=== PATIENT | male | born 1945 | race Caucasian/White ===

== ENCOUNTER 2016-07-28 15:23 | Observation (INO) | payer OTHER ==
[~2016-07-28] VITALS: Ht 170.2 cm; Wt 69.3 kg
[2016-07-28] VITALS (10 sets, daily range): BP systolic 144–193; BP diastolic 59–78; PULSE 68–87; RESP 16–20; TEMP 97–98.7; O2SAT 97–99
[~2016-07-28 15:23] MED LIST: CIPR500T4 PO; LISI-366 PO; SIMV40TA PO; cholesterol med
--- NOTE | 2016-07-28 16:15 | PD ---
HPI Chief Complaint: Chest Pain Time Seen by Provider: 16:07 Travel History International Travel<30 days: No Contact w/Intl Traveler<30days: No Traveled to known affect area: No History of Present Illness HPI 70yo M with PMH of HTN, HLD, CKD, COPD, CAD s/p cardiac stent x7, bypass, anemia , rectal CA s/p resection and colostomy bag presents to the ED with c/o midsternal chest pain for 1 day. States it is nonradiating, located in xyphoid symphysis region, waxes and wanes in intensity and started while he was sitting down. Pain is about a 5 out of 10 now. Denies any sob, fever, cough, n/v, abdominal pain, blood in stool, or urinary complaints. Pt had taken 2 aspirin 81mg today. Pt last had cardiac stent about 10 years ago and does not have a hospice clinical supervisor he follows with. Pt states it has been a while since he had chest pain. Pt was instructed to come to ED for evaluation of low hemoglobin about 1 month ago but never came. PFSH Past Medical History Arthritis: Yes Asthma: No Autoimmune Disease: No Blood Disorders: Yes (ANEMIC) Heart Rhythm Problems: Yes Cancer: Yes (rectal) Cardiac Catheterization: Yes Cardiovascular Problems: Yes High Cholesterol: Yes Chemotherapy: Yes Chest Pain: Yes Congestive Heart Failure: Yes (1990) COPD: No Cerebrovascular Accident: Yes Coronary Artery Disease: Yes Diabetes: No Diminished Hearing: No Endocrine: No Gastrointestinal Disorders: Yes (hx of stomach vein rupture) GERD: Yes Genitourinary: Yes Headaches: No Hepatitis: No Hiatal Hernia: No Hypertension: Yes Immune Disorder: No Implanted Vascular Access Dvce: No Kidney Stones: No Musculoskeletal: No Neurologic: Yes (stroke) Psychiatric: No Reproductive: No Respiratory: No Immunizations Current: No Migraines: No Myocardial Infarction: Yes Radiation Therapy: Yes Renal Failure: No Seizures: No Sleep Apnea: No Thyroid Disease: No Ulcer: No Influenza Vaccination: Yes Past Surgical History Abdominal Surgery: Yes (rectal cancer) Body Medical Devices: COLOSTOMY Cardiac Surgery: Yes (triple by pass) Coronary Artery Bypass Graft: Yes (TRIPLE) Coronary Stent: Yes (5) Ear Surgery: No Endocrine Surgery: No Eye Surgery: No Genitourinary Surgery: Yes (COLOSTOMY R/T RECTAL CANCER) Gynecologic Surgery: No Neurologic Surgery: No Oral Surgery: No Pacemaker: No Thoracic Surgery: Yes (CABG) Other Surgery: Yes Social History Alcohol Use: Yes (DAILY) Tobacco Use: Yes (1ppd) Substance Use: No Allergies-Medications (Allergen,Severity, Reaction): Coded Allergies: No Known Allergies (Verified , 10/28/15) Reported Meds & Prescriptions Reported Meds & Active Scripts Active Cipro (Ciprofloxacin HCl) 500 Mg Tab 500 Mg PO BID 14 Days Reported [cholesterol med] Simvastatin 40 Mg Tab 40 Mg PO DAILY Lisinopril 40 mg (Lisinopril) 40 Mg Tab 40 Mg PO DAILY Review of Systems Except as stated in HPI: all other systems reviewed are Neg Physical Exam Narrative GENERAL: 70yo M not in distress. SKIN: Warm and dry. HEAD: Atraumatic. Normocephalic. EYES: Pupils equal and round. No scleral icterus. No injection or drainage. ENT: No nasal bleeding or discharge. Mucous membranes pink and moist. NECK: Trachea midline. No JVD. CARDIOVASCULAR: Regular rate and rhythm. No murmur appreciated. RESPIRATORY: No accessory muscle use. Mild crackles in right lower lung. GASTROINTESTINAL: Abdomen soft, non-tender, nondistended. No rebound tenderness or guarding. +Colostomy bag. MUSCULOSKELETAL: No obvious deformities. No clubbing. No cyanosis. No edema. NEUROLOGICAL: Awake and alert. No obvious cranial nerve deficits. Motor grossly within normal limits. Normal speech. PSYCHIATRIC: Appropriate mood and affect; insight and judgment normal. Data Data Last Documented VS Vital Signs Date Time Temp Pulse Resp B/P Pulse Ox O2 Delivery O2 Flow Rate FiO2 07/28/16 16:42 74 18 144/59 97 Room Air 07/28/16 15:25 98.7 Orders Basic Metabolic Panel (Bmp) (07/28/16 16:07) Ckmb (Isoenzyme) Profile (07/28/16 16:07) Complete Blood Count With Diff (07/28/16 16:07) Magnesium (Mg) (07/28/16 16:07) Troponin I (07/28/16 16:07) Lipase (07/28/16 16:07) Chest, Single Ap (07/28/16 16:07) Ecg Monitoring (07/28/16 16:07) Bilateral Bp Monitoring (07/28/16 16:07) Iv Access Insert/Monitor (07/28/16 16:07) Oximetry (07/28/16 16:07) Nitroglycerin Sl (Nitrostat Sl) (07/28/16 16:15) B-Type Natriuretic Peptide (07/28/16 16:07) CKMB (07/28/16 16:00) CKMB% (07/28/16 16:00) Electrocardiogram (07/28/16 15:26) Place In Observation (07/28/16 17:43) Activity Bed Rest With Brp (07/28/16 17:43) Vital Signs (Adult) Q4H (07/28/16 17:43) Cardiac Rhythm .As Directed (07/28/16:43) ^ Notify Dr: Other .PRN (07/28/16:43) ^ Notify Dr. Parameters (07/28/16:43) Resp Oxygen Nasal Cannula (07/28/16 ) Ckmb (Isoenzyme) Profile (07/28/16 19:43) Ckmb (Isoenzyme) Profile (07/28/16 22:43) Troponin I (07/28/16 19:43) Troponin I (07/28/16 22:43) Electrocardiogram (07/28/16 17:43) Electrocardiogram (07/28/16 20:43) ^ Obtain (07/28/16 17:43) Sodium Chloride 0.9% Flush (Ns Flush) (07/28/16 17:45) Sodium Chloride 0.9% Flush (Ns Flush) (07/28/16 21:00) Famotidine (Pepcid) (07/28/16 21:00) Nitroglycerin Sl (Nitrostat Sl) (07/28/16 17:45) Graphic Arts Instructor / Telemetry MAIDA.Q8H (07/28/16 17:43) Admit Order (Ed Use Only) (07/28/16 17:46) Labs Laboratory Tests Test 07/28/16 16:00 White Blood Count 8.7 TH/MM3 Red Blood Count 3.61 MIL/MM3 Hemoglobin 8.0 GM/DL Hematocrit 26.1 % Mean Corpuscular Volume 72.3 FL Mean Corpuscular Hemoglobin 22.3 PG Mean Corpuscular Hemoglobin 30.8 % Concent Red Cell Distribution Width 19.8 % Platelet Count 317 TH/MM3 Mean Platelet Volume 7.7 FL Neutrophils (%) (Auto) 81.0 % Lymphocytes (%) (Auto) 11.7 % Monocytes (%) (Auto) 4.9 % Eosinophils (%) (Auto) 1.9 % Basophils (%) (Auto) 0.5 % Neutrophils # (Auto) 7.1 TH/MM3 Lymphocytes # (Auto) 1.0 TH/MM3 Monocytes # (Auto) 0.4 TH/MM3 Eosinophils # (Auto) 0.2 TH/MM3 Basophils # (Auto) 0.0 TH/MM3 CBC Comment AUTO DIFF Differential Comment AUTO DIFF CONFIRMED Sodium Level 139 MEQ/L Potassium Level 4.0 MEQ/L Chloride Level 106 MEQ/L Carbon Dioxide Level 22.8 MEQ/L Anion Gap 10 MEQ/L Blood Urea Nitrogen 40 MG/DL Creatinine 2.20 MG/DL Estimat Glomerular Filtration 30 ML/MIN Rate Random Glucose 169 MG/DL Calcium Level 8.1 MG/DL Magnesium Level 2.4 MG/DL Total Creatine Kinase 102 U/L Creatine Kinase MB 0.8 NG/ML Troponin I LESS THAN 0.02 NG/ML B-Type Natriuretic Peptide 106 PG/ML Lipase 174 U/L [facility] Medical Decision Making Medical Screen Exam Complete: Yes Emergency Medical Condition: Yes Interpretation(s) EKG: NSR 76bpm. +PACs. Normal axis. ST depression V5-V6. TWI aVL. Differential Diagnosis Demand ischemia vs. ACS vs. symptomatic anemia vs. Pneumonia Narrative Course 70yo M here with midsternal chest pain. Pt has CAD s/p double bypass and 7 cardiac stents in . Pt has not had chest pain for a long time and denies any follow up or cardiac work up recently. Pt has history of anemia and GI bleed from AV. Pt had rectal cancer s/p colostomy bag and states his stool has been brown. Denies any blood or black or dark stool. Hemaprompt negative. Denies any hematemesis. Labs reviewed, no leukocytosis. H/H 8.0/26.1. MCV 72.3. BNP 106. Troponin negative. BUN/creatinine elevated at 40/2.20 which is at baseline. CXR showed mild interstitial and alveolar opacities seen in both bases. Hear size upper limits of normal. Median sternotomy. Suspected slight failure. Pt reevaluated at bedside after sublingual nitro and states chest pain has improved. Pt already took aspirin. Pt has significant CAD and has not had recent work up for chest pain. Discussed with Dr. Hill and accepted to her service for chest pain for serial EKG and cardiac enzyme. HemaPrompt Point of Care Internal Pos. & Neg. Controls: Passed Fecal Specimen Occult Blood: Negative Diagnosis Primary Impression: Chest pain Qualified Code: R07.9 - Chest pain, unspecified type Admitting Information Admitting Physician Requests: Observation Kendra Gastelum DO Jul 28, 2016 16:15
[2016-07-28 16:24] LABS: AUTOMATED NEUTROPHIL # 7.1 TH/MM3 (1.8-7.7); BASOPHIL % 0.5 % (0.0-2.0); EOSINOPHIL # 0.2 TH/MM3 (0-0.4); EOSINOPHIL % 1.9 % (0.0-4.0); HEMATOCRIT 26.1 % (39.0-51.0); LYMPH % 11.7 % (9.0-44.0); MEAN CELL VOLUME 72.3 FL (80.0-100.0); MEAN CORPUSCULAR HEMOGLOBIN 22.3 PG (27.0-34.0); MEAN CORPUSCULAR HGB CONC 30.8 % (32.0-36.0); MONO % 4.9 % (0.0-8.0); PLATELET COUNT 317 TH/MM3 (150-450); RED BLOOD COUNT 3.61 MIL/MM3 (4.50-5.90); RED CELL DISTRIBUTION WIDTH 19.8 % (11.6-17.2); WHITE BLOOD COUNT 8.7 TH/MM3 (4.0-11.0)
[2016-07-28] MEDS: NITROGLYCERIN 0.4 MG SL 25 TABS/BTL SL SCH ×3 (16:24→16:35)
--- NOTE | 2016-07-28 16:25 | RADHPO ---
EXAM DATE/TIME: 07/28/2016 16:16 [facility] COMPARISON: No previous studies available for comparison. INDICATIONS : Chest pain MEDICAL HISTORY : None. SURGICAL HISTORY : CABG. ENCOUNTER: Initial ACUITY: 1 day PAIN SCORE: 8/10 LOCATION: Bilateral chest FINDINGS: Mild interstitial and alveolar opacities are seen in both bases. Heart size upper limits of normal. N o large effusion. No pneumothorax. A shunt appeared as median sternotomy. CONCLUSION: Suspected slight failure. Naldo Noble MD on July 28, 2016 at 16:23 Board Certified Radiologist. This report was verified electronically.
[2016-07-28 16:30] LABS: CHLORIDE 106 MEQ/L (98-107); SODIUM (NA) 139 MEQ/L (136-145)
[2016-07-28 16:31] LABS: HEMO FLAGS AUTO DIFF
[2016-07-28 16:34] LABS: ANION GAP 10 MEQ/L (5-15); BICARBONATE 22.8 MEQ/L (21.0-32.0); BLOOD UREA NITROGEN 40 MG/DL (7-18); MAGNESIUM 2.4 MG/DL (1.5-2.5)
[2016-07-28 16:37] LABS: GLOMERULAR FILTRATION RATE 30 ML/MIN (>89)
[2016-07-28 16:40] LABS: CREATINE KINASE 102 U/L (39-308)
[2016-07-28 16:53] LABS: CKMB 0.8 NG/ML (0.5-3.6)
[2016-07-28 17:07] LABS: SCAN/DIFF AUTO DIFF CONFIRMED
[2016-07-28] MEDS ORDERED: SODIUM CHLORIDE 0.9% FLUSH 5 ML FLUSH IVF PRN (17:45)
[2016-07-28] MEDS ORDERED: NITROGLYCERIN 0.4 MG SL 25 TABS/BTL SL PRN (17:45)
[2016-07-28] MEDS ORDERED: GLUCAGON 1 MG/ML VIAL OTHER PRN (18:30)
[2016-07-28] MEDS ORDERED: DEXTROSE 50% IN WATER 50 ML VIAL(D50) IV PUSH PRN (18:30)
[2016-07-28 20:22] LABS: CREATINE KINASE 102 U/L (39-308)
[2016-07-28 20:35] LABS: CKMB 0.8 NG/ML (0.5-3.6)
[2016-07-28] MEDS: INSULIN NovoLIN REGULAR SUPPLEMENTAL SCALE SQ SCH (21:00)
[2016-07-28] MEDS: FAMOTIDINE 20 MG TAB PO SCH (21:18)
[2016-07-28] MEDS: SODIUM CHLORIDE 0.9% FLUSH 5 ML FLUSH IVF SCH (21:19)
[2016-07-28 23:47] LABS: CREATINE KINASE 92 U/L (39-308)
[2016-07-29] VITALS: BP 162/70; PULSE 81; RESP 18; TEMP 98.2; O2SAT 98
[2016-07-29 04:00] VITALS: BP 150/73; PULSE 83; RESP 18; TEMP 96.6; O2SAT 98
[2016-07-29] MEDS: INSULIN NovoLIN REGULAR SUPPLEMENTAL SCALE SQ SCH ×2 (06:10→11:00)
[2016-07-29 08:00] VITALS: BP 154/66; PULSE 65; RESP 20; TEMP 96.4; O2SAT 96
[2016-07-29] MEDS ORDERED: cloNIDine HCL 0.1 MG TAB PO PRN (08:45)
[2016-07-29] MEDS: FAMOTIDINE 20 MG TAB PO SCH ×2 (09:00→12:08)
--- NOTE | 2016-07-29 09:08 | HHI.HP ---
[facility] Service [place] [facility] Primary Care Physician Jose E Barry MD Admission Diagnosis Chest pain Diagnoses: (1) Atypical chest pain Diagnosis: Principal (2) Hypertensive urgency Diagnosis: Principal (3) Elevated random blood glucose level Diagnosis: Principal Chief Complaint: chest pain Travel History International Travel<30 Days: No Contact w/Intl Traveler <30 Da: No Traveled to Known Affected Are: No History of Present Illness 70-year-old male with history of CAD status post double bypass and 5 cardiac stents, A.Fib, hypertension, hyperlipidemia, CAD, COPD, chronic anemia since GI bleed, is admitted to chest pain center. Patient states that yesterday morning he was sitting down when he started experience pain over the xiphoid region of the sternum. He states it felt like a "ache" but he would have episodes of sharp pain. He states it was constant and lasted all day and only went away sometime last night. Patient was given 3 doses nitroglycerin in the ED and he denies relief with this medication. He denies any associated diaphoresis, numbness/tingling, shortness of breath or radiation of pain elsewhere. Denies chest pain or shortness of breath on exertion. Denies orthopnea. Denies leg swelling. He denies history of DVT or PE, recent hospitalization or surgeries in the last 12 weeks. Denies any regurgitation, abdominal pain, nausea, vomiting, or diarrhea. He denies any fevers or chills, cold or cough symptoms recently. Patient has a hemoglobin of 8.0 in the ED, but this is chronic. He states he's been anemic ever since he had a GI bleed in 2011. He denies any hemoptysis, hematochezia, or melena. He states he had some hematuria recently which has resolved but he's had dysuria since. He denies any further hematuria. Denies any flank pain. Denies any penile discharge. According to the EMR he was seen in the ED in October 2015 for cystitis with hematuria. Patient last saw his PCP Jose E Barry 6 months ago. Patient has had a total of 7 or 8 MIs with the first in 1990. He does not have a facetor and has not seen one since his last DE which was 10-15 years ago. Patient continues to smoke cigarettes. Review of Systems Constitutional: DENIES: Diaphoretic episodes, Fever, Chills, Dizziness Eyes: DENIES: Blurred vision Ears, nose, mouth, throat: DENIES: Ear Pain, Running Nose Respiratory: DENIES: Cough, Hemoptysis Cardiovascular: COMPLAINS OF: Chest pain, DENIES: Palpitations Gastrointestinal: DENIES: Abdominal pain, Black stools, Bloody stools, Diarrhea , Nausea, Vomiting Genitourinary: COMPLAINS OF: Dysuria, DENIES: Hematuria, Penile Discharge Musculoskeletal: DENIES: Back pain, Neck pain Integumentary: DENIES: Rash Neurologic: DENIES: Headache, Paresthesias Past Family Social History Past Medical History CAD, multiple MIs A. Fib CVA 2004 CHF Hypertension Hyperlipidemia Chronic kidney disease Chronic anemia Upper GI bleed 2011 Rectal cancer GERD? 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 Father: of Alzheimer's disease Brother: of an "enlarged heart" at age 65. Social History Patient drinks a couple of beers daily. Smokes one half pack per day of cigarettes. Started smoking at age of 12-14. Denies illicit drug use. Physical Exam Vital Signs Vital Signs Date Time Temp Pulse Resp B/P Pulse Ox O2 Delivery O2 Flow Rate FiO2 07/29/16 04:00 96.6 83 18 150/73 98 07/29/16 00:00 98.2 81 18 162/70 98 07/28/16 20:30 66 20 170/71 98 07/28/16 20:15 97 21 07/28/16 20:15 97.0 69 18 166/69 98 07/28/16 20:00 84 07/28/16 19:11 68 20 160/59 99 07/28/16 19:11 20 98 07/28/16 16:42 74 18 144/59 97 Room Air 07/28/16 16:41 18 07/28/16 16:36 72 16 161/72 97 Room Air 07/28/16 16:32 72 157/72 155/70 07/28/16 16:31 72 16 157/72 97 Room Air 07/28/16 16:26 16 97 Room Air 07/28/16 15:57 20 07/28/16 15:25 98.7 87 20 193/78 Physical Exam GENERAL: This is a well-nourished, well-developed patient, in no apparent distress. SKIN: No rashes, ecchymoses or lesions. Warm and dry. Sternotomy scar noted. HEAD: Atraumatic. Normocephalic. EYES: No scleral icterus. No injection or drainage. NECK: Trachea midline. No JVD. CHEST: No reproducible tenderness over the sternum. CARDIOVASCULAR: Regular rate and rhythm. Grade 2 murmur noted. RESPIRATORY: Clear to auscultation. Breath sounds equal bilaterally. No wheezes , rales, or rhonchi. GASTROINTESTINAL: Abdomen soft, non-tender, nondistended. MUSCULOSKELETAL: No lower extremity edema bilaterally. NEUROLOGICAL: Awake and alert. Motor grossly within normal limits.Normal speech. PSYCHIATRIC: Normal mood and affect. Laboratory Laboratory Tests Test 07/28/16 07/28/16 07/28/16 16:00 19:25 22:45 White Blood Count 8.7 Red Blood Count 3.61 Hemoglobin 8.0 Hematocrit 26.1 Mean Corpuscular Volume 72.3 Mean Corpuscular Hemoglobin 22.3 Mean Corpuscular Hemoglobin 30.8 Concent Red Cell Distribution Width 19.8 Platelet Count 317 Mean Platelet Volume 7.7 Neutrophils (%) (Auto) 81.0 Lymphocytes (%) (Auto) 11.7 Monocytes (%) (Auto) 4.9 Eosinophils (%) (Auto) 1.9 Basophils (%) (Auto) 0.5 Neutrophils # (Auto) 7.1 Lymphocytes # (Auto) 1.0 Monocytes # (Auto) 0.4 Eosinophils # (Auto) 0.2 Basophils # (Auto) 0.0 CBC Comment AUTO DIFF Differential Comment AUTO DIFF CONFIRMED Sodium Level 139 Potassium Level 4.0 Chloride Level 106 Carbon Dioxide Level 22.8 Anion Gap 10 Blood Urea Nitrogen 40 Creatinine 2.20 Estimat Glomerular Filtration 30 Rate Random Glucose 169 Calcium Level 8.1 Magnesium Level 2.4 Total Creatine Kinase 102 102 92 Creatine Kinase MB 0.8 0.8 Troponin I LESS THAN 0.02 LESS THAN 0.02 LESS THAN 0.02 B-Type Natriuretic Peptide 106 Lipase 174 Result Diagram: 07/28/16 1600 07/28/16 1600 Imaging Last Impressions Chest X-Ray 07/28/16 1607 Signed Impressions: Service Date/Time: Thursday, July 28, 2016 16:16 - CONCLUSION: Suspected slight failure. Naldo Noble MD Assessment and Plan Assessment and Plan 70-year-old male with: Atypical chest pain: Ache over the xiphoid area with occasional sharpness constant resolved last night; no relief with nitroglycerin. Patient does have a significant cardiac history including several MIs, CABG, and multiple stents, HTN, HLD, and tobacco use. Troponin 3 less than 0.02. CK-MB normal. EKGs personally interpreted. EKG #1 with borderline first-degree AV block, PACs, and nonspecific lateral ST-T wave changes. EKG #2 with first-degree AV block MT 236 with nonspecific lateral T wave changes. EKG #3 with sinus arrhythmia with first degree AV block MT 232 again with nonspecific lateral T wave changes. -Chest x-ray personally interpreted; with mild interstitial and alveolar opacities at the bases, suspected slight failure. BNP is just above normal. No clinical evidence of acute heart failure. -Continue 81 mg daily aspirin. Will not order more than this due to history of GI bleed. -[place]/morphine prn pain. Nitro provided no relief. -Lexiscan nuclear stress test ordered Hypertensive urgency: Patient states he no longer takes lisinopril daily to his kidney disease, but he cannot recall the name of medication he is currently taking. BP on arrival 193/78. Still elevated but improved this morning. -Clonidine prn SBP>160 or DBP>90 Elevated random blood glucose level: 169. Blood glucose level improved last night. -Monitor. Novolin as needed. Do not administer if NPO and blood glucose less than 200. CKD, Stage 3: BUN/Cr 40/2.20-->35/2.10. Creatinine is around baseline. -Avoid nephrotoxins Chronic anemia: Hemoglobin 8.0 in the ED. Repeat CBC this morning with hemoglobin of 8.4. Patient reports no active bleeding. HLD: Continue statin. Patient also has a history of A. fib and CVA, but he states he was not placed on anticoagulants due to history of GI bleed. Tobacco use: Patient was counseled extensively on risks of tobacco use including DE, CVA, lung cancer, PAD as well as options for cessation of which I advised him to discuss with his PCP. GI prophylaxis, h/o GI bleed: Pepcid 20 mg bid DVT prevention: TEDs/SCDs. Myocardial perfusion scan negative. It does show decreased activity at the lateral wall, but no ischemia. EF of 63%. Results discussed with patient. Discharge disposition: Home in stable condition. Patient's blood pressure is elevated but he takes medication at home which he could not recall so it was not restarted here. He is advised to take it when he gets home. Diet: Heart healthy, Renal, GERD. Activity: Regular Medications: Continue home medications which include Atorvastatin 80 mg and unknown BP med. Follow-up: PCP Jose E Barry 2-3 days. Patient is advised to obtain a facetor, but he states it is expensive. Discussed Condition With patient Stefanie Pena Jul 29, 2016 09:08
[2016-07-29 09:18] VITALS: O2SAT 98
[2016-07-29] MEDS: SODIUM CHLORIDE 0.9% FLUSH 5 ML FLUSH IVF SCH (09:26)
[2016-07-29] MEDS ORDERED: ASPI81CH CHEW (09:49)
[2016-07-29 09:51] LABS: AUTOMATED NEUTROPHIL # 4.9 TH/MM3 (1.8-7.7); BASOPHIL % 0.5 % (0.0-2.0); EOSINOPHIL # 0.4 TH/MM3 (0-0.4); EOSINOPHIL % 5.6 % (0.0-4.0); HEMATOCRIT 27.4 % (39.0-51.0); LYMPH % 15.2 % (9.0-44.0); MEAN CELL VOLUME 72.8 FL (80.0-100.0); MEAN CORPUSCULAR HEMOGLOBIN 22.4 PG (27.0-34.0); MEAN CORPUSCULAR HGB CONC 30.8 % (32.0-36.0); MONO % 6.6 % (0.0-8.0); NEUT % 72.1 % (16.0-70.0); PLATELET COUNT 333 TH/MM3 (150-450); RED BLOOD COUNT 3.77 MIL/MM3 (4.50-5.90); RED CELL DISTRIBUTION WIDTH 19.9 % (11.6-17.2); WHITE BLOOD COUNT 6.7 TH/MM3 (4.0-11.0)
[2016-07-29 09:52] LABS: HEMO FLAGS AUTO DIFF
[2016-07-29 09:58] LABS: POTASSIUM 4.2 MEQ/L (3.5-5.1)
[2016-07-29 10:01] LABS: BICARBONATE 25.4 MEQ/L (21.0-32.0)
[2016-07-29 10:13] LABS: SCAN/DIFF AUTO DIFF CONFIRMED
[2016-07-29] MEDS ORDERED: ASPIRIN 81 MG CHEW TAB CHEW SCH (11:00)
[2016-07-29 12:00] VITALS: BP 148/67; PULSE 70; RESP 20; TEMP 96.9; O2SAT 97
[2016-07-29] MEDS ORDERED: REGADENOSON INJ 0.4 MG/5 ML SYR IV ONE (13:11)
[2016-07-29] MEDS ORDERED: PILL SPLITTER OTHER PRN (13:45)
--- NOTE | 2016-07-29 14:34 | RADHPO ---
EXAM DATE/TIME: 07/29/2016 13:32 [place] Corrected on: July 29, 2016; [facility] COMPARISON: No previous studies available for comparison. INDICATIONS : Midsternal chest pain for 1 day. Abnormal EKG. Congestive heart failure. DOSE: 26.7 mCi Tc99m Myoview at stress. 8.8 mCi Tc99m Myoview at rest. 0.4 mg Lexiscan STRESS SYMPTOMS: Dyspnea and facial flush. EJECTION FRACTION: 63% MEDICAL HISTORY : Myocardial infarction. Hypercholesterolemia. Hypertension. Strke. Smoker. SURGICAL HISTORY : CABG Coronary artery stent. ENCOUNTER: Initial ACUITY: 1 day PAIN SCALE: 5/10 LOCATION: Midsternal chest TECHNIQUE: The patient underwent pharmacologic stress with infusion of prescribed dose. Continuous ECG tracing was monitored during stress. Gated SPECT imaging was performed after stress and conventional SPECT i maging was performed at rest. The examination was performed on a SPECT/CT scanner, both attenuation and non-corrected datasets were reviewed. FINDINGS: DISTRIBUTION: The maximum perfused segment at stress is in the anterior wall. PERFUSION STUDY: There is decreased activity on both the rest and stress images at the lateral wall. No areas of ische saturnino are seen. GATED STUDY: There is intact wall motion and thickening without hypokinetic or dyskinetic segments. CONCLUSION: No areas of ischemia are seen. RISK CATEGORY: Low (<1% Annual Mortality Rate) Naldo García MD on July 29, 2016 at 14:31 Board Certified Radiologist. This report was verified electronically. Naldo García MD on July 29, 2016 at 15:01 Board Certified Radiologist. This report was verified electronically.
--- NOTE | 2016-07-29 15:22 | EKG ---
Date Performed: 07/28/2016 Time Performed: 22:40:06 PTAGE: 70 years EKG: Sinus arrhythmia with 1st degree A-V block Consider left atrial abnormality Abnormal ECG PREVIOUS TRACING : 07/28/2016 19.13 Since previous tracing, no significant change noted DOCTOR: Alex Truong Interpretating Date/Time 07/29/2016 15:20:43
--- NOTE | 2016-07-29 15:24 | HHI.DCPOC ---
Discharge Care Plan Diagnosis: (1) Atypical chest pain (2) Hypertensive urgency (3) Elevated random blood glucose level Your Health Problems Are: Chest Pain Goals to Promote Your Health * To prevent worsening of your condition and complications * To maintain your health at the optimal level Directions to Meet Your Goals Take your medications as prescribed Follow your dietary instruction Follow activity as directed Keep your appointments as scheduled Take your immunizations and boosters as scheduled If your symptoms worsen call your PCP, if no PCP go to Urgent Care Center or Emergency Room Smoking is Dangerous to Your Health. Avoid second hand smoke Call the 24-hour hour crisis hotline for domestic abuse at Stefanie Pena Jul 29, 2016 15:24
--- NOTE | 2016-07-29 15:26 | EKG ---
Date Performed: 07/28/2016 Time Performed: 19:13:38 PTAGE: 70 years EKG: Sinus rhythm with 1st degree A-V block. Consider left atrial abnormality Abnormal ECG PREVIOUS TRACING : 07/28/2016 15.26 Since previous tracing, no significant change noted DOCTOR: Alex Truong Interpretating Date/Time 07/29/2016 15:24:17
--- NOTE | 2016-07-29 15:27 | EKG ---
Date Performed: 07/28/2016 Time Performed: 15:26:00 PTAGE: 70 years EKG: Sinus rhythm with PAC(s) with borderline 1st degree A-V block Lateral ST-T changes are nonspecific Borderline ECG Since PREVIOUS TRACING , no significant change noted DOCTOR: Alex Truong Interpretating Date/Time 07/29/2016 15:27:17
[2016-07-30] MEDS ORDERED: FAMOTIDINE 20 MG TAB PO SCH (09:00)
--- NOTE | 2016-08-14 14:37 | TR ---
Date Performed: 07/29/2016 Time Performed: 13:45:37 DOCTOR: Ifrah Piedra DRUG LIST: CLINICAL HISTORY: REASON FOR TEST: Chest pain REASON FOR ENDING: OBSERVATION: CONCLUSION: Lexiscan stress test was performed under standard four minute protocol. [place]ion[place] e was injected one minute prior to ending the test. No electrocardiographic abormalities were present to suggest ischemia. Nuclear imaging and interpretation are pending. COMMENTS:
== END 2016-07-29 15:57 | disposition home or self-care (01) ==
LOC: PHED 15:23 → PHEDA 17:48 → PH3B 20:22
PROVIDERS: ADMIT Hospitalist; ATTEND Hospitalist
DX: R07.89 Other chest pain (principal); I25.10 Atherosclerotic heart disease of native coronary artery without angina pectoris; I13.0 Hypertensive heart and chronic kidney disease with heart failure and stage 1 through stage 4 chronic kidney disease, or unspecified chronic kidney disease; N18.3 Chronic kidney disease, stage 3 (moderate); J44.9 Chronic obstructive pulmonary disease, unspecified; E78.5 Hyperlipidemia, unspecified; I50.9 Heart failure, unspecified; K21.9 Gastro-esophageal reflux disease without esophagitis; E78.00 Pure hypercholesterolemia, unspecified; I25.2 Old myocardial infarction; I16.0 Hypertensive urgency; I48.91 Unspecified atrial fibrillation; R73.9 Hyperglycemia, unspecified; F17.210 Nicotine dependence, cigarettes, uncomplicated; M19.90 Unspecified osteoarthritis, unspecified site; D64.9 Anemia, unspecified; Z95.1 Presence of aortocoronary bypass graft; Z95.5 Presence of coronary angioplasty implant and graft; Z93.3 Colostomy status; Z86.73 Personal history of transient ischemic attack (TIA), and cerebral infarction without residual deficits; Z85.048 Personal history of other malignant neoplasm of rectum, rectosigmoid junction, and anus; Z79.82 Long term (current) use of aspirin
CPT/HCPCS: 71010; 78452; 80048; 82550; 82552; 82948; 83690; 83735; 83880; 84484; 85025; 93005; 93017; 99285; A9502; G0378; J2785

== ENCOUNTER 2017-01-09 18:21 | Emergency (ER) | payer OTHER ==
[~2017-01-09] VITALS: Ht 170.2 cm; Wt 67.5 kg
[~2017-01-09 18:21] MED LIST changes: +ASPI81CH CHEW; -CIPR500T4 PO; -LISI-366 PO; -SIMV40TA PO
[2017-01-09 18:36] VITALS: BP 178/77; PULSE 82; RESP 18; TEMP 98; O2SAT 99
--- NOTE | 2017-01-09 19:23 | PD ---
HPI Chief Complaint: unable to urinate, bloody urine Time Seen by Provider: 19:12 Travel History International Travel<30 days: No Contact w/Intl Traveler<30days: No Traveled to known affect area: No History of Present Illness HPI The patient is a 71-year-old male that has had hematuria for over a year. He has never seen a urologist about this. He does have a history of rectal cancer and has a colostomy. He states that since 11 AM he is unable to urinate. He feels extremely distended in the bladder. PFSH Past Medical History Arthritis: Yes Asthma: No Autoimmune Disease: No Blood Disorders: Yes (ANEMIC) Heart Rhythm Problems: Yes Cancer: Yes (rectal) Cardiac Catheterization: Yes Cardiovascular Problems: Yes High Cholesterol: Yes Chemotherapy: Yes Chest Pain: Yes Congestive Heart Failure: Yes (1990) COPD: No Cerebrovascular Accident: Yes Coronary Artery Disease: Yes Diabetes: No Diminished Hearing: No Endocrine: No Gastrointestinal Disorders: Yes (hx of stomach vein rupture) GERD: Yes Genitourinary: Yes Headaches: No Hepatitis: No Hiatal Hernia: No Hypertension: Yes Immune Disorder: No Implanted Vascular Access Dvce: No Kidney Stones: No Musculoskeletal: Yes Neurologic: Yes (stroke) Psychiatric: No Reproductive: No Respiratory: No Immunizations Current: No Migraines: No Myocardial Infarction: Yes Radiation Therapy: Yes Renal Failure: No Seizures: No Sleep Apnea: No Thyroid Disease: No Ulcer: No Past Surgical History Abdominal Surgery: Yes (rectal cancer) Body Medical Devices: COLOSTOMY Cardiac Surgery: Yes (triple by pass) Coronary Artery Bypass Graft: Yes (TRIPLE) Coronary Stent: Yes (5) Ear Surgery: No Endocrine Surgery: No Eye Surgery: No Genitourinary Surgery: Yes (COLOSTOMY R/T RECTAL CANCER) Gynecologic Surgery: No Neurologic Surgery: No Oral Surgery: No Pacemaker: No Thoracic Surgery: Yes (CABG) Other Surgery: Yes Social History Alcohol Use: Yes (DAILY) Tobacco Use: Yes (1ppd) Substance Use: No Allergies-Medications (Allergen,Severity, Reaction): Coded Allergies: No Known Allergies (Verified , 01/09/17) Reported Meds & Prescriptions Reported Meds & Active Scripts Active Reported Omeprazole 40 Mg Cap 40 Mg PO DAILY Atorvastatin (Atorvastatin Calcium) 80 Mg Tab 80 Mg PO HS Aspirin 81 Mg Chew 81 Mg CHEW DAILY Review of Systems Except as stated in HPI: all other systems reviewed are Neg Physical Exam Narrative GENERAL: The patient is alert, oriented 3 and moderate to severe distress with his bladder distention. His vital signs show blood pressure 178/77 but otherwise normal. SKIN: Focused skin assessment warm/dry. HEAD: Atraumatic. Normocephalic. EYES: Pupils equal and round. No scleral icterus. No injection or drainage. ENT: No nasal bleeding or discharge. Mucous membranes pink and moist. NECK: Trachea midline. No JVD. CARDIOVASCULAR: Regular rate and rhythm. No murmur appreciated. RESPIRATORY: No accessory muscle use. Clear to auscultation. Breath sounds equal bilaterally. GASTROINTESTINAL: Abdomen soft, non-tender except for the bladder which is tender, nondistended except for bladder which is extremely distended. Hepatic and splenic margins not palpable. MUSCULOSKELETAL: No obvious deformities. No clubbing. No cyanosis. No edema. NEUROLOGICAL: Awake and alert. No obvious cranial nerve deficits. Motor grossly within normal limits. Normal speech. PSYCHIATRIC: Appropriate mood and affect; insight and judgment normal. Data Data Last Documented VS Vital Signs Date Time Temp Pulse Resp B/P (MAP) Pulse Ox O2 Delivery O2 Flow Rate FiO2 01/09/17 20:16 85 20 01/09/17 18:36 98.0 178/77 (110) 99 Orders Orders Complete Blood Count With Diff (01/09/17 19:12) Basic Metabolic Panel (Bmp) (01/09/17 19:12) Urinalysis - C+S If Indicated (01/09/17 19:12) Urinary Catheter Insert/Apply (01/09/17 19:18) Bladder/Catheter Irrigation (01/09/17 19:38) Urine Culture (01/09/17 19:30) Labs Laboratory Tests Test 01/09/17 19:30 01/09/17 20:00 Urine Color RED Urine Turbidity CLOUDY Urine pH 6.0 Urine Specific [place] 1.013 Urine Protein 300 OR GREATER mg/dL Urine Glucose (UA) NEG mg/dL Urine Ketones NEG mg/dL Urine Occult Blood LARGE Urine Nitrite NEG Urine Bilirubin NEG Urine Leukocyte Esterase NEG Urine RBC INNUM /hpf Urine WBC 9-14 /hpf Urine Squamous Epithelial Cells 6-8 /hpf Urine Amorphous Sediment LARGE Urine Bacteria OCC /hpf Microscopic Urinalysis Comment CULTURE INDICATED White Blood Count 7.9 TH/MM3 Red Blood Count 3.21 MIL/MM3 Hemoglobin 7.9 GM/DL Hematocrit 25.0 % Mean Corpuscular Volume 78.0 FL Mean Corpuscular Hemoglobin 24.6 PG Mean Corpuscular Hemoglobin Concent 31.5 % Red Cell Distribution Width 19.6 % Platelet Count 285 TH/MM3 Mean Platelet Volume 6.9 FL Neutrophils (%) (Auto) 74.4 % Lymphocytes (%) (Auto) 15.0 % Monocytes (%) (Auto) 6.5 % Eosinophils (%) (Auto) 3.6 % Basophils (%) (Auto) 0.5 % Neutrophils # (Auto) 5.9 TH/MM3 Lymphocytes # (Auto) 1.2 TH/MM3 Monocytes # (Auto) 0.5 TH/MM3 Eosinophils # (Auto) 0.3 TH/MM3 Basophils # (Auto) 0.0 TH/MM3 CBC Comment AUTO DIFF Differential Comment AUTO DIFF CONFIRMED Platelet Estimate NORMAL Platelet Morphology Comment NORMAL Ovalocytes 1+ Acanthocytes 1+ Blood Urea Nitrogen 42 MG/DL Creatinine 3.40 MG/DL Random Glucose 140 MG/DL Calcium Level 8.4 MG/DL Sodium Level 139 MEQ/L Potassium Level 4.3 MEQ/L Chloride Level 108 MEQ/L Carbon Dioxide Level 22.8 MEQ/L Anion Gap 8 MEQ/L Estimat Glomerular Filtration Rate 18 ML/MIN [facility] Medical Decision Making Medical Screen Exam Complete: Yes Emergency Medical Condition: Yes Medical Record Reviewed: Yes Interpretation(s) The CBC shows a hemoglobin of 7.9 with hematocrit of 25. This is similar to use July values which were hemoglobin of 8 and 8.4. The basic metabolic profile shows a creatinine of 3.4 with BUN of 42 and GFR of 18. This is slightly worse than his July values. The urine is grossly bloody, red and cloudy. 300 or greater protein is present and there is a large amount of blood and innumerable red cells with 9-14 white cells. Culture is indicated. Differential Diagnosis Hematuria, urethral obstruction from clot, urethral obstruction from enlarged prostate urinary tract infectioncystitis Narrative Course The patient has gross hematuria with clots. It is likely that the clots caused the urethral obstruction. We irrigated the bladder until all clots were evacuated and he has a light pink urine at this time. The patient states the bleeding is not as bad as it was but we will leave the catheter in until he sees the urologist. The patient thinks he has an appointment with urologist in about 5 days. He is told to call urologist to see if this can be moved up. The patient was told that we can remove the catheter at this time but he stands a chance of being obstructed again by clots. He elected not to have the catheter removed because he does not want to have to do this again. The number of white cells in the urine may correspond to the natural number that was contained in the blood. Nevertheless, we will put the patient on Cipro as he may have a urinary tract infection. Diagnosis Primary Impression: Urethral obstruction Additional Impressions: Hematuria, gross Cystitis Additional Instructions: Call the urologist to see if you can get an earlier appointment. If the catheter becomes to uncomfortable we can remove it. This will risk an obstruction again and necessitate another Zhao catheter being put in. Med/Other Pt SpecificInfo: Prescription(s) given Scripts Ciprofloxacin (Cipro) 500 Mg Tab 500 MG PO BID for Infection for 10 Days, TAB 0 Refills Prov: Michele Jarvis MD 01/09/17 Disposition: 01 DISCHARGE HOME Condition: Stable Michele Jarvis MD Jan 09, 2017 19:23
[2017-01-09 19:53] LABS: BLOOD, URINE LARGE (NEG); GLUCOSE,URINE NEG (NEG); KETONE, URINE NEG (NEG); NITRITE,URINE NEG (NEG)
[2017-01-09 19:54] LABS: URINE COLOR RED (YELLW/STRAW)
[2017-01-09 19:55] LABS: BACTERIA, URINE OCC /hpf; COMMENT (UR) CULTURE INDICATED; CULTURE IF INDICATED CULTURE INDICATED; RBC, URINE INNUM /hpf (0-3)
[2017-01-09 20:10] LABS: AUTOMATED NEUTROPHIL # 5.9 TH/MM3 (1.8-7.7); BASOPHIL % 0.5 % (0.0-2.0); EOSINOPHIL # 0.3 TH/MM3 (0-0.4); EOSINOPHIL % 3.6 % (0.0-4.0); LYMPHOCYTE # 1.2 TH/MM3 (1.0-4.8); MEAN CORPUSCULAR HEMOGLOBIN 24.6 PG (27.0-34.0); MEAN CORPUSCULAR HGB CONC 31.5 % (32.0-36.0); MONO % 6.5 % (0.0-8.0); NEUT % 74.4 % (16.0-70.0); PLATELET COUNT 285 TH/MM3 (150-450); RED BLOOD COUNT 3.21 MIL/MM3 (4.50-5.90); RED CELL DISTRIBUTION WIDTH 19.6 % (11.6-17.2); WHITE BLOOD COUNT 7.9 TH/MM3 (4.0-11.0)
[2017-01-09 20:19] LABS: POTASSIUM 4.3 MEQ/L (3.5-5.1)
[2017-01-09 20:22] LABS: BICARBONATE 22.8 MEQ/L (21.0-32.0)
[2017-01-09] MEDS ORDERED: ATOR1TAB18 PO (20:24)
[2017-01-09] MEDS ORDERED: OMEP40CA2 PO (20:24)
[2017-01-09 20:26] LABS: HEMO FLAGS AUTO DIFF
[2017-01-09 20:49] LABS: ACANTHOCYTES 1+ (NORMAL); OVALOCYTES 1+ (NORMAL); PLATELET ESTIMATE SMEAR NORMAL (NORMAL)
[2017-01-09 20:50] LABS: PLATELET MORPHOLOGY NORMAL (NORMAL); SCAN/DIFF AUTO DIFF CONFIRMED
[2017-01-09] MEDS ORDERED: CIPR-9 PO (21:17)
[2017-01-09] MEDS ORDERED: CIPROFLOXACIN 500 MG TAB PO ONE (21:30)
[2017-01-09 22:00] VITALS: BP 164/72
== END 2017-01-09 22:50 | disposition home or self-care (01) ==
LOC: PHED 18:21
DX: N36.8 Other specified disorders of urethra (principal); N30.91 Cystitis, unspecified with hematuria; I11.0 Hypertensive heart disease with heart failure; I50.9 Heart failure, unspecified; I25.10 Atherosclerotic heart disease of native coronary artery without angina pectoris; I25.2 Old myocardial infarction; K21.9 Gastro-esophageal reflux disease without esophagitis; Z85.048 Personal history of other malignant neoplasm of rectum, rectosigmoid junction, and anus; Z86.73 Personal history of transient ischemic attack (TIA), and cerebral infarction without residual deficits; Z93.3 Colostomy status; Z95.1 Presence of aortocoronary bypass graft; Z95.5 Presence of coronary angioplasty implant and graft; F17.210 Nicotine dependence, cigarettes, uncomplicated
CPT/HCPCS: 51700; 80048; 81001; 85025; 87086

== ENCOUNTER 2017-01-10 05:44 | Emergency (ER) | payer OTHER ==
[~2017-01-10] VITALS: Ht 170.2 cm; Wt 66.0 kg
[~2017-01-10 05:44] MED LIST changes: +ATOR1TAB18 PO; +CIPR-9 PO; +OMEP40CA2 PO; -cholesterol med
[2017-01-10 05:50] VITALS: BP 180/71; PULSE 112; RESP 20; TEMP 98.6; O2SAT 98
[2017-01-10 05:52] VITALS: BP 180/71; PULSE 112; RESP 20; TEMP 98.6; O2SAT 98
[2017-01-10 06:07] VITALS: BP 144/72
--- NOTE | 2017-01-10 06:09 | PD ---
HPI Chief Complaint: Complaint Time Seen by Provider: 05:59 Travel History International Travel<30 days: No Contact w/Intl Traveler<30days: No Traveled to known affect area: No History of Present Illness HPI The patient is a 71-year-old male that earlier tonight came in because his urethra was obstructed by clots. He had hematuria and his clots were irrigated. He has had only slightly blood-tinged urine since. The catheter was left in but he was told that at any time he could have it out with the risk that he could get it stopped up again with clots. It appears that his bleeding has diminished and clots obstructing the urethra are less likely at this time. He comes in tonight stating that he is leaking around the catheter. The patient has considerable discomfort with the catheter and and he wants it out. He knows that there is a risk that his urethra can obstruct again. PFSH Past Medical History Anemia: Yes Arthritis: Yes Asthma: No Autoimmune Disease: No Blood Disorders: Yes Heart Rhythm Problems: Yes Cancer: Yes Cardiac Catheterization: Yes Cardiovascular Problems: Yes High Cholesterol: Yes Chemotherapy: Yes Chest Pain: Yes Congestive Heart Failure: Yes COPD: No Cerebrovascular Accident: Yes Coronary Artery Disease: Yes Diabetes: No Diminished Hearing: No Endocrine: No Gastrointestinal Disorders: Yes GERD: Yes Genitourinary: Yes Headaches: No Hepatitis: No Hiatal Hernia: No Hypertension: Yes Immune Disorder: No Implanted Vascular Access Dvce: No Kidney Stones: No Musculoskeletal: Yes Neurologic: Yes Psychiatric: No Reproductive: No Respiratory: No Immunizations Current: No Migraines: No Myocardial Infarction: Yes Radiation Therapy: Yes Renal Failure: Yes (STAGE 4 KIDNEY DISEASE) Seizures: No Sleep Apnea: No Thyroid Disease: No Ulcer: No Past Surgical History Abdominal Surgery: Yes (RECTAL CA) Body Medical Devices: COLOSTOMY Cardiac Surgery: Yes Coronary Artery Bypass Graft: Yes (TRIPLE) Coronary Stent: Yes (5) Ear Surgery: No Endocrine Surgery: No Eye Surgery: No Genitourinary Surgery: Yes (COLOSTOMY R/T RECTAL CANCER) Gynecologic Surgery: No Neurologic Surgery: No Oral Surgery: No Pacemaker: No Thoracic Surgery: Yes (CABG) Other Surgery: Yes Social History Alcohol Use: Yes (DAILY) Tobacco Use: Yes (1/2 PPD) Substance Use: No Allergies-Medications (Allergen,Severity, Reaction): Coded Allergies: No Known Allergies (Verified , 01/09/17) Reported Meds & Prescriptions Reported Meds & Active Scripts Active Cipro (Ciprofloxacin HCl) 500 Mg Tab 500 Mg PO BID 10 Days Reported Omeprazole 40 Mg Cap 40 Mg PO DAILY Atorvastatin (Atorvastatin Calcium) 80 Mg Tab 80 Mg PO HS Aspirin 81 Mg Chew 81 Mg CHEW DAILY Review of Systems Except as stated in HPI: all other systems reviewed are Neg Physical Exam Narrative GENERAL: Well-nourished, well-developed patient in slight apparent distress with his catheter discomfort. SKIN: Focused skin assessment warm/dry. HEAD: Normocephalic. EYES: No scleral icterus. No injection or drainage. NECK: Supple, trachea midline. No JVD or lymphadenopathy. CARDIOVASCULAR: Regular rate and rhythm without murmurs, gallops, or rubs. RESPIRATORY: Breath sounds equal bilaterally. No accessory muscle use. GASTROINTESTINAL: Abdomen soft, non-tender, nondistended. The bladder is not distended or tender. The patient has a colostomy. MUSCULOSKELETAL: No cyanosis, or edema. BACK: Nontender without obvious deformity. No CVA tenderness. GENITOURINARY: Circumcised. Testes descended bilaterally without evidence of rotation. No lesions or erythema. No urethral discharge. The urine is slightly bloody in the urine bag, it is possible Data Data Last Documented VS Vital Signs Date Time Temp Pulse Resp B/P (MAP) Pulse Ox O2 Delivery O2 Flow Rate FiO2 01/10/17 05:56 20 01/10/17 05:52 98.6 112 180/71 (107) 98 MDM Medical Decision Making Medical Screen Exam Complete: Yes Emergency Medical Condition: Yes Medical Record Reviewed: Yes Differential Diagnosis Catheter obstruction, leakage around the catheter Narrative Course There is no evidence that the catheter is obstructed. There were no clots in the catheter this appears to be simple leakage around the catheter. The urine is slightly tinged with blood in it is possible read newsprint through the catheter tubing. At this time the patient has considerable discomfort and the likelihood that his urethra will be obstructed by clots again is low. It is possible however and the patient knows he will return if he has another urethral obstruction. Diagnosis Primary Impression: Malfunction of Zhao catheter Additional Instructions: I hope I don't see you back again for a urethral obstruction that we are here if this happens again. Follow-up with the urologist as soon as possible. Disposition: 01 DISCHARGE HOME Condition: Stable Michele Jarvis MD Jan 10, 2017 06:09
== END 2017-01-10 06:20 | disposition home or self-care (01) ==
LOC: PHED 05:44
DX: T83.091A Other mechanical complication of indwelling urethral catheter, initial encounter (principal); Y73.8 Miscellaneous gastroenterology and urology devices associated with adverse incidents, not elsewhere classified; I11.0 Hypertensive heart disease with heart failure; I50.9 Heart failure, unspecified; I25.10 Atherosclerotic heart disease of native coronary artery without angina pectoris; I25.2 Old myocardial infarction; K21.9 Gastro-esophageal reflux disease without esophagitis; Z86.73 Personal history of transient ischemic attack (TIA), and cerebral infarction without residual deficits; Z95.1 Presence of aortocoronary bypass graft; Z95.5 Presence of coronary angioplasty implant and graft
CPT/HCPCS: 99283

== ENCOUNTER 2017-01-13 12:49 | Emergency (ER) | payer OTHER ==
[~2017-01-13] VITALS: Ht 170.2 cm; Wt 64.5 kg
[2017-01-13 12:53] VITALS: BP 150/67; PULSE 89; RESP 16; TEMP 98; O2SAT 98
--- NOTE | 2017-01-13 13:20 | PD ---
HPI Chief Complaint: Complaint Time Seen by Provider: 13:03 Travel History International Travel<30 days: No Contact w/Intl Traveler<30days: No Traveled to known affect area: No History of Present Illness HPI This 71-year-old male is complaining of urinary retention. He's been unable to void. He has been passing blood and occasional clots. He has done this occasionally in the past. He has a history of rectal cancer he is a colostomy. The cancer surgery was in 1992. He was here a few days ago and had a catheter inserted. The catheter got blocked with clots and was taken out. He' s been voiding since then until today. He does have a history of anemia and his hemoglobin on his last visit was 7 PFSH Past Medical History Anemia: Yes Arthritis: Yes Asthma: No Autoimmune Disease: No Blood Disorders: Yes Heart Rhythm Problems: Yes Cancer: Yes Cardiac Catheterization: Yes Cardiovascular Problems: Yes High Cholesterol: Yes Chemotherapy: Yes Chest Pain: Yes Congestive Heart Failure: Yes COPD: No Cerebrovascular Accident: Yes Coronary Artery Disease: Yes Diabetes: No Diminished Hearing: No Endocrine: No Gastrointestinal Disorders: Yes GERD: Yes Genitourinary: Yes Headaches: No Hepatitis: No Hiatal Hernia: No Hypertension: Yes Immune Disorder: No Implanted Vascular Access Dvce: No Kidney Stones: No Musculoskeletal: Yes Neurologic: Yes Psychiatric: No Reproductive: No Respiratory: No Immunizations Current: No Migraines: No Myocardial Infarction: Yes Radiation Therapy: Yes Renal Failure: Yes (STAGE 4 KIDNEY DISEASE) Seizures: No Sleep Apnea: No Thyroid Disease: No Ulcer: No Influenza Vaccination: Yes ?: Not Past Surgical History Abdominal Surgery: Yes (RECTAL CA) Body Medical Devices: COLOSTOMY Cardiac Surgery: Yes Coronary Artery Bypass Graft: Yes (TRIPLE) Coronary Stent: Yes (5) Ear Surgery: No Endocrine Surgery: No Eye Surgery: No Genitourinary Surgery: Yes (COLOSTOMY R/T RECTAL CANCER) Gynecologic Surgery: No Neurologic Surgery: No Oral Surgery: No Pacemaker: No Thoracic Surgery: Yes (CABG) Other Surgery: Yes Social History Alcohol Use: Yes (DAILY) Tobacco Use: Yes (1/2 PPD) Substance Use: No Allergies-Medications (Allergen,Severity, Reaction): Coded Allergies: No Known Allergies (Verified , 01/13/17) Reported Meds & Prescriptions Reported Meds & Active Scripts Active Cipro (Ciprofloxacin HCl) 500 Mg Tab 500 Mg PO BID 10 Days Reported Omeprazole 40 Mg Cap 40 Mg PO DAILY Atorvastatin (Atorvastatin Calcium) 80 Mg Tab 80 Mg PO HS Aspirin 81 Mg Chew 81 Mg CHEW DAILY Review of Systems General / Constitutional: No: Fever, Chills Eyes: No: Diploplia Cardiovascular: No: Chest Pain or Discomfort, Palpitations Respiratory: No: Cough Gastrointestinal: No: Nausea, Vomiting Genitourinary: Positive: Hematuria, Decreased Urinary Output Musculoskeletal: No: Myalgias, Arthralgias Skin: No Rash Physical Exam Narrative GENERAL: Well developed male SKIN: Focused skin assessment warm/dry. HEAD: Atraumatic. Normocephalic. EYES: Pupils equal and round. No scleral icterus. No injection or drainage. ENT: No nasal bleeding or discharge. Mucous membranes pink and moist. NECK: Trachea midline. No JVD. CARDIOVASCULAR: Regular rate and rhythm. No murmur appreciated. RESPIRATORY: No accessory muscle use. Clear to auscultation. Breath sounds equal bilaterally. GASTROINTESTINAL: Abdomen soft, non-tender, nondistended. Hepatic and splenic margins not palpable. There is a colostomy in the left lower quadrant. There is suprapubic fullness and tenderness MUSCULOSKELETAL: No obvious deformities. No clubbing. No cyanosis. No edema. NEUROLOGICAL: Awake and alert. No obvious cranial nerve deficits. Motor grossly within normal limits. Normal speech. PSYCHIATRIC: Appropriate mood and affect; insight and judgment normal. Data Data Last Documented VS Vital Signs Date Time Temp Pulse Resp B/P (MAP) Pulse Ox O2 Delivery O2 Flow Rate FiO2 01/13/17 12:53 98.0 89 16 150/67 (94) 98 Orders Orders Urinary Catheter Insert/Apply (01/13/17 13:11) Complete Blood Count With Diff (01/13/17 13:16) Basic Metabolic Panel (Bmp) (01/13/17 13:16) Urinalysis - C+S If Indicated (01/13/17 13:16) Lidocaine 2% Jelly (Xylocaine 2% Jelly) (01/13/17 13:45) Labs Laboratory Tests Test 01/13/17 13:28 01/13/17 14:10 White Blood Count 7.7 TH/MM3 Red Blood Count 3.14 MIL/MM3 Hemoglobin 7.9 GM/DL Hematocrit 24.3 % Mean Corpuscular Volume 77.3 FL Mean Corpuscular Hemoglobin 25.1 PG Mean Corpuscular Hemoglobin Concent 32.5 % Red Cell Distribution Width 19.1 % Platelet Count 305 TH/MM3 Mean Platelet Volume 6.8 FL Neutrophils (%) (Auto) 74.5 % Lymphocytes (%) (Auto) 15.3 % Monocytes (%) (Auto) 6.7 % Eosinophils (%) (Auto) 3.0 % Basophils (%) (Auto) 0.5 % Neutrophils # (Auto) 5.8 TH/MM3 Lymphocytes # (Auto) 1.2 TH/MM3 Monocytes # (Auto) 0.5 TH/MM3 Eosinophils # (Auto) 0.2 TH/MM3 Basophils # (Auto) 0.0 TH/MM3 CBC Comment AUTO DIFF Differential Comment AUTO DIFF CONFIRMED Blood Urea Nitrogen 40 MG/DL Creatinine 3.30 MG/DL Random Glucose 106 MG/DL Calcium Level 8.6 MG/DL Sodium Level 141 MEQ/L Potassium Level 4.1 MEQ/L Chloride Level 111 MEQ/L Carbon Dioxide Level 21.8 MEQ/L Anion Gap 8 MEQ/L Estimat Glomerular Filtration Rate 18 ML/MIN [facility] Medical Decision Making Medical Screen Exam Complete: Yes Emergency Medical Condition: Yes Medical Record Reviewed: Yes Differential Diagnosis Differential includes UTI, hematuria and urinary retention Narrative Course Zhao catheter was inserted with improvement of his symptoms. CBC and basic metabolic profile are similar to previous values with chronic anemia at 7.9 and renal insufficiency Diagnosis Primary Impression: Hematuria Qualified Codes: R31.0 - Gross hematuria Additional Instructions: Return if catheter gets blocked Disposition: 01 DISCHARGE HOME Condition: Stable Jamil Ramirez MD Jan 13, 2017 13:20
[2017-01-13 13:34] LABS: AUTOMATED NEUTROPHIL # 5.8 TH/MM3 (1.8-7.7); BASOPHIL % 0.5 % (0.0-2.0); EOSINOPHIL # 0.2 TH/MM3 (0-0.4); HEMATOCRIT 24.3 % (39.0-51.0); LYMPH % 15.3 % (9.0-44.0); LYMPHOCYTE # 1.2 TH/MM3 (1.0-4.8); MEAN CELL VOLUME 77.3 FL (80.0-100.0); MEAN CORPUSCULAR HEMOGLOBIN 25.1 PG (27.0-34.0); MEAN CORPUSCULAR HGB CONC 32.5 % (32.0-36.0); MONO % 6.7 % (0.0-8.0); NEUT % 74.5 % (16.0-70.0); PLATELET COUNT 305 TH/MM3 (150-450); RED BLOOD COUNT 3.14 MIL/MM3 (4.50-5.90); RED CELL DISTRIBUTION WIDTH 19.1 % (11.6-17.2); WHITE BLOOD COUNT 7.7 TH/MM3 (4.0-11.0)
[2017-01-13 13:42] LABS: POTASSIUM 4.1 MEQ/L (3.5-5.1)
[2017-01-13 13:45] LABS: BICARBONATE 21.8 MEQ/L (21.0-32.0)
[2017-01-13] MEDS ORDERED: LIDOCAINE 2% JELLY 30 ML TUBE TOPICAL ONE (13:45)
[2017-01-13 13:50] LABS: HEMO FLAGS AUTO DIFF
[2017-01-13 14:06] LABS: SCAN/DIFF AUTO DIFF CONFIRMED
[2017-01-13 14:17] LABS: BLOOD, URINE LARGE (NEG); GLUCOSE,URINE NEG (NEG); KETONE, URINE NEG (NEG); NITRITE,URINE NEG (NEG)
[2017-01-13 14:22] LABS: METHOD OF COLLECTION CLEAN CATCH
[2017-01-13 14:23] LABS: URINE COLOR LIGHT-BROWN (YELLW/STRAW)
[2017-01-13 14:24] LABS: COMMENT (UR) CULT NOT INDICATED; CULTURE IF INDICATED CULT NOT INDICATED; RBC, URINE INNUM /hpf (0-3)
== END 2017-01-13 15:33 | disposition home or self-care (01) ==
LOC: PHED 12:49
DX: R31.0 Gross hematuria (principal); I12.9 Hypertensive chronic kidney disease with stage 1 through stage 4 chronic kidney disease, or unspecified chronic kidney disease; N18.4 Chronic kidney disease, stage 4 (severe); I25.10 Atherosclerotic heart disease of native coronary artery without angina pectoris
CPT/HCPCS: 43760; 80048; 81001; 85025

== ENCOUNTER 2017-04-19 17:41 | Inpatient (IN) | payer OTHER, MEDICARE ==
[~2017-04-19] VITALS: Ht 170.2 cm; Wt 62.8 kg
[~2017-04-19 17:41] MED LIST changes: +ASPI-516 CHEW; -ASPI81CH CHEW; -ATOR1TAB18 PO; +ATOR80TA45 PO
[2017-04-19 17:42] VITALS: BP 190/78; PULSE 89; RESP 18; TEMP 98.9; O2SAT 99
[2017-04-19] MEDS ORDERED: SODIUM CHLORIDE 0.9% FLUSH 10 ML FLUSH IV FLUSH PRN ×2 (18:30→20:15)
--- NOTE | 2017-04-19 18:35 | PD ---
HPI Chief Complaint: Complaint Time Seen by Provider: 18:18 Travel History International Travel<30 days: No Contact w/Intl Traveler<30days: No Traveled to known affect area: No History of Present Illness HPI 71-year-old male presents to the emergency department sent by his primary care physician for evaluation of elevated kidney function, hyperkalemia. Patient has no bladder mass. He states he is scheduled to have surgery by his urologist , Dr. Forrester later this month. Reports hematuria that is worsening. Patient reports lower suprapubic pain that has been ongoing. He reports chills, but no fevers. No chest pain or shortness of breath. According to last oncology no by Dr. Cox, patient is being considered for a TURBT seizure. He has history of iron deficiency anemia, B12 deficiency, hypertension, hyperlipidemia, GERD, history of colorectal cancer status post colectomy with colostomy bag, hypertension, COPD, chronic kidney disease. Patient states he had labs drawn this Saturday by his primary care physician, Dr. Barry, and was referred today to come the emergency department. Exacerbating or alleviating factors. Moderate severity. PFSH Past Medical History Anemia: Yes Arthritis: Yes Asthma: No Autoimmune Disease: No Blood Disorders: Yes Heart Rhythm Problems: Yes Cancer: Yes Cardiac Catheterization: Yes Cardiovascular Problems: Yes ([place]) High Cholesterol: Yes Chemotherapy: Yes Chest Pain: Yes Congestive Heart Failure: Yes COPD: No Cerebrovascular Accident: Yes Coronary Artery Disease: Yes Diabetes: No Diminished Hearing: No Endocrine: No Gastrointestinal Disorders: Yes GERD: Yes Genitourinary: Yes Headaches: No Hepatitis: No Hiatal Hernia: No Hypertension: Yes Immune Disorder: No Implanted Vascular Access Dvce: No Kidney Stones: No Musculoskeletal: Yes Neurologic: Yes Psychiatric: No Reproductive: No Respiratory: No Immunizations Current: No Migraines: No Myocardial Infarction: Yes Radiation Therapy: Yes Renal Failure: Yes (STAGE 4 KIDNEY DISEASE) Seizures: No Sleep Apnea: No Thyroid Disease: No Ulcer: No Past Surgical History Abdominal Surgery: Yes (RECTAL CA) Body Medical Devices: COLOSTOMY Cardiac Surgery: Yes Coronary Artery Bypass Graft: Yes (DOUBLE) Coronary Stent: Yes (5) Ear Surgery: No Endocrine Surgery: No Eye Surgery: No Genitourinary Surgery: Yes (COLOSTOMY R/T RECTAL CANCER) Gynecologic Surgery: No Neurologic Surgery: No Oral Surgery: No Pacemaker: No Thoracic Surgery: Yes (CABG) Other Surgery: Yes Social History Alcohol Use: Yes (DAILY) Tobacco Use: Yes (1/2 PPD) Substance Use: No Allergies-Medications (Allergen,Severity, Reaction): Coded Allergies: No Known Allergies (Verified Adverse Reaction, Unknown, 04/19/17) Reported Meds & Prescriptions Reported Meds & Active Scripts Active Reported Omeprazole 40 Mg Cap 40 Mg PO DAILY Atorvastatin (Atorvastatin Calcium) 80 Mg Tab 80 Mg PO HS Review of Systems Except as stated in HPI: all other systems reviewed are Neg Physical Exam Narrative GENERAL: Well-nourished, well-developed male patient, afebrile. SKIN: Focused skin assessment warm/dry. HEAD: Normocephalic. Atraumatic. EYES: No scleral icterus. No injection or drainage. NECK: Supple, trachea midline. No JVD or lymphadenopathy. CARDIOVASCULAR: Regular rate and rhythm without murmurs, gallops, or rubs. RESPIRATORY: Breath sounds equal bilaterally. No accessory muscle use. Lungs sounds are clear to auscultation. GASTROINTESTINAL: Abdomen soft and nondistended. Patient has suprapubic tenderness to palpation. Colostomy bag noted. MUSCULOSKELETAL: No cyanosis, or edema. BACK: Nontender without obvious deformity. No CVA tenderness. Data Data Last Documented VS Vital Signs Date Time Temp Pulse Resp B/P (MAP) Pulse Ox O2 Delivery O2 Flow Rate FiO2 04/19/17 19:25 96 19 178/76 (110) 99 Room Air 04/19/17 17:42 98.9 Orders Orders Complete Blood Count With Diff (04/19/17 18:18) Comprehensive Metabolic Panel (04/19/17 18:18) Lipase (04/19/17 18:18) Prothrombin Time / Inr (Pt) (04/19/17 18:18) Act Partial Throm Time (Ptt) (04/19/17 18:18) Urinalysis - C+S If Indicated (04/19/17 18:18) Ct Abd/Pel W/O Iv Contrast (04/19/17 18:18) Iv Access Insert/Monitor (04/19/17 18:18) Ecg Monitoring (04/19/17 18:18) Oximetry (04/19/17 18:18) Sodium Chloride 0.9% Flush (Ns Flush) (04/19/17 18:30) Electrocardiogram (04/19/17 18:18) Urine Culture (04/19/17 18:30) Sodium Chlor 0.9% 1000 Ml Inj (Ns 1000 M (04/19/17 19:15) Ceftriaxone Inj (Rocephin Inj) (04/19/17 19:45) Urinary Catheter Insert/Apply (04/19/17 19:32) Consult Urology (04/19/17 ) Admit Order (Ed Use Only) (04/19/17 19:47) Labs Laboratory Tests Test 04/19/17 18:30 04/19/17 18:36 Urine Color YELLOW Urine Turbidity CLEAR Urine pH 6.0 Urine Specific [place] 1.010 Urine Protein 100 mg/dL Urine Glucose (UA) NEG mg/dL Urine Ketones NEG mg/dL Urine Occult Blood LARGE Urine Nitrite NEG Urine Bilirubin NEG Urine Urobilinogen LESS THAN 2.0 MG/DL Urine Leukocyte Esterase TRACE Urine RBC /hpf Urine WBC 172 /hpf Urine WBC Clumps MANY Microscopic Urinalysis Comment CULTURE INDICATED White Blood Count 9.5 TH/MM3 Red Blood Count 3.02 MIL/MM3 Hemoglobin 8.5 GM/DL Hematocrit 25.7 % Mean Corpuscular Volume 85.1 FL Mean Corpuscular Hemoglobin 28.2 PG Mean Corpuscular Hemoglobin Concent 33.2 % Red Cell Distribution Width 24.5 % Platelet Count 234 TH/MM3 Mean Platelet Volume 7.8 FL Neutrophils (%) (Auto) 77.1 % Lymphocytes (%) (Auto) 11.1 % Monocytes (%) (Auto) 6.8 % Eosinophils (%) (Auto) 4.2 % Basophils (%) (Auto) 0.8 % Neutrophils # (Auto) 7.4 TH/MM3 Lymphocytes # (Auto) 1.1 TH/MM3 Monocytes # (Auto) 0.6 TH/MM3 Eosinophils # (Auto) 0.4 TH/MM3 Basophils # (Auto) 0.1 TH/MM3 CBC Comment AUTO DIFF Differential Comment AUTO DIFF CONFIRMED Platelet Estimate NORMAL Platelet Morphology Comment NORMAL Spherocytes OCC Helmet Cells OCC Acanthocytes 1+ Prothrombin Time 10.9 SEC Prothromb Time International Ratio 1.1 RATIO Activated Partial Thromboplast Time 29.9 SEC Blood Urea Nitrogen 66 MG/DL Creatinine 8.86 MG/DL Random Glucose 86 MG/DL Total Protein 7.5 GM/DL Albumin 3.4 GM/DL Calcium Level 8.3 MG/DL Alkaline Phosphatase 121 U/L Aspartate Amino Transf (AST/SGOT) 9 U/L Alanine Aminotransferase (ALT/SGPT) 15 U/L Total Bilirubin 0.4 MG/DL Sodium Level 137 MEQ/L Potassium Level 5.4 MEQ/L Chloride Level 108 MEQ/L Carbon Dioxide Level 17.7 MEQ/L Anion Gap 11 MEQ/L Estimat Glomerular Filtration Rate 6 ML/MIN Lipase 110 U/L MDM Medical Decision Making Medical Screen Exam Complete: Yes Emergency Medical Condition: Yes Medical Record Reviewed: Yes Interpretation(s) CT abdomen/pelvis - CONCLUSION: 1. Extensive mural thickening of the posterior bladder characteristic of a history of bladder cancer. This likely results in obstruction of both distal ureters with moderate bilateral hydronephrosis. There is mild anasarca. Vascular calcifications present in both kidneys. 2. 6.4 x 3 cm lobulated mass extending from the prostatic bed into the right ischiorectal fossa. This may represent complex fluid. This may be related to prior surgery. Multiple surgical clips present in the lower posterior pelvis. 3. Extensive atherosclerotic vascular disease with pain in both iliac arteries. 4. Left lower anterior abdominal wall hernia containing several loops of small bowel without bowel obstruction. This could be the site of a previous ostomy. Differential Diagnosis Bladder mass versus obstruction versus hydronephrosis versus YASIR versus electrolyte abnormality Narrative Course 71-year-old male presents emergency department sent by his primary care physician for worsening renal function with known bladder mass. EKG, CBC, CMP, lipase, PTT, PT/INR, UA are ordered and pending. CT abdomen/pelvis without contrast is ordered and pending. EKG shows sinus rhythm, heart rate 88, no acute ST changes. CBC shows anemia with hemoglobin 8.5, hematocrit 25.7. CMP shows hyperkalemia 5.4, BUN 66, creatinine 8.86. Last evening creatinine was on January 13, 2017 and was 40/3.30. Coags show no acute abnormality. UA shows large occult blood , trace leukocyte esterase, 172 WBC, many WBC clumps. CT abdomen/pelvis shows extensive mural thickening of the posterior bladder characteristic of a history of bladder cancer. This likely results in obstruction of both distal ureters with moderate bilateral hydronephrosis. There is mild anasarca. Vascular calcifications present in both kidneys; 6.4 x 3 cm lobulated mass extending from the prostatic bed into the right ischiorectal fossa. This may represent complex fluid. This may be related to prior surgery. Multiple surgical clips present in the lower posterior pelvis; Extensive atherosclerotic vascular disease with pain in both iliac arteries; Left lower anterior abdominal wall hernia containing several loops of small bowel without bowel obstruction. This could be the site of a previous ostomy. Patient is given NS [address] Forrester is paged. Patient is given Rocephin 1 g IV. I spoke to Dr. Eagle who is on-call for Dr. Forrester. I discussed the case with him. He laid a Zhao catheter, 20 Congolese placed and patient started on antibiotics for UTI. He would like the patient to be admitted. Hospitalist was paged for admission. I spoke with the patient on getting Zhao catheter. However, he adamantly declines Zhao. I discussed with him the reasons that we wanted catheter placed and he is still adamantly declines a Zhao catheter. Dr. Mora accepted admission. Diagnosis Primary Impression: Bladder mass Additional Impressions: Acute renal failure (ARF) Qualified Codes: N17.9 - Acute kidney failure, unspecified Hyperkalemia Admitting Information Admitting Physician Requests: Admit Hamida Putnam Apr 19, 2017 18:35
[2017-04-19 18:38] VITALS: PULSE 77; RESP 18
[2017-04-19 18:49] LABS: AUTOMATED NEUTROPHIL # 7.4 TH/MM3 (1.8-7.7); BASOPHIL # 0.1 TH/MM3 (0-0.2); BASOPHIL % 0.8 % (0.0-2.0); EOSINOPHIL # 0.4 TH/MM3 (0-0.4); EOSINOPHIL % 4.2 % (0.0-4.0); HEMATOCRIT 25.7 % (39.0-51.0); HEMO FLAGS AUTO DIFF; LYMPH % 11.1 % (9.0-44.0); LYMPHOCYTE # 1.1 TH/MM3 (1.0-4.8); MEAN CELL VOLUME 85.1 FL (80.0-100.0); MEAN CORPUSCULAR HEMOGLOBIN 28.2 PG (27.0-34.0); MEAN CORPUSCULAR HGB CONC 33.2 % (32.0-36.0); MONO % 6.8 % (0.0-8.0); NEUT % 77.1 % (16.0-70.0); PLATELET COUNT 234 TH/MM3 (150-450); RED BLOOD COUNT 3.02 MIL/MM3 (4.50-5.90); RED CELL DISTRIBUTION WIDTH 24.5 % (11.6-17.2); WHITE BLOOD COUNT 9.5 TH/MM3 (4.0-11.0)
[2017-04-19 18:57] LABS: APTT (PATIENT) 29.9 SEC (24.3-30.1); INTERNATIONAL NORMALIZED RATIO 1.1 RATIO; PROTHROMBIN TIME - PATIENT 10.9 SEC (9.8-11.6)
[2017-04-19 19:01] LABS: BLOOD, URINE LARGE (NEG); COMMENT (UR) CULTURE INDICATED; CULTURE IF INDICATED CULTURE INDICATED; GLUCOSE,URINE NEG (NEG); KETONE, URINE NEG (NEG); NITRITE,URINE NEG (NEG); URINE COLOR YELLOW (YELLW/STRAW)
[2017-04-19 19:07] LABS: ANION GAP 11 MEQ/L (5-15); AST (GOT) 9 U/L (15-37); BICARBONATE 17.7 MEQ/L (21.0-32.0); BLOOD UREA NITROGEN 66 MG/DL (7-18); CHLORIDE 108 MEQ/L (98-107); GLOMERULAR FILTRATION RATE 6 ML/MIN (>89); POTASSIUM 5.4 MEQ/L (3.5-5.1); SODIUM (NA) 137 MEQ/L (136-145)
[2017-04-19 19:08] LABS: ALT (GPT) 15 U/L (12-78)
--- NOTE | 2017-04-19 19:09 | RADRPT ---
EXAM DATE/TIME: 04/19/2017 18:39 [facility] COMPARISON: No previous studies available for comparison. INDICATIONS : Abdominal pain with blood in urine. ORAL CONTRAST: No oral contrast ingested. RADIATION DOSE: 4.77 CTDIvol (mGy) MEDICAL HISTORY : Cerebrovascular disease. Cardiovascular disease Congestive heart failure.Bladder cancer, chemo rad t herapy, renal failure SURGICAL HISTORY : CABG ENCOUNTER: Initial ACUITY: 1 day PAIN SCALE: 6/10 LOCATION: middle groin pain TECHNIQUE: Volumetric scanning of the abdomen and pelvis was performed. Using automated exposure control and ad justment of the mA and/or kV according to patient size, radiation dose was kept as low as reasonably achievable to obtain optimal diagnostic quality images. DICOM format image data is available electro nically for review and comparison. FINDINGS: Lung bases are clear. No acute findings in the liver, spleen, adrenals or pancreas. There is moderate bilateral hydronephrosis with the ureters dilated bilaterally down to the level of the bladder. There is fairly marked thickening of the posterior bladder wall. Multiple surgical clips present in the prostatic bed. There is a lobulated mass in the lower right pelvis extending into the ischiorectal fossa measuring u p to 6.4 cm in length and 3 cm in diameter. Mass appears to contain complex fluid. There is mild anasarca. Calcified gallstone present in the gallbladder neck. Gallbladder is not diste nded. No biliary ductal dilatation. There is a ventral hernia containing several loops of small bowel in the left lower anterior abdominal wall possibly at the site of the previous ostomy. CONCLUSION: 1. Extensive mural thickening of the posterior bladder characteristic of a history of bladder cancer. This likely results in obstruction of both distal ureters with moderate bilateral hydronephrosis. Th ere is mild anasarca. Vascular calcifications present in both kidneys. 2. 6.4 x 3 cm lobulated mass extending from the prostatic bed into the right ischiorectal fossa. This may represent complex fluid. This may be related to prior surgery. Multiple surgical clips present i n the lower posterior pelvis. 3. Extensive atherosclerotic vascular disease with pain in both iliac arteries. 4. Left lower anterior abdominal wall hernia containing several loops of small bowel without bowel ob struction. This could be the site of a previous ostomy. Kenyon Sandoval MD on April 19, 2017 at 18:59 Board Certified Radiologist. This report was verified electronically.
[2017-04-19 19:10] LABS: ALKALINE PHOSPHATASE 121 U/L (45-117); TOTAL BILIRUBIN ADULT 0.4 MG/DL (0.2-1.0)
[2017-04-19] MEDS ORDERED: SODIUM CHLOR 0.9% 1000 ML INJ 1,000 ML IV ONE (19:15)
[2017-04-19 19:25] VITALS: BP 178/76; PULSE 96; RESP 19; O2SAT 99
[2017-04-19 19:32] LABS: SCAN/DIFF AUTO DIFF CONFIRMED
[2017-04-19 19:33] LABS: ACANTHOCYTES 1+ (NORMAL); HELMET CELLS OCC (NORMAL); PLATELET ESTIMATE SMEAR NORMAL (NORMAL); PLATELET MORPHOLOGY NORMAL (NORMAL)
[2017-04-19 19:34] LABS: SPHEROCYTES OCC (NORMAL)
[2017-04-19] MEDS ORDERED: cefTRIAXone INJ 1,000 MG in SODIUM CHLORIDE 0.9% INJ 100 ML IV ONE (19:45)
--- NOTE | 2017-04-19 20:08 | HHI.HP ---
[facility] Jose E Barry MD Admission Diagnosis bladder mass causing obstruction of bilateral ureters, ARF Diagnoses: (1) Bladder cancer Diagnosis: Principal (2) YASIR (acute kidney injury) Diagnosis: Principal (3) UTI (urinary tract infection) Diagnosis: Principal (4) Hyperkalemia Diagnosis: Principal (5) Anemia Diagnosis: Principal (6) HTN (hypertension) Diagnosis: Principal Travel History International Travel<30 Days: No Contact w/Intl Traveler <30 Da: No Traveled to Known Affected Are: No History of Present Illness This is a 71-year-old male with PMH of HTN, Hyperlipidemia, CAD, CKD Stage III, Anemia, Colorectal CA s/p Colostomy and Bladder CA who was referred to the ER by his PCP secondary to elevated creatinine and hyperkalemia. Per pt he follows w/ Dr. Forrester, scheduled for TURBT later this month. Has been having ongoing hematuria that appears to be getting worse, in addition to suprapubic pain. No fever, chills. On arrival, BP 190/78, HR 89, O2 sat 99% on RA, Afebrile. Hemoglobin 8.5, previously 7.9 on 01/13/17. Creatinine 8.86, previously 3.30 on 01/13/17. K+ 5.4. CT Abd/Pelvis w/ extensive mural thickening of posterior bladder characteristic of bladder CA, likely resulting in obstruction of both distal ureters with moderate bilateral hydronephrosis, lobulated mass extending from the prostatic bed, abdominal wall hernia containing several loops of small bowel, no bowel obstruction. S/p eval in ER by Dr. Eagle, plan is for IR in am for placement of bilateral nephrostomy tubes. Review of Systems Except as stated in HPI: all other systems reviewed are Neg ROS: 14 point review of systems otherwise negative. Past Family Social History Past Medical History PMH: HTN, Hyperlipidemia, CAD, CKD Stage III, Anemia, Colorectal CA s/p Colostomy and Bladder CA Past Surgical History PAST SURGICAL HISTORY: Colostomy, Cardiac Stent, CABG Allergies: Coded Allergies: No Known Allergies (Verified Allergy, Unknown, 04/19/17) Family History PAST FAMILY HISTORY: Reviewed. No h/o DM or CAD Social History PAST SOCIAL HISTORY: Daily alcohol. Smokes 1/2ppd. Negative for drugs. Physical Exam Vital Signs Vital Signs Date Time Temp Pulse Resp B/P (MAP) Pulse Ox O2 Delivery O2 Flow Rate FiO2 04/19/17 19:25 96 19 178/76 (110) 99 Room Air 04/19/17 18:38 77 18 04/19/17 17:42 98.9 89 18 190/78 (115) 99 Room Air Physical Exam PE: GENERAL: Pleasant elderly male in no acute distress. HEENT: PERRLA, EOMI. No scleral icterus or conjunctival pallor. No lid lag or facial droop. CARDIOVASCULAR: Regular rate and rhythm. No obvious murmurs to auscultation. No chest tenderness to palpation. RESPIRATORY: No obvious rhonchi or wheezing. Clear to auscultation. Breath sounds equal bilaterally. GASTROINTESTINAL: Abdomen soft, non-tender, nondistended. BS normal. Colostomy bag in place. MUSCULOSKELETAL: Extremities without clubbing, cyanosis, or edema. No obvious deformities. NEUROLOGICAL: Awake, alert and oriented x4. No focal neurologic deficits. Moving both upper and lower extremities spontaneously. Laboratory Laboratory Tests Test 04/19/17 18:30 04/19/17 18:36 Urine Color YELLOW Urine Turbidity CLEAR Urine pH 6.0 Urine Specific [place] 1.010 Urine Protein 100 Urine Glucose (UA) NEG Urine Ketones NEG Urine Occult Blood LARGE Urine Nitrite NEG Urine Bilirubin NEG Urine Urobilinogen LESS THAN 2.0 Urine Leukocyte Esterase TRACE Urine RBC Urine WBC 172 Urine WBC Clumps MANY Microscopic Urinalysis Comment CULTURE INDICATED White Blood Count 9.5 Red Blood Count 3.02 Hemoglobin 8.5 Hematocrit 25.7 Mean Corpuscular Volume 85.1 Mean Corpuscular Hemoglobin 28.2 Mean Corpuscular Hemoglobin Concent 33.2 Red Cell Distribution Width 24.5 Platelet Count 234 Mean Platelet Volume 7.8 Neutrophils (%) (Auto) 77.1 Lymphocytes (%) (Auto) 11.1 Monocytes (%) (Auto) 6.8 Eosinophils (%) (Auto) 4.2 Basophils (%) (Auto) 0.8 Neutrophils # (Auto) 7.4 Lymphocytes # (Auto) 1.1 Monocytes # (Auto) 0.6 Eosinophils # (Auto) 0.4 Basophils # (Auto) 0.1 CBC Comment AUTO DIFF Differential Comment AUTO DIFF CONFIRMED Platelet Estimate NORMAL Platelet Morphology Comment NORMAL Spherocytes OCC Helmet Cells OCC Acanthocytes 1+ Prothrombin Time 10.9 Prothromb Time International Ratio 1.1 Activated Partial Thromboplast Time 29.9 Blood Urea Nitrogen 66 Creatinine 8.86 Random Glucose 86 Total Protein 7.5 Albumin 3.4 Calcium Level 8.3 Alkaline Phosphatase 121 Aspartate Amino Transf (AST/SGOT) 9 Alanine Aminotransferase (ALT/SGPT) 15 Total Bilirubin 0.4 Sodium Level 137 Potassium Level 5.4 Chloride Level 108 Carbon Dioxide Level 17.7 Anion Gap 11 Estimat Glomerular Filtration Rate 6 Lipase 110 Date/Time Source Procedure Growth Status 04/19/17 18:30 Urine Clean Catch Urine Culture Pending Worksheet Result Diagram: 04/19/17183504/19/171835 Stacey VTE Risk Assessment Gamalielrini VTE Risk Assessment: No/Low Risk (score <= 1) Caprini Risk Assessment Model Point Value = 1 Point Value = 2 Point Value = 3 Point Value = 5 Age 41-60 Minor surgery BMI > 25 kg/m2 Swollen legs Varicose veins or History of unexplained or recurrent spontaneous Oral contraceptives or hormone replacement Sepsis (< 1 month) Serious lung disease, including pneumonia (< 1 month) Abnormal pulmonary function Acute myocardial infarction Congestive heart failure (< 1 month) History of inflammatory bowel disease Medical patient at bed rest Age 61-74 Arthroscopic surgery Major open surgery (> 45 min) Laparoscopic surgery (> 45 min) Malignancy Confined to bed (> 72 hours) Immobilizing plaster cast Central venous access Age >= 75 History of VTE Family history of VTE Factor V Leiden Prothrombin [id number] Lupus anticoagulant Anticardiolipin antibodies Elevated serum homocysteine Heparin-induced thrombocytopenia Other congenital or acquired thrombophilia Stroke (< 1 month) Elective arthroplasty Hip, pelvis, or leg fracture Acute spinal cord injury (< 1 month) Prophylaxis Regimen Total Risk Factor Score Risk Level Prophylaxis Regimen 0-1 Low Early ambulation 2 Moderate Order ONE of the following: *Sequential Compression Device (SCD) *Heparin 5000 units SQ BID 3-4 Higher Order ONE of the following medications: *Heparin 5000 units SQ TID *Enoxaparin/Lovenox 40 mg SQ daily (WT < 150 kg, CrCl > 30 mL/min) *Enoxaparin/Lovenox 30 mg SQ daily (WT < 150 kg, CrCl > 10-29 mL/min) *Enoxaparin/Lovenox 30 mg SQ BID (WT < 150 kg, CrCl > 30 mL/min) AND/OR *Sequential Compression Device (SCD) 5 or more Highest Order ONE of the following medications: *Heparin 5000 units SQ TID (Preferred with Epidurals) *Enoxaparin/Lovenox 40 mg SQ daily (WT < 150 kg, CrCl > 30 mL/min) *Enoxaparin/Lovenox 30 mg SQ daily (WT < 150 kg, CrCl > 10-29 mL/min) *Enoxaparin/Lovenox 30 mg SQ BID (WT < 150 kg, CrCl > 30 mL/min) AND *Sequential Compression Device (SCD) Assessment and Plan Problem List: (1) YASIR (acute kidney injury) ICD Code: N17.9 - Acute kidney failure, unspecified (2) Bladder cancer ICD Code: C67.9 - Malignant neoplasm of bladder, unspecified (3) UTI (urinary tract infection) ICD Code: N39.0 - Urinary tract infection, site not specified (4) Anemia ICD Code: D64.9 - Anemia, unspecified (5) HTN (hypertension) ICD Code: I10 - Essential (primary) hypertension Assessment and Plan A/P: 1. YASIR: Creatinine 8.86, previously 3.30 on 01/13/17, likely secondary to obstruction from underlying mass, follows w/ Dr. Forrester, s/p eval by Dr. Eagle w/ plan for IR for bilateral nephrostomy tube placement in am. NPO after midnight, analgesics/antiemetics, repeat labs in am, monitor I/O. 2. Bladder CA: following w/ Dr. Baker as outpatient, plan was for TURBT by Dr. Forrester this month. 3. UTI: U/a w/ UTI, s/p Rocephin in ER, will continue w/ IV Abx, IVF. 4. Hyperkalemia: K+ 5.4, Ca/Insulin/D50, recheck in am. 5. Anemia: Chronic. Hgb 8.5, previously 7.9 on 01/13/17. +hematuria, recheck Hgb in am for trend, transfuse as needed. 6. HTN: BP 190's on arrival, will monitor. 7. DVT Prophylaxis: SCD/Teds 8. Social work for d/c planning as needed. 9. Case discussed w/ ER physician at length. Physician Certification 2 Midnight Certification Type: Admission for Inpatient Services Order for Inpatient Services The services are ordered in accordance with Medicare regulations or non- Medicare payer requirements, as applicable. In the case of services not specified as inpatient-only, they are appropriately provided as inpatient services in accordance with the 2-midnight benchmark. Estimated LOS (days): 2 days is the estimated time the patient will need to remain in the hospital, assuming treatment plan goals are met and no additional complications. Post-Hospital Plan: Not yet determined Malou Mora MD Apr 19, 2017 20:08
[2017-04-19] MEDS ORDERED: CALCIUM GLUCONATE 10% 1 GM/10 ML VIAL IV PUSH ONE (20:15)
[2017-04-19] MEDS ORDERED: BISACODYL 10 MG SUPP RECTAL PRN (20:15)
[2017-04-19] MEDS ORDERED: LACTULOSE SYRUP 20 GM/30 ML CUP PO PRN (20:15)
[2017-04-19] MEDS ORDERED: DEXTROSE 50% IN WATER 50 ML SYRINGE IV PUSH ONE (20:15)
[2017-04-19] MEDS ORDERED: ACETAMINOPHEN/HYDROcodone 325 MG/5 MG TAB PO PRN (20:15)
[2017-04-19] MEDS ORDERED: ACETAMINOPHEN 325 MG TAB PO PRN (20:15)
[2017-04-19] MEDS ORDERED: MORPHINE SULFATE 4 MG/ML INJ IV PUSH PRN (20:15)
[2017-04-19] MEDS ORDERED: SENNOSIDES 8.6 MG TAB PO PRN (20:15)
[2017-04-19] MEDS ORDERED: MAGNESIUM HYDROXIDE SUSP 30 ML CUP PO PRN (20:15)
[2017-04-19] MEDS ORDERED: INSULIN HUMAN REGULAR 1,000 UNITS/10 ML VIAL IV PUSH ONE (20:15)
[2017-04-19] MEDS ORDERED: ONDANSETRON HCL 4 MG/2 ML VIAL IVP PRN (20:15)
--- NOTE | 2017-04-19 20:32 | PD.CONS ---
HPI Service Urology Consult Requested By Reason for Consult Bladder Cancer, ARF Primary Care Physician Jose E Barry MD Diagnosis: History of Present Illness 71yo male with history of bladder cancer admitted for Renal failure. Patient is followed by Dr. Forrester with a planned TURBT soon. He has history of CKD with baseline Cr above 3. However, recent labs revealed Cr over 8. Patient currently denies any pain, no fevers. Does report some hematuria. He admits to sensation of incomplete bladder emptying. Review of Systems ROS Limitations: Clinical Condition Constitutional: DENIES: Fever Endocrine: DENIES: Heat/cold intolerance Eyes: DENIES: Blurred vision Ears, nose, mouth, throat: DENIES: Tinnitus, Hearing loss Respiratory: DENIES: Cough Cardiovascular: DENIES: Chest pain Gastrointestinal: DENIES: Abdominal pain Genitourinary: COMPLAINS OF: Hematuria Musculoskeletal: DENIES: Joint pain Hematologic/lymphatic: DENIES: Bruising Neurologic: DENIES: Headache Psychiatric: DENIES: Anxiety Except as stated in HPI: all other systems reviewed are Neg Past Family Social History Past Medical History Bladder cancer HTN, Hyperlipidemia, CAD, CKD Stage III, Anemia, Colorectal CA s/p Colostomy Past Surgical History Colostomy, Cardiac Stent, CABG Reported Medications Reported Meds & Active Scripts Active Reported Vitamin B12 (Cyanocobalamin (Vitamin B-12)) 2,500 Mcg Tab.chew 1,000 PO DAILY Omeprazole 40 Mg Cap 40 Mg PO DAILY Atorvastatin (Atorvastatin Calcium) 80 Mg Tab 80 Mg PO HS Allergies: Coded Allergies: No Known Allergies (Verified Allergy, Unknown, 04/19/17) Active Ordered Medications Current Medications Medications (Trade) Dose Ordered Sig/Shahrzad Route Start Time Stop Time Status Last Admin Ceftriaxone Sodium 1000 mg/ Sodium Chloride 100 ml @ 200 mls/hr Q24H IV 04/20/17 21:00 (NS Flush) 2 ml UNSCH PRN IV FLUSH 04/19/17 20:15 (NS Flush) 2 ml BID IV FLUSH 04/19/17 21:00 04/19/17 21:03 (Zofran Inj) 4 mg Q6H PRN IVP 04/19/17 20:15 (Tylenol) 650 mg Q6H PRN PO 04/19/17 20:15 ([place] 5-325 Mg) 1 tab Q4H PRN PO 04/19/17 20:15 (Morphine Inj) 2 mg Q3H PRN IV PUSH 04/19/17 20:15 (Liliana-Colace) 1 tab BID PO 04/19/17 21:00 (Milk Of Magnesia Liq) 30 ml Q12H PRN PO 04/19/17 20:15 (Senokot) 17.2 mg Q12H PRN PO 04/19/17 20:15 (Dulcolax Supp) 10 mg DAILY PRN RECTAL 04/19/17 20:15 (Lactulose Liq) 30 ml DAILY PRN PO 04/19/17 20:15 (Pneumovax-23 Inj) 25 mcg ONCE ONCE IM 04/21/17 10:00 04/21/17 10:01 (D50w (Vial) Inj) 50 ml UNSCH PRN IV PUSH 04/20/17 05:15 (Glucagon Inj) 1 mg UNSCH PRN OTHER 04/20/17 05:15 Dextrose/Sodium Chloride 1,000 ml @ 100 mls/hr Q10H IV 04/20/17 05:15 04/20/17 05:24 Family History Family history reviewed and noncontributory to present illness. Social History Daily alcohol. Smokes 1/2ppd. Negative for drugs Physical Exam Vital Signs Date Time Temp Pulse Resp B/P (MAP) Pulse Ox O2 Delivery O2 Flow Rate FiO2 04/19/17 19:25 96 19 178/76 (110) 99 Room Air 04/19/17 18:38 77 18 04/19/17 17:42 98.9 89 18 190/78 (115) 99 Room Air Physical Exam GENERAL: This is a well-nourished, well-developed patient, in no apparent distress. SKIN: No rashes, ecchymoses or lesions. Cool and dry. HEAD: Atraumatic. Normocephalic. EYES: Extraocular motions intact. . ENT: Nose without bleeding, purulent drainage. Airway patent. NECK: Trachea midline. No JVD or lymphadenopathy CARDIOVASCULAR: Normal pulses RESPIRATORY:Nonlabored, equal chest rise GASTROINTESTINAL: Abdomen soft, non-tender, nondistended. GENITOURINARY: Circumcised phallus, normal urethral meatus MUSCULOSKELETAL: Extremities without clubbing, cyanosis, or edema. NEUROLOGICAL: Awake and alert. Motor and sensory grossly within normal limits. Normal speech. Lab results reviewed: Yes Laboratory Tests Test 04/19/17 18:30 04/19/17 18:36 Urine Color YELLOW Urine Turbidity CLEAR Urine pH 6.0 Urine Specific [place] 1.010 Urine Protein 100 Urine Glucose (UA) NEG Urine Ketones NEG Urine Occult Blood LARGE Urine Nitrite NEG Urine Bilirubin NEG Urine Urobilinogen LESS THAN 2.0 Urine Leukocyte Esterase TRACE Urine RBC Urine WBC 172 Urine WBC Clumps MANY Microscopic Urinalysis Comment CULTURE INDICATED White Blood Count 9.5 Red Blood Count 3.02 Hemoglobin 8.5 Hematocrit 25.7 Mean Corpuscular Volume 85.1 Mean Corpuscular Hemoglobin 28.2 Mean Corpuscular Hemoglobin Concent 33.2 Red Cell Distribution Width 24.5 Platelet Count 234 Mean Platelet Volume 7.8 Neutrophils (%) (Auto) 77.1 Lymphocytes (%) (Auto) 11.1 Monocytes (%) (Auto) 6.8 Eosinophils (%) (Auto) 4.2 Basophils (%) (Auto) 0.8 Neutrophils # (Auto) 7.4 Lymphocytes # (Auto) 1.1 Monocytes # (Auto) 0.6 Eosinophils # (Auto) 0.4 Basophils # (Auto) 0.1 CBC Comment AUTO DIFF Differential Comment AUTO DIFF CONFIRMED Platelet Estimate NORMAL Platelet Morphology Comment NORMAL Spherocytes OCC Helmet Cells OCC Acanthocytes 1+ Prothrombin Time 10.9 Prothromb Time International Ratio 1.1 Activated Partial Thromboplast Time 29.9 Blood Urea Nitrogen 66 Creatinine 8.86 Random Glucose 86 Total Protein 7.5 Albumin 3.4 Calcium Level 8.3 Alkaline Phosphatase 121 Aspartate Amino Transf (AST/SGOT) 9 Alanine Aminotransferase (ALT/SGPT) 15 Total Bilirubin 0.4 Sodium Level 137 Potassium Level 5.4 Chloride Level 108 Carbon Dioxide Level 17.7 Anion Gap 11 Estimat Glomerular Filtration Rate 6 Lipase 110 Date/Time Source Procedure Growth Status 04/19/17 18:30 Urine Clean Catch Urine Culture Pending Worksheet Result Diagram: 04/19/17 1836 04/19/17 1836 Personally reviewed images: Yes Imaging Last Impressions Abdomen/Pelvis CT 04/19/171817 Signed Impressions: Service Date/Time: Wednesday, April 19, 2017 18:39 - CONCLUSION: 1. Extensive mural thickening of the posterior bladder characteristic of a history of bladder cancer. This likely results in obstruction of both distal ureters with moderate bilateral hydronephrosis. There is mild anasarca. Vascular calcifications present in both kidneys. 2. 6.4 x 3 cm lobulated mass extending from the prostatic bed into the right ischiorectal fossa. This may represent complex fluid. This may be related to prior surgery. Multiple surgical clips present in the lower posterior pelvis. 3. Extensive atherosclerotic vascular disease with pain in both iliac arteries. 4. Left lower anterior abdominal wall hernia containing several loops of small bowel without bowel obstruction. This could be the site of a previous ostomy. Kenyon Sandoval MD Assessment and Plan Problem List: (1) Acute renal failure (ARF) ICD Code: N17.9 - Acute kidney failure, unspecified Status: Acute (2) Bladder mass ICD Code: N32.89 - Other specified disorders of bladder Status: Acute Assessment and Plan -CT images personally reviewed. Significant bladder wall thickening with bilateral hydronephrosis. Bladder does not appear to be distended -It appears the bladder thickness/mass likely obstructing bilateral ureters, resulting in hydronephrosis and ARF -Stents would likely fail and may be impossible to identify ureteral orfices and place stents -Therefore plan for bilateral nephrostomy tubes to adequately drain both kidneys and improve his overall renal function -Case discussed with Dr. Forrester who agrees with bilateral neph tubes -IR consult for bilateral nephrostomy tube placement -NPO at midnight -Continue to monitor Cr -Will follow Problem Qualifiers (1) Acute renal failure (ARF): Qualified Codes: N17.9 - Acute kidney failure, unspecified Pantera Eagle MD Apr 19, 2017 20:32
[2017-04-19] MEDS ORDERED: CALCIUM GLUCONATE INJ 1 GM in SODIUM CHLORIDE 0.9% INJ 100 ML IV ONE (21:00)
[2017-04-19] MEDS: SODIUM CHLOR 0.9% 1000 ML INJ 1,000 ML IV SCH (21:02)
[2017-04-19] MEDS: SODIUM CHLORIDE 0.9% FLUSH 10 ML FLUSH IV FLUSH SCH (21:03)
[2017-04-19 21:42] VITALS: BP 151/68; PULSE 82; RESP 18; TEMP 97.8; O2SAT 97
[2017-04-19] MEDS: DOCUSATE SODIUM 50 MG/SENNA 8.6 MG TAB PO SCH (23:58)
[2017-04-20] VITALS: BP 137/63; PULSE 73; RESP 18; TEMP 97.9; O2SAT 95
[2017-04-20] MEDS: SODIUM CHLOR 0.9% 1000 ML INJ 1,000 ML IV SCH (00:03)
[2017-04-20] MEDS ORDERED: CYAN25005 PO (00:28)
[2017-04-20] MEDS ORDERED: DEXTROSE 50% IN WATER 50 ML SYRINGE IV PUSH ONE ×2 (02:45→05:15)
[2017-04-20 04:00] VITALS: BP 154/67; PULSE 92; RESP 18; TEMP 96.2; O2SAT 99
[2017-04-20] MEDS ORDERED: GLUCAGON 1 MG/ML VIAL OTHER PRN (05:15)
[2017-04-20] MEDS ORDERED: DEXTROSE 50% IN WATER 50 ML VIAL(D50) IV PUSH PRN (05:15)
[2017-04-20] MEDS: DEXT 5%-NACL 0.9% 1000 ML INJ 1,000 ML IV SCH ×2 (05:24→15:15)
[2017-04-20 08:00] VITALS: BP 165/67; PULSE 84; RESP 19; TEMP 96.6; O2SAT 99
[2017-04-20] MEDS: DOCUSATE SODIUM 50 MG/SENNA 8.6 MG TAB PO SCH ×2 (08:09→20:26)
[2017-04-20] MEDS: SODIUM CHLORIDE 0.9% FLUSH 10 ML FLUSH IV FLUSH SCH ×2 (08:10→20:26)
--- NOTE | 2017-04-20 11:09 | HHI.PR ---
Subjective Remarks Follow-up Visit for hydronephrosis, renal mass, acute kidney failure on chronic kidney disease. Patient seen and examined today. Reports he is feeling a lot better. Complains that he is hungry and hasn't eaten since yesterday. States that he doesn't know when the procedure is going to be. Patient reveals that he already noted that he has chronic kidney disease and being followed in the outpatient by kidney doctors. Complaints of dysuria continues. Otherwise, denies SOB/ dyspnea. Denies chest pain, palpitations, headaches, dizziness. Denies fevers, chills, n/v/d. Denies hematuria. Objective Vitals Vital Signs Date Time Temp Pulse Resp B/P (MAP) Pulse Ox O2 Delivery O2 Flow Rate FiO2 04/20/17 08:00 96.6 84 19 165/67 (99) 99 04/20/17 04:00 96.2 92 18 154/67 (96) 99 04/20/17 00:00 97.9 73 18 137/63 (87) 95 04/19/17 21:42 97.8 82 18 151/68 (95) 97 04/19/17 19:25 96 19 178/76 (110) 99 Room Air 04/19/17 18:38 77 18 04/19/17 17:42 98.9 89 18 190/78 (115) 99 Room Air I/O 04/19/17 04/19/17 04/19/17 04/20/17 04/20/17 04/20/17 07:00 15:00 23:00 07:00 15:00 23:00 Intake Total 1210 ml Output Total 550 ml Balance 660 ml Intake Oral 0 ml IV Total 1210 ml Output Urine Total 550 ml Stool Total 0 ml Result Diagram: 04/19/17 1836 04/19/17 1836 Imaging Last Impressions Abdomen/Pelvis CT 04/19/171817 Signed Impressions: Service Date/Time: Wednesday, April 19, 2017 18:39 - CONCLUSION: 1. Extensive mural thickening of the posterior bladder characteristic of a history of bladder cancer. This likely results in obstruction of both distal ureters with moderate bilateral hydronephrosis. There is mild anasarca. Vascular calcifications present in both kidneys. 2. 6.4 x 3 cm lobulated mass extending from the prostatic bed into the right ischiorectal fossa. This may represent complex fluid. This may be related to prior surgery. Multiple surgical clips present in the lower posterior pelvis. 3. Extensive atherosclerotic vascular disease with pain in both iliac arteries. 4. Left lower anterior abdominal wall hernia containing several loops of small bowel without bowel obstruction. This could be the site of a previous ostomy. Kenyon Sandoval MD Objective Remarks GENERAL: This is a thin appearing, well-developed patient, in no apparent distress. SKIN: Warm and dry. HEENT: Normocephalic. Pupils equal round and reactive. Nose without bleeding. Airway patent. NECK: Trachea midline. No JVD. Supple. CARDIOVASCULAR: Regular rate and rhythm without murmurs, gallops, or rubs. RESPIRATORY: Clear to auscultation. Breath sounds equal bilaterally. No wheezes , rales, or rhonchi. GASTROINTESTINAL: Abdomen soft, non-tender, nondistended. Bowel Sounds normoactive x4. Ostomy present LLQ. MUSCULOSKELETAL: Extremities without clubbing, cyanosis, or edema. NEUROLOGICAL: Awake and alert. Oriented to time, place, person. No focal neuro deficit. Moves all extremities. Normal speech. A/P Problem List: (1) YASIR (acute kidney injury) ICD Code: N17.9 - Acute kidney failure, unspecified (2) Bladder cancer ICD Code: C67.9 - Malignant neoplasm of bladder, unspecified (3) UTI (urinary tract infection) ICD Code: N39.0 - Urinary tract infection, site not specified (4) Anemia ICD Code: D64.9 - Anemia, unspecified (5) HTN (hypertension) ICD Code: I10 - Essential (primary) hypertension Assessment and Plan Patient is a 71-year-old male with PMH of HTN, Hyperlipidemia, CAD, CKD Stage III, Anemia, Colorectal CA s/p Colostomy and Bladder CA who was referred to the ER by his PCP secondary to elevated creatinine and hyperkalemia. Acute kidney failure on chronic kidney disease - Creatinine 8.86 this probably secondary to obstruction from underlying mass. - Patient is being seen by Dr. hubbard an outpatient, he will be followed by urologist and plan for nephrostomy tube is in the way. - Nephrology consulted for further evaluation and recommendation - Pain management - Monitor lab values. Bladder cancer - Patient is being followed by Dr. Baker as an outpatient - Plan was for TURBT by Dr. Forrester this month Urinary tract infection - UA positive for UTI. Pending cultures. - Continue antibiotics Rocephin Hyperkalemia - Potassium 5.4, treated with insulin, D50, calcium - Pending repeat potassium Anemia, chronic - Discontinued secondary to chronic kidney disease, chronic disease - Monitor hemoglobin trend. Transfuse as needed HTN, elevated BP - This can be related to pain, AKF - Clonidine when necessary - Monitor BP trend for now DVT prop SCDs Discussed with patient, nursing, Dr. Mojica Discharge Planning Not ready for discharge. We'll plan to discharge home post procedures and if cleared by urology. Attending Statement The exam, history, and the medical decision-making described in the above note were completed with the assistance of the mid-level provider. I reviewed and agree with the findings presented. I attest that I had a [id number] encounter with the patient on the same day, and personally performed and documented my assessment and findings in the medical record. No complaints. Deny any abdominal pain. Patient stated he is making urine. No other questions. gen NAD Resp CTA B/L abd soft NDNT Back no CVA tenderness A/P Acute on chronic renal failure Renal mass Urinary obstruction Hydronephrosis Patient scheduled for nephrostomy tube placement by IR. Urologist following. 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 Once nephrostomy tube placed kidney function should improve. Avoid nephrotoxins. Continue strict I's and O's. Continue to monitor creatinine. Continue with IV fluids. Casandra Lackey Apr 20, 2017 11:09 Roberta Mojica MD Apr 20, 2017 13:51
[2017-04-20 11:50] VITALS: BP 149/66; PULSE 61; RESP 18; TEMP 97; O2SAT 98
--- NOTE | 2017-04-20 13:39 | MB ---
cc: DONITA CLEMENTS MD DATE OF CONSULTATION 04/20/17 REASON FOR CONSULTATION Elevated BUN and creatinine for evaluation. HISTORY OF PRESENT ILLNESS This is a 71-year-old male with past medical history of rectal cancer. He is post colectomy and colostomy. hypertension, hyperlipidemia, ischemic heart disease, chronic kidney disease, came to the hospital because of dysuria, hematuria and decreased urine output. Patient has known history of chronic kidney disease. His baseline creatinine seems to be close to 2.1 to 3.4 which was in December 24 and now he came with a creatinine of 8.8. He had the labs done for his primary physician and the BUN and creatinine was very high and he was told to go to the hospital. The patient has dysuria and he off and on has hematuria. He was seen by the urology and he is supposed to have bilateral nephrostomy placed because the CT scan showed that he has bilateral hydronephrosis. The patient follows with Dr. Forrester and he was supposed to be scheduled for TURBT on May 02. The patient denies any nausea or vomiting. PAST MEDICAL HISTORY Hypertension, ischemic heart disease, chronic kidney disease, history of colorectal cancer, chronic anemia, hyperlipidemia. PAST SURGICAL HISTORY History of colectomy and colostomy. Cardiac catheterization with stent placement. History of coronary artery bypass grafting. REVIEW OF SYSTEMS The patient denies any history of fever. No headache or dizziness. He has mild nausea. No vomiting. Has dysuria and off and on has hematuria. No history of diarrhea. Denies any abdominal pain. Not taking any nonsteroidal anti-inflammatory drugs. SOCIAL HISTORY The patient is . He smokes about half-pack per day. There is no history of heavy alcoholism. FAMILY HISTORY Noncontributory. ALLERGIES NO KNOWN DRUG ALLERGIES. MEDICATIONS Currently he is on: 1. Normal saline. 2. Dextrose saline at 100 an hour. 3. Liliana-Colace 1 tablet b.i.d. 4. He received Calcium gluconate. 5. One dose of Ceftriaxone. He is on now Ceftriaxone 1 gram IV q. 24-hour. 6. Mccall as needed. 7. Lactulose as needed. PHYSICAL EXAMINATION GENERAL: The patient is awake, alert. He is not in acute distress. VITAL SIGNS: His last blood pressure 149/66, temperature is 97, oxygen saturation is 98-99%. HEENT: Pupils are mid constricted. Nonicteric sclera, conjunctiva pale. NECK: Supple. JVD is not elevated. LUNGS: The patient has bilateral good air entry with occasional wheezing. HEART: S1-S2, regular rhythm. ABDOMEN: Abdomen is distended, soft lax. There is a colostomy bag in place. There is no tenderness. Bowel sounds positive. EXTREMITIES: There is no edema. INVESTIGATION WBC count is 9.5, hemoglobin 8.5, platelet count of 234, neutrophils 77.1, eosinophil 4.2%, sodium 137, potassium 5.4, chloride 108, bicarb 17.7, BUN 66, creatinine 8.8, calcium 8.3, AST is 9, ALT is 15, albumin is 3.4, lipase is 110. INR 1.1. Urinalysis showing that he has protein of 100 with WBC 172, RBC innumerable. The urine culture and blood culture pending. IMAGING STUDIES Investigation showing that he had a CT scan of the abdomen and pelvis done which shows that he has thickening of the bladder, characteristic of bladder cancer, obstruction on both distal ureters with moderate bilateral hydronephrosis 6.4 x 3 cm lobular mass extending from the prostate into the ischiorectal fossa, extensive atherosclerosis. Left lower anterior abdominal wall hernia. ASSESSMENT/PLAN 1. Chronic kidney disease and acute kidney injury. 2. Obstructive uropathy. 3. Hyperkalemia and metabolic acidosis. 4. Urinary tract infection. 5. Hypertension. 6. Anemia. The patient has chronic kidney disease with possibility of underlying obstructive uropathy with chronic obstruction and now has acute kidney injury which is most likely because of the obstruction and possibility of the urinary tract infection. The patient was seen by urology and he will have bilateral nephrostomy placed. The potassium was elevated and the patient received calcium gluconate. His calcium was also on the lower side 8.3. With the nephrostomy I am expecting that his creatinine and potassium and acidosis will improve. Continue the IV hydration and follow the culture result. Avoid any nephrotoxins. Thank you for the consultation. I will follow the patient while he is in the hospital. Donita Clements MD AQJ/ABDULAZIZ /12:01 PM /1:21 PM
[2017-04-20 16:00] VITALS: BP 164/70; PULSE 67; RESP 18; TEMP 97.1; O2SAT 98
[2017-04-20 16:21] LABS: AUTOMATED NEUTROPHIL # 5.9 TH/MM3 (1.8-7.7); BASOPHIL % 0.6 % (0.0-2.0); EOSINOPHIL # 0.3 TH/MM3 (0-0.4); EOSINOPHIL % 4.2 % (0.0-4.0); HEMATOCRIT 23.1 % (39.0-51.0); LYMPH % 11.8 % (9.0-44.0); LYMPHOCYTE # 0.9 TH/MM3 (1.0-4.8); MEAN CELL VOLUME 85.2 FL (80.0-100.0); MEAN CORPUSCULAR HEMOGLOBIN 28.8 PG (27.0-34.0); MEAN CORPUSCULAR HGB CONC 33.8 % (32.0-36.0); MONO % 6.7 % (0.0-8.0); NEUT % 76.7 % (16.0-70.0); PLATELET COUNT 213 TH/MM3 (150-450); RED BLOOD COUNT 2.71 MIL/MM3 (4.50-5.90); RED CELL DISTRIBUTION WIDTH 24.8 % (11.6-17.2); WHITE BLOOD COUNT 7.7 TH/MM3 (4.0-11.0)
[2017-04-20 16:25] LABS: HEMO FLAGS AUTO DIFF
[2017-04-20 16:40] LABS: ALT (GPT) 13 U/L (12-78); ANION GAP 8 MEQ/L (5-15); AST (GOT) 7 U/L (15-37); BICARBONATE 19.8 MEQ/L (21.0-32.0); BLOOD UREA NITROGEN 61 MG/DL (7-18); CHLORIDE 113 MEQ/L (98-107); GLOMERULAR FILTRATION RATE 6 ML/MIN (>89); POTASSIUM 5.2 MEQ/L (3.5-5.1); SODIUM (NA) 141 MEQ/L (136-145)
[2017-04-20 16:43] LABS: ALKALINE PHOSPHATASE 109 U/L (45-117); TOTAL BILIRUBIN ADULT 0.3 MG/DL (0.2-1.0)
[2017-04-20 16:56] LABS: ACANTHOCYTES 1+ (NORMAL); OVALOCYTES 1+ (NORMAL); PLATELET ESTIMATE SMEAR NORMAL (NORMAL); PLATELET MORPHOLOGY NORMAL (NORMAL); SCAN/DIFF AUTO DIFF CONFIRMED
[2017-04-20 20:00] VITALS: BP 158/69; PULSE 75; RESP 18; TEMP 98.7; O2SAT 98
[2017-04-20] MEDS: cefTRIAXone INJ 1,000 MG in SODIUM CHLORIDE 0.9% INJ 100 ML IV SCH (20:21)
[2017-04-21] VITALS: BP 139/59; PULSE 74; RESP 18; TEMP 98.4; O2SAT 97
[2017-04-21] MEDS: DEXT 5%-NACL 0.9% 1000 ML INJ 1,000 ML IV SCH ×3 (01:15→19:57)
[2017-04-21 08:00] VITALS: BP 171/75; PULSE 68; RESP 17; TEMP 96.3; O2SAT 99
[2017-04-21] MEDS ORDERED: AMLO5 PO (08:45)
[2017-04-21] MEDS: DOCUSATE SODIUM 50 MG/SENNA 8.6 MG TAB PO SCH ×2 (09:00→19:54)
[2017-04-21] MEDS ORDERED: PNEUMOCOCCAL POLYVALENT INJ 25 MCG/0.5 ML SYR IM ONE (10:00)
[2017-04-21] MEDS: amLODIPine BESYLATE 5 MG TAB PO SCH (10:44)
[2017-04-21] MEDS: SODIUM CHLORIDE 0.9% FLUSH 10 ML FLUSH IV FLUSH SCH ×2 (10:44→19:57)
--- NOTE | 2017-04-21 11:09 | HHI.NPPN ---
Subjective General Problems: Anemia Renal Failure: Chronic, Acute, Stage IV History of Present Illness 71-year-old male with past medical history of rectal cancer. He is post colectomy and colostomy. hypertension, hyperlipidemia, ischemic heart disease, chronic kidney disease, came to the hospital because of dysuria, hematuria and decreased urine output. Patient has known history of chronic kidney disease. His baseline creatinine seems to be close to 2.1 to 3.4 which was in December 24 and now he came with a creatinine of 8.8. Additional Remarks Patient is alert, no SOB, has mild abd. discomfort. Review of Systems General Constitutional: Fatigue Cardiovascular Cardiac: SHANKAR Gastrointestinal Gastrointestinal: Abdominal Pain Objective Data Data Vital Signs Date Time Temp Pulse Resp B/P (MAP) Pulse Ox O2 Delivery O2 Flow Rate FiO2 04/21/17 08:00 96.3 68 17 171/75 (107) 99 04/21/17 00:00 98.4 74 18 139/59 (85) 97 04/20/17 20:00 98.7 75 18 158/69 (98) 98 04/20/17 16:00 97.1 67 18 164/70 (101) 98 04/20/17 11:50 97.0 61 18 149/66 (93) 98 -: 04/20/17 1530 04/20/17 1530 Physical Exam General Appearance: No Acute Distress, Comfortable Eyes Eye Exam: Pupils Equal Throat Throat Exam: Oral Mucosa [place] & Moist Neck Neck Exam: Neck Supple Pulmonary Resp Exam: Breath Sounds Equal, No Distress, Rhonchi, Decreased Bases Cardiology CV Exam: Regular, Normal Sinus Rhythm Gastrointestinal/Abdomen GI Exam: Soft, Non-Tender, Bowel Sounds Present, Non-Distended Extremeties Extremities Exam: No Edema Neurologic Neuro Exam: Alert, Awake, Oriented Psychiatric Psych Exam: Appropriate Responses Assessment/Plan Assessment Summary: YASIR/Acute Renal Failure, Hypertension, CKD Stage IV Electrolyte Assessment: Hyperkalemia Problem List: (1) Bladder mass ICD Codes: N32.89 - Other specified disorders of bladder Status: Acute (2) Anemia ICD Codes: D64.9 - Anemia, unspecified (3) UTI (urinary tract infection) ICD Codes: N39.0 - Urinary tract infection, site not specified (4) Bladder cancer ICD Codes: C67.9 - Malignant neoplasm of bladder, unspecified (5) Hyperkalemia ICD Codes: E87.5 - Hyperkalemia (6) YASIR (acute kidney injury) ICD Codes: N17.9 - Acute kidney failure, unspecified Plan Patient has been non oliguric. Has Chronic kidney disease and baseline Creatinine was 2.1-3.1, Now came with high Creatinine. Has Bilateral Hydronephrosis. Seen by urology. for Bilateral Nephrostomy, possibly in AM. No new BMP, clinically stable. Cammy Beth MD Apr 21, 2017 11:08
--- NOTE | 2017-04-21 11:14 | HHI.PR ---
Subjective Remarks Follow-up Visit for hydronephrosis, renal mass, acute kidney failure on chronic kidney disease. Patient seen and examined today. Reports he has urinated some clots today, urine noted to be dark maroon. States she still has dysuria.. Patient states he is eating and tolerating his diet. He is ambulating the hallway with . Spoke with nursing patient is requesting to go outside. Discuss with patient that since he is on IV fluids and passing clots today he is unable to be allowed to go outside for his own safety. Suspected the patient is smoking with outside as the room smells like tobacco. Patient states that it was his that is smoking. Denies SOB/ dyspnea. Denies chest pain, palpitations, headaches, dizziness. Denies fevers, chills, n/v/d. Objective Vitals Vital Signs Date Time Temp Pulse Resp B/P (MAP) Pulse Ox O2 Delivery O2 Flow Rate FiO2 04/21/17 08:00 96.3 68 17 171/75 (107) 99 04/21/17 00:00 98.4 74 18 139/59 (85) 97 04/20/17 20:00 98.7 75 18 158/69 (98) 98 04/20/17 16:00 97.1 67 18 164/70 (101) 98 04/20/17 11:50 97.0 61 18 149/66 (93) 98 I/O 04/20/17 04/20/17 04/20/17 04/21/17 04/21/17 04/21/17 07:00 15:00 23:00 07:00 15:00 23:00 Intake Total 1210 ml 480 ml 300 ml Output Total 550 ml 400 ml Balance 660 ml 480 ml -100 ml Intake Oral 0 ml 480 ml IV Total 1210 ml 300 ml Output Urine Total 550 ml 400 ml Stool Total 0 ml # Voids 6 # Bowel Movements 1 Result Diagram: 04/20/17 1530 04/20/17 1530 Imaging Last Impressions Abdomen/Pelvis CT 04/19/178 Signed Impressions: Service Date/Time: Wednesday, April 19, 2017 18:39 - CONCLUSION: 1. Extensive mural thickening of the posterior bladder characteristic of a history of bladder cancer. This likely results in obstruction of both distal ureters with moderate bilateral hydronephrosis. There is mild anasarca. Vascular calcifications present in both kidneys. 2. 6.4 x 3 cm lobulated mass extending from the prostatic bed into the right ischiorectal fossa. This may represent complex fluid. This may be related to prior surgery. Multiple surgical clips present in the lower posterior pelvis. 3. Extensive atherosclerotic vascular disease with pain in both iliac arteries. 4. Left lower anterior abdominal wall hernia containing several loops of small bowel without bowel obstruction. This could be the site of a previous ostomy. Kenyon Sandoval MD Objective Remarks GENERAL: This is a thin appearing, well-developed patient, in no apparent distress. SKIN: Warm and dry. HEENT: Normocephalic. Pupils equal round and reactive. Nose without bleeding. Airway patent. NECK: Trachea midline. No JVD. Supple. CARDIOVASCULAR: Regular rate and rhythm without murmurs, gallops, or rubs. RESPIRATORY: Clear to auscultation. Breath sounds equal bilaterally. No wheezes , rales, or rhonchi. GASTROINTESTINAL: Abdomen soft, non-tender, nondistended. Bowel Sounds normoactive x4. Ostomy present LLQ. MUSCULOSKELETAL: Extremities without clubbing, cyanosis, or edema. NEUROLOGICAL: Awake and alert. Oriented to time, place, person. No focal neuro deficit. Moves all extremities. Normal speech. A/P Problem List: (1) YASIR (acute kidney injury) ICD Code: N17.9 - Acute kidney failure, unspecified (2) Bladder cancer ICD Code: C67.9 - Malignant neoplasm of bladder, unspecified (3) UTI (urinary tract infection) ICD Code: N39.0 - Urinary tract infection, site not specified (4) Anemia ICD Code: D64.9 - Anemia, unspecified (5) HTN (hypertension) ICD Code: I10 - Essential (primary) hypertension Assessment and Plan Patient is a 71-year-old male with PMH of HTN, Hyperlipidemia, CAD, CKD Stage III, Anemia, Colorectal CA s/p Colostomy and Bladder CA who was referred to the ER by his PCP secondary to elevated creatinine and hyperkalemia. Acute kidney failure on chronic kidney disease - Creatinine 8.86 this probably secondary to obstruction from underlying mass. - Patient is being seen by Dr. oFrrester an outpatient, he will be followed by urologist and plan for nephrostomy tube is in the way. Plan for IR nephrostomy tube placement tomorrow. Nothing by mouth after midnight. - Nephrology consulted for further evaluation and recommendation - Pain management morphine IV, [place] - Monitor lab values. Bladder cancer - Patient is being followed by Dr. Baker as an outpatient - Plan was for TURBT by Dr. Forrester this month Urinary tract infection - UA positive for UTI. Pending cultures. - Continue antibiotics Rocephin Hyperkalemia - Potassium 5.4, treated with insulin, D50, calcium - Recent potassium 5.2 yesterday, pending today Anemia, chronic - Discontinued secondary to chronic kidney disease, chronic disease, and hematuria - Monitor hemoglobin trend. Transfuse as needed. HTN, elevated BP - Restart home dose of amlodipine - Clonidine when necessary - Monitor BP trend for now DVT prop SCDs Discussed with patient, nursing, Dr. Mojica Discharge Planning Not ready for discharge. We'll plan to discharge home post procedures and if cleared by urology. Casandra Lackey Apr 21, 2017 11:14
[2017-04-21 11:20] LABS: HEMATOCRIT 23.6 % (39.0-51.0); MEAN CELL VOLUME 86.6 FL (80.0-100.0); MEAN CORPUSCULAR HEMOGLOBIN 28.7 PG (27.0-34.0); MEAN CORPUSCULAR HGB CONC 33.1 % (32.0-36.0); PLATELET COUNT 203 TH/MM3 (150-450); RED BLOOD COUNT 2.73 MIL/MM3 (4.50-5.90); RED CELL DISTRIBUTION WIDTH 24.3 % (11.6-17.2); REVIEW FLAG FINAL; WHITE BLOOD COUNT 7.8 TH/MM3 (4.0-11.0)
[2017-04-21 11:27] LABS: INTERNATIONAL NORMALIZED RATIO 1.1 RATIO; PROTHROMBIN TIME - PATIENT 11.3 SEC (9.8-11.6)
[2017-04-21 11:51] LABS: BICARBONATE 18.9 MEQ/L (21.0-32.0); POTASSIUM 5.3 MEQ/L (3.5-5.1)
[2017-04-21 12:00] VITALS: BP 150/65; PULSE 75; RESP 19; TEMP 97.2; O2SAT 98
[2017-04-21 16:00] VITALS: BP 151/65; PULSE 69; RESP 18; TEMP 97.7; O2SAT 99
[2017-04-21] MEDS: ATORVASTATIN 80 MG TAB PO SCH (19:56)
[2017-04-21] MEDS: cefTRIAXone INJ 1,000 MG in SODIUM CHLORIDE 0.9% INJ 100 ML IV SCH (19:56)
[2017-04-21 20:00] VITALS: BP 172/73; PULSE 80; RESP 18; TEMP 99; O2SAT 97
--- NOTE | 2017-04-21 23:19 | EKG ---
Date Performed: 04/19/2017 Time Performed: 18:27:08 PTAGE: 71 years EKG: Sinus rhythm POSSIBLE LEFT ATRIAL ENLARGEMENT SEPTAL MYOCARDIAL INFARCTION ABNORMAL ECG NO PREVIOUS TRACING DOCTOR: Vineet Schultz Interpretating Date/Time 04/21/2017 23:18:26
[2017-04-22] VITALS (12 sets, daily range): BP systolic 146–167; BP diastolic 53–76; PULSE 67–93; RESP 16–20; TEMP 95.4–98.4; O2SAT 95–99
[2017-04-22 08:20] LABS: MEAN CELL VOLUME 86.4 FL (80.0-100.0); MEAN CORPUSCULAR HEMOGLOBIN 28.8 PG (27.0-34.0); MEAN CORPUSCULAR HGB CONC 33.3 % (32.0-36.0); PLATELET COUNT 176 TH/MM3 (150-450); RED BLOOD COUNT 2.37 MIL/MM3 (4.50-5.90); RED CELL DISTRIBUTION WIDTH 24.2 % (11.6-17.2); WHITE BLOOD COUNT 7.2 TH/MM3 (4.0-11.0)
[2017-04-22 08:44] LABS: REVIEW FLAG FINAL
[2017-04-22 08:46] LABS: HEMATOCRIT 20.5 % (39.0-51.0)
[2017-04-22 08:47] LABS: BICARBONATE 15.8 MEQ/L (21.0-32.0)
[2017-04-22] MEDS: DOCUSATE SODIUM 50 MG/SENNA 8.6 MG TAB PO SCH ×2 (08:52→21:00)
[2017-04-22] MEDS: PANTOPRAZOLE SOD 40 MG DELAYED RELEASE TAB PO SCH (08:53)
[2017-04-22] MEDS: amLODIPine BESYLATE 5 MG TAB PO SCH (08:54)
[2017-04-22] MEDS: DEXT 5%-NACL 0.9% 1000 ML INJ 1,000 ML IV SCH ×2 (08:54→22:53)
[2017-04-22] MEDS: SODIUM CHLORIDE 0.9% FLUSH 10 ML FLUSH IV FLUSH SCH ×2 (08:54→22:58)
[2017-04-22] MEDS ORDERED: SODIUM CHLOR 0.9% 250 ML INJ 250 ML IV ONE (09:00)
[2017-04-22] MEDS ORDERED: FUROSEMIDE 40 MG/4 ML VIAL IV PUSH ONE (10:00)
--- NOTE | 2017-04-22 10:10 | HHI.NPPN ---
Subjective General Problems: Anemia Renal Failure: Chronic, Acute, Stage IV History of Present Illness 71-year-old male with past medical history of rectal cancer. He is post colectomy and colostomy. hypertension, hyperlipidemia, ischemic heart disease, chronic kidney disease, came to the hospital because of dysuria, hematuria and decreased urine output. Patient has known history of chronic kidney disease. His baseline creatinine seems to be close to 2.1 to 3.4 which was in December 24 and now he came with a creatinine of 8.8. Additional Remarks Patient is alert, no SOB, has mild abd. discomfort, still has hematuria. Review of Systems General Constitutional: Fatigue Cardiovascular Cardiac: SHANKAR Gastrointestinal Gastrointestinal: Abdominal Pain Objective Data Data Vital Signs Date Time Temp Pulse Resp B/P (MAP) Pulse Ox O2 Delivery O2 Flow Rate FiO2 04/22/17 08:00 97.9 79 17 162/71 (101) 97 04/22/17 00:39 98.4 83 18 167/70 (102) 97 04/21/17 20:00 99.0 80 18 172/73 (106) 97 04/21/17 16:00 97.7 69 18 151/65 (93) 99 04/21/17 12:00 97.2 75 19 150/65 (93) 98 -: 04/22/17 0717 04/22/17 0717 Physical Exam General Appearance: No Acute Distress, Comfortable Eyes Eye Exam: Pupils Equal Throat Throat Exam: Oral Mucosa Ensley & Moist Neck Neck Exam: Neck Supple Pulmonary Resp Exam: Breath Sounds Equal, No Distress, Rhonchi, Decreased Bases Cardiology CV Exam: Regular, Normal Sinus Rhythm Gastrointestinal/Abdomen GI Exam: Soft, Non-Tender, Bowel Sounds Present, Non-Distended Extremeties Extremities Exam: No Edema Neurologic Neuro Exam: Alert, Awake, Oriented Psychiatric Psych Exam: Appropriate Responses Assessment/Plan Assessment Summary: YASIR/Acute Renal Failure, Hypertension, CKD Stage IV Electrolyte Assessment: Hyperkalemia Problem List: (1) Bladder mass ICD Codes: N32.89 - Other specified disorders of bladder Status: Acute (2) Anemia ICD Codes: D64.9 - Anemia, unspecified (3) UTI (urinary tract infection) ICD Codes: N39.0 - Urinary tract infection, site not specified (4) Bladder cancer ICD Codes: C67.9 - Malignant neoplasm of bladder, unspecified (5) Hyperkalemia ICD Codes: E87.5 - Hyperkalemia (6) YASIR (acute kidney injury) ICD Codes: N17.9 - Acute kidney failure, unspecified Plan Patient has been non oliguric. Has Chronic kidney disease and baseline Creatinine was 2.1-3.1, Now came with high Creatinine. Has Bilateral Hydronephrosis. Seen by urology. for Bilateral Nephrostomy today. Hgb dropped for transfusion. Creatinine is almost same and K is normal. Cammy Beth MD Apr 22, 2017 10:10
--- NOTE | 2017-04-22 11:00 | HHI.PR ---
Subjective Remarks Follow-up Visit for hydronephrosis, renal mass, acute kidney failure on chronic kidney disease. Patient seen and examined today. Reports he has urinated some clots today, urine noted to be bloody. States he still have dysuria. Discuss with patient that his hemoglobin has dropped today and he will need transfusion even if he has to go for urostomy tube placements. Patient has agreed. at the bedside. States that he has received multiple blood transfusions in the past and he has no problems receiving. Denies SOB/ dyspnea. Denies chest pain , palpitations, headaches, dizziness. Denies fevers, chills, n/v/d. Objective Vitals Vital Signs Date Time Temp Pulse Resp B/P (MAP) Pulse Ox O2 Delivery O2 Flow Rate FiO2 04/22/17 08:00 97.9 79 17 162/71 (101) 97 04/22/17 00:39 98.4 83 18 167/70 (102) 97 04/21/17 20:00 99.0 80 18 172/73 (106) 97 04/21/17 16:00 97.7 69 18 151/65 (93) 99 04/21/17 12:00 97.2 75 19 150/65 (93) 98 I/O 04/21/17 04/21/17 04/21/17 04/22/17 04/22/17 04/22/17 07:00 15:00 23:00 07:00 15:00 23:00 Intake Total 300 ml 720 ml 790 ml Output Total 400 ml 600 ml Balance -100 ml 720 ml 190 ml Intake Oral 720 ml IV Total 300 ml 790 ml Output Urine Total 400 ml 600 ml # Voids 6 # Bowel Movements 0 Result Diagram: 04/22/1717 04/22/17716 Imaging Last Impressions Abdomen/Pelvis CT 04/19/178 Signed Impressions: Service Date/Time: Wednesday, April 19, 2017 18:39 - CONCLUSION: 1. Extensive mural thickening of the posterior bladder characteristic of a history of bladder cancer. This likely results in obstruction of both distal ureters with moderate bilateral hydronephrosis. There is mild anasarca. Vascular calcifications present in both kidneys. 2. 6.4 x 3 cm lobulated mass extending from the prostatic bed into the right ischiorectal fossa. This may represent complex fluid. This may be related to prior surgery. Multiple surgical clips present in the lower posterior pelvis. 3. Extensive atherosclerotic vascular disease with pain in both iliac arteries. 4. Left lower anterior abdominal wall hernia containing several loops of small bowel without bowel obstruction. This could be the site of a previous ostomy. Kenyon Sandoval MD Objective Remarks GENERAL: This is a thin appearing, well-developed patient, in no apparent distress. SKIN: Warm and dry. Pale. HEENT: Normocephalic. Pupils equal round and reactive. Nose without bleeding. Airway patent. NECK: Trachea midline. No JVD. Supple. CARDIOVASCULAR: Regular rate and rhythm without murmurs, gallops, or rubs. RESPIRATORY: Clear to auscultation. Breath sounds equal bilaterally. No wheezes , rales, or rhonchi. GASTROINTESTINAL: Abdomen soft, non-tender, nondistended. Bowel Sounds normoactive x4. Ostomy present LLQ. MUSCULOSKELETAL: Extremities without clubbing, cyanosis, or edema. NEUROLOGICAL: Awake and alert. Oriented to time, place, person. No focal neuro deficit. Moves all extremities. Normal speech. A/P Problem List: (1) YASIR (acute kidney injury) ICD Code: N17.9 - Acute kidney failure, unspecified (2) Bladder cancer ICD Code: C67.9 - Malignant neoplasm of bladder, unspecified (3) UTI (urinary tract infection) ICD Code: N39.0 - Urinary tract infection, site not specified (4) Anemia ICD Code: D64.9 - Anemia, unspecified (5) HTN (hypertension) ICD Code: I10 - Essential (primary) hypertension Assessment and Plan Patient is a 71-year-old male with PMH of HTN, Hyperlipidemia, CAD, CKD Stage III, Anemia, Colorectal CA s/p Colostomy and Bladder CA who was referred to the ER by his PCP secondary to elevated creatinine and hyperkalemia. Acute Anemia, secondary to hematuria Hematuria - Possibly secondary to obstruction from an underlying mass - H&H 6.8/20.5 - Blood transfusion 2, rechecked postop H&H - Monitor H&H Acute kidney failure on chronic kidney disease Obstructive uropathy, hydronephrosis - Creatinine 8.86 this probably secondary to obstruction from underlying mass. - Patient is being seen by Dr. Forrester an outpatient, he will be followed by urologist and plan for nephrostomy tube is in the way. Plan for IR nephrostomy tube placement. - Nephrology consulted for further evaluation and recommendation - Pain management morphine IV, [place] - Monitor lab values. Bladder cancer - Patient is being followed by Dr. Baker as an outpatient - Plan was for TURBT by Dr. Forrester this month Urinary tract infection - UA positive for UTI. Pending cultures. - Continue antibiotics Rocephin Hyperkalemia - Potassium 5.4, treated with insulin, D50, calcium - Recent potassium 5.0 Anemia, chronic - Discontinued secondary to chronic kidney disease, chronic disease, and hematuria - Monitor hemoglobin trend. Transfuse as needed. HTN, elevated BP - Restart home dose of amlodipine - Clonidine when necessary - Monitor BP trend for now DVT prop SCDs Discussed with patient, nursing, Dr. Mojica Discharge Planning Not ready for discharge. We'll plan to discharge home post procedures and if cleared by urology. Casandra Lackey Apr 22, 2017 11:00
[2017-04-22] MEDS ORDERED: MIDAZOLAM HCL 2 MG/2 ML VIAL ONE (12:05)
[2017-04-22] MEDS ORDERED: LEVOFLOXACIN 500 MG PREMIX INJ 100 ML IV ONE (12:33)
--- NOTE | 2017-04-22 14:14 | PD.RAD ---
Post Procedure Progress Note Pre Procedure Diagnosis: (1) Bladder mass Post Procedure Diagnosis: (1) Bladder mass Procedure Date: Apr 22, 2017 Supervising Radiologist: Kash Hopper Proceduralist/Assist: Bryce Goetz, RT(R), Jamil Irving RT(R) Anesthesia: Conscious Sedation Plan of Activity Patient to Unit: ROP[facility] Patient Condition: Good See PACS Report for procedural detail/treatment Kash Hopper MD Apr 22, 2017 14:14
--- NOTE | 2017-04-22 15:33 | RADRPT ---
EXAM DATE/TIME: 04/22/2017 13:14 [facility] COMPARISON: No previous studies available for comparison. INDICATIONS : PATIENT PRESENTS WITH HYDRONEPHROSIS AND BLADDER MASS IN NEED OF NEPHROSTOMY TUBE. MEDICAL HISTORY : HTN HYPERLIPIDEMIA CAD CKD STAGE III ANEMIA COLORECTAL CA S/P COLOSTOMY AND BLADDER CA SURGICAL HISTORY : COLOSTOMY CARDIAC STENT CABG ENCOUNTER: Initial ACUITY: 4 - 6 months PAIN SCORE: 5/10 LOCATION: Left GROIN FLUORO TIME: 3.9 minutes IMAGE SERIES: 2 SEDATION TIME: 45 minutes CONTRAST: 20 cc Omnipaque (iohexol) 350 MEDICATION(S): 1.) 4 mg midazolam (Versed) IV 2.) 150 mcg fentanyl (Sublimaze) IV DEVICE(S): 1.) 10 Urdu Flexima catheter PROCEDURE : 1. Ultrasound-guided puncture of the kidney. 2. Antegrade percutaneous pyelogram. 3. Percutaneous nephrostomy placement. 4. Conscious sedation with continuous EKG and oximetry monitoring. The risks, benefits and alternatives to the procedure were explained and verbal and written consent w as obtained. The site was prepped in sterile fashion. Full sterile technique was used, including ca p, mask, sterile gloves and gown and a large sterile sheet. Hand hygiene and 2% chlorhexidine and/or betadine/alcohol prep was utilized per protocol for cutaneous antisepsis. Sterile gel and sterile probe cover were utilized for ultrasound guidance. The skin and subcutaneous tissues were infiltrate d with local anesthetic solution. With ultrasound and fluoroscopic guidance the selected kidney was punctured and a percutaneous antegr liana pyelogram was performed demonstrating a dilated collecting system. Serial dilatation was perform ed and a prescribed nephrostomy tube was placed within the renal pelvis and sutured in place. Conscious sedation was performed with the prescribed dosages and duration as above in the presence of an independent trained radiology nurse to assist in the monitoring of the patient. EKG and oximetry remained stable throughout the procedure. The patient tolerated the procedure well and there were n o complications. The patient was sent to post anesthesia recovery in stable condition. CONCLUSION: Uncomplicated nephrostomy tube placement as above. Kash Hopper MD on April 22, 2017 at 15:30 Board Certified Radiologist. This report was verified electronically.
--- NOTE | 2017-04-22 19:59 | HHI.PR ---
Subjective Patient symptoms today Successful bilateral nephrostomy tube placement. Good urine output from both, light pink Objective Vital Signs Vital Signs Date Time Temp Pulse Resp B/P (MAP) Pulse Ox O2 Delivery O2 Flow Rate FiO2 04/22/17 18:52 97.3 88 16 151/62 98 04/22/17 18:30 97.0 82 17 146/53 99 04/22/17 18:21 97.0 82 17 146/53 (84) 99 04/22/17 16:00 95.4 93 17 166/67 (100) 99 04/22/17 14:45 67 20 154/76 (102) 95 04/22/17 14:15 67 20 146/71 (96) 97 04/22/17 13:30 76 20 149/72 (97) 95 04/22/17 13:15 98.0 85 20 160/76 (104) 97 04/22/17 12:00 97.8 75 17 155/68 (97) 97 04/22/17 08:00 97.9 79 17 162/71 (101) 97 04/22/17 00:39 98.4 83 18 167/70 (102) 97 04/21/17 20:00 99.0 80 18 172/73 (106) 97 Result Diagram: 04/22/17 0717 04/22/17 0717 Imaging Last 24 hours Impressions Nephrostomy 04/22/17 0000 Signed Impressions: Service Date/Time: Saturday, April 22, 2017 13:14 - CONCLUSION: Uncomplicated nephrostomy tube placement as above. Kahs Hopper MD Nephrostomy 04/22/17 0000 Signed Impressions: Service Date/Time: Saturday, April 22, 2017 13:14 - CONCLUSION: Uncomplicated nephrostomy tube placement as above. Kash Hopper MD Objective Remarks NAD, AAOx3 Resp NL Ab S/NT/ND Bilateral neph tubes in place, light pink output Medications and IVs Current Medications Medications (Trade) Dose Ordered Sig/Shahrzad Route Start Time Stop Time Status Last Admin Ceftriaxone Sodium 1000 mg/ Sodium Chloride 100 ml @ 200 mls/hr Q24H IV 04/20/17 21:00 04/21/17 19:56 (NS Flush) 2 ml UNSCH PRN IV FLUSH 04/19/17 20:15 (NS Flush) 2 ml BID IV FLUSH 04/19/17 21:00 04/21/17 10:44 (Zofran Inj) 4 mg Q6H PRN IVP 04/19/17 20:15 (Tylenol) 650 mg Q6H PRN PO 04/19/17 20:15 ([place] 5-325 Mg) 1 tab Q4H PRN PO 04/19/17 20:15 (Morphine Inj) 2 mg Q3H PRN IV PUSH 04/19/17 20:15 (Liliana-Colace) 1 tab BID PO 04/19/17 21:00 (Milk Of Magnesia Liq) 30 ml Q12H PRN PO 04/19/17 20:15 (Senokot) 17.2 mg Q12H PRN PO 04/19/17 20:15 (Dulcolax Supp) 10 mg DAILY PRN RECTAL 04/19/17 20:15 (Lactulose Liq) 30 ml DAILY PRN PO 04/19/17 20:15 (D50w (Vial) Inj) 50 ml UNSCH PRN IV PUSH 04/20/17 05:15 (Glucagon Inj) 1 mg UNSCH PRN OTHER 04/20/17 05:15 Dextrose/Sodium Chloride 1,000 ml @ 100 mls/hr Q10H IV 04/20/17 05:15 04/22/17 08:54 (Norvasc) 5 mg DAILY PO 04/21/17 10:15 04/22/17 08:54 (Lipitor) 80 mg HS PO 04/21/17 21:00 (Protonix) 40 mg DAILY PO 04/22/17 09:00 04/22/17 08:53 Sodium Chloride 250 ml @ 15 mls/hr ONCE ONCE IV 04/22/17 09:00 04/23/17 01:39 04/22/17 18:13 (NS Inj) 10 ml BID IRRIGATION 04/22/17 21:00 Assessment and Plan Problem List: (1) Acute renal failure (ARF) ICD Code: N17.9 - Acute kidney failure, unspecified Status: Acute (2) Bladder mass ICD Code: N32.89 - Other specified disorders of bladder Status: Acute Assessment and Plan -Successful bilateral nephrostomy tube placement. -Expect serum creatinine to improve the however unlikely to return to baseline given his chronic kidney disease. -Once medically stable the patient may be discharged. He is to followup with Dr. Forrester in clinic to complete his TURBT. After successful resection of his bladder mass his upper tract may then be investigated with nephrostogram and potential internalization of stents versus removal. -Please call with questions Problem Qualifiers (1) Acute renal failure (ARF): Qualified Codes: N17.9 - Acute kidney failure, unspecified Pantera Eagel MD Apr 22, 2017 19:59
[2017-04-22] MEDS: SODIUM CHLORIDE 0.9% 10 ML VIAL IRRIGATION SCH (21:00)
[2017-04-22] MEDS ORDERED: FUROSEMIDE 20 MG/2 ML VIAL IV PUSH ONE (21:45)
[2017-04-22] MEDS: ATORVASTATIN 80 MG TAB PO SCH (22:47)
[2017-04-22] MEDS: cefTRIAXone INJ 1,000 MG in SODIUM CHLORIDE 0.9% INJ 100 ML IV SCH (22:48)
[2017-04-22 22:51] LABS: REVIEW FLAG FINAL
[2017-04-23] VITALS: BP 150/67; PULSE 77; RESP 18; TEMP 98.4; O2SAT 97
[2017-04-23 04:53] VITALS: BP 153/69; PULSE 72; RESP 18; TEMP 98.4; O2SAT 96
[2017-04-23 08:00] VITALS: BP 143/81; PULSE 72; RESP 18; TEMP 96.8; O2SAT 98
[2017-04-23] MEDS: SODIUM CHLORIDE 0.9% FLUSH 10 ML FLUSH IV FLUSH SCH ×2 (08:03→21:59)
[2017-04-23] MEDS: DOCUSATE SODIUM 50 MG/SENNA 8.6 MG TAB PO SCH ×2 (08:03→21:00)
[2017-04-23] MEDS: PANTOPRAZOLE SOD 40 MG DELAYED RELEASE TAB PO SCH (08:03)
[2017-04-23] MEDS: amLODIPine BESYLATE 5 MG TAB PO SCH ×2 (08:03→21:58)
[2017-04-23] MEDS: SODIUM CHLORIDE 0.9% 10 ML VIAL IRRIGATION SCH ×2 (09:00→21:00)
[2017-04-23 09:02] LABS: HEMATOCRIT 26.6 % (39.0-51.0); MEAN CELL VOLUME 86.1 FL (80.0-100.0); MEAN CORPUSCULAR HEMOGLOBIN 28.3 PG (27.0-34.0); MEAN CORPUSCULAR HGB CONC 32.9 % (32.0-36.0); PLATELET COUNT 217 TH/MM3 (150-450); RED BLOOD COUNT 3.09 MIL/MM3 (4.50-5.90); RED CELL DISTRIBUTION WIDTH 23.2 % (11.6-17.2); REVIEW FLAG FINAL; WHITE BLOOD COUNT 8.1 TH/MM3 (4.0-11.0)
--- NOTE | 2017-04-23 09:04 | HHI.PR ---
Subjective Remarks Follow-up Visit for hydronephrosis, renal mass, acute kidney failure on chronic kidney disease. Patient seen and examined today. Reports he is doing okay. Complaints of right nephrostomy tube having leak in the connector site that he needs to change his gown 3. States pain is manageable. He continues to have small amount of urine but it's all clots and blood. Right nephrostomy tube pink drainage, left nephrostomy tube peach drainage. Denies pain and discomfort. Denies SOB/ dyspnea. Denies chest pain, palpitations, headaches, dizziness. Denies fevers, chills, n/v/d. Objective Vitals Vital Signs Date Time Temp Pulse Resp B/P (MAP) Pulse Ox O2 Delivery O2 Flow Rate FiO2 04/23/17 08:00 96.8 72 18 143/81 (101) 98 04/23/17 04:53 98.4 72 18 153/69 (97) 96 04/23/17 00:00 98.4 77 18 150/67 (94) 97 04/22/17 20:00 98.1 72 18 162/71 (101) 97 04/22/17 18:52 97.3 88 16 151/62 98 04/22/17 18:30 97.0 82 17 146/53 99 04/22/17 18:21 97.0 82 17 146/53 (84) 99 04/22/17 16:00 95.4 93 17 166/67 (100) 99 04/22/17 14:45 67 20 154/76 (102) 95 04/22/17 14:15 67 20 146/71 (96) 97 04/22/17 13:30 76 20 149/72 (97) 95 04/22/17 13:15 98.0 85 20 160/76 (104) 97 04/22/17 12:00 97.8 75 17 155/68 (97) 97 I/O 04/22/17 04/22/17 04/22/17 04/23/17 04/23/17 04/23/17 06:59 14:59 22:59 06:59 14:59 22:59 Intake Total 790 ml 1140 ml 680 ml Output Total 600 ml 1400 ml 5250 ml Balance 190 ml -260 ml -4570 ml Intake Oral 240 ml 680 ml IV Total 790 ml 500 ml Packed Cells 400 ml Output Urine Total 600 ml 300 ml Drainage Total 1400 ml 4950 ml # Voids 4 # Bowel Movements 0 Result Diagram: 04/23/17 0835 04/22/17 0717 Imaging Last Impressions Nephrostomy 04/22/17 0000 Signed Impressions: Service Date/Time: Saturday, April 22, 2017 13:14 - CONCLUSION: Uncomplicated nephrostomy tube placement as above. Kash Hopper MD Abdomen/Pelvis CT 04/19/17 1818 Signed Impressions: Service Date/Time: Wednesday, April 19, 2017 18:39 - CONCLUSION: 1. Extensive mural thickening of the posterior bladder characteristic of a history of bladder cancer. This likely results in obstruction of both distal ureters with moderate bilateral hydronephrosis. There is mild anasarca. Vascular calcifications present in both kidneys. 2. 6.4 x 3 cm lobulated mass extending from the prostatic bed into the right ischiorectal fossa. This may represent complex fluid. This may be related to prior surgery. Multiple surgical clips present in the lower posterior pelvis. 3. Extensive atherosclerotic vascular disease with pain in both iliac arteries. 4. Left lower anterior abdominal wall hernia containing several loops of small bowel without bowel obstruction. This could be the site of a previous ostomy. Kenyon Sandoval MD Objective Remarks GENERAL: This is a thin appearing, well-developed patient, in no apparent distress. SKIN: Warm and dry. Pale. HEENT: Normocephalic. Pupils equal round and reactive. Nose without bleeding. Airway patent. NECK: Trachea midline. No JVD. Supple. CARDIOVASCULAR: Regular rate and rhythm without murmurs, gallops, or rubs. RESPIRATORY: Clear to auscultation. Breath sounds equal bilaterally. No wheezes , rales, or rhonchi. GASTROINTESTINAL: Abdomen soft, non-tender, nondistended. Bowel Sounds normoactive x4. Ostomy present LLQ. MUSCULOSKELETAL: Extremities without clubbing, cyanosis, or edema. NEUROLOGICAL: Awake and alert. Oriented to time, place, person. No focal neuro deficit. Moves all extremities. Normal speech. Procedures Status post bilateral nephrostomy tube placement 04/22/17 A/P Problem List: (1) YASIR (acute kidney injury) ICD Code: N17.9 - Acute kidney failure, unspecified (2) Bladder cancer ICD Code: C67.9 - Malignant neoplasm of bladder, unspecified (3) UTI (urinary tract infection) ICD Code: N39.0 - Urinary tract infection, site not specified (4) Anemia ICD Code: D64.9 - Anemia, unspecified (5) HTN (hypertension) ICD Code: I10 - Essential (primary) hypertension Assessment and Plan Patient is a 71-year-old male with PMH of HTN, Hyperlipidemia, CAD, CKD Stage III, Anemia, Colorectal CA s/p Colostomy and Bladder CA who was referred to the ER by his PCP secondary to elevated creatinine and hyperkalemia. Anemia, acute secondary to hematuria Hematuria - Possibly secondary to obstruction from an underlying mass - H&H 6.8/20.5 --> 8.8/26.6 - Blood transfusion 2 - Improved H&H post transfusion S/P bilateral nephrostomy tube placement 04/22/17 Acute kidney failure on chronic kidney disease Obstructive uropathy, hydronephrosis - Creatinine 8.86 this probably secondary to obstruction from underlying mass. - Patient is being seen by Dr. Forrester an outpatient, he will be followed by urologist - Nephrology consulted for further evaluation and recommendation. Trending renal indices - Pain management morphine IV, [place] - Nephrostomy tubes in place right draining blood tinged urine, left draining marquis urine, hematuria continues minimal - PT eval Bladder cancer - Patient is being followed by Dr. Baker as an outpatient - Plan was for TURBT by Dr. Forrester this month Urinary tract infection - UA positive for UTI. Pending cultures. - Continue antibiotics Rocephin Hyperkalemia - Potassium 5.4, treated with insulin, D50, calcium - Recent potassium 4.8 HTN, elevated BP - Restart home dose of amlodipine - Clonidine when necessary - Monitor BP trend for now DVT prop SCDs Discussed with patient, nursing, Dr. Mojica Discharge Planning Plan to DC home tomorrow with [facility]. Casandra Lackey Apr 23, 2017 09:03
[2017-04-23 09:31] LABS: ANION GAP 13 MEQ/L (5-15); BICARBONATE 17.5 MEQ/L (21.0-32.0); BLOOD UREA NITROGEN 61 MG/DL (7-18); CHLORIDE 112 MEQ/L (98-107); GLOMERULAR FILTRATION RATE 7 ML/MIN (>89); POTASSIUM 4.8 MEQ/L (3.5-5.1); SODIUM (NA) 142 MEQ/L (136-145)
[2017-04-23 09:35] LABS: FERRITIN 666 NG/ML (26-388); TRANSFERRIN IRON PROFILE 103 MG/DL (200-360)
--- NOTE | 2017-04-23 10:18 | HHI.FF ---
Face to Face Verification Diagnosis: (1) Nephrostomy status (2) Bilateral hydronephrosis (3) Hyperkalemia (4) HTN (hypertension) (5) Bladder cancer (6) UTI (urinary tract infection) (7) Acute renal failure (ARF) Home Health Nursing Order: Medical education Signs/symptoms of disease process Wound care and dressing changes Nursing assessment with vital signs I have seen patient Jaime Lofton on 04/23/17. My clinical findings support the need for the requested home health care services because: Limited ability to care for self Infection w/ risk of complications I certify that my clinical findings support that this patient is homebound because: Post-op weakness Casandra Lackey Apr 23, 2017 10:18
[2017-04-23 12:00] VITALS: BP 164/70; PULSE 78; RESP 17; TEMP 97; O2SAT 98
[2017-04-23] MEDS: DEXT 5%-NACL 0.9% 1000 ML INJ 1,000 ML IV SCH ×2 (13:15→22:03)
--- NOTE | 2017-04-23 15:37 | HHI.NPPN ---
Subjective General Problems: Anemia Renal Failure: Chronic, Acute, Stage IV History of Present Illness 71-year-old male with past medical history of rectal cancer. He is post colectomy and colostomy. hypertension, hyperlipidemia, ischemic heart disease, chronic kidney disease, came to the hospital because of dysuria, hematuria and decreased urine output. Patient has known history of chronic kidney disease. His baseline creatinine seems to be close to 2.1 to 3.4 which was in December 24 and now he came with a creatinine of 8.8. Additional Remarks Patient is alert, no SOB, no abd. pain, feeling better. Review of Systems General Constitutional: Fatigue Cardiovascular Cardiac: SHANKAR Gastrointestinal Gastrointestinal: Abdominal Pain Objective Data Data Vital Signs Date Time Temp Pulse Resp B/P (MAP) Pulse Ox O2 Delivery O2 Flow Rate FiO2 04/23/17 12:00 97.0 78 17 164/70 (101) 98 04/23/17 08:00 96.8 72 18 143/81 (101) 98 04/23/17 04:53 98.4 72 18 153/69 (97) 96 04/23/17 00:00 98.4 77 18 150/67 (94) 97 04/22/17 20:00 98.1 72 18 162/71 (101) 97 04/22/17 18:52 97.3 88 16 151/62 98 04/22/17 18:30 97.0 82 17 146/53 99 04/22/17 18:21 97.0 82 17 146/53 (84) 99 04/22/17 16:00 95.4 93 17 166/67 (100) 99 -: 04/23/17 0835 04/23/17 0835 Physical Exam General Appearance: No Acute Distress, Comfortable Eyes Eye Exam: Pupils Equal Throat Throat Exam: Oral Mucosa [place] & Moist Neck Neck Exam: Neck Supple Pulmonary Resp Exam: Breath Sounds Equal, No Distress, Rhonchi, Decreased Bases Cardiology CV Exam: Regular, Normal Sinus Rhythm Gastrointestinal/Abdomen GI Exam: Soft, Non-Tender, Bowel Sounds Present, Non-Distended Extremeties Extremities Exam: No Edema Neurologic Neuro Exam: Alert, Awake, Oriented Psychiatric Psych Exam: Appropriate Responses Assessment/Plan Assessment Summary: YASIR/Acute Renal Failure, Hypertension, CKD Stage IV Electrolyte Assessment: Hyperkalemia Problem List: (1) Bladder mass ICD Codes: N32.89 - Other specified disorders of bladder Status: Acute (2) Anemia ICD Codes: D64.9 - Anemia, unspecified (3) UTI (urinary tract infection) ICD Codes: N39.0 - Urinary tract infection, site not specified (4) Bladder cancer ICD Codes: C67.9 - Malignant neoplasm of bladder, unspecified (5) Hyperkalemia ICD Codes: E87.5 - Hyperkalemia (6) YASIR (acute kidney injury) ICD Codes: N17.9 - Acute kidney failure, unspecified Plan Patient has been non oliguric. Has Chronic kidney disease and baseline Creatinine was 2.1-3.1, Has Bilateral Hydronephrosis. Seen by urology. Post Bilateral Nephrostomy. Hgb is better after transfusion. Creatinine is slowly improving. Cammy Beth MD Apr 23, 2017 15:37
[2017-04-23 16:00] VITALS: BP 162/72; PULSE 74; RESP 17; TEMP 96.7; O2SAT 98
[2017-04-23 20:16] VITALS: BP 153/64; PULSE 77; RESP 18; TEMP 98.4; O2SAT 97
[2017-04-23] MEDS: cefTRIAXone INJ 1,000 MG in SODIUM CHLORIDE 0.9% INJ 100 ML IV SCH (21:58)
[2017-04-23] MEDS: ATORVASTATIN 80 MG TAB PO SCH (21:58)
[2017-04-24 00:03] VITALS: BP 140/60; PULSE 78; RESP 17; TEMP 98.2; O2SAT 96
[2017-04-24 08:00] VITALS: BP 136/63; PULSE 89; RESP 16; TEMP 97.2; O2SAT 97
[2017-04-24] MEDS: SODIUM CHLORIDE 0.9% 10 ML VIAL IRRIGATION SCH (09:00)
[2017-04-24] MEDS: DOCUSATE SODIUM 50 MG/SENNA 8.6 MG TAB PO SCH (09:00)
[2017-04-24] MEDS: DEXT 5%-NACL 0.9% 1000 ML INJ 1,000 ML IV SCH (09:15)
[2017-04-24] MEDS: PANTOPRAZOLE SOD 40 MG DELAYED RELEASE TAB PO SCH (09:18)
[2017-04-24] MEDS: SODIUM CHLORIDE 0.9% FLUSH 10 ML FLUSH IV FLUSH SCH (09:18)
[2017-04-24] MEDS: amLODIPine BESYLATE 5 MG TAB PO SCH (09:18)
--- NOTE | 2017-04-24 09:40 | HHI.PR ---
Subjective Remarks Follow-up visit bilateral hydronephrosis, renal mass, acute kidney failure on chronic kidney disease. Patient seen and examined today. at the bedside. Patient adamant that he wants to be home. States that things will not change that he'll be treated the same if he is at home. He plans to follow-up with Dr. Forrester office and whatever follow-up appointments that he is scheduled to go to. States nephrostomy drains are draining. He has a small amount of hematuria but has not been voiding a lot. Denies pain and discomfort. Denies SOB/ dyspnea. Denies chest pain, palpitations, headaches, dizziness. Denies fevers, chills, n/v/d. Objective Vitals Vital Signs Date Time Temp Pulse Resp B/P (MAP) Pulse Ox O2 Delivery O2 Flow Rate FiO2 04/24/17 08:00 97.2 89 16 136/63 (87) 97 04/24/17 00:03 98.2 78 17 140/60 (86) 96 04/23/17 20:16 98.4 77 18 153/64 (93) 97 04/23/17 16:00 96.7 74 17 162/72 (102) 98 04/23/17 12:00 97.0 78 17 164/70 (101) 98 I/O 04/23/17 04/23/17 04/23/17 04/24/17 04/24/17 04/24/17 07:00 15:00 23:00 07:00 15:00 23:00 Intake Total 680 ml 700 ml 780 ml Output Total 5250 ml 1475 ml 1660 ml Balance -4570 ml -775 ml -880 ml Intake Oral 680 ml 600 ml 780 ml IV Total 100 ml Output Urine Total 300 ml Drainage Total 4950 ml 1475 ml 1660 ml # Voids 1 # Bowel Movements 0 Result Diagram: 04/23/17 0835 04/23/17 0835 Imaging Last Impressions Nephrostomy 04/22/17 0000 Signed Impressions: Service Date/Time: Saturday, April 22, 2017 13:14 - CONCLUSION: Uncomplicated nephrostomy tube placement as above. Kash Hopper MD Abdomen/Pelvis CT 04/19/17 1818 Signed Impressions: Service Date/Time: Wednesday, April 19, 2017 18:39 - CONCLUSION: 1. Extensive mural thickening of the posterior bladder characteristic of a history of bladder cancer. This likely results in obstruction of both distal ureters with moderate bilateral hydronephrosis. There is mild anasarca. Vascular calcifications present in both kidneys. 2. 6.4 x 3 cm lobulated mass extending from the prostatic bed into the right ischiorectal fossa. This may represent complex fluid. This may be related to prior surgery. Multiple surgical clips present in the lower posterior pelvis. 3. Extensive atherosclerotic vascular disease with pain in both iliac arteries. 4. Left lower anterior abdominal wall hernia containing several loops of small bowel without bowel obstruction. This could be the site of a previous ostomy. Kenyon Sandoval MD Objective Remarks GENERAL: This is a thin appearing, well-developed patient, in no apparent distress. SKIN: Warm and dry. Pale. HEENT: Normocephalic. Pupils equal round and reactive. Nose without bleeding. Airway patent. NECK: Trachea midline. No JVD. Supple. CARDIOVASCULAR: Regular rate and rhythm without murmurs, gallops, or rubs. RESPIRATORY: Clear to auscultation. Breath sounds equal bilaterally. No wheezes , rales, or rhonchi. GASTROINTESTINAL: Abdomen soft, non-tender, nondistended. Bowel Sounds normoactive x4. Ostomy present LLQ. MUSCULOSKELETAL: Extremities without clubbing, cyanosis, or edema. NEUROLOGICAL: Awake and alert. Oriented to time, place, person. No focal neuro deficit. Moves all extremities. Normal speech. Procedures Status post bilateral nephrostomy tube placement 04/22/17 A/P Problem List: (1) YASIR (acute kidney injury) ICD Code: N17.9 - Acute kidney failure, unspecified (2) Bladder cancer ICD Code: C67.9 - Malignant neoplasm of bladder, unspecified (3) UTI (urinary tract infection) ICD Code: N39.0 - Urinary tract infection, site not specified (4) Anemia ICD Code: D64.9 - Anemia, unspecified (5) HTN (hypertension) ICD Code: I10 - Essential (primary) hypertension Assessment and Plan Patient is a 71-year-old male with PMH of HTN, Hyperlipidemia, CAD, CKD Stage III, Anemia, Colorectal CA s/p Colostomy and Bladder CA who was referred to the ER by his PCP secondary to elevated creatinine and hyperkalemia. Anemia, acute secondary to hematuria Hematuria - Possibly secondary to obstruction from an underlying mass - H&H 6.8/20.5 --> 8.8/26.6 - Blood transfusion 2 - Improved H&H post transfusion S/P bilateral nephrostomy tube placement 04/22/17 Acute kidney failure on chronic kidney disease Obstructive uropathy, hydronephrosis - Creatinine 8.86 this probably secondary to obstruction from underlying mass. - Patient is being seen by Dr. Forrester an outpatient, he will be followed by urologist - Nephrology consulted for further evaluation and recommendation. Trending renal indices. Slowly improving renal indices. - Pain management morphine IV, [place] - Nephrostomy tubes in place right draining marquis urine, left draining marquis urine, hematuria continues minimal - PT eval Bladder cancer - Patient is being followed by Dr. Baker as an outpatient - Plan was for TURBT by Dr. Forrester this month Urinary tract infection - UA positive for UTI. Pending cultures. - Continue antibiotics Rocephin Hyperkalemia - Potassium 5.4, treated with insulin, D50, calcium - Recent potassium 4.8 HTN, elevated BP - Restart home dose of amlodipine - Clonidine when necessary - Monitor BP trend for now DVT prop SCDs Discussed with patient, nursing, Dr. Mojica Discharge Planning Plan to DC home tomorrow with [facility]. Casandra Lackey Apr 24, 2017 09:40
--- NOTE | 2017-04-24 09:41 | HHI.DCPOC ---
Discharge Care Plan Diagnosis: (1) Bilateral hydronephrosis (2) Hyperkalemia (3) YASIR (acute kidney injury) (4) HTN (hypertension) (5) Nephrostomy status Your Health Problems Are: Incision/Drains Bleeding Tendency Goals to Promote Your Health * To prevent worsening of your condition and complications * To maintain your health at the optimal level Directions to Meet Your Goals Take your medications as prescribed Follow your dietary instruction Follow activity as directed Keep your appointments as scheduled Take your immunizations and boosters as scheduled If your symptoms worsen call your PCP, if no PCP go to Urgent Care Center or Emergency Room Smoking is Dangerous to Your Health. Avoid second hand smoke Call the 24-hour hour crisis hotline for domestic abuse at Casandra Lackey Apr 24, 2017 09:41
--- NOTE | 2017-04-24 09:42 | HHI.DS ---
Discharge Summary Admission Date Apr 19, 2017 at 20:11 Admitting Diagnosis bladder mass causing obstruction of bilateral ureters, ARF (1) YASIR (acute kidney injury) ICD Code: N17.9 - Acute kidney failure, unspecified (2) Bladder cancer ICD Code: C67.9 - Malignant neoplasm of bladder, unspecified (3) UTI (urinary tract infection) ICD Code: N39.0 - Urinary tract infection, site not specified (4) Anemia ICD Code: D64.9 - Anemia, unspecified (5) HTN (hypertension) ICD Code: I10 - Essential (primary) hypertension Procedures Status post bilateral nephrostomy tube placement 04/22/17 Brief History - From Admission This is a 71-year-old male with PMH of HTN, Hyperlipidemia, CAD, CKD Stage III, Anemia, Colorectal CA s/p Colostomy and Bladder CA who was referred to the ER by his PCP secondary to elevated creatinine and hyperkalemia. Per pt he follows w/ Dr. Forrester, scheduled for TURBT later this month. Has been having ongoing hematuria that appears to be getting worse, in addition to suprapubic pain. No fever, chills. On arrival, BP 190/78, HR 89, O2 sat 99% on RA, Afebrile. Hemoglobin 8.5, previously 7.9 on 01/13/17. Creatinine 8.86, previously 3.30 on 01/13/17. K+ 5.4. CT Abd/Pelvis w/ extensive mural thickening of posterior bladder characteristic of bladder CA, likely resulting in obstruction of both distal ureters with moderate bilateral hydronephrosis, lobulated mass extending from the prostatic bed, abdominal wall hernia containing several loops of small bowel, no bowel obstruction. S/p eval in ER by Dr. Eagle, plan is for IR in am for placement of bilateral nephrostomy tubes. CBC/BMP: 04/23/17 0835 04/23/17 0835 Significant Findings Laboratory Tests Test 04/21/17 11:03 04/22/17 07:17 04/22/17 22:42 04/23/17 08:35 Red Blood Count 2.73 MIL/MM3 (4.50-5.90) 2.37 MIL/MM3 (4.50-5.90) 3.09 MIL/MM3 (4.50-5.90) Hemoglobin 7.8 GM/DL (13.0-17.0) 6.8 GM/DL (13.0-17.0) 8.2 GM/DL (13.0-17.0) 8.8 GM/DL (13.0-17.0) Hematocrit 23.6 % (39.0-51.0) 20.5 % (39.0-51.0) 25.0 % (39.0-51.0) 26.6 % (39.0-51.0) Red Cell Distribution Width 24.3 % (11.6-17.2) 24.2 % (11.6-17.2) 23.2 % (11.6-17.2) Blood Urea Nitrogen 63 MG/DL (7-18) 63 MG/DL (7-18) 61 MG/DL (7-18) Creatinine 8.76 MG/DL (0.60-1.30) 8.87 MG/DL (0.60-1.30) 8.01 MG/DL (0.60-1.30) Random Glucose 117 MG/DL (74-106) Calcium Level 8.3 MG/DL (8.5-10.1) 8.1 MG/DL (8.5-10.1) 8.2 MG/DL (8.5-10.1) Potassium Level 5.3 MEQ/L (3.5-5.1) Chloride Level 112 MEQ/L (98-107) 115 MEQ/L (98-107) 112 MEQ/L (98-107) Carbon Dioxide Level 18.9 MEQ/L (21.0-32.0) 15.8 MEQ/L (21.0-32.0) 17.5 MEQ/L (21.0-32.0) Estimat Glomerular Filtration Rate 6 ML/MIN (>89) 6 ML/MIN (>89) 7 ML/MIN (>89) Phosphorus Level 5.9 MG/DL (2.5-4.9) Total Iron Binding Capacity 144 MCG/DL (250-450) Percent Iron Saturation 74.9 % (20-50) Ferritin 666 NG/ML (26-388) PE at Discharge GENERAL: This is a thin appearing, well-developed patient, in no apparent distress. SKIN: Warm and dry. Pale. HEENT: Normocephalic. Pupils equal round and reactive. Nose without bleeding. Airway patent. NECK: Trachea midline. No JVD. Supple. CARDIOVASCULAR: Regular rate and rhythm without murmurs, gallops, or rubs. RESPIRATORY: Clear to auscultation. Breath sounds equal bilaterally. No wheezes , rales, or rhonchi. GASTROINTESTINAL: Abdomen soft, non-tender, nondistended. Bowel Sounds normoactive x4. Ostomy present LLQ. MUSCULOSKELETAL: Extremities without clubbing, cyanosis, or edema. NEUROLOGICAL: Awake and alert. Oriented to time, place, person. No focal neuro deficit. Moves all extremities. Normal speech. Pt update on day of discharge Follow-up visit bilateral hydronephrosis, renal mass, acute kidney failure on chronic kidney disease. Patient seen and examined today. at the bedside. Patient adamant that he wants to be home. States that things will not change that he'll be treated the same if he is at home. He plans to follow-up with Dr. Forrester office and whatever follow-up appointments that he is scheduled to go to. States nephrostomy drains are draining. He has a small amount of hematuria but has not been voiding a lot. Denies pain and discomfort. Denies SOB/ dyspnea. Denies chest pain, palpitations, headaches, dizziness. Denies fevers, chills, n/v/d. Pt Condition on Discharge: Good Discharge Disposition: Discharge Home Discharge Time: <= 30 minutes Discharge Instructions DIET: Follow Instructions for: Renal Failure Diet Activities you can perform: Regular-No Restrictions, Weight Bearing as Tim Activities to Avoid: Driving for 24 hrs, Contact Sports, Strenuous Activity Casandra Lackey Apr 24, 2017 9:42 am
[2017-04-24] MEDS ORDERED: AMLO5 PO (09:45)
[2017-04-24] MEDS ORDERED: HYDR-3516 PO (09:45)
[2017-04-24 11:33] LABS: HEMATOCRIT 29.6 % (39.0-51.0); MEAN CELL VOLUME 85.9 FL (80.0-100.0); MEAN CORPUSCULAR HEMOGLOBIN 28.9 PG (27.0-34.0); MEAN CORPUSCULAR HGB CONC 33.6 % (32.0-36.0); PLATELET COUNT 248 TH/MM3 (150-450); RED BLOOD COUNT 3.45 MIL/MM3 (4.50-5.90); RED CELL DISTRIBUTION WIDTH 23.3 % (11.6-17.2); WHITE BLOOD COUNT 8.7 TH/MM3 (4.0-11.0)
[2017-04-24 11:37] LABS: REVIEW FLAG FINAL
[2017-04-24 11:50] LABS: BICARBONATE 20.5 MEQ/L (21.0-32.0); POTASSIUM 4.5 MEQ/L (3.5-5.1)
[2017-04-24 12:00] VITALS: BP 138/60; PULSE 84; RESP 16; TEMP 96.6; O2SAT 99
--- NOTE | 2017-04-24 16:00 | HHI.NPPN ---
Subjective General Problems: Anemia Renal Failure: Chronic, Acute, Stage IV History of Present Illness 71-year-old male with past medical history of rectal cancer. He is post colectomy and colostomy. hypertension, hyperlipidemia, ischemic heart disease, chronic kidney disease, came to the hospital because of dysuria, hematuria and decreased urine output. Patient has known history of chronic kidney disease. His baseline creatinine seems to be close to 2.1 to 3.4 which was in December 24 and now he came with a creatinine of 8.8. Additional Remarks Patient seen in AM, alert, no SOB, no abd. pain, feeling better. Review of Systems General Constitutional: Fatigue Cardiovascular Cardiac: SHANKAR Gastrointestinal Gastrointestinal: Abdominal Pain Objective Data Data Vital Signs Date Time Temp Pulse Resp B/P (MAP) Pulse Ox O2 Delivery O2 Flow Rate FiO2 04/24/17 12:00 96.6 84 16 138/60 (86) 99 04/24/17 08:00 97.2 89 16 136/63 (87) 97 04/24/17 00:03 98.2 78 17 140/60 (86) 96 04/23/17 20:16 98.4 77 18 153/64 (93) 97 04/23/17 16:00 96.7 74 17 162/72 (102) 98 -: 04/24/17 1043 04/24/17 1043 Physical Exam General Appearance: No Acute Distress, Comfortable Eyes Eye Exam: Pupils Equal Throat Throat Exam: Oral Mucosa [place] & Moist Neck Neck Exam: Neck Supple Pulmonary Resp Exam: Breath Sounds Equal, No Distress, Rhonchi, Decreased Bases Cardiology CV Exam: Regular, Normal Sinus Rhythm Gastrointestinal/Abdomen GI Exam: Soft, Non-Tender, Bowel Sounds Present, Non-Distended Extremeties Extremities Exam: No Edema Neurologic Neuro Exam: Alert, Awake, Oriented Psychiatric Psych Exam: Appropriate Responses Assessment/Plan Assessment Summary: YASIR/Acute Renal Failure, Hypertension, CKD Stage IV Electrolyte Assessment: Hyperkalemia Problem List: (1) Bladder mass ICD Codes: N32.89 - Other specified disorders of bladder Status: Acute (2) Anemia ICD Codes: D64.9 - Anemia, unspecified (3) UTI (urinary tract infection) ICD Codes: N39.0 - Urinary tract infection, site not specified (4) Bladder cancer ICD Codes: C67.9 - Malignant neoplasm of bladder, unspecified (5) Hyperkalemia ICD Codes: E87.5 - Hyperkalemia (6) YASIR (acute kidney injury) ICD Codes: N17.9 - Acute kidney failure, unspecified Plan Patient has been non oliguric. Has Chronic kidney disease and baseline Creatinine was 2.1-3.1, Has Bilateral Hydronephrosis. Seen by urology. Post Bilateral Nephrostomy. Hgb is better after transfusion. Creatinine is now 7.56. Patient insisted to go home. He was signed AMA. I can follow in 1 week with repeat BMP. Cammy Beth MD Apr 24, 2017 16:00
== END 2017-04-24 15:55 | disposition left against medical advice (07) | DRG 683 ==
LOC: NEPC 17:41 → NEDA 19:49 → INTOOBSV 19:49 → OBSVTOIN 20:11 → N07A 21:28
PROVIDERS: ADMIT Family Medicine; ATTEND Family Medicine
PROC: 0T9330Z Drainage of Right Kidney Pelvis with Drainage Device, Percutaneous Approach (ICD-10-PCS; principal; 2017-04-22)
PROC: 0T9430Z Drainage of Left Kidney Pelvis with Drainage Device, Percutaneous Approach (ICD-10-PCS; 2017-04-22)
PROC: 30233N1 Transfusion of Nonautologous Red Blood Cells into Peripheral Vein, Percutaneous Approach (ICD-10-PCS; 2017-04-22)
DX: N17.9 Acute kidney failure, unspecified (principal); N39.0 Urinary tract infection, site not specified; E87.2 Acidosis; I50.9 Heart failure, unspecified; I13.0 Hypertensive heart and chronic kidney disease with heart failure and stage 1 through stage 4 chronic kidney disease, or unspecified chronic kidney disease; C67.9 Malignant neoplasm of bladder, unspecified; D64.9 Anemia, unspecified; E87.5 Hyperkalemia; E78.5 Hyperlipidemia, unspecified; I25.10 Atherosclerotic heart disease of native coronary artery without angina pectoris; N13.39 Other hydronephrosis; N18.4 Chronic kidney disease, stage 4 (severe); F17.210 Nicotine dependence, cigarettes, uncomplicated; K43.9 Ventral hernia without obstruction or gangrene; Z93.3 Colostomy status; Z95.5 Presence of coronary angioplasty implant and graft; Z85.048 Personal history of other malignant neoplasm of rectum, rectosigmoid junction, and anus; Z95.1 Presence of aortocoronary bypass graft; Z23 Encounter for immunization; Z86.73 Personal history of transient ischemic attack (TIA), and cerebral infarction without residual deficits; R31.9 Hematuria, unspecified; I25.2 Old myocardial infarction; J44.9 Chronic obstructive pulmonary disease, unspecified; K21.9 Gastro-esophageal reflux disease without esophagitis; M19.90 Unspecified osteoarthritis, unspecified site
CPT/HCPCS: 36430; 50432; 74176; 80048; 80053; 81001; 82728; 82948; 83540; 83550; 83690; 84100; 85014; 85018; 85025; 85027; 85610; 85730; 86850; 86900; 86901; 86920; 87086; 90732; 93005; 96365; 96372; 99152; 99153; C1729; C1769; C1894; J0610; J0696; J1756; J1815; J1940; J1956; J2250; J3010; J3420; J7030; J7042; J7050; P9016

== ENCOUNTER 2017-05-03 14:03 | Day surgery (SDC) | payer OTHER ==
[~2017-05-03] VITALS: Ht 165.1 cm; Wt 60.0 kg
[~2017-05-03 14:03] MED LIST changes: +AMLO5 PO; -ASPI-516 CHEW; -CIPR-9 PO; +CYAN25005 PO; +HYDR-3516 PO
[2017-05-03] MEDS ORDERED: IOHEXOL 350 MG/ML 50 ML BTL (for RAD DIAG) OTHER ONE (14:04)
[2017-05-03 14:49] VITALS: BP 126/54; PULSE 67; RESP 19; TEMP 97.4; O2SAT 98
--- NOTE | 2017-05-03 17:15 | PD.RAD ---
Post Procedure Progress Note Pre Procedure Diagnosis: (1) Leakage from urinary catheter (2) Bilateral hydronephrosis Post Procedure Diagnosis: (1) Bilateral hydronephrosis (2) Leakage from urinary catheter Procedure Date: May 03, 2017 Supervising Radiologist: Omar Resendez Proceduralist/Assist: Caren Miranda, RT(R)(), Arlene Dao RT(R) Anesthesia: Local Plan of Activity Patient to Unit: ROPU Patient Condition: Good See PACS Report for procedural detail/treatment Imaging Evaluation Nephrostogram Findings: Left nephrostomy tube pulled back into LP calyx. Gently advanced back into renal pelvis with forward pressure on tube. Discussed findings with patient. Per patient request, catheter secured in position with 2-0 silk and placed to gravity drainage. Omar Resendez MD May 03, 2017 17:15
--- NOTE | 2017-05-05 10:13 | RADRPT ---
EXAM DATE/TIME: 05/03/2017 15:59 [place] COMPARISON: No previous studies available for comparison. INDICATIONS : Patient with a history of hydronephrosis, leaking nephrostomy tube. MEDICAL HISTORY : HTN HYPERLIPIDEMIA CAD CKD STAGE III ANEMIA COLORECTAL CA S/P COLOSTOMY AND BLADDER CA SURGICAL HISTORY : COLOSTOMY CARDIAC STENT CABG ENCOUNTER: Subsequent ACUITY: 1 day PAIN SCORE: 0/10 FLUORO TIME: 0.5 minutes IMAGE SERIES: 2 CONTRAST: 5 cc Omnipaque (iohexol) 350 PROCEDURE : 1. Antegrade pyelogram. The risks, benefits and alternatives to the procedure were explained and verbal and written consent w as obtained. Under sterile conditions and using aseptic technique with fluoroscopic guidance the pat ient's existing nephroureteral tube was accessed. Contrast injection through the existing left-sided nephrostomy tube showed the catheter was withdrawn into the calyx of the lower pole of the left kidney. With gentle forward pressure, I was able to rep osition the catheter into the renal pelvis. No ongoing leakage identified from the dermatotomy site e ither prior to or after repositioning. Catheter was secured to the skin surface with 2-0 silk suture. CONCLUSION: Uncomplicated injection, repositioning and securing of indwelling nephrostomy tube. Omar Resendez MD on May 05, 2017 at 10:10 Board Certified Radiologist. This report was verified electronically.
== END 2017-05-03 16:48 | disposition home or self-care (01) ==
LOC: HROP 14:03 → HRIP 14:03 → HROP 16:48
PROVIDERS: ATTEND Urology
DX: T83.032A Leakage of nephrostomy catheter, initial encounter (principal); D41.4 Neoplasm of uncertain behavior of bladder; N13.30 Unspecified hydronephrosis; I12.9 Hypertensive chronic kidney disease with stage 1 through stage 4 chronic kidney disease, or unspecified chronic kidney disease; N18.3 Chronic kidney disease, stage 3 (moderate); E78.5 Hyperlipidemia, unspecified; I25.10 Atherosclerotic heart disease of native coronary artery without angina pectoris; D64.9 Anemia, unspecified
CPT/HCPCS: 50431; Q9967

== ENCOUNTER 2017-05-29 07:48 | Emergency (ER) | payer OTHER ==
[~2017-05-29] VITALS: Ht 170.2 cm; Wt 55.5 kg
[2017-05-29 07:51] VITALS: BP 160/62; PULSE 88; RESP 16; TEMP 98.4; O2SAT 99
--- NOTE | 2017-05-29 08:15 | PD ---
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 He had bilateral nephrostomy tubes placed one month ago and last night the left catheter bag started leaking urine. Patient had a replacement bag but did not know how to replace it himself so he presented to the ED. The nephrostomy tube insertions sites are well appearing with no purulent drainage or leakage noted. Patient denies any other physiological compliant. No fevers, chills, malaise, nausea, vomiting, diarrhea. PFSH Past Medical History Anemia: Yes Arthritis: Yes Asthma: No Autoimmune Disease: No Blood Disorders: Yes Heart Rhythm Problems: No Cancer: Yes (rectal cancer) Cardiac Catheterization: Yes Cardiovascular Problems: Yes ([place]) High Cholesterol: Yes (high cholesterol ) Chest Pain: No Congestive Heart Failure: No COPD: No Cerebrovascular Accident: Yes (2006) Coronary Artery Disease: Yes Diabetes: No Diminished Hearing: No Endocrine: No Gastrointestinal Disorders: Yes GERD: Yes Genitourinary: Yes Headaches: No Hepatitis: No Hiatal Hernia: No Hypertension: Yes Immune Disorder: No Implanted Vascular Access Dvce: No Kidney Stones: No Musculoskeletal: No Neurologic: Yes Psychiatric: No Reproductive: No Respiratory: No Immunizations Current: No Migraines: No Myocardial Infarction: Yes Renal Failure: Yes (Stage 4) Seizures: No Sleep Apnea: No Thyroid Disease: No Ulcer: No Past Surgical History Abdominal Surgery: Yes (Colostomy LLQ 1992 from rectal cancer) AICD: No Arteriovenous Shunt: No Body Medical Devices: COLOSTOMY Cardiac Surgery: Yes (double bypass in 1990, 5 stents placed) Coronary Artery Bypass Graft: Yes (DOUBLE) Coronary Stent: Yes (5) Ear Surgery: No Endocrine Surgery: No Eye Surgery: No Genitourinary Surgery: No Gynecologic Surgery: No Insulin Pump: No Joint Replacement: No Neurologic Surgery: No Oral Surgery: No Pacemaker: No Thoracic Surgery: No Other Surgery: Yes Social History Alcohol Use: Yes (DAILY) Tobacco Use: Yes (1/2 PPD) Substance Use: No Allergies-Medications (Allergen,Severity, Reaction): Coded Allergies: No Known Allergies (Verified Allergy, Unknown, 04/19/17) Reported Meds & Prescriptions Reported Meds & Active Scripts Active Norvasc (Amlodipine Besylate) 5 Mg Tab 5 Mg PO BID Hydrocodone-Acetamin 5-325 mg (Hydrocodone/Acetaminophen) 5 Mg-325 Mg Tablet 1 Tab PO Q4H PRN Reported Vitamin B12 (Cyanocobalamin (Vitamin B-12)) 2,500 Mcg Tab.chew 1,000 PO DAILY Omeprazole 40 Mg Cap 40 Mg PO DAILY Atorvastatin (Atorvastatin Calcium) 80 Mg Tab 80 Mg PO HS Review of Systems Except as stated in HPI: all other systems reviewed are Neg Physical Exam Narrative GENERAL: Well nourished, well developed 71 year old male patient in no acute distress. SKIN: Warm and dry. HEAD: Normocephalic. Atraumatic. EYES: No scleral icterus. No injection or drainage. NECK: Supple, trachea midline. No JVD or lymphadenopathy. CARDIOVASCULAR: Regular rate and rhythm without murmurs, gallops, or rubs. RESPIRATORY: Breath sounds equal bilaterally. No accessory muscle use. GASTROINTESTINAL: Abdomen soft, non-tender, nondistended. MUSCULOSKELETAL: No cyanosis, or edema. BACK: Nontender without obvious deformity. Bilateral nephrostomy tubes in place draining clear yellow urine with no erythema, purulent drainage or foul order. No CVA tenderness. Data Data Last Documented VS Vital Signs Date Time Temp Pulse Resp B/P (MAP) Pulse Ox O2 Delivery O2 Flow Rate FiO2 05/29/17 08:28 05/29/17 07:51 98.4 88 16 99 Room Air Orders Orders Ed Discharge Order (05/29/17 08:15) MDM Medical Decision Making Medical Screen Exam Complete: Yes Emergency Medical Condition: Yes Differential Diagnosis Differential diagnosis include but not limited to medical assembly malfunction, nephrostomy tube check, urine leakage Narrative Course Patient presents with a replacement a replacement catheter bag. Catheter bag replaced in triage. Patient assessed, he has no physiological complaints. Patient is discharged home with instructions to follow-up with his primary care. Diagnosis Primary Impression: Nephrostomy status Referrals: Primary Care Physician Disposition: 01 DISCHARGE HOME Condition: Stable GracielaLaura waltersnicole MCKEON May 29, 2017 08:15
== END 2017-05-29 08:29 | disposition home or self-care (01) ==
LOC: NEPK 07:48
DX: T83.018A Breakdown (mechanical) of other urinary catheter, initial encounter (principal); X58.XXXA Exposure to other specified factors, initial encounter; F17.210 Nicotine dependence, cigarettes, uncomplicated; Z93.6 Other artificial openings of urinary tract status
CPT/HCPCS: 99282

== ENCOUNTER 2017-05-31 12:28 | Day surgery (SDC) | payer OTHER ==
[2017-05-31 12:57] VITALS: BP 159/63; PULSE 84; RESP 20; TEMP 98.1; O2SAT 96
== END 2017-05-31 13:30 | disposition home or self-care (01) ==
LOC: HROP 12:28 → HRIP 12:30 → HROP 13:30
PROVIDERS: ATTEND Urology
DX: Z43.6 Encounter for attention to other artificial openings of urinary tract (principal); D41.4 Neoplasm of uncertain behavior of bladder
CPT/HCPCS: 99212; G0463

== ENCOUNTER 2017-06-03 15:08 | Emergency (ER) | payer OTHER ==
[2017-06-03 15:11] VITALS: BP 150/64; PULSE 114; RESP 20; TEMP 97.4; O2SAT 98
[2017-06-03] MEDS ORDERED: AMLO10TA2 PO (16:35)
[2017-06-03 17:23] LABS: BILIRUBIN, URINE NEG (NEG); BLOOD, URINE MOD (NEG); GLUCOSE,URINE NEG (NEG); KETONE, URINE NEG (NEG); NITRITE,URINE NEG (NEG); PH, URINE 5.5 (5.0-8.5); URINE LEUKOCYTE ESTERASE SMALL (NEG)
[2017-06-03] MEDS ORDERED: SODIUM CHLORIDE 0.9% FLUSH 10 ML FLUSH IV FLUSH PRN (17:30)
[2017-06-03] MEDS ORDERED: MORPHINE SULFATE 4 MG/ML INJ IV PUSH ONE (17:30)
[2017-06-03 17:45] VITALS: O2SAT 97
--- NOTE | 2017-06-03 17:47 | PD ---
HPI Chief Complaint: Complaint Time Seen by Provider: 16:52 Travel History International Travel<30 days: No Contact w/Intl Traveler<30days: No Traveled to known affect area: No History of Present Illness HPI Patient is a 71-year-old male with a history of bladder mass status post bilateral nephrostomy tube placement for chronic urinary obstruction late last year presents emergency department for hematuria suprapubic distention and pain. Patient states she has a history of anemia as well as thrombocytopenia and feels as though the bleeding started and he was passing some blood and now it's blocked off and he is not able to relieve himself of blood anymore. States normally he does not urinate from bladder anymore. Discussed all by Dr. Forrester. No fevers no nausea no vomiting. Denies any chest pain shortness of breath show any pain or trauma. He states symptoms are gradually worsening over the past 24-48 hours, context as above, associated signs symptoms as above. PFSH Past Medical History Anemia: Yes Arthritis: Yes Asthma: No Autoimmune Disease: No Blood Disorders: Yes Heart Rhythm Problems: No Cancer: Yes (rectal cancer) Cardiac Catheterization: Yes Cardiovascular Problems: Yes ([place]) High Cholesterol: Yes (high cholesterol ) Chemotherapy: Yes (ended in 2006) Chest Pain: No Congestive Heart Failure: No COPD: No Cerebrovascular Accident: Yes (2006) Coronary Artery Disease: Yes Diabetes: No Diminished Hearing: No Endocrine: No Gastrointestinal Disorders: Yes GERD: Yes Genitourinary: Yes Headaches: No Hepatitis: No Hiatal Hernia: No Hypertension: Yes Immune Disorder: No Implanted Vascular Access Dvce: No Kidney Stones: No Musculoskeletal: No Neurologic: Yes Psychiatric: No Reproductive: No Respiratory: No Immunizations Current: No Migraines: No Myocardial Infarction: Yes Radiation Therapy: Yes (ended in 2006) Renal Failure: Yes (Stage 4) Seizures: No Sleep Apnea: No Thyroid Disease: No Ulcer: No Tetanus Vaccination: Unknown ?: Not Past Surgical History Abdominal Surgery: Yes (Colostomy LLQ 1992 from rectal cancer) AICD: No Arteriovenous Shunt: No Body Medical Devices: COLOSTOMY Cardiac Surgery: Yes (double bypass in 1990, 5 stents placed) Coronary Artery Bypass Graft: Yes (DOUBLE) Coronary Stent: Yes (5) Ear Surgery: No Endocrine Surgery: No Eye Surgery: No Genitourinary Surgery: Yes (bilat nephrostomy) Gynecologic Surgery: No Insulin Pump: No Joint Replacement: No Neurologic Surgery: No Oral Surgery: No Pacemaker: No Thoracic Surgery: No Other Surgery: Yes Social History Alcohol Use: No (quit) Tobacco Use: Yes (1/2 PPD) Substance Use: No Allergies-Medications (Allergen,Severity, Reaction): Coded Allergies: No Known Allergies (Verified Allergy, Unknown, 06/03/17) Reported Meds & Prescriptions Reported Meds & Active Scripts Active Keflex (Cephalexin) 500 Mg Capsule 500 Mg PO Q6H 7 Days Hydrocodone-Acetamin 5-325 mg (Hydrocodone/Acetaminophen) 5 Mg-325 Mg Tablet 1 Tab PO Q4H PRN Reported Amlodipine (Amlodipine Besylate) 10 Mg Tab 10 Mg PO DAILY Vitamin B12 (Cyanocobalamin (Vitamin B-12)) 2,500 Mcg Tab.chew 1,000 PO DAILY Omeprazole 40 Mg Cap 40 Mg PO DAILY Atorvastatin (Atorvastatin Calcium) 80 Mg Tab 80 Mg PO HS Review of Systems Except as stated in HPI: all other systems reviewed are Neg Physical Exam Narrative GENERAL: Well-developed well-nourished, leaning for a stretcher uncomfortable appearance. SKIN: Focused skin assessment warm/dry. HEAD: Atraumatic. Normocephalic. EYES: Pupils equal and round. No scleral icterus. No injection or drainage. ENT: No nasal bleeding or discharge. Mucous membranes pink and moist. NECK: Trachea midline. No JVD. CARDIOVASCULAR: Regular rate and rhythm. No murmur appreciated. RESPIRATORY: No accessory muscle use. Clear to auscultation. Breath sounds equal bilaterally. GASTROINTESTINAL: Abdomen soft, non-tender, nondistended. Hepatic and splenic margins not palpable. There is some suprapubic fullness no true tenderness but certainly is uncomfortable in this area. No rebound no percussive tenderness. Bilateral nephrostomy tube sites clean dry and intact with adequate clear yellow output. MUSCULOSKELETAL: No obvious deformities. No clubbing. No cyanosis. No edema. NEUROLOGICAL: Awake and alert. No obvious cranial nerve deficits. Motor grossly within normal limits. Normal speech. PSYCHIATRIC: Appropriate mood and affect; insight and judgment normal. Data Data Last Documented VS Vital Signs Date Time Temp Pulse Resp B/P (MAP) Pulse Ox O2 Delivery O2 Flow Rate FiO2 06/03/17 21:37 92 18 98 06/03/17 21:36 Room Air 06/03/17 15:11 97.4 Orders Orders Urinalysis - C+S If Indicated (06/03/17 15:40) Ed Poc Ultrasound (06/03/17 ) Basic Metabolic Panel (Bmp) (06/03/17 17:27) Complete Blood Count With Diff (06/03/17 17:27) Prothrombin Time / Inr (Pt) (06/03/17 17:27) Act Partial Throm Time (Ptt) (06/03/17 17:27) Iv Access Insert/Monitor (06/03/17 17:27) Ecg Monitoring (06/03/17 17:27) Oximetry (06/03/17 17:27) Morphine Inj (Morphine Inj) (06/03/17 17:30) Sodium Chloride 0.9% Flush (Ns Flush) (06/03/17 17:30) Ed Poc Ultrasound (06/03/17 ) Bladder/Catheter Irrigation (06/03/17 17:34) ^ Continuous Bladder Irrig - C (06/03/17 17:34) Urine Culture (06/03/17 17:15) Hydromorphone Pf Inj (Dilaudid Pf Inj) (06/03/17 19:45) Ed Discharge Order (06/03/17 21:13) Cephalexin (Keflex) (06/03/17 21:30) Labs Laboratory Tests Test 06/03/17 17:15 06/03/17 17:46 Urine Color YELLOW Urine Turbidity CLEAR Urine pH 5.5 Urine Specific [place] 1.016 Urine Protein 100 mg/dL Urine Glucose (UA) NEG mg/dL Urine Ketones NEG mg/dL Urine Occult Blood MOD Urine Nitrite NEG Urine Bilirubin NEG Urine Leukocyte Esterase SMALL Urine RBC 25-49 /hpf Urine WBC 100-200 /hpf Urine WBC Clumps MOD Urine Squamous Epithelial Cells 0-5 /hpf Urine Bacteria MANY /hpf Microscopic Urinalysis Comment CULTURE INDICATED White Blood Count 18.8 TH/MM3 Red Blood Count 2.60 MIL/MM3 Hemoglobin 7.9 GM/DL Hematocrit 23.7 % Mean Corpuscular Volume 91.2 FL Mean Corpuscular Hemoglobin 30.4 PG Mean Corpuscular Hemoglobin Concent 33.4 % Red Cell Distribution Width 16.0 % Platelet Count 397 TH/MM3 Mean Platelet Volume 7.1 FL Neutrophils (%) (Auto) 93.1 % Lymphocytes (%) (Auto) 3.4 % Monocytes (%) (Auto) 2.6 % Eosinophils (%) (Auto) 0.4 % Basophils (%) (Auto) 0.5 % Neutrophils # (Auto) 17.5 TH/MM3 Lymphocytes # (Auto) 0.6 TH/MM3 Monocytes # (Auto) 0.5 TH/MM3 Eosinophils # (Auto) 0.1 TH/MM3 Basophils # (Auto) 0.1 TH/MM3 CBC Comment AUTO DIFF Differential Comment AUTO DIFF CONFIRMED Prothrombin Time 11.0 SEC Prothromb Time International Ratio 1.1 RATIO Activated Partial Thromboplast Time 29.6 SEC Blood Urea Nitrogen 36 MG/DL Creatinine 3.20 MG/DL Random Glucose 134 MG/DL Calcium Level 8.6 MG/DL Sodium Level 128 MEQ/L Potassium Level 4.8 MEQ/L Chloride Level 94 MEQ/L Carbon Dioxide Level 23.0 MEQ/L Anion Gap 11 MEQ/L Estimat Glomerular Filtration Rate 19 ML/MIN MDM Medical Decision Making Medical Screen Exam Complete: Yes Emergency Medical Condition: Yes Differential Diagnosis Hematuria, bleeding bladder mass, intracystic hematoma. Narrative Course Patient roomed in emergency department, ultrasound shows a somewhat heterogenous collection in the suprapubic region, could be a letter mass but seems to be contained within the urinary bladder itself. Probable hematoma. After discussion with Dr. Forrester the patient had a three-way catheter inserted and was irrigated until the urine was nearly clear. The patient is feeling much better after this and pain medication. Labs are reassuring, does have some white blood cells in his urine could be from bladder wall infection more likely from the bladder mass itself. We'll place on antibiotics, he is having adequate nephrostomy tube output bilaterally which is clear. Kidney function is vastly improved since his last labs at [facility]. At this time the patient is stable for discharge discussed close follow-up with Dr. Forrester and return to ED criteria. Will be started on Procedures Procedure Narrative Bedside ultrasound: Transabdominal views obtained of the bladder showing no free pelvic fluid that there is significant heterogeneous collection within the bladder probable hematoma. Diagnosis Primary Impression: Hematuria Qualified Codes: R31.9 - Hematuria, unspecified Referrals: Alan Forrester MD Additional Instructions: Call Dr. Forrester tomorrow for further instructions. Return to ED as needed. Antibiotics post procedure. Scripts Cephalexin (Keflex) 500 Mg Capsule 500 MG PO Q6H for Infection for 7 Days, #28 CAP 0 Refills Prov: Fransisco Norman MD 06/03/17 Disposition: 01 DISCHARGE HOME Condition: Stable Fransisco Norman MD Jun 03, 2017 17:47
[2017-06-03 17:51] LABS: URINE COLOR YELLOW (YELLW/STRAW)
[2017-06-03 17:53] LABS: BACTERIA, URINE MANY /hpf; SQUAMOUS EPITHELIAL CELL URINE 0-5 /hpf (0-5); WBC, URINE 100-200 /hpf (0-5)
[2017-06-03 17:54] LABS: WHITE BLOOD CELL CLUMPS MOD
[2017-06-03 18:02] LABS: AUTOMATED NEUTROPHIL # 17.5 TH/MM3 (1.8-7.7); BASOPHIL # 0.1 TH/MM3 (0-0.2); BASOPHIL % 0.5 % (0.0-2.0); EOSINOPHIL # 0.1 TH/MM3 (0-0.4); EOSINOPHIL % 0.4 % (0.0-4.0); HEMATOCRIT 23.7 % (39.0-51.0); HEMOGLOBIN 7.9 GM/DL (13.0-17.0); LYMPH % 3.4 % (9.0-44.0); LYMPHOCYTE # 0.6 TH/MM3 (1.0-4.8); MEAN CELL VOLUME 91.2 FL (80.0-100.0); MEAN CORPUSCULAR HEMOGLOBIN 30.4 PG (27.0-34.0); MEAN CORPUSCULAR HGB CONC 33.4 % (32.0-36.0); MEAN PLATELET VOLUME 7.1 FL (7.0-11.0); MONO % 2.6 % (0.0-8.0); MONOCYTE # 0.5 TH/MM3 (0-0.9); NEUT % 93.1 % (16.0-70.0); PLATELET COUNT 397 TH/MM3 (150-450); WHITE BLOOD COUNT 18.8 TH/MM3 (4.0-11.0)
[2017-06-03 18:12] LABS: CALCIUM 8.6 MG/DL (8.5-10.1)
[2017-06-03 18:14] LABS: INTERNATIONAL NORMALIZED RATIO 1.1 RATIO
[2017-06-03 18:16] LABS: CREATININE 3.2 MG/DL (0.60-1.30)
[2017-06-03 18:21] VITALS: BP 160/72; PULSE 97; O2SAT 97
[2017-06-03 19:33] VITALS: BP 189/88; PULSE 98; RESP 18; O2SAT 99
[2017-06-03] MEDS ORDERED: HYDROmorphone HCL PF 2 MG/ML VIAL IV PUSH ONE (19:45)
[2017-06-03 20:39] VITALS: BP 176/78; PULSE 92; RESP 18; O2SAT 97
[2017-06-03] MEDS ORDERED: CEPH-460 PO (21:13)
[2017-06-03] MEDS ORDERED: CEPHALEXIN MONOHYDRATE 500 MG CAP PO ONE (21:30)
[2017-06-03 21:36] VITALS: BP 172/76; PULSE 90; RESP 18; O2SAT 98
== END 2017-06-03 21:38 | disposition home or self-care (01) ==
LOC: PHED 15:08
DX: R31.9 Hematuria, unspecified (principal); B96.5 Pseudomonas (aeruginosa) (mallei) (pseudomallei) as the cause of diseases classified elsewhere; I10 Essential (primary) hypertension; I25.10 Atherosclerotic heart disease of native coronary artery without angina pectoris; E78.00 Pure hypercholesterolemia, unspecified; D64.9 Anemia, unspecified; I25.2 Old myocardial infarction; K21.9 Gastro-esophageal reflux disease without esophagitis; N32.9 Bladder disorder, unspecified; N19 Unspecified kidney failure; F17.210 Nicotine dependence, cigarettes, uncomplicated; Z85.048 Personal history of other malignant neoplasm of rectum, rectosigmoid junction, and anus; Z86.73 Personal history of transient ischemic attack (TIA), and cerebral infarction without residual deficits; Z93.3 Colostomy status; Z93.6 Other artificial openings of urinary tract status; Z95.1 Presence of aortocoronary bypass graft; Z95.5 Presence of coronary angioplasty implant and graft; Z79.899 Other long term (current) drug therapy
CPT/HCPCS: 51700; 80048; 81001; 85025; 85610; 85730; 87077; 87086; 87186; 96374; 96375; 99285; J1170; J2270

== ENCOUNTER 2017-06-14 10:04 | Emergency (ER) | payer OTHER ==
[~2017-06-14] VITALS: Ht 170.2 cm; Wt 57.2 kg
[~2017-06-14 10:04] MED LIST changes: +AMLO10TA2 PO; -AMLO5 PO; +CEPH-460 PO
[2017-06-14 10:08] VITALS: BP 135/61; PULSE 94; RESP 16; TEMP 97.7; O2SAT 99
[2017-06-14] MEDS ORDERED: LIDOCAINE 2% JELLY 30 ML TUBE TOPICAL ONE (10:45)
--- NOTE | 2017-06-14 10:46 | PD ---
HPI Chief Complaint: Complaint Time Seen by Provider: 10:18 Travel History International Travel<30 days: No Contact w/Intl Traveler<30days: No Traveled to known affect area: No History of Present Illness HPI This patient has history of bladder mass been bleeding for some time. He has bilateral nephrostomy tubes which are functioning fine. However he occasionally gets bladder distention due to blood clots in his bladder. He comes to the ER requesting bladder irrigation. He does have an appointment with his urologist on Saturday, in 3 days. Denies fever. Symptoms severity is moderate. No alleviating factors. Symptoms exacerbated by his bleeding bladder mass PFSH Past Medical History Anemia: Yes Arthritis: Yes Asthma: No Autoimmune Disease: No Blood Disorders: Yes Heart Rhythm Problems: No Cancer: Yes (rectal cancer) Cardiac Catheterization: Yes Cardiovascular Problems: Yes ([place]) High Cholesterol: Yes (high cholesterol ) Chemotherapy: Yes (ended in 2006) Chest Pain: No Congestive Heart Failure: No COPD: No Cerebrovascular Accident: Yes (2006) Coronary Artery Disease: Yes Diabetes: No Diminished Hearing: No Endocrine: No Gastrointestinal Disorders: Yes GERD: Yes Genitourinary: Yes Headaches: No Hepatitis: No Hiatal Hernia: No Hypertension: Yes Immune Disorder: No Implanted Vascular Access Dvce: No Kidney Stones: No Musculoskeletal: No Neurologic: Yes Psychiatric: No Reproductive: No Respiratory: No Immunizations Current: No Migraines: No Myocardial Infarction: Yes Radiation Therapy: Yes (ended in 2006) Renal Failure: Yes (Stage 4) Seizures: No Sleep Apnea: No Thyroid Disease: No Ulcer: No Tetanus Vaccination: Unknown Influenza Vaccination: Yes Past Surgical History Abdominal Surgery: Yes (Colostomy LLQ 1992 from rectal cancer) AICD: No Arteriovenous Shunt: No Body Medical Devices: COLOSTOMY Cardiac Surgery: Yes (double bypass in 1990, 5 stents placed) Coronary Artery Bypass Graft: Yes (DOUBLE) Coronary Stent: Yes (5) Ear Surgery: No Endocrine Surgery: No Eye Surgery: No Genitourinary Surgery: Yes (bilat nephrostomy) Gynecologic Surgery: No Insulin Pump: No Joint Replacement: No Neurologic Surgery: No Oral Surgery: No Pacemaker: No Thoracic Surgery: No Other Surgery: Yes Social History Alcohol Use: No (quit) Tobacco Use: Yes (05/21 PPD) Substance Use: No Allergies-Medications (Allergen,Severity, Reaction): Coded Allergies: No Known Allergies (Verified Allergy, Unknown, 06/14/17) Reported Meds & Prescriptions Reported Meds & Active Scripts Active Hydrocodone-Acetamin 5-325 mg (Hydrocodone/Acetaminophen) 5 Mg-325 Mg Tablet 1 Tab PO Q4H PRN Reported Amlodipine (Amlodipine Besylate) 10 Mg Tab 10 Mg PO DAILY Vitamin B12 (Cyanocobalamin (Vitamin B-12)) 2,500 Mcg Tab.chew 1,000 PO DAILY Omeprazole 40 Mg Cap 40 Mg PO DAILY Atorvastatin (Atorvastatin Calcium) 80 Mg Tab 80 Mg PO HS Review of Systems General / Constitutional: No: Fever Eyes: No: Visual changes HENT: No: Headaches Cardiovascular: No: Chest Pain or Discomfort Respiratory: No: Shortness of Breath Gastrointestinal: No: Abdominal Pain Genitourinary: Positive: Hematuria, No: Dysuria Musculoskeletal: No: Pain Skin: No Rash Neurologic: No: Weakness Psychiatric: No: Depression Endocrine: No: Polydipsia Hematologic/Lymphatic: No: Easy Bruising Physical Exam Narrative GASTROINTESTINAL: Abdomen soft, non-tender, nondistended. Positive bowel sounds. No hepato-splenomegaly, or palpable masses. No guarding. Has colostomy. : Circumcised penis without active bleeding Psych: Normal mood and affect. Normal insight and judgment. Back: No midline tenderness. Bilateral nephrostomy tubes in position Data Data Last Documented VS Vital Signs Date Time Temp Pulse Resp B/P (MAP) Pulse Ox O2 Delivery O2 Flow Rate FiO2 06/14/17 10:20 90 16 06/14/17 10:08 97.7 135/61 (85) 99 Orders Orders Lidocaine 2% Jelly (Xylocaine 2% Jelly) (06/14/17 10:45) Remove Urinary Catheter .ONCE (06/14/17 11:17) Bladder/Catheter Irrigation (06/14/17 11:22) MDM Medical Decision Making Medical Screen Exam Complete: Yes Emergency Medical Condition: Yes Medical Record Reviewed: Yes Differential Diagnosis Bladder cancer, hematuria, bladder obstruction, urinary retention Narrative Course I have reviewed the patient's electronic medical record. Reviewed his oncologist evaluation 2 days ago Nurse is going to place catheter and irrigate bladder. He had a successful bladder irrigation with removal of a lot of clots. He feels better now wants to go home Diagnosis Primary Impression: Bladder distention Additional Impressions: Nephrostomy status Hematuria, gross Additional Instructions: Follow up with urologist Med/Other Pt SpecificInfo: Other Disposition: 01 DISCHARGE HOME Condition: Stable Taye Lowe MD Jun 14, 2017 10:46
[2017-06-14 12:19] VITALS: BP 131/67
== END 2017-06-14 12:21 | disposition home or self-care (01) ==
LOC: PHED 10:04
DX: N32.89 Other specified disorders of bladder (principal); R31.0 Gross hematuria; I25.10 Atherosclerotic heart disease of native coronary artery without angina pectoris; I10 Essential (primary) hypertension; E78.00 Pure hypercholesterolemia, unspecified; D64.9 Anemia, unspecified; M19.90 Unspecified osteoarthritis, unspecified site; I25.2 Old myocardial infarction; K21.9 Gastro-esophageal reflux disease without esophagitis; N19 Unspecified kidney failure; F17.210 Nicotine dependence, cigarettes, uncomplicated; Z93.6 Other artificial openings of urinary tract status; Z85.048 Personal history of other malignant neoplasm of rectum, rectosigmoid junction, and anus; Z86.73 Personal history of transient ischemic attack (TIA), and cerebral infarction without residual deficits; Z95.1 Presence of aortocoronary bypass graft; Z95.5 Presence of coronary angioplasty implant and graft; Z79.899 Other long term (current) drug therapy
CPT/HCPCS: 51700

== ENCOUNTER 2017-07-01 06:47 | Emergency (ER) | payer OTHER ==
[~2017-07-01] VITALS: Ht 170.2 cm; Wt 55.0 kg
[~2017-07-01 06:47] MED LIST changes: -CEPH-460 PO
[2017-07-01 06:53] VITALS: BP 136/61; PULSE 107; RESP 16; TEMP 98.6; O2SAT 98
--- NOTE | 2017-07-01 07:09 | PD ---
HPI Chief Complaint: Complaint Time Seen by Provider: 06:58 Travel History International Travel<30 days: No Contact w/Intl Traveler<30days: No Traveled to known affect area: No History of Present Illness HPI 71-year-old male with history of bladder mass, bilateral nephrostomy tubes, scheduled for resection of this mass in July by Dr. Forrester, persistent hematuria from the mass, here for evaluation of suprapubic discomfort stating that he believes that there are clots in his bladder causing his discomfort. He has presented to the emergency Department in the past for this and a Zhao was placed with irrigation with resolution of symptoms. No fevers. No vomiting. Discomfort is moderate to severe, constant, worse with palpation. PFSH Past Medical History Anemia: Yes Arthritis: Yes Asthma: No Autoimmune Disease: No Blood Disorders: Yes Heart Rhythm Problems: No Cancer: Yes (rectal cancer 1992) Cardiac Catheterization: Yes Cardiovascular Problems: Yes ([place]) High Cholesterol: Yes (high cholesterol ) Chemotherapy: Yes (ended in 2006) Chest Pain: No Congestive Heart Failure: No COPD: No Cerebrovascular Accident: Yes (2006) Coronary Artery Disease: Yes Diabetes: No Diminished Hearing: No Endocrine: No Gastrointestinal Disorders: Yes GERD: Yes Genitourinary: Yes (bladder mass ) Headaches: No Hepatitis: No Hiatal Hernia: No Hypertension: Yes Immune Disorder: No Implanted Vascular Access Dvce: No Kidney Stones: No Musculoskeletal: No Neurologic: Yes Psychiatric: No Reproductive: No Respiratory: No Immunizations Current: No Migraines: No Myocardial Infarction: Yes Radiation Therapy: Yes (ended in 2006) Renal Failure: Yes (Stage 4) Seizures: No Sleep Apnea: No Thyroid Disease: No Ulcer: No Past Surgical History Abdominal Surgery: Yes (Colostomy LLQ 1992 from rectal cancer) AICD: No Arteriovenous Shunt: No Body Medical Devices: COLOSTOMY Cardiac Surgery: Yes (double bypass in 1990, 5 stents placed) Coronary Artery Bypass Graft: Yes (DOUBLE) Coronary Stent: Yes (5) Ear Surgery: No Endocrine Surgery: No Eye Surgery: No Genitourinary Surgery: Yes (bilat nephrostomy) Gynecologic Surgery: No Insulin Pump: No Joint Replacement: No Neurologic Surgery: No Oral Surgery: No Pacemaker: No Thoracic Surgery: No Other Surgery: Yes Social History Alcohol Use: No (quit) Tobacco Use: Yes (1/2 PPD) Substance Use: No Allergies-Medications (Allergen,Severity, Reaction): Coded Allergies: No Known Allergies (Verified Allergy, Unknown, 07/01/17) Reported Meds & Prescriptions Reported Meds & Active Scripts Active Hydrocodone-Acetamin 5-325 mg (Hydrocodone/Acetaminophen) 5 Mg-325 Mg Tablet 1 Tab PO Q4H PRN Reported [Iron] 65 Mg PO DAILY Amlodipine (Amlodipine Besylate) 10 Mg Tab 5 Mg PO DAILY Vitamin B12 (Cyanocobalamin (Vitamin B-12)) 2,500 Mcg Tab.chew 1,000 PO DAILY Omeprazole 40 Mg Cap 40 Mg PO DAILY Atorvastatin (Atorvastatin Calcium) 80 Mg Tab 80 Mg PO HS Review of Systems Except as stated in HPI: all other systems reviewed are Neg Physical Exam Narrative GENERAL: Well-developed, cachectic appearing, comfortable, no apparent distress. SKIN: Focused skin assessment warm/dry. HEAD: Atraumatic. Normocephalic. EYES: Pupils equal and round. No scleral icterus. No injection or drainage. ENT: Mucous membranes pink and moist. CARDIOVASCULAR: Regular rate and rhythm. RESPIRATORY: No accessory muscle use. Clear to auscultation. Breath sounds equal bilaterally. GASTROINTESTINAL: Abdomen soft, nondistended. Mild suprapubic tenderness without peritoneal signs. The rest of the abdomen is soft and nontender. Colostomy in the left lower quadrant. MUSCULOSKELETAL: No obvious deformities. No clubbing. No cyanosis. No edema. Bilateral nephrostomy tubes in good position with clear urine output. NEUROLOGICAL: Awake and alert. No obvious cranial nerve deficits. Motor grossly within normal limits. Normal speech. PSYCHIATRIC: Appropriate mood and affect; insight and judgment normal. Data Data Last Documented VS Vital Signs Date Time Temp Pulse Resp B/P (MAP) Pulse Ox O2 Delivery O2 Flow Rate FiO2 07/01/17 06:53 98.6 107 16 136/61 (86) 98 Orders Orders Hydromorphone (Dilaudid) (07/01/17 07:15) Urinary Catheter Insert/Apply (07/01/17 07:04) Bladder/Catheter Irrigation (07/01/17 07:04) Lidocaine 2% Jelly (Xylocaine 2% Jelly) (07/01/17 07:15) [facility] Medical Decision Making Medical Screen Exam Complete: Yes Emergency Medical Condition: Yes Differential Diagnosis Bladder distention/urinary obstruction Narrative Course Three-way Zhao placed by the nurse and irrigated with removal of several blood clots. Patient was provided pain medication as requested. He is comfortable and would like to go home. There are no peritoneal signs on exam. He continues to have hematuria, however the clots are cleared. Patient is reportedly scheduled for surgery for his bladder mass in July. He was advised to follow-up with his urologist this week. He was informed on when to return to the emergency department. He verbalizes understanding and agreement with plan. Diagnosis Primary Impression: Hematuria, gross Referrals: Alan Forrester MD 3 days Additional Instructions: Follow-up with your urologist Dr. Forrester this week. Return to the emergency department for worsening symptoms or any other concerns. Disposition: 01 DISCHARGE HOME Condition: Stable Jarad Boo MD Jul 01, 2017 07:09
[2017-07-01] MEDS ORDERED: LIDOCAINE HCL 2% JELLY 5 ML SYRINGE TOPICAL ONE (07:15)
[2017-07-01] MEDS ORDERED: HYDROmorphone HCL 2 MG TAB PO ONE (07:15)
[2017-07-01] MEDS ORDERED: Iron PO (07:17)
[2017-07-01 08:40] VITALS: RESP 14
[2017-07-02] MEDS ORDERED: FERR325T18 PO (10:54)
== END 2017-07-01 09:20 | disposition home or self-care (01) ==
LOC: PHED 06:47
DX: R31.0 Gross hematuria (principal); N32.89 Other specified disorders of bladder; K21.9 Gastro-esophageal reflux disease without esophagitis; I12.9 Hypertensive chronic kidney disease with stage 1 through stage 4 chronic kidney disease, or unspecified chronic kidney disease; N18.4 Chronic kidney disease, stage 4 (severe); E78.00 Pure hypercholesterolemia, unspecified; I25.2 Old myocardial infarction; F17.200 Nicotine dependence, unspecified, uncomplicated; Z86.2 Personal history of diseases of the blood and blood-forming organs and certain disorders involving the immune mechanism; Z87.39 Personal history of other diseases of the musculoskeletal system and connective tissue; Z86.79 Personal history of other diseases of the circulatory system; Z85.038 Personal history of other malignant neoplasm of large intestine
CPT/HCPCS: 51700

== ENCOUNTER 2017-07-11 18:13 | Emergency (ER) | payer OTHER ==
[~2017-07-11] VITALS: Ht 170.2 cm; Wt 54.0 kg
[~2017-07-11 18:13] MED LIST changes: +FERR325T18 PO
[2017-07-11 18:16] VITALS: BP 126/98; PULSE 98; RESP 16; TEMP 99.2; O2SAT 100
[2017-07-11] MEDS ORDERED: LIDOCAINE HCL 2% JELLY 5 ML SYRINGE TOPICAL ONE (19:00)
[2017-07-11] MEDS ORDERED: HYDROmorphone HCL 2 MG TAB PO ONE (19:00)
--- NOTE | 2017-07-11 19:00 | PD ---
HPI Chief Complaint: Complaint Time Seen by Provider: 18:50 Travel History International Travel<30 days: No Contact w/Intl Traveler<30days: No Traveled to known affect area: No History of Present Illness HPI 71-year-old male with history of bladder mass, bilateral nephrostomy tubes, scheduled for resection of the bladder mass in July by Dr. Forrester, persistent hematuria from the mass, anemia, here requesting placement of a Zhao catheter to irrigate his bladder. He states that he is unable to make urine and believes that there are blood clots in his bladder blocking him from urinating. His nephrostomy tubes are functioning properly. He is having some suprapubic discomfort and is requesting pain medication for this. Discomfort is moderate, constant, worse with movements. PFSH Past Medical History Anemia: Yes Arthritis: Yes Asthma: No Autoimmune Disease: No Blood Disorders: Yes Heart Rhythm Problems: No Cancer: Yes (rectal cancer 1992) Cardiac Catheterization: Yes Cardiovascular Problems: Yes ([place]) High Cholesterol: Yes Chemotherapy: Yes (Last 2006) Chest Pain: No Congestive Heart Failure: No COPD: No Cerebrovascular Accident: Yes (2006) Coronary Artery Disease: Yes Diabetes: No Diminished Hearing: No Endocrine: No Gastrointestinal Disorders: Yes GERD: Yes Genitourinary: Yes (Bladder mass ) Headaches: No Hepatitis: No Hiatal Hernia: No Hypertension: Yes Immune Disorder: No Implanted Vascular Access Dvce: No Kidney Stones: No Musculoskeletal: No Neurologic: Yes Psychiatric: No Reproductive: No Respiratory: No Immunizations Current: No Migraines: No Myocardial Infarction: Yes Radiation Therapy: Yes (Last 2006) Renal Failure: Yes (Stage 4) Seizures: No Sleep Apnea: No Thyroid Disease: No Ulcer: No Past Surgical History Abdominal Surgery: Yes (Colostomy LLQ 1992 from rectal cancer) AICD: No Arteriovenous Shunt: No Body Medical Devices: COLOSTOMY Cardiac Surgery: Yes (double bypass in 1990, 5 stents placed) Coronary Artery Bypass Graft: Yes (Two vessel ) Coronary Stent: Yes (5) Ear Surgery: No Endocrine Surgery: No Eye Surgery: No Genitourinary Surgery: Yes (BL nephrostomy tubes) Gynecologic Surgery: No Insulin Pump: No Joint Replacement: No Neurologic Surgery: No Oral Surgery: No Pacemaker: No Thoracic Surgery: No Other Surgery: Yes Social History Alcohol Use: No (Quit) Tobacco Use: Yes (1/2 PPD) Substance Use: No Allergies-Medications (Allergen,Severity, Reaction): Coded Allergies: No Known Allergies (Verified Allergy, Unknown, 07/11/17) Reported Meds & Prescriptions Reported Meds & Active Scripts Active Hydrocodone-Acetamin 5-325 mg (Hydrocodone/Acetaminophen) 5 Mg-325 Mg Tablet 1 Tab PO Q4H PRN Reported Ferrous Sulfate 325 Mg (65 Mg Iron) Tablet 325 Mg PO DAILY Amlodipine (Amlodipine Besylate) 10 Mg Tab 5 Mg PO DAILY Vitamin B12 (Cyanocobalamin (Vitamin B-12)) 2,500 Mcg Tab.chew 1,000 PO DAILY Omeprazole 40 Mg Cap 40 Mg PO DAILY Atorvastatin (Atorvastatin Calcium) 80 Mg Tab 80 Mg PO HS Review of Systems Except as stated in HPI: all other systems reviewed are Neg Physical Exam Narrative GENERAL: Well-developed, cachectic, comfortable, no apparent distress. SKIN: Focused skin assessment warm/dry. HEAD: Atraumatic. Normocephalic. EYES: Pupils equal and round. No scleral icterus. No injection or drainage. ENT: Mucous membranes pink and moist. NECK: Trachea midline. No JVD. CARDIOVASCULAR: Regular rate and rhythm. No murmur appreciated. RESPIRATORY: No accessory muscle use. Clear to auscultation. Breath sounds equal bilaterally. GASTROINTESTINAL: Abdomen soft, non-tender, nondistended. Left lower/mid abdomen colostomy bag. MUSCULOSKELETAL: No obvious deformities. No clubbing. No cyanosis. No edema. Bilateral nephrostomy tubes in place with clear urine output. NEUROLOGICAL: Awake and alert. No obvious cranial nerve deficits. Motor grossly within normal limits. Normal speech. PSYCHIATRIC: Appropriate mood and affect; insight and judgment normal. Data Data Last Documented VS Vital Signs Date Time Temp Pulse Resp B/P (MAP) Pulse Ox O2 Delivery O2 Flow Rate FiO2 07/11/17 19:55 90 18 143/54 (83) 99 Room Air 07/11/17 18:16 99.2 Orders Orders Hydromorphone (Dilaudid) (07/11/17 19:00) Lidocaine 2% Jelly (Xylocaine 2% Jelly) (07/11/17 19:00) Urinary Catheter Insert/Apply (07/11/17 18:52) MDM Medical Decision Making Medical Screen Exam Complete: Yes Emergency Medical Condition: Yes Medical Record Reviewed: Yes Differential Diagnosis Bladder mass, hematuria, bladder clots, anemia Narrative Course Vital signs reviewed. Zhao catheter placed and irrigated by my nurse. Several blood clots were removed in the urine was pink tinged. Patient feels improved. He is stable for discharge home with outpatient follow-up with his urologist Dr. Forrester this week. He was informed on when to return to the emergency department. He verbalizes understanding and agreement with plan. Diagnosis Primary Impression: Gross hematuria Additional Impression: Bladder distention Referrals: Alan Forrester MD 2 days Additional Instructions: Follow-up with Dr. Forrester this week. Return to the emergency department for worsening symptoms or any other concerns. Disposition: 01 DISCHARGE HOME Condition: Stable Jarad Boo MD Jul 11, 2017 19:00
[2017-07-11 19:55] VITALS: BP 143/54; PULSE 90; RESP 18; O2SAT 99
[2017-07-11 20:34] VITALS: BP 140/60; PULSE 88; RESP 18; O2SAT 98
[2017-07-11 20:46] VITALS: BP 135/65
== END 2017-07-11 20:48 | disposition home or self-care (01) ==
LOC: PHED 18:13
DX: R31.0 Gross hematuria (principal); N32.89 Other specified disorders of bladder; D64.9 Anemia, unspecified; M19.90 Unspecified osteoarthritis, unspecified site; E78.00 Pure hypercholesterolemia, unspecified; I25.10 Atherosclerotic heart disease of native coronary artery without angina pectoris; K21.9 Gastro-esophageal reflux disease without esophagitis; I10 Essential (primary) hypertension; Z86.73 Personal history of transient ischemic attack (TIA), and cerebral infarction without residual deficits
CPT/HCPCS: 51700

== ENCOUNTER 2017-07-14 15:06 | Emergency (ER) | payer OTHER ==
[~2017-07-14] VITALS: Ht 170.2 cm; Wt 53.7 kg
[2017-07-14 15:08] VITALS: BP 100/50; PULSE 99; RESP 18; TEMP 97.9; O2SAT 97
[2017-07-14] MEDS ORDERED: LIDOCAINE HCL 2% JELLY 5 ML SYRINGE TOPICAL ONE (15:30)
--- NOTE | 2017-07-14 15:37 | PD ---
HPI . Bladder distention Chief Complaint: Complaint Time Seen by Provider: 15:21 Travel History International Travel<30 days: No Contact w/Intl Traveler<30days: No Traveled to known affect area: No History of Present Illness HPI This patient presents with a chief complaint of bladder distention. He states that he has a mass in his bladder bleeds. He is scheduled for surgery in about 2 weeks. In the meantime, he has bilateral nephrostomy tubes. However, he states that the mass in his bladder will occasionally bleed requiring irrigation. He states that he developed the sensation of a distended bladder yesterday and presents to us today for treatment. He has not been running any fevers and has no systemic complaints. Symptoms have been continuous and progressively worsening since last night. He rates his current pain at 10/10. PFSH Past Medical History Anemia: Yes Arthritis: Yes Asthma: No Autoimmune Disease: No Blood Disorders: Yes Heart Rhythm Problems: No Cancer: Yes (rectal cancer 1992) Cardiac Catheterization: Yes Cardiovascular Problems: Yes ([place]) High Cholesterol: Yes Chemotherapy: Yes (Last 2006) Chest Pain: No Congestive Heart Failure: No COPD: No Cerebrovascular Accident: Yes (2006) Coronary Artery Disease: Yes Diabetes: No Diminished Hearing: No Endocrine: No Gastrointestinal Disorders: Yes GERD: Yes Genitourinary: Yes (Bladder mass ) Headaches: No Hepatitis: No Hiatal Hernia: No Hypertension: Yes Immune Disorder: No Implanted Vascular Access Dvce: No Kidney Stones: No Medical other: Yes (KIDNEY CATH/BLADDER RETENTION) Musculoskeletal: No Neurologic: Yes Psychiatric: No Reproductive: No Respiratory: No Immunizations Current: No Migraines: No Myocardial Infarction: Yes Radiation Therapy: Yes (Last 2006) Renal Failure: Yes (Stage 4) Seizures: No Sleep Apnea: No Thyroid Disease: No Ulcer: No Tetanus Vaccination: > 5 Years Influenza Vaccination: Yes Past Surgical History Abdominal Surgery: Yes (Colostomy LLQ 1992 from rectal cancer) AICD: No Arteriovenous Shunt: No Body Medical Devices: COLOSTOMY Cardiac Surgery: Yes (double bypass in 1990, 5 stents placed) Coronary Artery Bypass Graft: Yes (Two vessel ) Coronary Stent: Yes (5) Ear Surgery: No Endocrine Surgery: No Eye Surgery: No Genitourinary Surgery: Yes (BL nephrostomy tubes) Gynecologic Surgery: No Insulin Pump: No Joint Replacement: No Neurologic Surgery: No Oral Surgery: No Pacemaker: No Thoracic Surgery: No Other Surgery: Yes Social History Alcohol Use: No (Quit) Tobacco Use: Yes (1/2 PPD) Substance Use: No Allergies-Medications (Allergen,Severity, Reaction): Coded Allergies: No Known Allergies (Verified Allergy, Unknown, 07/14/17) Reported Meds & Prescriptions Reported Meds & Active Scripts Active Hydrocodone-Acetamin 5-325 mg (Hydrocodone/Acetaminophen) 5 Mg-325 Mg Tablet 1 Tab PO Q4H PRN Reported Ferrous Sulfate 325 Mg (65 Mg Iron) Tablet 325 Mg PO DAILY Amlodipine (Amlodipine Besylate) 10 Mg Tab 5 Mg PO DAILY Vitamin B12 (Cyanocobalamin (Vitamin B-12)) 2,500 Mcg Tab.chew 1,000 PO DAILY Omeprazole 40 Mg Cap 40 Mg PO DAILY Atorvastatin (Atorvastatin Calcium) 80 Mg Tab 80 Mg PO HS Review of Systems Except as stated in HPI: all other systems reviewed are Neg General / Constitutional: No: Fever, Chills Gastrointestinal: No: Nausea, Vomiting Genitourinary: Positive: Other (see HPI) Physical Exam Narrative GENERAL: Patient is awake and alert. SKIN: warm/dry. HEAD: Normocephalic. EYES: Pupils equal and round. No scleral icterus. No injection or drainage. ENT: No nasal bleeding or discharge. Mucous membranes pink and moist. NECK: Trachea midline. Full range of motion without pain.. CARDIOVASCULAR: Regular rate and rhythm. RESPIRATORY: No accessory muscle use. Clear to auscultation. Breath sounds equal bilaterally. GASTROINTESTINAL: Abdomen soft. Suprapubic tenderness. Bowel sounds present. Nondistended. : MUSCULOSKELETAL: No obvious deformities. NEUROLOGICAL: Awake and alert. No obvious cranial nerve deficits. Motor grossly within normal limits. Normal speech. PSYCHIATRIC: Appropriate mood and affect; insight and judgment normal. Data Data Last Documented VS Vital Signs Date Time Temp Pulse Resp B/P (MAP) Pulse Ox O2 Delivery O2 Flow Rate FiO2 07/14/17 15:08 97.9 99 18 100/50 (67) 97 Orders Orders Lidocaine 2% Jelly (Xylocaine 2% Jelly) (07/14/17 15:30) Bladder/Catheter Irrigation (07/14/17 15:24) MDM Medical Decision Making Medical Screen Exam Complete: Yes Emergency Medical Condition: Yes Differential Diagnosis Differential diagnosis of urinary retention includes but is not limited to prostatitis, BPH, prostate cancer, bladder outlet obstruction due to blood clot , acute UTI, neurogenic bladder Narrative Course This patient presents complaining with urinary distention secondary to a bleeding bladder mass. He does not collect urine in his bladder but rather has bilateral nephrostomy tubes/bags. A Zhao catheter has been placed and his bladder has been irrigated. He reports that he feels much better. Diagnosis Primary Impression: Bleeding from the genitourinary system Disposition: 01 DISCHARGE HOME Condition: Stable Gissel Lozano MD Jul 14, 2017 15:37
== END 2017-07-14 17:18 | disposition home or self-care (01) ==
LOC: PHED 15:06
DX: N28.82 Megaloureter (principal); N32.89 Other specified disorders of bladder; D64.9 Anemia, unspecified; M19.90 Unspecified osteoarthritis, unspecified site; E78.00 Pure hypercholesterolemia, unspecified; I25.10 Atherosclerotic heart disease of native coronary artery without angina pectoris; K21.9 Gastro-esophageal reflux disease without esophagitis; I12.9 Hypertensive chronic kidney disease with stage 1 through stage 4 chronic kidney disease, or unspecified chronic kidney disease; N18.4 Chronic kidney disease, stage 4 (severe)
CPT/HCPCS: 51700

== ENCOUNTER 2017-07-25 10:56 | Observation (INO) | payer OTHER ==
[~2017-07-25] VITALS: Ht 170.2 cm; Wt 72.3 kg
[~2017-07-25 10:56] MED LIST changes: +NYST1000 SWISH-SWAL; -OMEP40CA2 PO
[2017-07-25] MEDS ORDERED: LACTATED RINGER'S 1000 ML IV PRN (11:30)
[2017-07-25] MEDS ORDERED: CHLORHEXIDINE GLUCONATE 2 % 1 PACK (2 CLOTHS) TOPICAL PRN (11:30)
[2017-07-25] MEDS ORDERED: METOPROLOL TARTRATE 25 MG TAB PO PRN (11:30)
[2017-07-25] MEDS ORDERED: POVIDONE IODINE 5% (ANTISEPSIS KIT) 4 APPLICATIONS EACH NARE PRN (11:30)
[2017-07-25] MEDS ORDERED: SODIUM CHLORID 0.9% 500 ML IV PRN (11:30)
[2017-07-25] MEDS ORDERED: ceFAZolin INJ 1,000 MG VIAL IV ONE ×2 (12:00→16:02)
[2017-07-25] MEDS ORDERED: ROCURONIUM INJ 50 MG/5 ML SYRINGE IV PUSH ONE (12:00)
[2017-07-25] MEDS ORDERED: LIDOCAINE HCL 1% PF 5 ML SYRINGE OTHER ONE (12:00)
[2017-07-25] MEDS ORDERED: NEOSTIGMINE 5 MG/5 ML SYRINGE IV PUSH ONE (12:00)
[2017-07-25] MEDS ORDERED: PHENYLEPH/NS 1000 MCG/10 ML SYR IV ONE (12:00)
[2017-07-25] MEDS ORDERED: ePHEDrine/NS 25 MG/5 ML SYRINGE IV ONE (12:00)
[2017-07-25] MEDS ORDERED: ESMOLOL HCL 100 MG/10 ML VIAL IV ONE (12:00)
[2017-07-25] MEDS ORDERED: GLYCOPYRROLATE 1 MG/5 ML SYRINGE IV PUSH ONE (12:00)
[2017-07-25] MEDS ORDERED: PROPOFOL 200 MG/20 ML AMP IV ONE (12:00)
[2017-07-25] MEDS ORDERED: ceFAZolin 2 GM PREMIX 50 ML IV SCH (12:30)
[2017-07-25] MEDS ORDERED: ACETAMINOPHEN/HYDROcodone 325 MG/5 MG TAB ONE (14:02)
[2017-07-25] MEDS ORDERED: ACETAMINOPHEN/HYDROcodone 325 MG/5 MG TAB PO ONE (15:30)
[2017-07-25] MEDS ORDERED: oxyCODONE/ACETAMINOPHEN 5 MG/325 MG TAB PO PRN (16:30)
[2017-07-25] MEDS ORDERED: ONDANSETRON HCL 4 MG/2 ML VIAL IV PUSH PRN (16:30)
[2017-07-25] MEDS ORDERED: MIDAZOLAM HCL 2 MG/2 ML VIAL ONE (16:41)
[2017-07-25] MEDS ORDERED: DO NOT ADM ANY ANTICOAGULANT DRUGS PRN (17:00)
[2017-07-25] MEDS ORDERED: *morphine SULFATE 4 MG/ML PERIprocedure ONLY ONE ×2 (17:19→21:26)
[2017-07-25] MEDS: CIPROFLOXACIN 400 MG PREMIX 200 ML IV SCH (18:12)
--- NOTE | 2017-07-25 18:42 | MP ---
cc: Alan Forrester MD, Evan M MD DATE OF OPERATION: 07/25/2017 PREOPERATIVE DIAGNOSIS: 1. Bladder tumor greater than 5 cm. 2. Bilateral hydronephrosis status post nephrostomy tubes. 3. Acute on chronic renal failure. 4. Chronic Anemia POSTOPERATIVE DIAGNOSIS: 1. Bladder tumor greater than 5 cm. 2. Bilateral hydronephrosis status post nephrostomy tubes. 3. Acute on chronic renal failure. 4. Chronic anemia PROCEDURE: 1. Cystourethroscopy, 2. TURBT of large bladder tumor greater than 5 cm. SURGEON: Alan Forrester MD ANESTHESIA: General. COMPLICATIONS: None. PREOPERATIVE ANTIBIOTICS: Ancef 1 gram IV. DRAINS: Bilateral nephrostomy tubes. SPECIMENS: Bladder tumor for permanent. ESTIMATED BLOOD LOSS: 50 mL. DISPOSITION: Stable to recovery. INDICATIONS: The patient is a 71-year-old male with a history of gross hematuria. He was found to have a bladder tumor last 01/2017, however, the patient was in the hospital multiple times for various comorbidities. However, he eventually ended up having acute renal failure secondary to bilateral hydronephrosis ____ large bladder tumor. He had nephrostomy tubes placed. Once he was cleared medically, he was then scheduled for resection of his bladder tumor. After risks, benefits and alternatives were explained to the patient including the risk of injury to his bladder, the patient would like to proceed. Informed consent was obtained. PROCEDURE IN DETAIL: The patient was properly identified and brought back to the cystoscopy suite and placed on cystoscopy table. Appropriately timeout was performed under the direction of anesthesiology. The patient was intubated and induced under generally anesthetic. Preoperative antibiotics in the form of Ancef 1 gram IV was given 1 hour prior to start of the procedure. The patient was then placed in dorsal lithotomy position, prepped and draped in normal sterile surgical fashion. Under direct visualization, I then carefully passed the bipolar resectoscope into the patient's bladder. Once inside the bladder, the bladder was completely abnormal. The visualization was extremely difficult. There was a very large sessile bleeding bladder tumor along the entire trigone and going up each of the lateral bronson to the bladder. His anatomy was completely distorted. With the bipolar resectoscope, I then resected a lot of the tumor that seemed to be causing some bleeding. This was Elliked out and would be sent off to the pathologist. However, the tumor itself was completely unresectable. Once I had removed all tumor that seemed to be causing bleeding, hemostasis was then achieved. The rest of the remaining specimen was then Elliked out. Since he had bilateral nephrostomy tubes, I did not leave a Zhao catheter in place. A bimanual was not able to performed at the end because the patient has a colostomy and his rectum was sewn shut. This concluded the procedure. The patient was extubated and sent to recovery in stable condition. He will be admitted for routine postop care due to his comorbidities. MD VENITA Smalls//zelda , 05:23 PM , 06:07 PM [place]
[2017-07-25 18:59] LABS: BASOPHIL # 0.1 TH/MM3 (0-0.2); BASOPHIL % 0.4 % (0.0-2.0); EOSINOPHIL # 0.1 TH/MM3 (0-0.4); EOSINOPHIL % 0.4 % (0.0-4.0); HEMATOCRIT 24.7 % (39.0-51.0); HEMOGLOBIN 8.3 GM/DL (13.0-17.0); LYMPH % 3.8 % (9.0-44.0); LYMPHOCYTE # 0.6 TH/MM3 (1.0-4.8); MEAN CELL VOLUME 95.2 FL (80.0-100.0); MEAN CORPUSCULAR HEMOGLOBIN 32.1 PG (27.0-34.0); MEAN CORPUSCULAR HGB CONC 33.7 % (32.0-36.0); MONO % 2.8 % (0.0-8.0); MONOCYTE # 0.5 TH/MM3 (0-0.9); NEUT % 92.6 % (16.0-70.0); PLATELET COUNT 531 TH/MM3 (150-450); RED BLOOD COUNT 2.59 MIL/MM3 (4.50-5.90); RED CELL DISTRIBUTION WIDTH 18.1 % (11.6-17.2); WHITE BLOOD COUNT 16.2 TH/MM3 (4.0-11.0)
[2017-07-25 19:03] LABS: BICARBONATE 17.8 MEQ/L (21.0-32.0); CALCIUM 7.8 MG/DL (8.5-10.1); CREATININE 2.66 MG/DL (0.60-1.30)
[2017-07-25] MEDS: MORPHINE SULFATE 4 MG/ML INJ IV PUSH PRN (19:11)
[2017-07-25] MEDS: oxyCODONE/ACETAMINOPHEN 5 MG/325 MG TAB PO PRN (20:40)
[2017-07-25] MEDS: ATORVASTATIN 80 MG TAB PO SCH (21:00)
[2017-07-26] MEDS: CIPROFLOXACIN 400 MG PREMIX 200 ML IV SCH ×2 (05:13→17:43)
[2017-07-26] MEDS: oxyCODONE/ACETAMINOPHEN 5 MG/325 MG TAB PO PRN ×2 (05:20→08:56)
[2017-07-26] MEDS: FERROUS SULFATE 325 MG (65 MG ELEMENTAL IRON) TAB PO SCH (08:56)
[2017-07-26 09:04] LABS: MEAN CORPUSCULAR HEMOGLOBIN 31.9 PG (27.0-34.0); MEAN CORPUSCULAR HGB CONC 33.6 % (32.0-36.0); PLATELET COUNT 355 TH/MM3 (150-450); RED CELL DISTRIBUTION WIDTH 18.2 % (11.6-17.2); WHITE BLOOD COUNT 20.9 TH/MM3 (4.0-11.0)
[2017-07-26 09:07] LABS: HEMOGLOBIN 6.7 GM/DL (13.0-17.0)
[2017-07-26 09:12] LABS: BICARBONATE 18.7 MEQ/L (21.0-32.0); CALCIUM 7.9 MG/DL (8.5-10.1); CREATININE 2.92 MG/DL (0.60-1.30)
[2017-07-26] MEDS: MORPHINE SULFATE 4 MG/ML INJ IV PUSH PRN ×3 (12:10→20:18)
--- NOTE | 2017-07-26 12:16 | HHI.PR ---
Subjective Patient symptoms today c/o lower abdominal pain. Denies fevers, nausea, vomiting. Nephrostomy tubes draining well. Objective Vital Signs Vital Signs Date Time Temp Pulse Resp B/P (MAP) Pulse Ox O2 Delivery O2 Flow Rate FiO2 07/26/17 12:09 16 07/26/17 08:57 81 12 129/87 (101) 96 Room Air 07/26/17 06:00 83 12 109/55 (73) 97 Room Air 07/26/17 05:00 86 17 122/59 (80) 97 Room Air 07/26/17 04:00 86 12 122/57 (78) 97 Room Air 07/26/17 03:00 87 11 113/57 (75) 97 Room Air 07/26/17 02:00 86 11 121/56 (77) 98 Room Air 07/26/17 01:00 92 12 114/54 (74) 97 Room Air 07/26/17 00:00 97.8 110 18 134/62 (86) 97 Room Air 07/25/17 23:00 102 12 120/58 (78) 97 Room Air 07/25/17 22:00 98 11 117/57 (77) 98 Room Air 07/25/17 21:00 107 14 137/64 (88) 97 Room Air 07/25/17 20:00 97.6 101 16 136/64 (88) 100 Nasal Cannula 2 07/25/17 19:16 15 07/25/17 19:00 99 16 134/63 (86) 99 Nasal Cannula 2 07/25/17 18:00 93 16 124/58 (80) 99 Nasal Cannula 2 07/25/17 17:45 95 15 129/61 (83) 99 Nasal Cannula 2 07/25/17 17:30 96 15 129/60 (83) 99 Nasal Cannula 2 07/25/17 17:24 15 07/25/17 17:15 94 15 121/56 (77) 98 Nasal Cannula 2 07/25/17 17:00 96 15 114/55 (74) 97 Nasal Cannula 2 07/25/17 16:45 100 15 126/69 (88) 97 Nasal Cannula 2 07/25/17 16:30 97.5 100 14 123/62 (82) 100 Nasal Cannula 3 Intake & Output 07/26/17 07/26/17 07:00 19:00 Intake Total 900 ml Output Total 540 ml Balance 360 ml Intake Oral 700 ml IV Total 200 ml Output Stool Total 0 ml Drainage Total 540 ml Result Diagram: 07/26/1783607/26/17836 Objective Remarks NAD. A/O x 3 RRR CTAB abd soft, but distended. Nephrostomy tubes draining clear yellow urine Medications and IVs Current Medications Medications (Trade) Dose Ordered Sig/Shahrzad Route Start Time Stop Time Status Last Admin Lactated Ringer's 1,000 ml @ 30 mls/hr Q24H PRN IV 07/25/17 11:30 07/28/17 11:29 Sodium Chloride 500 ml @ 30 mls/hr [id number] PRN IV 07/25/17 11:30 07/28/17 11:29 (Lopressor) 25 mg M[employer]I [employer]ING CONSULTANT PRN PO 07/25/17 11:30 07/28/17 11:29 (Betadine 5% Antisepsis Kit) 1 applic M[employer]ING CONSULTANT PRN EACH NARE 07/25/17 11:30 07/28/17 11:29 (Chlorhexidine 2% Cloth) 3 pack M[employer]ING CONSULTANT PRN TOPICAL 07/25/17 11:30 07/28/17 11:29 Cefazolin Sodium/ Dextrose 50 ml @ 150 mls/hr M[employer]ING CONSULTANT IV 07/25/17 12:30 07/28/17 12:29 (Percocet 5-325 Mg) 2 tab Q4H PRN PO 07/25/17 16:30 07/26/17 08:56 (Percocet 5-325 Mg) 1 tab Q4H PRN PO 07/25/17 16:30 (Morphine Inj) 4 mg Q3H PRN IV PUSH 07/25/17 16:30 07/26/17 12:10 Ciprofloxacin/ Dextrose 200 ml @ 200 mls/hr Q12H IV 07/25/17 18:00 07/26/17 05:13 (Zofran Inj) 4 mg Q6HR PRN IV PUSH 07/25/17 16:30 (Norvasc) 5 mg DAILY PO 07/26/17 09:00 07/26/17 08:56 (Lipitor) 80 mg HS PO 07/25/17 21:00 (Ferrous Sulfate) 325 mg DAILY PO 07/26/17 09:00 07/26/17 08:56 (Mycostatin Liq) 5 ml QID SWISH-SWAL 07/25/17 18:00 Miscellaneous Information ALL NURSING DEPARTME... UNSCH PRN .XX 07/25/17 17:00 07/26/17 16:59 Assessment and Plan Assessment and Plan POD #1 s/p TURBT, anemia, bilateral nephrostomy tubes -Repeat H/H. 1 PRBC already ordered by Hospitalist -Pain control -Case management -Await path results. Will likely need metastatic work up, Oncology consult -D/w patient, family. Alan Forrester MD Jul 26, 2017 12:16
--- NOTE | 2017-07-26 12:18 | HHI.FF ---
Face to Face Verification Diagnosis: (1) Bladder cancer (2) Bilateral hydronephrosis Home Health Nursing Order: Zhao catheter maintenance Home Health Aide Order: To Assist In: Bathing and personal care I have seen patient Jaime Lofton on 07/26/17. My clinical findings support the need for the requested home health care services because: Ltd mobility - disease progression Limited ability to care for self I certify that my clinical findings support that this patient is homebound because: Post-op weakness Alan Forrester MD Jul 26, 2017 12:18
[2017-07-26 13:05] LABS: % SATURATION IRON PROFILE 8.9 % (20-50); IRON (FE) 10 MCG/DL (65-175); TOTAL IRON BINDING CAPACITY 112 MCG/DL (250-450)
[2017-07-26 13:08] LABS: FERRITIN 846 NG/ML (26-388)
[2017-07-26 13:16] VITALS: BP 136/61; PULSE 71; RESP 18; TEMP 97.8; O2SAT 98
[2017-07-26] MEDS: NYSTATIN SUSP 500,000 U/5 ML CUP SWISH-SWAL SCH ×3 (13:17→20:18)
[2017-07-26 13:52] VITALS: BP 133/60; PULSE 84; RESP 18; TEMP 98.4; O2SAT 95
[2017-07-26 14:04] VITALS: BP 118/55; PULSE 83; RESP 16; TEMP 98.3; O2SAT 96
[2017-07-26 14:23] VITALS: BP 122/60; PULSE 83; RESP 16; TEMP 98.2; O2SAT 96
[2017-07-26 15:21] VITALS: BP 122/60; PULSE 81; RESP 14; TEMP 98.3; O2SAT 95
--- NOTE | 2017-07-26 17:01 | PD.CONS ---
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 Patient is admitted today under urology service for cystoscopy. Attempt was done to do a transurethral resection of the bladder however this was unsuccessful. Bleeding was noted and controlled. This morning H&H drop. On review of records patient is closely followed by Dr. German from oncology and receives periodic IV infusion therapy and periodic blood transfusion. Patient complains of lower abdominal discomfort. Denies any fever or chills. Patient has good family support. Patientalso Complaints of pain in the and difficulty swallowing for the past 1 week now on oral nystatin. with minimal [facility]. He does report stools black- formed- "on iron" Patient refused to have his colostomy bag examined Review of Systems Constitutional: COMPLAINS OF: Fatigue, Weight loss Endocrine: DENIES: Heat/cold intolerance, Polydipsia, Polyuria, Polyphagia Eyes: DENIES: Blurred vision, Diplopia, Eye inflammation, Eye pain, Vision loss , Photosensitivity, Double Vision Ears, nose, mouth, throat: DENIES: Tinnitus, Hearing loss, Vertigo, Nasal discharge, Oral lesions, Throat pain, Hoarseness, Ear Pain, Running Nose, Epistaxis, Sinus Pain, Toothache, Odynophagia Respiratory: DENIES: Apneas, Cough, Snoring, Wheezing, Hemoptysis, Sputum production, Shortness of breath Cardiovascular: DENIES: Chest pain, Palpitations, Syncope, Dyspnea on Exertion , PND, Lower Extremity Edema, Orthopnea, Claudication Gastrointestinal: COMPLAINS OF: Difficulty Swallowing, Anorexia Genitourinary: DENIES: Sexual dysfunction, Urinary frequency, Urinary incontinence, Urgency, Hematuria, Dysuria, Nocturia, Penile Discharge, Testicular Pain, Testicular Swelling Musculoskeletal: DENIES: Joint pain, Muscle aches, Stiffness, Joint Swelling, Back pain, Neck pain Integumentary: DENIES: Abnormal pigmentation, Nail changes, Pruritus, Rash Hematologic/lymphatic: DENIES: Bruising, Lymphadenopathy Immunologic/allergic: DENIES: Eczema, Urticaria Neurologic: DENIES: Abnormal gait, Headache, Localized weakness, Paresthesias, Seizures, Speech Problems, Tremor, Poor Balance Psychiatric: DENIES: Anxiety, Confusion, Mood changes, Depression, Hallucinations, Agitation, Suicidal Ideation, Homicidal Ideation, Delusions Past Family Social History Allergies: Coded Allergies: No Known Allergies (Verified Allergy, Unknown, 07/25/17) Past Medical History Hypertension Hyperlipidemia Iron deficiency anemia History of CAD status post CABG in 1990 As stated above history of Dr. Jane more weight on and off hematuria Past Surgical History Cervical disc replacement History of rectal cancer status post colostomy placement History of CABG Reported Medications Amlodipine 5 mg daily Iron sulfate 12/20/24 milligrams daily 8 pravastatin 80 mg at bedtime Percocet when necessary for pain Morphine sulfate when necessary for pain in-house Currently also on ciprofloxacin IV 400 mg every 12 Nystatin 5 cc 4 times a day Active Ordered Medications See EMR Family History Noncontributory Social History Still smokes half pack per day Occasional beer Denies any substance abuse Physical Exam Vital Signs Vital Signs Date Time Temp Pulse Resp B/P (MAP) Pulse Ox O2 Delivery O2 Flow Rate FiO2 07/26/17 15:21 98.3 81 14 122/60 95 07/26/17 14:23 98.2 83 16 122/60 96 07/26/17 14:04 98.3 83 16 118/55 96 07/26/17 13:52 98.4 84 18 133/60 95 07/26/17 13:16 97.8 71 18 136/61 (86) 98 07/26/17 12:09 16 07/26/17 08:57 81 12 129/87 (101) 96 Room Air 07/26/17 06:00 83 12 109/55 (73) 97 Room Air 07/26/17 05:00 86 17 122/59 (80) 97 Room Air 07/26/17 04:00 86 12 122/57 (78) 97 Room Air 07/26/17 03:00 87 11 113/57 (75) 97 Room Air 07/26/17 02:00 86 11 121/56 (77) 98 Room Air 07/26/17 01:00 92 12 114/54 (74) 97 Room Air 07/26/17 00:00 97.8 110 18 134/62 (86) 97 Room Air 07/25/17 23:00 102 12 120/58 (78) 97 Room Air 07/25/17 22:00 98 11 117/57 (77) 98 Room Air 07/25/17 21:00 107 14 137/64 (88) 97 Room Air 07/25/17 20:00 97.6 101 16 136/64 (88) 100 Nasal Cannula 2 07/25/17 19:16 15 07/25/17 19:00 99 16 134/63 (86) 99 Nasal Cannula 2 07/25/17 18:00 93 16 124/58 (80) 99 Nasal Cannula 2 07/25/17 17:45 95 15 129/61 (83) 99 Nasal Cannula 2 07/25/17 17:30 96 15 129/60 (83) 99 Nasal Cannula 2 07/25/17 17:24 15 07/25/17 17:15 94 15 121/56 (77) 98 Nasal Cannula 2 07/25/17 17:00 96 15 114/55 (74) 97 Nasal Cannula 2 Physical Exam GENERAL: This is a well-nourished, well-developed patient, in no apparent distress. Very feisty SKIN: No rashes, ecchymoses or lesions. Cool and dry. HEAD: Atraumatic. Normocephalic. No temporal or scalp tenderness. EYES: Pupils equal round and reactive. Extraocular motions intact. No scleral icterus. No injection or drainage. ENT: Nose without bleeding, Throat positive oral thrush. Airway patent. NECK: Trachea midline. No JVD or lymphadenopathy. Supple, nontender, no meningeal signs. CARDIOVASCULAR: Regular rate and rhythm without murmurs, gallops, or rubs. RESPIRATORY: Clear to auscultation. Breath sounds equal bilaterally. No wheezes , rales, or rhonchi. GASTROINTESTINAL: Abdomen soft, non-tender, nondistended. Bilateral nephrostomy tube in place draining lt yellow colored urine, colostomy bag in place MUSCULOSKELETAL: Extremities without clubbing, cyanosis, or edema. No joint tenderness, effusion, or edema noted. No calf tenderness. Negative Homans sign bilaterally. NEUROLOGICAL: Awake and alert. Cranial nerves II through XII intact. Motor and sensory grossly within normal limits. Five out of 5 muscle strength in all muscle groups. Normal speech. Laboratory Laboratory Tests Test 07/25/17 18:09 07/26/17 08:37 White Blood Count 16.2 20.9 Red Blood Count 2.59 2.10 Hemoglobin 8.3 6.7 Hematocrit 24.7 20.0 Mean Corpuscular Volume 95.2 95.0 Mean Corpuscular Hemoglobin 32.1 31.9 Mean Corpuscular Hemoglobin Concent 33.7 33.6 Red Cell Distribution Width 18.1 18.2 Platelet Count 531 355 Mean Platelet Volume 7.0 7.0 Neutrophils (%) (Auto) 92.6 Lymphocytes (%) (Auto) 3.8 Monocytes (%) (Auto) 2.8 Eosinophils (%) (Auto) 0.4 Basophils (%) (Auto) 0.4 Neutrophils # (Auto) 15.0 Lymphocytes # (Auto) 0.6 Monocytes # (Auto) 0.5 Eosinophils # (Auto) 0.1 Basophils # (Auto) 0.1 CBC Comment DIFF FINAL Differential Comment Blood Urea Nitrogen 44 43 Creatinine 2.66 2.92 Random Glucose 101 87 Calcium Level 7.8 7.9 Sodium Level 139 138 Potassium Level 4.9 5.1 Chloride Level 112 111 Carbon Dioxide Level 17.8 18.7 Anion Gap 9 8 Estimat Glomerular Filtration Rate 24 21 Iron Level 10 Total Iron Binding Capacity 112 Percent Iron Saturation 8.9 Ferritin 846 Result Diagram: 07/26/17 0837 07/26/17 0837 Assessment and Plan Assessment and Plan 71-year-old male admitted under urology service Status post TURBT of Bladder tumor - with evacuation of blood clots 07/26 Urology following Acute on top of chronic anemia. Patient symptomatic We'll transfuse 1 unit packed RBC and recheck H and H Continue iron supplement. Consult his oncologist Dr. Metcalf. Oral thrush r/o [place] esophagitis Odynophagia History of GERD Continue on nystatin 5 cc 4 times a day.. Add Diflucan 100 mg by mouth daily.and adjust per creatinine GI consult to evaluate esophageal candidiasis however patient refused ADAMANTLY continue on PPI- Acute on chronic kidney insufficiency from obstructive uropathy. Slight increase in creatinine Gentle hydration with 1 L normal saline. Recheck BMP in a.m. History of CAD, status post CABG, hypertension Continue amlodipine 5 mg daily. Continue statins. Bilateral teds SCDs Case management consult for home health care- And discharge needs. Discussed Condition With patient and Los Rivera MD Jul 26, 2017 17:00
[2017-07-26] MEDS: FLUCONAZOLE 100 MG TAB PO SCH (17:40)
[2017-07-26] MEDS: SODIUM CHLOR 0.9% 1000 ML INJ 1,000 ML IV SCH (17:41)
[2017-07-26] MEDS: ATORVASTATIN 80 MG TAB PO SCH (20:18)
[2017-07-26 21:45] VITALS: BP 135/63; PULSE 84; RESP 19; TEMP 97.1; O2SAT 93
[2017-07-27 00:50] VITALS: BP 130/64; PULSE 80; RESP 19; TEMP 97.4; O2SAT 93
[2017-07-27] MEDS: MORPHINE SULFATE 4 MG/ML INJ IV PUSH PRN ×3 (04:16→19:46)
[2017-07-27 04:48] VITALS: BP 149/66; PULSE 94; RESP 18; TEMP 98; O2SAT 95
[2017-07-27] MEDS: CIPROFLOXACIN 400 MG PREMIX 200 ML IV SCH ×2 (06:09→18:56)
[2017-07-27] MEDS: SODIUM CHLOR 0.9% 1000 ML INJ 1,000 ML IV SCH ×2 (06:10→21:51)
[2017-07-27 06:12] LABS: HEMOGLOBIN 8.4 GM/DL (13.0-17.0); MEAN CELL VOLUME 91.5 FL (80.0-100.0); MEAN CORPUSCULAR HEMOGLOBIN 30.8 PG (27.0-34.0); MEAN CORPUSCULAR HGB CONC 33.6 % (32.0-36.0); MEAN PLATELET VOLUME 7.3 FL (7.0-11.0); PLATELET COUNT 329 TH/MM3 (150-450); RED BLOOD COUNT 2.74 MIL/MM3 (4.50-5.90); RED CELL DISTRIBUTION WIDTH 20.1 % (11.6-17.2); WHITE BLOOD COUNT 18.1 TH/MM3 (4.0-11.0)
[2017-07-27 06:33] LABS: BICARBONATE 19.4 MEQ/L (21.0-32.0); CREATININE 2.71 MG/DL (0.60-1.30)
[2017-07-27 08:00] VITALS: BP 149/67; PULSE 91; RESP 18; TEMP 97.9; O2SAT 95
[2017-07-27] MEDS: PANTOPRAZOLE SOD 40 MG DELAYED RELEASE TAB PO SCH (09:00)
[2017-07-27] MEDS: FERROUS SULFATE 325 MG (65 MG ELEMENTAL IRON) TAB PO SCH (09:00)
--- NOTE | 2017-07-27 10:10 | HHI.PR ---
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 Patient is admitted today under urology service for cystoscopy. Attempt was done to do a transurethral resection of the bladder however this was unsuccessful. Bleeding was noted and controlled. This morning H&H drop. On review of records patient is closely followed by Dr. ROMERO from oncology and receives periodic IV infusion therapy and periodic blood transfusion. Patient complains of lower abdominal discomfort. Denies any fever or chills. Patient has good family support. Patientalso Complaints of pain in the and difficulty swallowing for the past 1 week now on oral nystatin. with [facility]. He does report stools black- formed- "on iron" Patient refused to have his colostomy bag examined 07-27 I believe patient has refused gastroenterology evaluation. Has been started on nystatin We will get CAT scans of his head chest and abdomen Oncology has been consulted We will get physical therapy occupational therapy and speech therapy to eval and treat Discussed with patient and RN and family PASSED SWALLOW EVAL WITH PUREE AND THIN WITH SPEECH THERAPY POSITIVE THRUSH Objective Vitals Vital Signs Date Time Temp Pulse Resp B/P (MAP) Pulse Ox O2 Delivery O2 Flow Rate FiO2 07/27/17 04:48 98.0 94 18 149/66 (93) 95 07/27/17 00:50 97.4 80 19 130/64 (86) 93 07/26/17 21:45 97.1 84 19 135/63 (87) 93 07/26/17 15:21 98.3 81 14 122/60 95 07/26/17 14:23 98.2 83 16 122/60 96 07/26/17 14:04 98.3 83 16 118/55 96 07/26/17 13:52 98.4 84 18 133/60 95 07/26/17 13:16 97.8 71 18 136/61 (86) 98 07/26/17 12:09 16 I/O 07/26/17 07/26/17 07/26/17 07/27/17 07/27/17 07/27/17 07:00 15:00 23:00 07:00 15:00 23:00 Intake Total 900 ml 402 ml 300 ml 999 ml Output Total 430 ml 550 ml 850 ml 950 ml Balance 470 ml -148 ml -550 ml 49 ml Intake Oral 700 ml 100 ml IV Total 200 ml 200 ml 999 ml Packed Cells 400 ml Blood Product IV Normal Saline Flush 2 ml Output Urine Total 200 ml Stool Total 0 ml Drainage Total 430 ml 550 ml 650 ml 950 ml # Bowel Movements 0 Result Diagram: 07/27/17 0509 07/27/17 0509 Other Results Laboratory Tests Test 07/25/17 18:09 07/26/17 08:37 07/27/17 05:09 White Blood Count 16.2 TH/MM3 20.9 TH/MM3 18.1 TH/MM3 Red Blood Count 2.59 MIL/MM3 2.10 MIL/MM3 2.74 MIL/MM3 Hemoglobin 8.3 GM/DL 6.7 GM/DL 8.4 GM/DL Hematocrit 24.7 % 20.0 % 25.0 % Mean Corpuscular Volume 95.2 FL 95.0 FL 91.5 FL Mean Corpuscular Hemoglobin 32.1 PG 31.9 PG 30.8 PG Mean Corpuscular Hemoglobin Concent 33.7 % 33.6 % 33.6 % Red Cell Distribution Width 18.1 % 18.2 % 20.1 % Platelet Count 531 TH/MM3 355 TH/MM3 329 TH/MM3 Mean Platelet Volume 7.0 FL 7.0 FL 7.3 FL Neutrophils (%) (Auto) 92.6 % Lymphocytes (%) (Auto) 3.8 % Monocytes (%) (Auto) 2.8 % Eosinophils (%) (Auto) 0.4 % Basophils (%) (Auto) 0.4 % Neutrophils # (Auto) 15.0 TH/MM3 Lymphocytes # (Auto) 0.6 TH/MM3 Monocytes # (Auto) 0.5 TH/MM3 Eosinophils # (Auto) 0.1 TH/MM3 Basophils # (Auto) 0.1 TH/MM3 CBC Comment DIFF FINAL Differential Comment Blood Urea Nitrogen 44 MG/DL 43 MG/DL 36 MG/DL Creatinine 2.66 MG/DL 2.92 MG/DL 2.71 MG/DL Random Glucose 101 MG/DL 87 MG/DL 71 MG/DL Calcium Level 7.8 MG/DL 7.9 MG/DL 8.0 MG/DL Sodium Level 139 MEQ/L 138 MEQ/L 139 MEQ/L Potassium Level 4.9 MEQ/L 5.1 MEQ/L 4.9 MEQ/L Chloride Level 112 MEQ/L 111 MEQ/L 111 MEQ/L Carbon Dioxide Level 17.8 MEQ/L 18.7 MEQ/L 19.4 MEQ/L Anion Gap 9 MEQ/L 8 MEQ/L 9 MEQ/L Estimat Glomerular Filtration Rate 24 ML/MIN 21 ML/MIN 23 ML/MIN Iron Level 10 MCG/DL Total Iron Binding Capacity 112 MCG/DL Percent Iron Saturation 8.9 % Ferritin 846 NG/ML Objective Remarks GENERAL: This is a well-nourished, well-developed patient, in no apparent distress. Very feisty SKIN: No rashes, ecchymoses or lesions. Cool and dry. HEAD: Atraumatic. Normocephalic. No temporal or scalp tenderness. EYES: Pupils equal round and reactive. Extraocular motions intact. No scleral icterus. No injection or drainage. ENT: Nose without bleeding, Throat positive oral thrush. Airway patent. POSITIVE THRUSH NECK: Trachea midline. No JVD or lymphadenopathy. Supple, nontender, no meningeal signs. CARDIOVASCULAR: Regular rate and rhythm without murmurs, gallops, or rubs. S1- S2 no S3 or S4 RESPIRATORY: Clear to auscultation. Breath sounds equal bilaterally. No wheezes , rales, or rhonchi. GASTROINTESTINAL: Abdomen soft, non-tender, nondistended. Bilateral nephrostomy tube in place draining lt yellow colored urine, colostomy bag in place MUSCULOSKELETAL: Extremities without clubbing, cyanosis, or edema. No joint tenderness, effusion, or edema noted. No calf tenderness. Negative Homans sign bilaterally. NEUROLOGICAL: Awake and alert. Cranial nerves II through XII intact. Motor and sensory grossly within normal limits. 4 out of 5 muscle strength in all muscle groups. Normal speech. Insight and judgment is limited Mood and behavior is somewhat appropriate Procedures DATE OF OPERATION: 07/25/2017 PREOPERATIVE DIAGNOSIS: 1. Bladder tumor greater than 5 cm. 2. Bilateral hydronephrosis status post nephrostomy tubes. 3. Acute on chronic renal failure. 4. Chronic Anemia POSTOPERATIVE DIAGNOSIS: 1. Bladder tumor greater than 5 cm. 2. Bilateral hydronephrosis status post nephrostomy tubes. 3. Acute on chronic renal failure. 4. Chronic anemia PROCEDURE: 1. Cystourethroscopy, 2. TURBT of large bladder tumor greater than 5 cm. SURGEON: Alan Forrester MD ANESTHESIA: General. COMPLICATIONS: None. PREOPERATIVE ANTIBIOTICS: Ancef 1 gram IV. DRAINS: Bilateral nephrostomy tubes. SPECIMENS: Bladder tumor for permanent. ESTIMATED BLOOD LOSS: 50 mL. DISPOSITION: Stable to recovery. INDICATIONS: The patient is a 71-year-old male with a history of gross hematuria. He was found to have a bladder tumor last 01/2017, however, the patient was in the hospital multiple times for various comorbidities. However, he eventually ended up having acute renal failure secondary to bilateral hydronephrosis ____ large bladder tumor. He had nephrostomy tubes placed. Once he was cleared medically, he was then scheduled for resection of his bladder tumor. After risks, benefits and alternatives were explained to the patient including the risk of injury to his bladder, the patient would like to proceed. Informed consent was obtained. PROCEDURE IN DETAIL: The patient was properly identified and brought back to the cystoscopy suite and placed on cystoscopy table. Appropriately timeout was performed under the direction of anesthesiology. The patient was intubated and induced under generally anesthetic. Preoperative antibiotics in the form of Ancef 1 gram IV was given 1 hour prior to start of the procedure. The patient was then placed in dorsal lithotomy position, prepped and draped in normal sterile surgical fashion. Under direct visualization, I then carefully passed the bipolar resectoscope into the patient's bladder. Once inside the bladder, the bladder was completely abnormal. The visualization was extremely difficult. There was a very large sessile bleeding bladder tumor along the entire trigone and going up each of the lateral bronson to the bladder. His anatomy was completely distorted. With the bipolar resectoscope, I then resected a lot of the tumor that seemed to be causing some bleeding. This was Elliked out and would be sent off to the pathologist. However, the tumor itself was completely unresectable. Once I had removed all tumor that seemed to be causing bleeding, hemostasis was then achieved. The rest of the remaining specimen was then Elliked out. Since he had bilateral nephrostomy tubes, I did not leave a Zhao catheter in place. A bimanual was not able to performed at the end because the patient has a colostomy and his rectum was sewn shut. This concluded the procedure. The patient was extubated and sent to recovery in stable condition. He will be admitted for routine postop care due to his comorbidities. Alan Forrester MD Medications and IVs Current Medications Lactated Ringer's 1,000 ml @ 30 mls/hr Q24H PRN IV SEE LABEL COMMENTS; Start at 11:30; Stop 07/28/17 at 11:29 Sodium Chloride 500 ml @ 30 mls/hr [id number] PRN IV SEE LABEL COMMENTS; Start 07/25/17 at 11:30; Stop 07/28/17 at 11:29 Metoprolol Tartrate (Lopressor) 25 mg NIGHT AUDITOR PRN PO SEE LABEL COMMENTS; Start 07/25/17 at 11:30; Stop 07/28/17 at 11:29 Povidone Iodine (Betadine 5% Antisepsis Kit) 1 applic NIGHT AUDITOR PRN EACH NARE SEE LABEL COMMENTS; Start 07/25/17 at 11:30; Stop 07/28/17 at 11:29 Chlorhexidine Gluconate (Chlorhexidine 2% Cloth) 3 pack NIGHT AUDITOR PRN TOPICAL SEE LABEL COMMENTS; Start 07/25/17 at 11:30; Stop 07/28/17 at 11:29 Cefazolin Sodium/ Dextrose 50 ml @ 150 mls/hr NIGHT AUDITOR IV ; Start 07/25/17 at 12 :30; Stop 07/28/17 at 12:29 Acetaminophen/ Hydrocodone Bitart ([place] 5-325 Mg) 1 tab STK-MED ONCE .ROUTE Last administered on 07/25/17at 14:06; Start 07/25/17 at 14:02; Stop 07/25/17 at 14: 03; Status DC Acetaminophen/ Hydrocodone Bitart ([place] 5-325 Mg) 1 tab NOW ONCE PO ; Start 07/25/17 at 15:30; Stop 07/25/17 at 15:31; Status DC Cefazolin Sodium (Ancef Inj) 2,000 mg ONCE ONCE IV Last administered on at 15:17; Start 07/25/17 at 16:02; Stop 07/25/17 at 16:03; Status DC Oxycodone/ Acetaminophen (Percocet 5-325 Mg) 2 tab Q4H PRN PO PAIN SCALE 7 TO 10 Last administered on 07/26/17at 08:56; Start 07/25/17 at 16:30 Oxycodone/ Acetaminophen (Percocet 5-325 Mg) 1 tab Q4H PRN PO PAIN SCALE 4 TO 6; Start 07/25/17 at 16:30 Morphine Sulfate (Morphine Inj) 4 mg Q3H PRN IV PUSH BREAKTHROUGH PAIN Last administered on 07/27/17at 04:16; Start 07/25/17 at 16:30 Ciprofloxacin/ Dextrose 200 ml @ 200 mls/hr Q12H IV Last administered on at 06:09; Start 07/25/17 at 18:00 Ondansetron HCl (Zofran Inj) 4 mg Q6HR PRN IV PUSH NAUSEA OR VOMITING; Start at 16:30 Amlodipine Besylate (Norvasc) 5 mg DAILY PO Last administered on 07/26/17at 08:56 ; Start 07/26/17 at 09:00 Atorvastatin Calcium (Lipitor) 80 mg HS PO ; Start 07/25/17 at 21:00 Ferrous Sulfate (Ferrous Sulfate) 325 mg DAILY PO Last administered on at 08:56; Start 07/26/17 at 09:00 Nystatin (Mycostatin Liq) 5 ml QID SWISH-SWAL Last administered on 07/26/17at 20 :18; Start 07/25/17 at 18:00 Fentanyl Citrate (fentaNYL INJ) 100 mcg STK-MED ONCE .ROUTE ; Start 07/25/17 at 16:40; Stop 07/25/17 at 16:41; Status DC Fentanyl Citrate (fentaNYL INJ) 300 mcg STK-MED ONCE .ROUTE ; Start 07/25/17 at 16:41; Stop 07/25/17 at 16:42; Status DC Midazolam HCl (Versed Inj) 2 mg STK-MED ONCE .ROUTE ; Start 07/25/17 at 16:41; Stop 07/25/17 at 16:42; Status DC Miscellaneous Information ALL NURSING DEPARTME... UNSCH PRN .XX SEE LABEL COMMENTS; Start 07/25/17 at 17:00; Stop 07/26/17 at 16:59; Status DC Morphine Sulfate (*morphine INJ PERIprocedure ONLY) 4 mg STK-MED ONCE .ROUTE Last administered on 07/25/17at 17:19; Start 07/25/17 at 17:19; Stop 07/25/17 at 17: 20; Status DC Morphine Sulfate (*morphine INJ PERIprocedure ONLY) 4 mg STK-MED ONCE .ROUTE Last administered on 07/25/17at 21:26; Start 07/25/17 at 21:26; Stop 07/25/17 at 21: 27; Status DC Lidocaine HCl (Xylocaine-Mpf 1% Inj) 5 ml STK-MED ONCE OTHER ; Start 07/25/17 at 12:00; Stop 07/26/17 at 15:14; Status DC Rocuronium [place] (Zemuron Inj) 50 mg STK-MED ONCE IV PUSH ; Start 07/25/17 at 12:00; Stop 07/26/17 at 15:14; Status DC Neostigmine Methylsulfate (Prostigmine Inj) 5 mg STK-MED ONCE IV PUSH ; Start at 12:00; Stop 07/26/17 at 15:14; Status DC Glycopyrrolate (Robinul Inj) 1 mg STK-MED ONCE IV PUSH ; Start 07/25/17 at 12:00 ; Stop 07/26/17 at 15:14; Status DC Phenylephrine HCl (Neosynephrine/ NS 1000 Mcg/10ml Syr) 1,000 mcg STK-MED ONCE IV ; Start 07/25/17 at 12:00; Stop 07/26/17 at 15:14; Status DC Ephedrine Sulfate (ePHEDrine/NS 25 MG/5 ML SYR) 25 mg STK-MED ONCE IV ; Start at 12:00; Stop 07/26/17 at 15:14; Status DC Esmolol HCl (Brevibloc Bolus Inj) 100 mg STK-MED ONCE IV ; Start 07/25/17 at 12: 00; Stop 07/26/17 at 15:14; Status DC Cefazolin Sodium (Ancef Inj) 1,000 mg STK-MED ONCE IV ; Start 07/25/17 at 12:00; Stop 07/26/17 at 15:14; Status DC Propofol (Diprivan 200 Mg/20 ml Inj) 200 mg STK-MED ONCE IV ; Start 07/25/17 at 12:00; Stop 07/26/17 at 15:14; Status DC Fluconazole (Diflucan) 100 mg DAILY PO Last administered on 07/26/17at 17:40; Start 07/26/17 at 17:15 Sodium Chloride 1,000 ml @ 70 mls/hr [id number] IV Last administered on at 06:10; Start 07/26/17 at 17:15 Pantoprazole Sodium (Protonix) 40 mg DAILY PO ; Start 07/27/17 at 09:00 A/P Assessment and Plan 71-year-old male admitted under urology service Status post TURBT of Bladder tumor - with evacuation of blood clots 07/26 Urology following Acute on top of chronic anemia. Patient symptomatic We'll transfuse 1 unit packed RBC and recheck H and H Continue iron supplement. Consult his oncologist Dr. Metcalf. Oral thrush r/o [place] esophagitis Odynophagia History of GERD Continue on nystatin 5 cc 4 times a day.. Add Diflucan 100 mg by mouth daily.and adjust per creatinine GI consult to evaluate esophageal candidiasis however patient refused ADAMANTLY continue on PPI- Will consult gastroenterology Will consult speech therapy for evaluation of his swallow Acute on chronic kidney insufficiency from obstructive uropathy. Slight increase in creatinine Gentle hydration with 1 L normal saline. Recheck BMP in a.m. History of CAD, status post CABG, hypertension Continue amlodipine 5 mg daily. Continue statins. Bilateral teds SCDs Case management consult for home health care- And discharge needs. Discharge Planning Pending clearance by hematology and urology Allan Hanson DO Jul 27, 2017 10:10
[2017-07-27] MEDS: NYSTATIN SUSP 500,000 U/5 ML CUP SWISH-SWAL SCH ×4 (10:21→21:00)
[2017-07-27] MEDS: FLUCONAZOLE 100 MG TAB PO SCH (10:24)
[2017-07-27] MEDS ORDERED: DIATRIZOATE MEGLUM/DIATRIZOATE SOD 9 ML CUP PO ONE (11:45)
[2017-07-27 12:00] VITALS: BP_SYST 147; BP_SYST 180; BP_DIAS 65; BP_DIAS 92; PULSE 82; PULSE 94; RESP 17; TEMP 98.1; O2SAT 96
--- NOTE | 2017-07-27 13:42 | PD.CONS ---
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 GI have been consulted for dysphagia. This started a week ago, states nothing was going down, especially pills. This is better now after being on Nystatin swish and swallow. ST on the case recommended puree diet and thin liquid. He has GERD. Denies nausea, vomiting or hematemesis. (Darnell Le) PFSH Past Medical History Hypertension Hyperlipidemia Iron deficiency anemia History of CAD status post CABG in 1990 As stated above history of Dr. Jane more weight on and off hematuria Past Surgical History Cervical disc replacement History of rectal cancer status post colostomy placement History of CABG (Darnell Le) Coded Allergies: No Known Allergies (Verified Allergy, Unknown, 07/25/17) Medications Current Medications Medications (Trade) Dose Ordered Sig/Shahrzad Route Start Time Stop Time Status Last Admin Lactated Ringer's 1,000 ml @ 30 mls/hr Q24H PRN IV 07/25/17 11:30 07/28/17 11:29 Sodium Chloride 500 ml @ 30 mls/hr [id number] PRN IV 07/25/17 11:30 07/28/17 11:29 (Lopressor) 25 mg DATABASE SOFTWARE TECHNICIAN PRN PO 07/25/17 11:30 07/28/17 11:29 (Betadine 5% Antisepsis Kit) 1 applic DAT[employer]ASE SOFTWARE TECHNICIAN PRN EACH NARE 07/25/17 11:30 07/28/17 11:29 (Chlorhexidine 2% Cloth) 3 pack DAT[employer]ASE SOFTWARE TECHNICIAN PRN TOPICAL 07/25/17 11:30 07/28/17 11:29 Cefazolin Sodium/ Dextrose 50 ml @ 150 mls/hr DAT[employer]ASE SOFTWARE TECHNICIAN IV 07/25/17 12:30 07/28/17 12:29 (Percocet 5-325 Mg) 2 tab Q4H PRN PO 07/25/17 16:30 07/26/17 08:56 (Percocet 5-325 Mg) 1 tab Q4H PRN PO 07/25/17 16:30 (Morphine Inj) 4 mg Q3H PRN IV PUSH 07/25/17 16:30 07/27/17 04:16 Ciprofloxacin/ Dextrose 200 ml @ 200 mls/hr Q12H IV 07/25/17 18:00 07/27/17 06:09 (Zofran Inj) 4 mg Q6HR PRN IV PUSH 07/25/17 16:30 (Norvasc) 5 mg DAILY PO 07/26/17 09:00 07/26/17 08:56 (Lipitor) 80 mg HS PO 07/25/17 21:00 (Ferrous Sulfate) 325 mg DAILY PO 07/26/17 09:00 07/26/17 08:56 (Mycostatin Liq) 5 ml QID SWISH-SWAL 07/25/17 18:00 07/27/17 10:21 (Diflucan) 100 mg DAILY PO 07/26/17 17:15 07/27/17 10:24 Sodium Chloride 1,000 ml @ 70 mls/hr [id number] IV 07/26/17 17:15 07/27/17 06:10 (Protonix) 40 mg DAILY PO 07/27/17 09:00 Family History Non contributory Social History Still smokes half pack per day Occasional beer Denies any substance abuse (Darnell Le) Review of Systems Constitutional: COMPLAINS OF: Change in appetite Endocrine: DENIES: Polyuria Eyes: DENIES: Photosensitivity Ears, nose, mouth, throat: DENIES: Hoarseness Respiratory: DENIES: Shortness of breath Cardiovascular: DENIES: Lower Extremity Edema Gastrointestinal: COMPLAINS OF: Abdominal pain, Difficulty Swallowing, Anorexia , Odynophagia, Heartburn, DENIES: Black stools, Bloody stools, Constipation, Diarrhea, Nausea, Vomiting, Swelling of Abdomen, Hematemesis Musculoskeletal: DENIES: Back pain Integumentary: DENIES: Jaundice Hematologic/lymphatic: DENIES: Bruising Immunologic/allergic: DENIES: Eczema Neurologic: DENIES: Abnormal gait Psychiatric: DENIES: Anxiety (Darnell Le) GI Exam Vitals I&O Vital Signs Date Time Temp Pulse Resp B/P (MAP) Pulse Ox O2 Delivery O2 Flow Rate FiO2 07/27/17 08:00 97.9 91 18 149/67 (94) 95 07/27/17 04:48 98.0 94 18 149/66 (93) 95 07/27/17 00:50 97.4 80 19 130/64 (86) 93 07/26/17 21:45 97.1 84 19 135/63 (87) 93 07/26/17 15:21 98.3 81 14 122/60 95 07/26/17 14:23 98.2 83 16 122/60 96 07/26/17 14:04 98.3 83 16 118/55 96 07/26/17 13:52 98.4 84 18 133/60 95 I/O 07/26/17 07/26/17 07/26/17 07/27/17 07/27/17 07/27/17 07:00 15:00 23:00 07:00 15:00 23:00 Intake Total 900 ml 402 ml 300 ml 999 ml Output Total 430 ml 550 ml 850 ml 950 ml Balance 470 ml -148 ml -550 ml 49 ml Intake Oral 700 ml 100 ml IV Total 200 ml 200 ml 999 ml Packed Cells 400 ml Blood Product IV Normal Saline Flush 2 ml Output Urine Total 200 ml Stool Total 0 ml Drainage Total 430 ml 550 ml 650 ml 950 ml # Bowel Movements 0 Laboratory Test 07/27/17 05:09 White Blood Count 18.1 TH/MM3 Red Blood Count 2.74 MIL/MM3 Hemoglobin 8.4 GM/DL Hematocrit 25.0 % Mean Corpuscular Volume 91.5 FL Mean Corpuscular Hemoglobin 30.8 PG Mean Corpuscular Hemoglobin Concent 33.6 % Red Cell Distribution Width 20.1 % Platelet Count 329 TH/MM3 Mean Platelet Volume 7.3 FL Blood Urea Nitrogen 36 MG/DL Creatinine 2.71 MG/DL Random Glucose 71 MG/DL Calcium Level 8.0 MG/DL Sodium Level 139 MEQ/L Potassium Level 4.9 MEQ/L Chloride Level 111 MEQ/L Carbon Dioxide Level 19.4 MEQ/L Anion Gap 9 MEQ/L Estimat Glomerular Filtration Rate 23 ML/MIN Physical Examination HEENT: normocephalic; atraumatic; no jaundice. CHEST: Chest is clear to auscultation and percussion. CARDIAC: Regular rate and rhythm with no murmur gallop or rubs. ABDOMEN: Soft, nondistended, nontender; bowel sounds are present in all four quadrants.Bilateral nephrostomy tube in place draining lt yellow colored urine, colostomy bag in place EXTREMITIES: No clubbing, cyanosis, or edema. SKIN: Normal; no rash; no jaundice. CANDY BAR ATTENDANT: No focal deficits; alert and oriented times three. (Darnell Le) Assessment and Plan Plan Dysphagia- X one week, better after completing Nystatin swish and swallow, Diflucan started,PPI, possible valente esophagitis Followed by ST who recommended Puree diet and thin liquids - GERD- Protonix - Anemia- no bleeding reported, likely - bladder mass status post Status post TURBT with evacuation of blood clots - Hx of rectal cancer s/p colostomy - History of CAD, status post CABG, hypertension per attending Plan: - Diet per ST recommendations - Discussed with pt EGD/dill, he is agreeing if still here, doesn't want to wait till Saturday - Will obtain consents, if still here, will perform on Saturday, other costa, can be done as an OP - Cont. PPI - Cont. Diflucan - Supportive care - Patient seen and examined by Dr. Londono and myself and this note is written on his behalf. (Darnell Le) Physician Comments Seen and examined, plan as above. Still hesitant to have endoscopic evaluation. Will follow up with you. Thank you for the consult. (Castro Londono MD) Darnell Le Jul 27, 2017 13:42 Castro Londono MD Jul 27, 2017 17:36
--- NOTE | 2017-07-27 13:57 | HHI.PR ---
Subjective Patient symptoms today Doing well, no fevers. Hgb 8.7 this am. No pain Objective Vital Signs Vital Signs Date Time Temp Pulse Resp B/P (MAP) Pulse Ox O2 Delivery O2 Flow Rate FiO2 07/27/17 08:00 97.9 91 18 149/67 (94) 95 07/27/17 04:48 98.0 94 18 149/66 (93) 95 07/27/17 00:50 97.4 80 19 130/64 (86) 93 07/26/17 21:45 97.1 84 19 135/63 (87) 93 07/26/17 15:21 98.3 81 14 122/60 95 07/26/17 14:23 98.2 83 16 122/60 96 07/26/17 14:04 98.3 83 16 118/55 96 Intake & Output 07/27/17 07/27/17 06:59 18:59 Intake Total 1299 ml Output Total 1450 ml Balance -151 ml Intake Oral 100 ml IV Total 1199 ml Output Urine Total 200 ml Drainage Total 1250 ml # Bowel Movements 0 Result Diagram: 07/27/17 0509 07/27/17 0509 Objective Remarks NAD. A/O x 3 Nonlabored Resp abd soft, Nephrostomy tubes draining clear yellow urine Medications and IVs Current Medications Medications (Trade) Dose Ordered Sig/Shahrzad Route Start Time Stop Time Status Last Admin Lactated Ringer's 1,000 ml @ 30 mls/hr Q24H PRN IV 07/25/17 11:30 07/28/17 11:29 Sodium Chloride 500 ml @ 30 mls/hr [id number] PRN IV 07/25/17 11:30 07/28/17 11:29 (Lopressor) 25 mg TOBACCO STRIPPER HAND PRN PO 07/25/17 11:30 07/28/17 11:29 (Betadine 5% Antisepsis Kit) 1 applic TOBACCO STRIPPER HAND PRN EACH NARE 07/25/17 11:30 07/28/17 11:29 (Chlorhexidine 2% Cloth) 3 pack TOBACCO STRIPPER HAND PRN TOPICAL 07/25/17 11:30 07/28/17 11:29 Cefazolin Sodium/ Dextrose 50 ml @ 150 mls/hr TOBACCO STRIPPER HAND IV 07/25/17 12:30 07/28/17 12:29 (Percocet 5-325 Mg) 2 tab Q4H PRN PO 07/25/17 16:30 07/26/17 08:56 (Percocet 5-325 Mg) 1 tab Q4H PRN PO 07/25/17 16:30 (Morphine Inj) 4 mg Q3H PRN IV PUSH 07/25/17 16:30 07/27/17 13:40 Ciprofloxacin/ Dextrose 200 ml @ 200 mls/hr Q12H IV 07/25/17 18:00 07/27/17 06:09 (Zofran Inj) 4 mg Q6HR PRN IV PUSH 07/25/17 16:30 (Norvasc) 5 mg DAILY PO 07/26/17 09:00 07/26/17 08:56 (Lipitor) 80 mg HS PO 07/25/17 21:00 (Ferrous Sulfate) 325 mg DAILY PO 07/26/17 09:00 07/26/17 08:56 (Mycostatin Liq) 5 ml QID SWISH-SWAL 07/25/17 18:00 07/27/17 13:39 (Diflucan) 100 mg DAILY PO 07/26/17 17:15 07/27/17 10:24 Sodium Chloride 1,000 ml @ 70 mls/hr [id number] IV 07/26/17 17:15 07/27/17 06:10 (Protonix) 40 mg DAILY PO 07/27/17 09:00 Assessment and Plan Assessment and Plan POD #2 s/p TURBT, anemia, bilateral nephrostomy tubes -Patient schedule dot undergo CT scan metastatic work-up -Pain control -Case management -Await path results. Pantera Eagle MD Jul 27, 2017 13:57
[2017-07-27 19:13] VITALS: BP 139/72; PULSE 85; RESP 17; TEMP 97.9; O2SAT 98
[2017-07-27 20:00] VITALS: BP 120/56; PULSE 94; RESP 18; TEMP 96; O2SAT 99
[2017-07-27] MEDS: ATORVASTATIN 80 MG TAB PO SCH (21:00)
[2017-07-28] VITALS: BP 119/73; PULSE 83; RESP 18; TEMP 97.6; O2SAT 98
--- NOTE | 2017-07-28 01:15 | RADRPT ---
EXAM DATE/TIME: 07/28/2017 01:04 [facility] COMPARISON: No previous studies available for comparison. INDICATIONS : Tumor RADIATION DOSE: 52.90 CTDIvol (mGy) MEDICAL HISTORY : Cardiovascular disease. Cerebrovascular disease. Gastroesophageal reflux disease.Hypertension. Blad kiran mass. Rectal cancer. SURGICAL HISTORY : CABG ENCOUNTER: Initial ACUITY: 1 day PAIN SCALE: 2/10 LOCATION: cranial TECHNIQUE: Multiple contiguous axial images were obtained of the head. Using automated exposure control and adj ustment of the mA and/or kV according to patient size, radiation dose was kept as low as reasonably a chievable to obtain optimal diagnostic quality images. DICOM format image data is available electro nically for review and comparison. FINDINGS: CEREBRUM: The ventricles are normal for age. No evidence of midline shift, mass lesion, hemorrhage or acute in farction. No extra-axial fluid collections are seen. Chronic appearing low attenuation seen in the p eriventricular white matter of posterior or bral hemispheres. POSTERIOR FOSSA: The cerebellum and brainstem are intact. The 4th ventricle is midline. The cerebellopontine angle i s unremarkable. EXTRACRANIAL: The visualized portion of the orbits is intact. SKULL: The calvaria is intact. No evidence of skull fracture. CONCLUSION: No acute intracranial abnormality demonstrated. Chronic white matter changes are noted. Naldo Noble MD on July 28, 2017 at 1:12 Board Certified Radiologist. This report was verified electronically.
--- NOTE | 2017-07-28 01:30 | RADRPT ---
EXAM DATE/TIME: 07/28/2017 01:07 [facility] COMPARISON: CT ABDOMEN & PELVIS W/O CONTRAST, April 19, 2017, 18:39. INDICATIONS : Mass. ORAL CONTRAST: Prescribed oral contrast ingested. RADIATION DOSE: 9.40 CTDIvol (mGy) ; Combined studies - Thorax/Abdomen/Pelvis MEDICAL HISTORY : Cardiovascular disease. Cerebrovascular disease. Gastroesophageal reflux disease.Renal failure. Rec hillary cancer. Bladder mass. Hypertension. SURGICAL HISTORY : CABG ENCOUNTER: Initial ACUITY: 2 days PAIN SCALE: 5/10 LOCATION: Abdomen. TECHNIQUE: Volumetric scanning of the abdomen and pelvis was performed. Using automated exposure control and ad justment of the mA and/or kV according to patient size, radiation dose was kept as low as reasonably achievable to obtain optimal diagnostic quality images. DICOM format image data is available electro nically for review and comparison. FINDINGS: Increased mass like fullness in the region of the posterior bladder and rectum, currently approximate ly 5.2 x 6.1 x 5.3 cm. There appears to be some floating debris and/or blood clots within the urinary bladder. The 4.2 cm fluid collection in the right ischiorectal fossa is unchanged and most likely ch ronic postoperative seroma. There is a new, ill-defined collection of fluid and multiple bubbles of g as anteriorly and to the right of the urinary bladder, measures approximately 5.5 x 5.8 cm in greates t transaxial dimension and 4.3 cm craniocaudal. This abuts the base of the cecum. Since the prior CT, bilateral percutaneous nephrostomy tubes have been placed. There is no hydronephr osis. The Suspected ileus. No discrete point of obstruction demonstrated.. Patient has a diverting colostomy, l eft lower quadrant. Noncontrast appearance of the liver, spleen, pancreas and adrenal glands within normal limits. Gallst one again noted. Small ascites, nonspecific. There is body wall edema and anasarca, increased. Atherosclerosis again seen of the abdominal aorta. There is a right common iliac artery stent. CONCLUSION: 1. Increased mass like fullness in the region of the rectum and posterior bladder. 2. An apparent abscess anteriorly in the right lower quadrant. Etiology of this is uncertain. 3. Apparent ileus. No definite obstruction. Left lower quadrant colostomy again seen. 4. Bilateral percutaneous nephrostomy tubes with resolution of previously seen hydronephrosis. 5. Ascites and body wall edema/anasarca have developed. 6. The chronic fluid collection in the right ischiorectal fossa is unchanged and most likely a postop erative seroma. Naldo Noble MD on July 28, 2017 at 1:20 Board Certified Radiologist. This report was verified electronically.
--- NOTE | 2017-07-28 01:36 | RADRPT ---
EXAM DATE/TIME: 07/28/2017 01:07 [facility] COMPARISON: No previous studies available for comparison. INDICATIONS : Tumor. RADIATION DOSE: 9.40 CTDIvol (mGy) ; Combined studies - Thorax/Abdomen/Pelvis MEDICAL HISTORY : Cardiovascular disease. Cerebrovascular disease. Gastroesophageal reflux disease. Bladder mass. Hyp ertension. Rectal cancer. Renal failure. SURGICAL HISTORY : CABG ENCOUNTER: Initial ACUITY: 1 day PAIN SCALE: 6/10 LOCATION: chest TECHNIQUE: Volumetric scanning of the chest was performed. Using automated exposure control and adjustment of t he mA and/or kV according to patient size, radiation dose was kept as low as reasonably achievable to obtain optimal diagnostic quality images. DICOM format image data is available electronically for r eview and comparison. Follow-up recommendations for detected pulmonary nodules are based at a minimum on nodule size and pa tient risk factors according to Fleischner Society Guidelines. FINDINGS: 3 mm right upper lobe pulmonary nodule seen on series 3 image 17, nonspecific. There is a 23 mm area of groundglass infiltrate in the anterior segment of the left upper lobe, most likely infectious or i nflammatory. Small, bilateral pleural effusions are present and there is associated mild dependent/co mpressive atelectasis of both bases. No pneumothorax. No lymphadenopathy demonstrated. Heart size within normal limits. Patient has had previous median rene rnotomy and CABG. CONCLUSION: 1. Nonspecific right upper lobe pulmonary nodule. 2. Nonspecific left upper lobe focal consolidation, most likely infectious or inflammatory. 3. Small free flowing effusions and dependent/compressive atelectasis of both bases. 4. No lytic or sclerotic lesion or other acute abnormality seen of the visualized osseous structures. Naldo Noble MD on July 28, 2017 at 1:31 Board Certified Radiologist. This report was verified electronically.
[2017-07-28 04:00] VITALS: BP 157/66; PULSE 106; RESP 20; TEMP 98.1; O2SAT 96
[2017-07-28] MEDS: CIPROFLOXACIN 400 MG PREMIX 200 ML IV SCH (06:44)
[2017-07-28] MEDS: MORPHINE SULFATE 4 MG/ML INJ IV PUSH PRN ×3 (07:45→20:54)
[2017-07-28] MEDS: NYSTATIN SUSP 500,000 U/5 ML CUP SWISH-SWAL SCH ×4 (07:45→20:54)
[2017-07-28] MEDS: PANTOPRAZOLE SOD 40 MG DELAYED RELEASE TAB PO SCH (07:53)
[2017-07-28] MEDS: FERROUS SULFATE 325 MG (65 MG ELEMENTAL IRON) TAB PO SCH (07:53)
[2017-07-28] MEDS: FLUCONAZOLE 100 MG TAB PO SCH (07:53)
[2017-07-28 08:00] VITALS: BP 131/59; PULSE 101; RESP 18; TEMP 98.9; O2SAT 96
[2017-07-28 08:40] LABS: AUTOMATED NEUTROPHIL # 16.9 TH/MM3 (1.8-7.7); BASOPHIL # 0.1 TH/MM3 (0-0.2); BASOPHIL % 0.3 % (0.0-2.0); EOSINOPHIL # 0.1 TH/MM3 (0-0.4); EOSINOPHIL % 0.8 % (0.0-4.0); HEMATOCRIT 25.4 % (39.0-51.0); HEMOGLOBIN 8.5 GM/DL (13.0-17.0); LYMPH % 2.5 % (9.0-44.0); LYMPHOCYTE # 0.4 TH/MM3 (1.0-4.8); MEAN CELL VOLUME 91.8 FL (80.0-100.0); MEAN CORPUSCULAR HEMOGLOBIN 30.7 PG (27.0-34.0); MEAN CORPUSCULAR HGB CONC 33.5 % (32.0-36.0); MEAN PLATELET VOLUME 7.4 FL (7.0-11.0); MONO % 2.7 % (0.0-8.0); MONOCYTE # 0.5 TH/MM3 (0-0.9); NEUT % 93.7 % (16.0-70.0); PLATELET COUNT 331 TH/MM3 (150-450); RED BLOOD COUNT 2.77 MIL/MM3 (4.50-5.90); RED CELL DISTRIBUTION WIDTH 18.8 % (11.6-17.2)
[2017-07-28 09:08] LABS: AST (GOT) 21 U/L (15-37); BICARBONATE 18.5 MEQ/L (21.0-32.0); BLOOD UREA NITROGEN 32 MG/DL (7-18); CALCIUM 8.4 MG/DL (8.5-10.1); CHLORIDE 107 MEQ/L (98-107); CREATININE 2.54 MG/DL (0.60-1.30); GLOMERULAR FILTRATION RATE 25 ML/MIN (>89); GLUCOSE,RANDOM 87 MG/DL (74-106); MAGNESIUM 1.7 MG/DL (1.5-2.5); PHOSPHORUS 3.1 MG/DL (2.5-4.9); SODIUM (NA) 136 MEQ/L (136-145)
[2017-07-28 09:09] LABS: ALT (GPT) 16 U/L (12-78)
[2017-07-28 09:18] LABS: ALKALINE PHOSPHATASE 118 U/L (45-117); FREE T4 1.39 NG/DL (0.76-1.46); TOTAL BILIRUBIN ADULT 0.5 MG/DL (0.2-1.0); TOTAL PROTEIN 5.8 GM/DL (6.4-8.2)
--- NOTE | 2017-07-28 10:02 | HHI.PR ---
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 Patient is admitted today under urology service for cystoscopy. Attempt was done to do a transurethral resection of the bladder however this was unsuccessful. Bleeding was noted and controlled. This morning H&H drop. On review of records patient is closely followed by Dr. ROMERO from oncology and receives periodic IV infusion therapy and periodic blood transfusion. Patient complains of lower abdominal discomfort. Denies any fever or chills. Patient has good family support. Patientalso Complaints of pain in the and difficulty swallowing for the past 1 week now on oral nystatin. with minimal improvement [facility] consulted today for medical management. He does report stools black- formed- "on iron" Patient refused to have his colostomy bag examined 3 I believe patient has refused gastroenterology evaluation. Has been started on nystatin We will get CAT scans of his head chest and abdomen Oncology has been consulted We will get physical therapy occupational therapy and speech therapy to eval and treat Discussed with patient and RN and family PASSED SWALLOW EVAL WITH PUREE AND THIN WITH SPEECH THERAPY POSITIVE THRUSH 11 HOPEFULLY FOR EGD TOMORROW AWAIT ONCOLOGY WORKUP AND CONSULT STILL HAVING SOME HEMATURIA AND DIFFICULTY SWALLOWING DW RN AND PT AND FAMILY AND CM Objective Vitals Vital Signs Date Time Temp Pulse Resp B/P (MAP) Pulse Ox O2 Delivery O2 Flow Rate FiO2 07/28/17 08:00 98.9 101 18 131/59 (83) 96 07/28/17 04:00 98.1 106 20 157/66 (96) 96 07/28/17 00:00 97.6 83 18 119/73 (88) 98 07/27/17 20:00 96.0 94 18 120/56 (77) 99 07/27/17 19:13 97.9 85 17 139/72 (94) 98 07/27/17 12:00 98.1 94 17 147/65 (92) 96 I/O 07/27/17 07/27/17 07/27/17 07/28/17 07/28/17 07/28/17 07:00 15:00 23:00 07:00 15:00 23:00 Intake Total 999 ml 720 ml Output Total 950 ml 600 ml 1075 ml 1150 ml Balance 49 ml -600 ml -355 ml -1150 ml Intake Oral 720 ml IV Total 999 ml Output Urine Total 575 ml Drainage Total 950 ml 600 ml 500 ml 1150 ml Result Diagram: 07/28/17 0715 07/28/17 0715 Other Results Laboratory Tests Test 07/25/17 18:09 07/26/17 08:37 07/27/17 05:09 07/28/17 07:15 White Blood Count 16.2 TH/MM3 20.9 TH/MM3 18.1 TH/MM3 18.0 TH/MM3 Red Blood Count 2.59 MIL/MM3 2.10 MIL/MM3 2.74 MIL/MM3 2.77 MIL/MM3 Hemoglobin 8.3 GM/DL 6.7 GM/DL 8.4 GM/DL 8.5 GM/DL Hematocrit 24.7 % 20.0 % 25.0 % 25.4 % Mean Corpuscular Volume 95.2 FL 95.0 FL 91.5 FL 91.8 FL Mean Corpuscular Hemoglobin 32.1 PG 31.9 PG 30.8 PG 30.7 PG Mean Corpuscular Hemoglobin Concent 33.7 % 33.6 % 33.6 % 33.5 % Red Cell Distribution Width 18.1 % 18.2 % 20.1 % 18.8 % Platelet Count 531 TH/MM3 355 TH/MM3 329 TH/MM3 331 TH/MM3 Mean Platelet Volume 7.0 FL 7.0 FL 7.3 FL 7.4 FL Neutrophils (%) (Auto) 92.6 % 93.7 % Lymphocytes (%) (Auto) 3.8 % 2.5 % Monocytes (%) (Auto) 2.8 % 2.7 % Eosinophils (%) (Auto) 0.4 % 0.8 % Basophils (%) (Auto) 0.4 % 0.3 % Neutrophils # (Auto) 15.0 TH/MM3 16.9 TH/MM3 Lymphocytes # (Auto) 0.6 TH/MM3 0.4 TH/MM3 Monocytes # (Auto) 0.5 TH/MM3 0.5 TH/MM3 Eosinophils # (Auto) 0.1 TH/MM3 0.1 TH/MM3 Basophils # (Auto) 0.1 TH/MM3 0.1 TH/MM3 CBC Comment DIFF FINAL DIFF FINAL Differential Comment Blood Urea Nitrogen 44 MG/DL 43 MG/DL 36 MG/DL 32 MG/DL Creatinine 2.66 MG/DL 2.92 MG/DL 2.71 MG/DL 2.54 MG/DL Random Glucose 101 MG/DL 87 MG/DL 71 MG/DL 87 MG/DL Calcium Level 7.8 MG/DL 7.9 MG/DL 8.0 MG/DL 8.4 MG/DL Sodium Level 139 MEQ/L 138 MEQ/L 139 MEQ/L 136 MEQ/L Potassium Level 4.9 MEQ/L 5.1 MEQ/L 4.9 MEQ/L 4.5 MEQ/L Chloride Level 112 MEQ/L 111 MEQ/L 111 MEQ/L 107 MEQ/L Carbon Dioxide Level 17.8 MEQ/L 18.7 MEQ/L 19.4 MEQ/L 18.5 MEQ/L Anion Gap 9 MEQ/L 8 MEQ/L 9 MEQ/L 11 MEQ/L Estimat Glomerular Filtration Rate 24 ML/MIN 21 ML/MIN 23 ML/MIN 25 ML/MIN Iron Level 10 MCG/DL Total Iron Binding Capacity 112 MCG/DL Percent Iron Saturation 8.9 % Ferritin 846 NG/ML Total Protein 5.8 GM/DL Albumin 2.0 GM/DL Phosphorus Level 3.1 MG/DL Magnesium Level 1.7 MG/DL Alkaline Phosphatase 118 U/L Aspartate Amino Transf (AST/SGOT) 21 U/L Alanine Aminotransferase (ALT/SGPT) 16 U/L Total Bilirubin 0.5 MG/DL Free Thyroxine 1.39 NG/DL Thyroid Stimulating Hormone 3rd Gen 1.610 uIU/ML Imaging Last Impressions Head CT 07/27/17 Signed Impressions: Service Date/Time: Friday, July 28, 2017 01:04 - CONCLUSION: No acute intracranial abnormality demonstrated. Chronic white matter changes are noted. Naldo Noble MD Chest CT 07/27/17 0000 Signed Impressions: Service Date/Time: Friday, July 28, 2017 01:07 - CONCLUSION: 1. Nonspecific right upper lobe pulmonary nodule. 2. Nonspecific left upper lobe focal consolidation, most likely infectious or inflammatory. 3. Small free flowing effusions and dependent/compressive atelectasis of both bases. 4. No lytic or sclerotic lesion or other acute abnormality seen of the visualized osseous structures. Naldo Noble MD Abdomen/Pelvis CT 07/27/17 Signed Impressions: Service Date/Time: Friday, July 28, 2017 01:07 - CONCLUSION: 1. Increased mass like fullness in the region of the rectum and posterior bladder. 2. An apparent abscess anteriorly in the right lower quadrant. Etiology of this is uncertain. 3. Apparent ileus. No definite obstruction. Left lower quadrant colostomy again seen. 4. Bilateral percutaneous nephrostomy tubes with resolution of previously seen hydronephrosis. 5. Ascites and body wall edema/anasarca have developed. 6. The chronic fluid collection in the right ischiorectal fossa is unchanged and most likely a postoperative seroma. Naldo Noble MD Objective Remarks GENERAL: This is a well-nourished, well-developed patient, in no apparent distress. Very feisty SKIN: No rashes, ecchymoses or lesions. Cool and dry. HEAD: Atraumatic. Normocephalic. No temporal or scalp tenderness. EYES: Pupils equal round and reactive. Extraocular motions intact. No scleral icterus. No injection or drainage. ENT: Nose without bleeding, Throat positive oral thrush. Airway patent. POSITIVE THRUSH NECK: Trachea midline. No JVD or lymphadenopathy. Supple, nontender, no meningeal signs. CARDIOVASCULAR: Regular rate and rhythm without murmurs, gallops, or rubs. S1- S2 no S3 or S4 RESPIRATORY: Clear to auscultation. Breath sounds equal bilaterally. No wheezes , rales, or rhonchi. GASTROINTESTINAL: Abdomen soft, non-tender, nondistended. Bilateral nephrostomy tube in place draining lt yellow colored urine, colostomy bag in place MUSCULOSKELETAL: Extremities without clubbing, cyanosis, or edema. No joint tenderness, effusion, or edema noted. No calf tenderness. Negative Homans sign bilaterally. NEUROLOGICAL: Awake and alert. Cranial nerves II through XII intact. Motor and sensory grossly within normal limits. 4 out of 5 muscle strength in all muscle groups. Normal speech. Insight and judgment is limited Mood and behavior is somewhat appropriate Procedures DATE OF OPERATION: 07/25/2017 PREOPERATIVE DIAGNOSIS: 1. Bladder tumor greater than 5 cm. 2. Bilateral hydronephrosis status post nephrostomy tubes. 3. Acute on chronic renal failure. 4. Chronic Anemia POSTOPERATIVE DIAGNOSIS: 1. Bladder tumor greater than 5 cm. 2. Bilateral hydronephrosis status post nephrostomy tubes. 3. Acute on chronic renal failure. 4. Chronic anemia PROCEDURE: 1. Cystourethroscopy, 2. TURBT of large bladder tumor greater than 5 cm. SURGEON: lAan Forrester MD ANESTHESIA: General. COMPLICATIONS: None. PREOPERATIVE ANTIBIOTICS: Ancef 1 gram IV. DRAINS: Bilateral nephrostomy tubes. SPECIMENS: Bladder tumor for permanent. ESTIMATED BLOOD LOSS: 50 mL. DISPOSITION: Stable to recovery. INDICATIONS: The patient is a 71-year-old male with a history of gross hematuria. He was found to have a bladder tumor last 01/2017, however, the patient was in the hospital multiple times for various comorbidities. However, he eventually ended up having acute renal failure secondary to bilateral hydronephrosis ____ large bladder tumor. He had nephrostomy tubes placed. Once he was cleared medically, he was then scheduled for resection of his bladder tumor. After risks, benefits and alternatives were explained to the patient including the risk of injury to his bladder, the patient would like to proceed. Informed consent was obtained. PROCEDURE IN DETAIL: The patient was properly identified and brought back to the cystoscopy suite and placed on cystoscopy table. Appropriately timeout was performed under the direction of anesthesiology. The patient was intubated and induced under generally anesthetic. Preoperative antibiotics in the form of Ancef 1 gram IV was given 1 hour prior to start of the procedure. The patient was then placed in dorsal lithotomy position, prepped and draped in normal sterile surgical fashion. Under direct visualization, I then carefully passed the bipolar resectoscope into the patient's bladder. Once inside the bladder, the bladder was completely abnormal. The visualization was extremely difficult. There was a very large sessile bleeding bladder tumor along the entire trigone and going up each of the lateral bronson to the bladder. His anatomy was completely distorted. With the bipolar resectoscope, I then resected a lot of the tumor that seemed to be causing some bleeding. This was Elliked out and would be sent off to the pathologist. However, the tumor itself was completely unresectable. Once I had removed all tumor that seemed to be causing bleeding, hemostasis was then achieved. The rest of the remaining specimen was then Elliked out. Since he had bilateral nephrostomy tubes, I did not leave a Zhao catheter in place. A bimanual was not able to performed at the end because the patient has a colostomy and his rectum was sewn shut. This concluded the procedure. The patient was extubated and sent to recovery in stable condition. He will be admitted for routine postop care due to his comorbidities. Alan Forrester MD Medications and IVs Current Medications Lactated Ringer's 1,000 ml @ 30 mls/hr Q24H PRN IV SEE LABEL COMMENTS; Start at 11:30; Stop 07/28/17 at 11:29 Sodium Chloride 500 ml @ 30 mls/hr [id number] PRN IV SEE LABEL COMMENTS; Start 07/25/17 at 11:30; Stop 07/28/17 at 11:29 Metoprolol Tartrate (Lopressor) 25 mg FUNDRAISER PRN PO SEE LABEL COMMENTS; Start 07/25/17 at 11:30; Stop 07/28/17 at 11:29 Povidone Iodine (Betadine 5% Antisepsis Kit) 1 applic FUNDRAISER PRN EACH NARE SEE LABEL COMMENTS; Start 07/25/17 at 11:30; Stop 07/28/17 at 11:29 Chlorhexidine Gluconate (Chlorhexidine 2% Cloth) 3 pack FUNDRAISER PRN TOPICAL SEE LABEL COMMENTS; Start 07/25/17 at 11:30; Stop 07/28/17 at 11:29 Cefazolin Sodium/ Dextrose 50 ml @ 150 mls/hr FUNDRAISER IV ; Start 07/25/17 at 12 :30; Stop 07/28/17 at 12:29 Acetaminophen/ Hydrocodone Bitart ([place] 5-325 Mg) 1 tab STK-MED ONCE .ROUTE Last administered on 07/25/17at 14:06; Start 07/25/17 at 14:02; Stop 07/25/17 at 14: 03; Status DC Acetaminophen/ Hydrocodone Bitart ([place] 5-325 Mg) 1 tab NOW ONCE PO ; Start 07/25/17 at 15:30; Stop 07/25/17 at 15:31; Status DC Cefazolin Sodium (Ancef Inj) 2,000 mg ONCE ONCE IV Last administered on at 15:17; Start 07/25/17 at 16:02; Stop 07/25/17 at 16:03; Status DC Oxycodone/ Acetaminophen (Percocet 5-325 Mg) 2 tab Q4H PRN PO PAIN SCALE 7 TO 10 Last administered on 07/26/17at 08:56; Start 07/25/17 at 16:30 Oxycodone/ Acetaminophen (Percocet 5-325 Mg) 1 tab Q4H PRN PO PAIN SCALE 4 TO 6; Start 07/25/17 at 16:30 Morphine Sulfate (Morphine Inj) 4 mg Q3H PRN IV PUSH BREAKTHROUGH PAIN Last administered on 07/28/17at 07:45; Start 07/25/17 at 16:30 Ciprofloxacin/ Dextrose 200 ml @ 200 mls/hr Q12H IV Last administered on at 06:44; Start 07/25/17 at 18:00 Ondansetron HCl (Zofran Inj) 4 mg Q6HR PRN IV PUSH NAUSEA OR VOMITING; Start at 16:30 Amlodipine Besylate (Norvasc) 5 mg DAILY PO Last administered on 07/26/17at 08:56 ; Start 07/26/17 at 09:00 Atorvastatin Calcium (Lipitor) 80 mg HS PO ; Start 07/25/17 at 21:00 Ferrous Sulfate (Ferrous Sulfate) 325 mg DAILY PO Last administered on at 08:56; Start 07/26/17 at 09:00 Nystatin (Mycostatin Liq) 5 ml QID SWISH-SWAL Last administered on 07/28/17at 07:45; Start 07/25/17 at 18:00 Fentanyl Citrate (fentaNYL INJ) 100 mcg STK-MED ONCE .ROUTE ; Start 07/25/17 at 16:40; Stop 07/25/17 at 16:41; Status DC Fentanyl Citrate (fentaNYL INJ) 300 mcg STK-MED ONCE .ROUTE ; Start 07/25/17 at 16:41; Stop 07/25/17 at 16:42; Status DC Midazolam HCl (Versed Inj) 2 mg STK-MED ONCE .ROUTE ; Start 07/25/17 at 16:41; Stop 07/25/17 at 16:42; Status DC Miscellaneous Information ALL NURSING DEPARTME... UNSCH PRN .XX SEE LABEL COMMENTS; Start 07/25/17 at 17:00; Stop 07/26/17 at 16:59; Status DC Morphine Sulfate (*morphine INJ PERIprocedure ONLY) 4 mg STK-MED ONCE .ROUTE Last administered on 07/25/17at 17:19; Start 07/25/17 at 17:19; Stop 07/25/17 at 17: 20; Status DC Morphine Sulfate (*morphine INJ PERIprocedure ONLY) 4 mg STK-MED ONCE .ROUTE Last administered on 07/25/17at 21:26; Start 07/25/17 at 21:26; Stop 07/25/17 at 21: 27; Status DC Lidocaine HCl (Xylocaine-Mpf 1% Inj) 5 ml STK-MED ONCE OTHER ; Start 07/25/17 at 12:00; Stop 07/26/17 at 15:14; Status DC Rocuronium [place] (Zemuron Inj) 50 mg STK-MED ONCE IV PUSH ; Start 07/25/17 at 12:00; Stop 07/26/17 at 15:14; Status DC Neostigmine Methylsulfate (Prostigmine Inj) 5 mg STK-MED ONCE IV PUSH ; Start at 12:00; Stop 07/26/17 at 15:14; Status DC Glycopyrrolate (Robinul Inj) 1 mg STK-MED ONCE IV PUSH ; Start 07/25/17 at 12:00 ; Stop 07/26/17 at 15:14; Status DC Phenylephrine HCl (Neosynephrine/ NS 1000 Mcg/10ml Syr) 1,000 mcg STK-MED ONCE IV ; Start 07/25/17 at 12:00; Stop 07/26/17 at 15:14; Status DC Ephedrine Sulfate (ePHEDrine/NS 25 MG/5 ML SYR) 25 mg STK-MED ONCE IV ; Start at 12:00; Stop 07/26/17 at 15:14; Status DC Esmolol HCl (Brevibloc Bolus Inj) 100 mg STK-MED ONCE IV ; Start 07/25/17 at 12: 00; Stop 07/26/17 at 15:14; Status DC Cefazolin Sodium (Ancef Inj) 1,000 mg STK-MED ONCE IV ; Start 07/25/17 at 12:00; Stop 07/26/17 at 15:14; Status DC Propofol (Diprivan 200 Mg/20 ml Inj) 200 mg STK-MED ONCE IV ; Start 07/25/17 at 12:00; Stop 07/26/17 at 15:14; Status DC Fluconazole (Diflucan) 100 mg DAILY PO Last administered on 07/27/17at 10:24; Start 07/26/17 at 17:15 Sodium Chloride 1,000 ml @ 70 mls/hr [id number] IV Last administered on at 06:10; Start 07/26/17 at 17:15 Pantoprazole Sodium (Protonix) 40 mg DAILY PO ; Start 07/27/17 at 09:00 Diatrizoate Meglum/ Diatrizoate Sod ( Gastroview Liq) 18 ml ONCE ONCE PO Last administered on 07/27/17at 13:56; Start 07/27/17 at 11:45; Stop 07/27/17 at 11:46; Status DC A/P Assessment and Plan 71-year-old male admitted under urology service Status post TURBT of Bladder tumor - with evacuation of blood clots 07/26 Urology following STILL HAS HEMATURIA Acute on top of chronic anemia. Patient symptomatic We'll transfuse 1 unit packed RBC and recheck H and H Continue iron supplement. Consult his oncologist Dr. Metcalf. Oral thrush r/o [place] esophagitis Odynophagia History of GERD Continue on nystatin 5 cc 4 times a day.. Add Diflucan 100 mg by mouth daily.and adjust per creatinine GI consult to evaluate esophageal candidiasis however patient refused ADAMANTLY continue on PPI- Will consult gastroenterology- NEEDS EGD ON SATURDAY Will consult speech therapy for evaluation of his swallow Acute on chronic kidney insufficiency from obstructive uropathy. Slight increase in creatinine Gentle hydration with 1 L normal saline. Recheck BMP in a.m. History of CAD, status post CABG, hypertension Continue amlodipine 5 mg daily. Continue statins. Bilateral teds SCDs Case management consult for home health care- And discharge needs. Discharge Planning Pending clearance by hematology and urology Allan Hanson DO Jul 28, 2017 10:02
--- NOTE | 2017-07-28 11:24 | MB ---
cc: Ivet Ramírez MD DATE OF CONSULT: REASON FOR CONSULTATION: Consult requested by [facility] hospitalist for evaluation of urinary bladder cancer. HISTORY OF PRESENT ILLNESS: Paulo is a 71-year-old male. He presented with gross hematuria about 6 months ago. He was diagnosed with urinary bladder cancer. He was scheduled for surgery but he was found to have severe anemia. He was referred to my associated Dr. Baker. The patient received treatment for his anemia. Subsequently, the patient had developed acute renal failure due to bilateral hydronephrosis. Nephrostomy tubes were placed. The patient is now admitted to the hospital for TURBT which was performed two days ago. The patient had tolerated surgery well and now I have been asked to see him for further evaluation. The patient is still recovering from the surgery. He appears to look sad as he was told that the tumor was not completely resectable. He still has residual tumor left behind. He still has the nephrostomy tube. He is complaining of weakness and fatigue. He denies any cough or shortness of breath. The rest of the review of systems is negative. PAST MEDICAL HISTORY: Urinary bladder cancer, iron deficiency anemia, arthritis, history of DVT, history of colorectal cancer in 1992 and he was treated with radiation chemotherapy followed by surgery and colostomy, coronary artery disease status post SC. PAST SURGICAL HISTORY: Cardiac catheterization, cystoscopy. ALLERGIES: NONE. MEDICATIONS PRIOR TO COMING TO THE HOSPITAL: Amlodipine, Lipitor, Protonix. FAMILY HISTORY: Both his parents have . They did not have any cancer. There is no family history of malignancy that he knows of. SOCIAL HISTORY: The patient is , lives with his . He smoked cigarettes for at least 55 years. He also drinks alcohol but occasionally. PHYSICAL EXAMINATION: GENERAL: A well-developed, well-nourished white male, in no apparent distress. VITAL SIGNS: Temperature 98.1, heart rate 94, blood pressure 147/65. HEENT: PERRLA. EOMI. No oral lesions noted. NECK: No lymphadenopathy noted. LUNGS: Clear. No wheezing, rhonchi or rales. HEART: Regular rate and rhythm. ABDOMEN: Soft, nontender. Colostomy bag noted. EXTREMITIES: No pedal edema. NEUROLOGIC: Awake, alert, oriented x 3. SKIN: No significant lesions noted. ASSESSMENT: 1. Urinary bladder cancer, status post attempt for complete resection with transurethral resection of bladder tumor; however, his tumor is not fully resectable. 2. Bilateral hydronephrosis from very large 5 cm bladder tumor and now he has nephrostomy tubes. 3. History of rectal cancer, status post radiation chemotherapy followed by surgery with a colostomy in 1992 at the [facility]. PLAN: I have reviewed his available records and I have discussed with the patient regarding the cystoscopy surgical findings. I reviewed Dr. Forrester operative notes where he mentioned that the tumor was 5 cm. He attempted to resect the tumor completely but he was unable to do that. He was able to do the TURBT to the tumor where it was bleeding. His creatinine is still high and he has nephrostomy tube. The pathology report is still pending. I did review his CAT scan of the abdomen and pelvis which showed increased mass-like fullness in the region of the rectum and posterior bladder. There is an apparent abscess anteriorly in the right lower quadrant. The etiology of this is uncertain. Apparent ileus noted. Bilateral percutaneous nephrostomy tubes with resolution of the previously seen hydronephrosis. There is ascites and body wall edema noted. The CT of the chest showed no lung metastasis. There are no lytic or sclerotic lesions noted in the bone. The CT of the head came back negative for metastasis. At this point we will wait until we get the pathology report which is still pending. Further recommendation once we have the final pathology report available. His oncologist DR Baker will see him on saturday. Thank you for asking my opinion. MD SHAILESH Suarez/NEREYDA/rufina , 03:11 AM , 08:27 AM [place]
--- NOTE | 2017-07-28 11:41 | HHI.GIFU ---
Subjective Remarks Pt is resting in bed, states the swallowing is bad again, not able to swallow solids or pills, hasn't been taking Diflucan because of it. (ZoniaDarnell browne) Objective Vitals I&O Vital Signs Date Time Temp Pulse Resp B/P (MAP) Pulse Ox O2 Delivery O2 Flow Rate FiO2 07/28/17 08:00 98.9 101 18 131/59 (83) 96 07/28/17 04:00 98.1 106 20 157/66 (96) 96 07/28/17 00:00 97.6 83 18 119/73 (88) 98 07/27/17 20:00 96.0 94 18 120/56 (77) 99 07/27/17 19:13 97.9 85 17 139/72 (94) 98 07/27/17 12:00 98.1 94 17 147/65 (92) 96 I/O 07/27/17 07/27/17 07/27/17 07/28/17 07/28/17 07/28/17 06:59 14:59 22:59 06:59 14:59 22:59 Intake Total 999 ml 720 ml Output Total 950 ml 600 ml 1075 ml 1150 ml 225 ml Balance 49 ml -600 ml -355 ml -1150 ml -225 ml Intake Oral 720 ml IV Total 999 ml Output Urine Total 575 ml Drainage Total 950 ml 600 ml 500 ml 1150 ml 225 ml Laboratory Laboratory Tests Test 07/28/17 07:15 White Blood Count 18.0 Red Blood Count 2.77 Hemoglobin 8.5 Hematocrit 25.4 Mean Corpuscular Volume 91.8 Mean Corpuscular Hemoglobin 30.7 Mean Corpuscular Hemoglobin Concent 33.5 Red Cell Distribution Width 18.8 Platelet Count 331 Mean Platelet Volume 7.4 Neutrophils (%) (Auto) 93.7 Lymphocytes (%) (Auto) 2.5 Monocytes (%) (Auto) 2.7 Eosinophils (%) (Auto) 0.8 Basophils (%) (Auto) 0.3 Neutrophils # (Auto) 16.9 Lymphocytes # (Auto) 0.4 Monocytes # (Auto) 0.5 Eosinophils # (Auto) 0.1 Basophils # (Auto) 0.1 CBC Comment DIFF FINAL Differential Comment Blood Urea Nitrogen 32 Creatinine 2.54 Random Glucose 87 Total Protein 5.8 Albumin 2.0 Calcium Level 8.4 Phosphorus Level 3.1 Magnesium Level 1.7 Alkaline Phosphatase 118 Aspartate Amino Transf (AST/SGOT) 21 Alanine Aminotransferase (ALT/SGPT) 16 Total Bilirubin 0.5 Sodium Level 136 Potassium Level 4.5 Chloride Level 107 Carbon Dioxide Level 18.5 Anion Gap 11 Estimat Glomerular Filtration Rate 25 Free Thyroxine 1.39 Thyroid Stimulating Hormone 3rd Gen 1.610 Imaging Last Impressions Head CT 07/27/17 0000 Signed Impressions: Service Date/Time: Friday, July 28, 2017 01:04 - CONCLUSION: No acute intracranial abnormality demonstrated. Chronic white matter changes are noted. Naldo Noble MD Chest CT 07/27/17 0000 Signed Impressions: Service Date/Time: Friday, July 28, 2017 01:07 - CONCLUSION: 1. Nonspecific right upper lobe pulmonary nodule. 2. Nonspecific left upper lobe focal consolidation, most likely infectious or inflammatory. 3. Small free flowing effusions and dependent/compressive atelectasis of both bases. 4. No lytic or sclerotic lesion or other acute abnormality seen of the visualized osseous structures. Naldo Noble MD Abdomen/Pelvis CT 07/27/17 Signed Impressions: Service Date/Time: Friday, July 28, 2017 01:07 - CONCLUSION: 1. Increased mass like fullness in the region of the rectum and posterior bladder. 2. An apparent abscess anteriorly in the right lower quadrant. Etiology of this is uncertain. 3. Apparent ileus. No definite obstruction. Left lower quadrant colostomy again seen. 4. Bilateral percutaneous nephrostomy tubes with resolution of previously seen hydronephrosis. 5. Ascites and body wall edema/anasarca have developed. 6. The chronic fluid collection in the right ischiorectal fossa is unchanged and most likely a postoperative seroma. Naldo Noble MD Physical Exam HEENT: normocephalic; atraumatic; no jaundice. Throat is clear. CHEST: Chest is clear to auscultation and percussion. CARDIAC: Regular rate and rhythm with no murmur gallop or rubs. ABDOMEN: Soft, nondistended, nontender; no hepatosplenomegaly; Bilateral nephrostomy tube in place draining lt yellow colored urine, colostomy bag in place EXTREMITIES: No clubbing, cyanosis, or edema. SKIN: Normal; no rash; no jaundice. BRIDGE BUILDER: No focal deficits; alert and oriented times three. (Amawi,Khawla BACK TENDER) Assessment and Plan Plan Dysphagia- X one week- Today not able to swallow solids and pills, hasn't been taking Diflucan, possible valente esophagitis Followed by ST who recommended Puree diet and thin liquids - GERD- Protonix - Possible cancer with mets- CT on 07/27/17 showed increased mass like fullness in the region o the rectum and posterior bladder, Ascites and body wall edema have developed, Abscess in RLQ and ileus - Abscess in RLQ on CT- Consider IR consult - Possible ileus on Ct- no obstruction - Anemia- no bleeding reported, possibly due to cancer process - bladder mass status post Status post TURBT with evacuation of blood clots , bx pending - Hx of rectal cancer s/p colostomy - History of CAD, status post CABG, hypertension per attending Plan: - Diet per ST recommendations - EGD/dill, in the am - consents, if still here - Discussed with pt doing colonoscopy for evaluation of Ct findings but refusing - Oncology following - Await bx from bladder tumor - Consider diagnostic paracentesis - Cont. PPI - Cont. Diflucan - Supportive care - Patient seen and examined by Dr. Londono and myself and this note is written on his behalf. (Darnell Le) Physician Comments Agree with above assessment and plan. EGD in AM. Further recommendations to follow. (Castro Londono MD) Darnell Le Jul 28, 2017 11:41 Castro Londono MD Jul 28, 2017 23:12
[2017-07-28 12:20] VITALS: BP 153/67; PULSE 100; RESP 18; TEMP 98.7; O2SAT 95
[2017-07-28] MEDS: SODIUM CHLOR 0.9% 1000 ML INJ 1,000 ML IV SCH (15:58)
[2017-07-28 16:00] VITALS: BP 142/66; PULSE 100; RESP 18; O2SAT 96
--- NOTE | 2017-07-28 17:53 | PD.ONC.PN ---
Subjective Subjective Remarks Afebrile overnight Patient reports he has persistent pain Mild bleeding from penis Objective Data Date Time Temp Pulse Resp B/P (MAP) Pulse Ox O2 Delivery O2 Flow Rate FiO2 07/28/17 16:00 100 18 142/66 (91) 96 07/28/17 12:20 98.7 100 18 153/67 (95) 95 07/28/17 08:00 98.9 101 18 131/59 (83) 96 07/28/17 04:00 98.1 106 20 157/66 (96) 96 07/28/17 00:00 97.6 83 18 119/73 (88) 98 07/27/17 20:00 96.0 94 18 120/56 (77) 99 07/27/17 19:13 97.9 85 17 139/72 (94) 98 07/28/17 07/28/17 07/28/17 07:00 15:00 23:00 Output Total 1150 ml 225 ml 700 ml Balance -1150 ml -225 ml -700 ml Result Diagram: 07/28/1715 07/28/17 0715 Laboratory Results Laboratory Tests Test 07/28/17 07:15 White Blood Count 18.0 TH/MM3 Red Blood Count 2.77 MIL/MM3 Hemoglobin 8.5 GM/DL Hematocrit 25.4 % Mean Corpuscular Volume 91.8 FL Mean Corpuscular Hemoglobin 30.7 PG Mean Corpuscular Hemoglobin Concent 33.5 % Red Cell Distribution Width 18.8 % Platelet Count 331 TH/MM3 Mean Platelet Volume 7.4 FL Neutrophils (%) (Auto) 93.7 % Lymphocytes (%) (Auto) 2.5 % Monocytes (%) (Auto) 2.7 % Eosinophils (%) (Auto) 0.8 % Basophils (%) (Auto) 0.3 % Neutrophils # (Auto) 16.9 TH/MM3 Lymphocytes # (Auto) 0.4 TH/MM3 Monocytes # (Auto) 0.5 TH/MM3 Eosinophils # (Auto) 0.1 TH/MM3 Basophils # (Auto) 0.1 TH/MM3 CBC Comment DIFF FINAL Differential Comment Blood Urea Nitrogen 32 MG/DL Creatinine 2.54 MG/DL Random Glucose 87 MG/DL Total Protein 5.8 GM/DL Albumin 2.0 GM/DL Calcium Level 8.4 MG/DL Phosphorus Level 3.1 MG/DL Magnesium Level 1.7 MG/DL Alkaline Phosphatase 118 U/L Aspartate Amino Transf (AST/SGOT) 21 U/L Alanine Aminotransferase (ALT/SGPT) 16 U/L Total Bilirubin 0.5 MG/DL Sodium Level 136 MEQ/L Potassium Level 4.5 MEQ/L Chloride Level 107 MEQ/L Carbon Dioxide Level 18.5 MEQ/L Anion Gap 11 MEQ/L Estimat Glomerular Filtration Rate 25 ML/MIN Free Thyroxine 1.39 NG/DL Thyroid Stimulating Hormone 3rd Gen 1.610 uIU/ML Administered Medications Medications (Trade) Dose Ordered Sig/Shahrzad Route PRN Reason Start Time Stop Time Status Last Admin Dose Admin Oxycodone/ Acetaminophen (Percocet 5-325 Mg) 2 tab Q4H PRN PO PAIN SCALE 7 TO 10 07/25/17 16:30 07/26/17 08:56 Morphine Sulfate (Morphine Inj) 4 mg Q3H PRN IV PUSH BREAKTHROUGH PAIN 07/25/17 16:30 07/28/17 13:43 Ciprofloxacin/ Dextrose 200 ml @ 200 mls/hr Q12H IV 07/25/17 18:00 07/28/17 06:44 Amlodipine Besylate (Norvasc) 5 mg DAILY PO 07/26/17 09:00 07/26/17 08:56 Ferrous Sulfate (Ferrous Sulfate) 325 mg DAILY PO 07/26/17 09:00 07/26/17 08:56 Nystatin (Mycostatin Liq) 5 ml QID SWISH-SWAL 07/25/17 18:00 07/28/17 13:42 Fluconazole (Diflucan) 100 mg DAILY PO 07/26/17 17:15 07/27/17 10:24 Sodium Chloride 1,000 ml @ 70 mls/hr [id number] IV 07/26/17 17:15 07/28/17 15:58 Objective Remarks GENERAL: Frail appearing older male resting in bed watching TV SKIN: Warm and dry. HEAD: Normocephalic. EYES: No injection or drainage. NECK: Supple, trachea midline. CARDIOVASCULAR: Regular rate and rhythm without murmurs. RESPIRATORY: Breath sounds equal bilaterally. No accessory muscle use. GASTROINTESTINAL: Abdomen soft. + Colostomy bag EXTREMITIES: No cyanosis, or edema. MUSCULOSKELETAL: Adequate muscle tone. NEUROLOGICAL: No obvious focal deficit. Awake, alert, and oriented x3. Assessment/Plan Problem List: (1) Bladder cancer ICD Codes: C67.9 - Malignant neoplasm of bladder, unspecified Plan: 07/28/17: Start low-dose fentanyl patch for long-acting pain control. Dr. Baker will be back tomorrow to discuss options Hx/Workup: Patient originally presented approximately 6 months ago with gross hematuria and was diagnosed with urinary bladder cancer. He was scheduled for surgery but unfortunately had severe anemia that had to be treated first. He developed acute renal failure due to bilateral hydronephrosis and last week had TURBT surgery by Dr. Forrester. Unfortunately the tumor was not completely resectable. --CT of the chest shows no lung metastases --CT abdomen and pelvis showed increased masslike fullness in the region of the rectum and posterior bladder. An ileus was noted. Also of note was ascites and body wall edema. --Pathology pending --The patient also has a history of rectal cancer, status post radiation chemotherapy followed by surgery with a colostomy in 1992 (2) Bilateral hydronephrosis ICD Codes: N13.30 - Unspecified hydronephrosis Plan: --Bilateral nephrostomy tubes in place draining clear yellow urine to bedside bag Assessment 71-year-old male with history of bladder cancer with recent TURBT and partial resection of the mass Attending Statement The exam, history, and the medical decision-making described in the above note were completed with the assistance of the mid-level provider. I reviewed and agree with the findings presented. I attest that I had a [id number] encounter with the patient on the same day, and personally performed and documented my assessment and findings in the medical record. c/o lower abd pain. again d/w him that his bladder tumor is not fully resectable. He will need XRT and chemo. He is not sure about it. He wants to discuss with his oncologist Cristin Townsend Jul 28, 2017 17:53 Odalis Ramírez MD Jul 28, 2017 23:20
[2017-07-28] MEDS ORDERED: fentaNYL 25 MCG/HR PATCH T-DERMAL SCH (18:00)
--- NOTE | 2017-07-28 19:57 | HHI.PR ---
Subjective Patient symptoms today Doing well, nephrostomy tubes clear urine Objective Vital Signs Vital Signs Date Time Temp Pulse Resp B/P (MAP) Pulse Ox O2 Delivery O2 Flow Rate FiO2 07/28/17 16:00 100 18 142/66 (91) 96 07/28/17 12:20 98.7 100 18 153/67 (95) 95 07/28/17 08:00 98.9 101 18 131/59 (83) 96 07/28/17 04:00 98.1 106 20 157/66 (96) 96 07/28/17 00:00 97.6 83 18 119/73 (88) 98 07/27/17 20:00 96.0 94 18 120/56 (77) 99 Result Diagram: 07/28/1715 07/28/17 0715 Objective Remarks NAD. A/O x 3 Nonlabored Resp abd soft, Nephrostomy tubes draining clear yellow urine Medications and IVs Current Medications Medications (Trade) Dose Ordered Sig/Shahrzad Route Start Time Stop Time Status Last Admin (Percocet 5-325 Mg) 2 tab Q4H PRN PO 07/25/17 16:30 07/26/17 08:56 (Percocet 5-325 Mg) 1 tab Q4H PRN PO 07/25/17 16:30 (Morphine Inj) 4 mg Q3H PRN IV PUSH 07/25/17 16:30 07/28/17 13:43 Ciprofloxacin/ Dextrose 200 ml @ 200 mls/hr Q12H IV 07/25/17 18:00 07/28/17 06:44 (Zofran Inj) 4 mg Q6HR PRN IV PUSH 07/25/17 16:30 (Norvasc) 5 mg DAILY PO 07/26/17 09:00 07/26/17 08:56 (Lipitor) 80 mg HS PO 07/25/17 21:00 (Ferrous Sulfate) 325 mg DAILY PO 07/26/17 09:00 07/26/17 08:56 (Mycostatin Liq) 5 ml QID SWISH-SWAL 07/25/17 18:00 07/28/17 13:42 (Diflucan) 100 mg DAILY PO 07/26/17 17:15 07/27/17 10:24 Sodium Chloride 1,000 ml @ 70 mls/hr [id number] IV 07/26/17 17:15 07/28/17 15:58 (Protonix) 40 mg DAILY PO 07/27/17 09:00 (Duragesic 25 Mcg Patch.72 Hr) 1 patch Q3D T-DERMAL 07/28/17 18:00 Miscellaneous Information 1 Q3D T-DERMAL 07/31/17 18:00 Assessment and Plan Assessment and Plan POD #3 s/p TURBT, anemia, bilateral nephrostomy tubes -Metastatic evaluation revealed large mass in posterior bladder/rectal area -Patient evaluated by Oncology and GI today; Plan for Upper endoscopy tomorrow morning -Pain control -Case management -Await path results. -Potential discharge after complete evaluation by GI and Oncology Pantera Eagle MD Jul 28, 2017 19:57
[2017-07-28 20:00] VITALS: BP 147/65; PULSE 96; RESP 20; TEMP 98.5; O2SAT 98
[2017-07-28] MEDS: ATORVASTATIN 80 MG TAB PO SCH (20:56)
[2017-07-29] VITALS: BP 137/76; PULSE 82; RESP 18; TEMP 97.3; O2SAT 98
[2017-07-29] MEDS: MORPHINE SULFATE 4 MG/ML INJ IV PUSH PRN ×2 (00:21→04:18)
[2017-07-29 04:00] VITALS: BP 166/75; PULSE 104; RESP 18; TEMP 98.9; O2SAT 97
[2017-07-29] MEDS ORDERED: LACTATED RINGER'S 1000 ML IV PRN (04:15)
[2017-07-29] MEDS ORDERED: POVIDONE IODINE 5% (ANTISEPSIS KIT) 4 APPLICATIONS EACH NARE PRN (04:15)
[2017-07-29] MEDS ORDERED: CHLORHEXIDINE GLUCONATE 2 % 1 PACK (2 CLOTHS) TOPICAL PRN (04:15)
[2017-07-29] MEDS ORDERED: SODIUM CHLORID 0.9% 500 ML IV PRN (04:15)
[2017-07-29] MEDS: SODIUM CHLOR 0.9% 1000 ML INJ 1,000 ML IV SCH ×2 (04:19→17:49)
[2017-07-29 07:09] LABS: AUTOMATED NEUTROPHIL # 15.1 TH/MM3 (1.8-7.7); BASOPHIL % 0.2 % (0.0-2.0); EOSINOPHIL # 0.3 TH/MM3 (0-0.4); EOSINOPHIL % 1.7 % (0.0-4.0); HEMATOCRIT 25.7 % (39.0-51.0); HEMOGLOBIN 8.8 GM/DL (13.0-17.0); LYMPH % 3.6 % (9.0-44.0); LYMPHOCYTE # 0.6 TH/MM3 (1.0-4.8); MEAN CELL VOLUME 91.4 FL (80.0-100.0); MEAN CORPUSCULAR HEMOGLOBIN 31.2 PG (27.0-34.0); MEAN CORPUSCULAR HGB CONC 34.1 % (32.0-36.0); MEAN PLATELET VOLUME 7.1 FL (7.0-11.0); MONO % 4.2 % (0.0-8.0); MONOCYTE # 0.7 TH/MM3 (0-0.9); NEUT % 90.3 % (16.0-70.0); PLATELET COUNT 333 TH/MM3 (150-450); RED BLOOD COUNT 2.81 MIL/MM3 (4.50-5.90); RED CELL DISTRIBUTION WIDTH 18.3 % (11.6-17.2); WHITE BLOOD COUNT 16.7 TH/MM3 (4.0-11.0)
[2017-07-29 07:29] LABS: ALBUMIN 1.9 GM/DL (3.4-5.0); ALT (GPT) 23 U/L (12-78); AST (GOT) 30 U/L (15-37); BICARBONATE 21.5 MEQ/L (21.0-32.0); BLOOD UREA NITROGEN 30 MG/DL (7-18); CALCIUM 8.1 MG/DL (8.5-10.1); CHLORIDE 108 MEQ/L (98-107); CREATININE 2.31 MG/DL (0.60-1.30); GLOMERULAR FILTRATION RATE 28 ML/MIN (>89); GLUCOSE,RANDOM 92 MG/DL (74-106); MAGNESIUM 1.8 MG/DL (1.5-2.5); PHOSPHORUS 2.7 MG/DL (2.5-4.9); SODIUM (NA) 137 MEQ/L (136-145)
[2017-07-29 07:31] LABS: ALKALINE PHOSPHATASE 111 U/L (45-117); TOTAL BILIRUBIN ADULT 0.5 MG/DL (0.2-1.0); TOTAL PROTEIN 5.9 GM/DL (6.4-8.2)
[2017-07-29 08:40] VITALS: BP 142/67; PULSE 99; RESP 18; TEMP 98.3; O2SAT 97
[2017-07-29] MEDS: FERROUS SULFATE 325 MG (65 MG ELEMENTAL IRON) TAB PO SCH (09:00)
[2017-07-29] MEDS: PANTOPRAZOLE SOD 40 MG DELAYED RELEASE TAB PO SCH (09:00)
[2017-07-29] MEDS: FLUCONAZOLE 100 MG TAB PO SCH (09:00)
[2017-07-29] MEDS: NYSTATIN SUSP 500,000 U/5 ML CUP SWISH-SWAL SCH ×4 (09:00→22:09)
--- NOTE | 2017-07-29 10:50 | GIPROC ---
[facility] [address] [facility]. [facility], [id number] EGD PROCEDURE REPORT EXAM DATE: 07/29/2017 PATIENT NAME: Jaime Lofton MR #: [id number] BIRTHDATE: 1945 ATTENDING: Castro Londono MD ORDER #: [id number] TIMBER TREATMENT PLANT OPERATOR: Murphy Easton and Yadira Landry STATUS: inpatient INDICATIONS: The patient is a 71 yr old male here for an EGD due to odynophagia and dysphagia PROCEDURE PERFORMED: EGD w/ biopsy MEDICATIONS: None and Per Anesthesia. TOPICAL ANESTHETIC: none CONSENT: The patient understands the risks and benefits of the procedure and understands that these risks include, but are not limited to: sedation, allergic reaction, infection, perforation and/or bleeding. Alternative means of evaluation and treatment include, among others: physical exam, x-rays, and/or surgical intervention. The patient elects to proceed with this endoscopic procedure. medical equipment was checked for proper function. Hand hygiene and appropriate measures for infection prevention was taken. After the risks, benefits and alternatives of the procedure were thoroughly explained, Informed consent was verified, confirmed and timeout was successfully executed by the treatment team. The patient was anesthetized with topical anesthesia and the Pentax [id number] endoscope was introduced through the mouth and advanced to the second portion of the duodenum. Retroflexed views revealed no abnormalities The gastroscope was then slowly withdrawn and removed. ESOPHAGUS: There was LA Class A esophagitis noted. STOMACH: There was a moderate amount of residual food seen in the gastric body. Due to the residual food, complete mucosal examination could not be performed. There was acute moderate and erosive gastritis in the gastric fundus and cardia. Multiple biopsies were performed using cold forceps. Sample sent for histology. DUODENUM: The duodenal mucosa appeared normal in the bulb and second portion of the duodenum. ADVERSE EVENTS: There were no complications. IMPRESSIONS: 1. There was LA Class A esophagitis noted 2. Food residue in the gastric body 3. There was acute gastritis in the gastric fundus and cardia; multiple biopsies were performed 4. Normal duodenal mucosa in the bulb and second portion of the duodenum 5. Retroflexed views revealed no abnormalities RECOMMENDATIONS: 1. Await biopsy results. Biopsy results will not be ready for 7-10 days. If you don't hear from us in two weeks, call our office for biopsy results. 2. Continue PPI 3. Colonoscopy PATIENT CONDITION: stable DISPOSITION: Observation REPEAT EXAM: NONE Castro Londono MD eSigned: Castro Londono MD 07/29/2017 10:50 AM cc: PATIENT NAME: Jaime Lofton MR#: [id number]
[2017-07-29 12:00] VITALS: BP_SYST 137; BP_SYST 162; BP_DIAS 65; BP_DIAS 70; PULSE 97; RESP 18; TEMP 98.6; O2SAT 100; O2SAT 98
[2017-07-29] MEDS ORDERED: LIDOCAINE HCL 1% PF 5 ML SYRINGE OTHER ONE (12:00)
[2017-07-29] MEDS ORDERED: PROPOFOL 200 MG/20 ML AMP IV ONE (12:00)
--- NOTE | 2017-07-29 12:58 | HHI.PR ---
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 Patient is admitted today under urology service for cystoscopy. Attempt was done to do a transurethral resection of the bladder however this was unsuccessful. Bleeding was noted and controlled. This morning H&H drop. On review of records patient is closely followed by Dr. ROMERO from oncology and receives periodic IV infusion therapy and periodic blood transfusion. Patient complains of lower abdominal discomfort. Denies any fever or chills. Patient has good family support. Patientalso Complaints of pain in the and difficulty swallowing for the past 1 week now on oral nystatin. with [facility]. He does report stools black- formed- "on iron" Patient refused to have his colostomy bag examined 3-10 I believe patient has refused gastroenterology evaluation. Has been started on nystatin We will get CAT scans of his head chest and abdomen Oncology has been consulted We will get physical therapy occupational therapy and speech therapy to eval and treat Discussed with patient and RN and family PASSED SWALLOW EVAL WITH PUREE AND THIN WITH SPEECH THERAPY POSITIVE THRUSH 3-11 HOPEFULLY FOR EGD TOMORROW AWAIT ONCOLOGY WORKUP AND CONSULT STILL HAVING SOME HEMATURIA AND DIFFICULTY SWALLOWING DW RN AND PT AND FAMILY AND CM 3-12 HAD EGD AND BIOPSIES TODAY WITH GI SHOWED GASTRITIS AND ESOPHAGITIS WILL NEED CHEMO AND RADIATION PER ONCOLOGY DW RN AND PT DC WHEN OK WITH UROLOGY PPI FOR GI PATIENT IS REFUSING TO TAKE HIS ORAL MEDICATIONS- EVEN THOUGH HAD EGD THAT WAS SHOWING ESOPHAGITIS AND GASTRITIS ONLY Objective Vitals Vital Signs Date Time Temp Pulse Resp B/P (MAP) Pulse Ox O2 Delivery O2 Flow Rate FiO2 07/29/17 12:00 98.6 97 18 162/65 (97) 98 07/29/17 08:40 98.3 99 18 142/67 (92) 97 07/29/17 04:00 98.9 104 18 166/75 (105) 97 07/29/17 00:00 97.3 82 18 137/76 (96) 98 07/28/17 20:00 98.5 96 20 147/65 (92) 98 07/28/17 16:00 100 18 142/66 (91) 96 I/O 07/28/17 07/28/17 07/28/17 07/29/17 07/29/17 07/29/17 07:00 15:00 23:00 07:00 15:00 23:00 Intake Total 1000 ml 150 ml Output Total 1150 ml 225 ml 700 ml 1450 ml Balance -1150 ml -225 ml -700 ml -450 ml 150 ml IV Total 1000 ml Other 150 ml Drainage Total 1150 ml 225 ml 700 ml 1450 ml Result Diagram: 07/29/17 0604 07/29/17 0604 Other Results Laboratory Tests Test 07/27/17 05:09 07/28/17 07:15 07/29/17 06:04 White Blood Count 18.1 TH/MM3 18.0 TH/MM3 16.7 TH/MM3 Red Blood Count 2.74 MIL/MM3 2.77 MIL/MM3 2.81 MIL/MM3 Hemoglobin 8.4 GM/DL 8.5 GM/DL 8.8 GM/DL Hematocrit 25.0 % 25.4 % 25.7 % Mean Corpuscular Volume 91.5 FL 91.8 FL 91.4 FL Mean Corpuscular Hemoglobin 30.8 PG 30.7 PG 31.2 PG Mean Corpuscular Hemoglobin Concent 33.6 % 33.5 % 34.1 % Red Cell Distribution Width 20.1 % 18.8 % 18.3 % Platelet Count 329 TH/MM3 331 TH/MM3 333 TH/MM3 Mean Platelet Volume 7.3 FL 7.4 FL 7.1 FL Blood Urea Nitrogen 36 MG/DL 32 MG/DL 30 MG/DL Creatinine 2.71 MG/DL 2.54 MG/DL 2.31 MG/DL Random Glucose 71 MG/DL 87 MG/DL 92 MG/DL Calcium Level 8.0 MG/DL 8.4 MG/DL 8.1 MG/DL Sodium Level 139 MEQ/L 136 MEQ/L 137 MEQ/L Potassium Level 4.9 MEQ/L 4.5 MEQ/L 4.3 MEQ/L Chloride Level 111 MEQ/L 107 MEQ/L 108 MEQ/L Carbon Dioxide Level 19.4 MEQ/L 18.5 MEQ/L 21.5 MEQ/L Anion Gap 9 MEQ/L 11 MEQ/L 8 MEQ/L Estimat Glomerular Filtration Rate 23 ML/MIN 25 ML/MIN 28 ML/MIN Neutrophils (%) (Auto) 93.7 % 90.3 % Lymphocytes (%) (Auto) 2.5 % 3.6 % Monocytes (%) (Auto) 2.7 % 4.2 % Eosinophils (%) (Auto) 0.8 % 1.7 % Basophils (%) (Auto) 0.3 % 0.2 % Neutrophils # (Auto) 16.9 TH/MM3 15.1 TH/MM3 Lymphocytes # (Auto) 0.4 TH/MM3 0.6 TH/MM3 Monocytes # (Auto) 0.5 TH/MM3 0.7 TH/MM3 Eosinophils # (Auto) 0.1 TH/MM3 0.3 TH/MM3 Basophils # (Auto) 0.1 TH/MM3 0.0 TH/MM3 CBC Comment DIFF FINAL DIFF FINAL Differential Comment Total Protein 5.8 GM/DL 5.9 GM/DL Albumin 2.0 GM/DL 1.9 GM/DL Phosphorus Level 3.1 MG/DL 2.7 MG/DL Magnesium Level 1.7 MG/DL 1.8 MG/DL Alkaline Phosphatase 118 U/L 111 U/L Aspartate Amino Transf (AST/SGOT) 21 U/L 30 U/L Alanine Aminotransferase (ALT/SGPT) 16 U/L 23 U/L Total Bilirubin 0.5 MG/DL 0.5 MG/DL Free Thyroxine 1.39 NG/DL Thyroid Stimulating Hormone 3rd Gen 1.610 uIU/ML Imaging Last Impressions Head CT 07/27/17 Signed Impressions: Service Date/Time: Friday, July 28, 2017 01:04 - CONCLUSION: No acute intracranial abnormality demonstrated. Chronic white matter changes are noted. Naldo Noble MD Chest CT 07/27/17 Signed Impressions: Service Date/Time: Friday, July 28, 2017 01:07 - CONCLUSION: 1. Nonspecific right upper lobe pulmonary nodule. 2. Nonspecific left upper lobe focal consolidation, most likely infectious or inflammatory. 3. Small free flowing effusions and dependent/compressive atelectasis of both bases. 4. No lytic or sclerotic lesion or other acute abnormality seen of the visualized osseous structures. Naldo Noble MD Abdomen/Pelvis CT 07/27/17 Signed Impressions: Service Date/Time: Friday, July 28, 2017 01:07 - CONCLUSION: 1. Increased mass like fullness in the region of the rectum and posterior bladder. 2. An apparent abscess anteriorly in the right lower quadrant. Etiology of this is uncertain. 3. Apparent ileus. No definite obstruction. Left lower quadrant colostomy again seen. 4. Bilateral percutaneous nephrostomy tubes with resolution of previously seen hydronephrosis. 5. Ascites and body wall edema/anasarca have developed. 6. The chronic fluid collection in the right ischiorectal fossa is unchanged and most likely a postoperative seroma. Naldo Noble MD Objective Remarks GENERAL: This is a well-nourished, well-developed patient, in no apparent distress. Very feisty SKIN: No rashes, ecchymoses or lesions. Cool and dry. HEAD: Atraumatic. Normocephalic. No temporal or scalp tenderness. EYES: Pupils equal round and reactive. Extraocular motions intact. No scleral icterus. No injection or drainage. ENT: Nose without bleeding, Throat positive oral thrush. Airway patent. POSITIVE THRUSH NECK: Trachea midline. No JVD or lymphadenopathy. Supple, nontender, no meningeal signs. CARDIOVASCULAR: Regular rate and rhythm without murmurs, gallops, or rubs. S1- S2 no S3 or S4 RESPIRATORY: Clear to auscultation. Breath sounds equal bilaterally. No wheezes , rales, or rhonchi. GASTROINTESTINAL: Abdomen soft, non-tender, nondistended. Bilateral nephrostomy tube in place draining lt yellow colored urine, colostomy bag in place MUSCULOSKELETAL: Extremities without clubbing, cyanosis, or edema. No joint tenderness, effusion, or edema noted. No calf tenderness. Negative Homans sign bilaterally. NEUROLOGICAL: Awake and alert. Cranial nerves II through XII intact. Motor and sensory grossly within normal limits. 4 out of 5 muscle strength in all muscle groups. Normal speech. Insight and judgment is limited Mood and behavior is somewhat appropriate Procedures DATE OF OPERATION: 07/25/2017 PREOPERATIVE DIAGNOSIS: 1. Bladder tumor greater than 5 cm. 2. Bilateral hydronephrosis status post nephrostomy tubes. 3. Acute on chronic renal failure. 4. Chronic Anemia POSTOPERATIVE DIAGNOSIS: 1. Bladder tumor greater than 5 cm. 2. Bilateral hydronephrosis status post nephrostomy tubes. 3. Acute on chronic renal failure. 4. Chronic anemia PROCEDURE: 1. Cystourethroscopy, 2. TURBT of large bladder tumor greater than 5 cm. SURGEON: Alan Forrester MD ANESTHESIA: General. COMPLICATIONS: None. PREOPERATIVE ANTIBIOTICS: Ancef 1 gram IV. DRAINS: Bilateral nephrostomy tubes. SPECIMENS: Bladder tumor for permanent. ESTIMATED BLOOD LOSS: 50 mL. DISPOSITION: Stable to recovery. INDICATIONS: The patient is a 71-year-old male with a history of gross hematuria. He was found to have a bladder tumor last 01/2017, however, the patient was in the hospital multiple times for various comorbidities. However, he eventually ended up having acute renal failure secondary to bilateral hydronephrosis ____ large bladder tumor. He had nephrostomy tubes placed. Once he was cleared medically, he was then scheduled for resection of his bladder tumor. After risks, benefits and alternatives were explained to the patient including the risk of injury to his bladder, the patient would like to proceed. Informed consent was obtained. PROCEDURE IN DETAIL: The patient was properly identified and brought back to the cystoscopy suite and placed on cystoscopy table. Appropriately timeout was performed under the direction of anesthesiology. The patient was intubated and induced under generally anesthetic. Preoperative antibiotics in the form of Ancef 1 gram IV was given 1 hour prior to start of the procedure. The patient was then placed in dorsal lithotomy position, prepped and draped in normal sterile surgical fashion. Under direct visualization, I then carefully passed the bipolar resectoscope into the patient's bladder. Once inside the bladder, the bladder was completely abnormal. The visualization was extremely difficult. There was a very large sessile bleeding bladder tumor along the entire trigone and going up each of the lateral bronson to the bladder. His anatomy was completely distorted. With the bipolar resectoscope, I then resected a lot of the tumor that seemed to be causing some bleeding. This was Elliked out and would be sent off to the pathologist. However, the tumor itself was completely unresectable. Once I had removed all tumor that seemed to be causing bleeding, hemostasis was then achieved. The rest of the remaining specimen was then Elliked out. Since he had bilateral nephrostomy tubes, I did not leave a Zhao catheter in place. A bimanual was not able to performed at the end because the patient has a colostomy and his rectum was sewn shut. This concluded the procedure. The patient was extubated and sent to recovery in stable condition. He will be admitted for routine postop care due to his comorbidities. Alan Forrester MD EGD PROCEDURE REPORT EXAM DATE: 07/29/2017 PATIENT NAME: Jaime Lofton MR #: [id number] BIRTHDATE: 1945 ATTENDING: aCstro Londono MD ORDER #: [id number] RESEARCH PROGRAM MANAGER: Murphy Easton and Yadira Landry STATUS: inpatient INDICATIONS: The patient is a 71 yr old male here for an EGD due to odynophagia and dysphagia PROCEDURE PERFORMED: EGD w/ biopsy MEDICATIONS: None and Per Anesthesia. TOPICAL ANESTHETIC: none CONSENT: The patient understands the risks and benefits of the procedure and understands that these risks include, but are not limited to: sedation, allergic reaction, infection, perforation and/or bleeding. Alternative means of evaluation and treatment include, among others: physical exam, x-rays, and/or surgical intervention. The patient elects to proceed with this endoscopic procedure. medical equipment was checked for proper function. Hand hygiene and appropriate measures for infection prevention was taken. After the risks, benefits and alternatives of the procedure were thoroughly explained, Informed consent was verified, confirmed and timeout was successfully executed by the treatment team. The patient was anesthetized with topical anesthesia and the Pentax [id number] endoscope was introduced through the mouth and advanced to the second portion of the duodenum. Retroflexed views revealed no abnormalities The gastroscope was then slowly withdrawn and removed. ESOPHAGUS: There was [place] Class A esophagitis noted. STOMACH: There was a moderate amount of residual food seen in the gastric body. Due to the residual food, complete mucosal examination could not be performed. There was acute moderate and erosive gastritis in the gastric fundus and cardia. Multiple biopsies were performed using cold forceps. Sample sent for histology. DUODENUM: The duodenal mucosa appeared normal in the bulb and second portion of the duodenum. ADVERSE EVENTS: There were no complications. IMPRESSIONS: 1. There was [place] Class A esophagitis noted 2. Food residue in the gastric body 3. There was acute gastritis in the gastric fundus and cardia; multiple biopsies were performed 4. Normal duodenal mucosa in the bulb and second portion of the duodenum 5. Retroflexed views revealed no abnormalities RECOMMENDATIONS: 1. Await biopsy results. Biopsy results will not be ready for 7-10 days. If you don't hear from us in two weeks, call our office for biopsy results. 2. Continue PPI 3. Colonoscopy PATIENT CONDITION: stable DISPOSITION: Observation REPEAT EXAM: NONE Medications and IVs Current Medications Lactated Ringer's 1,000 ml @ 30 mls/hr Q24H PRN IV SEE LABEL COMMENTS; Start at 11:30; Stop 07/28/17 at 11:29; Status DC Sodium Chloride 500 ml @ 30 mls/hr [id number] PRN IV SEE LABEL COMMENTS; Start 07/25/17 at 11:30; Stop 07/28/17 at 11:29; Status DC Metoprolol Tartrate (Lopressor) 25 mg POLISHER ALUMINUM PRN PO SEE LABEL COMMENTS; Start 07/25/17 at 11:30; Stop 07/28/17 at 11:29; Status DC Povidone Iodine (Betadine 5% Antisepsis Kit) 1 applic POLISHER ALUMINUM PRN EACH NARE SEE LABEL COMMENTS; Start 07/25/17 at 11:30; Stop 07/28/17 at 11:29; Status DC Chlorhexidine Gluconate (Chlorhexidine 2% Cloth) 3 pack POLISHER ALUMINUM PRN TOPICAL SEE LABEL COMMENTS; Start 07/25/17 at 11:30; Stop 07/28/17 at 11:29; Status DC Cefazolin Sodium/ Dextrose 50 ml @ 150 mls/hr POLISHER ALUMINUM IV ; Start 07/25/17 at 12 :30; Stop 07/28/17 at 12:29; Status DC Acetaminophen/ Hydrocodone Bitart ([place] 5-325 Mg) 1 tab STK-MED ONCE .ROUTE Last administered on 07/25/17at 14:06; Start 07/25/17 at 14:02; Stop 07/25/17 at 14: 03; Status DC Acetaminophen/ Hydrocodone Bitart ([place] 5-325 Mg) 1 tab NOW ONCE PO ; Start 07/25/17 at 15:30; Stop 07/25/17 at 15:31; Status DC Cefazolin Sodium (Ancef Inj) 2,000 mg ONCE ONCE IV Last administered on at 15:17; Start 07/25/17 at 16:02; Stop 07/25/17 at 16:03; Status DC Oxycodone/ Acetaminophen (Percocet 5-325 Mg) 2 tab Q4H PRN PO PAIN SCALE 7 TO 10 Last administered on 07/26/17at 08:56; Start 07/25/17 at 16:30 Oxycodone/ Acetaminophen (Percocet 5-325 Mg) 1 tab Q4H PRN PO PAIN SCALE 4 TO 6; Start 07/25/17 at 16:30 Morphine Sulfate (Morphine Inj) 4 mg Q3H PRN IV PUSH BREAKTHROUGH PAIN Last administered on 07/29/17at 04:18; Start 07/25/17 at 16:30 Ciprofloxacin/ Dextrose 200 ml @ 200 mls/hr Q12H IV Last administered on at 06:44; Start 07/25/17 at 18:00; Stop 07/28/17 at 19:58; Status DC Ondansetron HCl (Zofran Inj) 4 mg Q6HR PRN IV PUSH NAUSEA OR VOMITING; Start at 16:30 Amlodipine Besylate (Norvasc) 5 mg DAILY PO Last administered on 07/26/17at 08:56 ; Start 07/26/17 at 09:00 Atorvastatin Calcium (Lipitor) 80 mg HS PO ; Start 07/25/17 at 21:00 Ferrous Sulfate (Ferrous Sulfate) 325 mg DAILY PO Last administered on at 08:56; Start 07/26/17 at 09:00 Nystatin (Mycostatin Liq) 5 ml QID SWISH-SWAL Last administered on 07/28/17at 20:54; Start 07/25/17 at 18:00 Fentanyl Citrate (fentaNYL INJ) 100 mcg STK-MED ONCE .ROUTE ; Start 07/25/17 at 16:40; Stop 07/25/17 at 16:41; Status DC Fentanyl Citrate (fentaNYL INJ) 300 mcg STK-MED ONCE .ROUTE ; Start 07/25/17 at 16:41; Stop 07/25/17 at 16:42; Status DC Midazolam HCl (Versed Inj) 2 mg STK-MED ONCE .ROUTE ; Start 07/25/17 at 16:41; Stop 07/25/17 at 16:42; Status DC Miscellaneous Information ALL NURSING DEPARTME... UNSCH PRN .XX SEE LABEL COMMENTS; Start 07/25/17 at 17:00; Stop 07/26/17 at 16:59; Status DC Morphine Sulfate (*morphine INJ PERIprocedure ONLY) 4 mg STK-MED ONCE .ROUTE Last administered on 07/25/17at 17:19; Start 07/25/17 at 17:19; Stop 07/25/17 at 17: 20; Status DC Morphine Sulfate (*morphine INJ PERIprocedure ONLY) 4 mg STK-MED ONCE .ROUTE Last administered on 07/25/17at 21:26; Start 07/25/17 at 21:26; Stop 07/25/17 at 21: 27; Status DC Lidocaine HCl (Xylocaine-Mpf 1% Inj) 5 ml STK-MED ONCE OTHER ; Start 07/25/17 at 12:00; Stop 07/26/17 at 15:14; Status DC Rocuronium [place] (Zemuron Inj) 50 mg STK-MED ONCE IV PUSH ; Start 07/25/17 at 12:00; Stop 07/26/17 at 15:14; Status DC Neostigmine Methylsulfate (Prostigmine Inj) 5 mg STK-MED ONCE IV PUSH ; Start at 12:00; Stop 07/26/17 at 15:14; Status DC Glycopyrrolate (Robinul Inj) 1 mg STK-MED ONCE IV PUSH ; Start 07/25/17 at 12:00 ; Stop 07/26/17 at 15:14; Status DC Phenylephrine HCl (Neosynephrine/ NS 1000 Mcg/10ml Syr) 1,000 mcg STK-MED ONCE IV ; Start 07/25/17 at 12:00; Stop 07/26/17 at 15:14; Status DC Ephedrine Sulfate (ePHEDrine/NS 25 MG/5 ML SYR) 25 mg STK-MED ONCE IV ; Start at 12:00; Stop 07/26/17 at 15:14; Status DC Esmolol HCl (Brevibloc Bolus Inj) 100 mg STK-MED ONCE IV ; Start 07/25/17 at 12: 00; Stop 07/26/17 at 15:14; Status DC Cefazolin Sodium (Ancef Inj) 1,000 mg STK-MED ONCE IV ; Start 07/25/17 at 12:00; Stop 07/26/17 at 15:14; Status DC Propofol (Diprivan 200 Mg/20 ml Inj) 200 mg STK-MED ONCE IV ; Start 07/25/17 at 12:00; Stop 07/26/17 at 15:14; Status DC Fluconazole (Diflucan) 100 mg DAILY PO Last administered on 07/27/17at 10:24; Start 07/26/17 at 17:15 Sodium Chloride 1,000 ml @ 70 mls/hr [id number] IV Last administered on at 04:19; Start 07/26/17 at 17:15 Pantoprazole Sodium (Protonix) 40 mg DAILY PO ; Start 07/27/17 at 09:00 Diatrizoate Meglum/ Diatrizoate Sod ( Gastroview Liq) 18 ml ONCE ONCE PO Last administered on 07/27/17at 13:56; Start 07/27/17 at 11:45; Stop 07/27/17 at 11:46; Status DC Fentanyl (Duragesic 25 Mcg Patch.72 Hr) 1 patch Q3D T-DERMAL Last administered on 07/28/17at 19:58; Start 07/28/17 at 18:00 Miscellaneous Information 1 Q3D T-DERMAL ; Start 07/31/17 at 18:00 Lactated Ringer's 1,000 ml @ 30 mls/hr Q24H PRN IV SEE LABEL COMMENTS; Start at 04:15; Stop 08/01/17 at 04:14 Sodium Chloride 500 ml @ 30 mls/hr [id number] PRN IV SEE LABEL COMMENTS; Start 05/06 at 04:15; Stop 08/01/17 at 04:14 Povidone Iodine (Betadine 5% Antisepsis Kit) 1 applic POLISHER ALUMINUM PRN EACH NARE SEE LABEL COMMENTS; Start 07/29/17 at 04:15; Stop 08/01/17 at 04:14 Chlorhexidine Gluconate (Chlorhexidine 2% Cloth) 3 pack POLISHER ALUMINUM PRN TOPICAL SEE LABEL COMMENTS; Start 07/29/17 at 04:15; Stop 08/01/17 at 04:14 A/P Assessment and Plan 71-year-old male admitted under urology service Status post TURBT of Bladder tumor - with evacuation of blood clots 07/26 Urology following STILL HAS HEMATURIA Acute on top of chronic anemia. Patient symptomatic We'll transfuse 1 unit packed RBC and recheck H and H Continue iron supplement. Consult his oncologist Dr. Metcalf. Oral thrush r/o [place] esophagitis Odynophagia History of GERD Continue on nystatin 5 cc 4 times a day.. Add Diflucan 100 mg by mouth daily.and adjust per creatinine GI consult to evaluate esophageal candidiasis continue on PPI- Will consult gastroenterology- NEEDS EGD ON SATURDAY- ESOPHAGITIS AND GASTRITIS ON EGD- PPI Will consult speech therapy for evaluation of his swallow Acute on chronic kidney insufficiency from obstructive uropathy. Slight increase in creatinine Gentle hydration with 1 L normal saline. Recheck BMP in a.m. SLOW IMPROVEMENT History of CAD, status post CABG, hypertension Continue amlodipine 5 mg daily. Continue statins. Bilateral teds SCDs Case management consult for home health care- And discharge needs. Discharge Planning Pending clearance by hematology and urology Allan Hanson DO Jul 29, 2017 12:58
--- NOTE | 2017-07-29 13:40 | HHI.PR ---
Subjective Patient symptoms today Pt was seen at the bedside today. doing well, b/l nephrostomies are draining clear urine. no f/c/n/v. Had Upper GI endoscopy today. States that would like to go home Objective Vital Signs Vital Signs Date Time Temp Pulse Resp B/P (MAP) Pulse Ox O2 Delivery O2 Flow Rate FiO2 07/29/17 12:00 98.6 97 18 162/65 (97) 98 07/29/17 08:40 98.3 99 18 142/67 (92) 97 07/29/17 04:00 98.9 104 18 166/75 (105) 97 07/29/17 00:00 97.3 82 18 137/76 (96) 98 07/28/17 20:00 98.5 96 20 147/65 (92) 98 07/28/17 16:00 100 18 142/66 (91) 96 Intake & Output 07/29/17 07/29/17 07:00 19:00 Intake Total 1000 ml 150 ml Output Total 1450 ml Balance -450 ml 150 ml IV Total 1000 ml Other 150 ml Drainage Total 1450 ml Result Diagram: 07/29/17 0604 07/29/17 0604 Objective Remarks NAD. A/O x 3 Nonlabored Resp abd soft, Nephrostomy tubes draining clear yellow urine Medications and IVs Current Medications Medications (Trade) Dose Ordered Sig/Shahrzad Route Start Time Stop Time Status Last Admin (Percocet 5-325 Mg) 2 tab Q4H PRN PO 07/25/17 16:30 07/26/17 08:56 (Percocet 5-325 Mg) 1 tab Q4H PRN PO 07/25/17 16:30 (Morphine Inj) 4 mg Q3H PRN IV PUSH 07/25/17 16:30 07/29/17 04:18 (Zofran Inj) 4 mg Q6HR PRN IV PUSH 07/25/17 16:30 (Norvasc) 5 mg DAILY PO 07/26/17 09:00 07/26/17 08:56 (Lipitor) 80 mg HS PO 07/25/17 21:00 (Ferrous Sulfate) 325 mg DAILY PO 07/26/17 09:00 07/26/17 08:56 (Mycostatin Liq) 5 ml QID SWISH-SWAL 07/25/17 18:00 07/28/17 20:54 (Diflucan) 100 mg DAILY PO 07/26/17 17:15 07/27/17 10:24 Sodium Chloride 1,000 ml @ 70 mls/hr [id number] IV 07/26/17 17:15 07/29/17 04:19 (Protonix) 40 mg DAILY PO 07/27/17 09:00 (Duragesic 25 Mcg Patch.72 Hr) 1 patch Q3D T-DERMAL 07/28/17 18:00 07/28/17 19:58 Miscellaneous Information 1 Q3D T-DERMAL 07/31/17 18:00 Lactated Ringer's 1,000 ml @ 30 mls/hr Q24H PRN IV 07/29/17 04:15 08/01/17 04:14 Sodium Chloride 500 ml @ 30 mls/hr [id number] PRN IV 07/29/17 04:15 08/01/17 04:14 (Betadine 5% Antisepsis Kit) 1 applic FASHION STYLIST PRN EACH NARE 07/29/17 04:15 08/01/17 04:14 (Chlorhexidine 2% Cloth) 3 pack FASHION STYLIST PRN TOPICAL 07/29/17 04:15 08/01/17 04:14 Assessment and Plan Assessment and Plan POD #4 s/p TURBT, anemia, bilateral nephrostomy tubes -Metastatic evaluation revealed large mass in posterior bladder/rectal area. Oncology and GI are on board - S/p upper endoscopy today. Bx showed gastritis/esophagitis. Will need chemo as outpt by oncology - Pain control - Case management - possibly d/c later today or tomorrow AM Luigi Dao Jul 29, 2017 13:40
[2017-07-29 16:00] VITALS: BP 148/67; PULSE 94; RESP 18; TEMP 98.1; O2SAT 98
[2017-07-29 16:47] LABS: HEMOGLOBIN A1C 5.3 % (4.3-6.0)
[2017-07-29] MEDS: MORPHINE SULFATE 2 MG/ML INJ IV PUSH PRN ×2 (17:45→22:20)
[2017-07-29] MEDS: ATORVASTATIN 80 MG TAB PO SCH (21:00)
[2017-07-29 22:04] VITALS: BP 149/67; PULSE 93; RESP 20; TEMP 98.1; O2SAT 96
[2017-07-30 01:00] VITALS: BP 143/66; PULSE 84; RESP 20; TEMP 97.9; O2SAT 96
[2017-07-30 01:15] VITALS: BP 175/90; PULSE 69; RESP 19; TEMP 97.5; O2SAT 97
[2017-07-30 05:43] VITALS: BP 160/69; PULSE 92; RESP 20; TEMP 98.1; O2SAT 96
[2017-07-30] MEDS: MORPHINE SULFATE 2 MG/ML INJ IV PUSH PRN ×2 (05:46→08:54)
[2017-07-30 08:36] VITALS: BP 162/73; PULSE 91; RESP 16; TEMP 98.7; O2SAT 96
[2017-07-30] MEDS: NYSTATIN SUSP 500,000 U/5 ML CUP SWISH-SWAL SCH ×2 (09:00→13:00)
[2017-07-30] MEDS: FLUCONAZOLE 100 MG TAB PO SCH (09:00)
[2017-07-30] MEDS: PANTOPRAZOLE SOD 40 MG DELAYED RELEASE TAB PO SCH (09:00)
[2017-07-30] MEDS: FERROUS SULFATE 325 MG (65 MG ELEMENTAL IRON) TAB PO SCH (09:00)
--- NOTE | 2017-07-30 10:43 | HHI.PR ---
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 Patient is admitted today under urology service for cystoscopy. Attempt was done to do a transurethral resection of the bladder however this was unsuccessful. Bleeding was noted and controlled. This morning H&H drop. On review of records patient is closely followed by Dr. ROMERO from oncology and receives periodic IV infusion therapy and periodic blood transfusion. Patient complains of lower abdominal discomfort. Denies any fever or chills. Patient has good family support. Patientalso Complaints of pain in the and difficulty swallowing for the past 1 week now on oral nystatin. with minimal improvement [facility] consulted today for medical management. He does report stools black- formed- "on iron" Patient refused to have his colostomy bag examined 3-10 I believe patient has refused gastroenterology evaluation. Has been started on nystatin We will get CAT scans of his head chest and abdomen Oncology has been consulted We will get physical therapy occupational therapy and speech therapy to eval and treat Discussed with patient and RN and family PASSED SWALLOW EVAL WITH PUREE AND THIN WITH SPEECH THERAPY POSITIVE THRUSH 3-11 HOPEFULLY FOR EGD TOMORROW AWAIT ONCOLOGY WORKUP AND CONSULT STILL HAVING SOME HEMATURIA AND DIFFICULTY SWALLOWING DW RN AND PT AND FAMILY AND CM 3-12 HAD EGD AND BIOPSIES TODAY WITH GI SHOWED GASTRITIS AND ESOPHAGITIS WILL NEED CHEMO AND RADIATION PER ONCOLOGY DW RN AND PT DC WHEN OK WITH UROLOGY PPI FOR GI PATIENT IS REFUSING TO TAKE HIS ORAL MEDICATIONS- EVEN THOUGH HAD EGD THAT WAS SHOWING ESOPHAGITIS AND GASTRITIS ONLY 3-13 TOLERATING A DIET DOES NOT LIKE OUR FOOD DC TO HOME TODAY FOLLOW UP WITH UROLOGY AND HEMATOLOGY AND RADIATION ONCOLOGY Objective Vitals Vital Signs Date Time Temp Pulse Resp B/P (MAP) Pulse Ox O2 Delivery O2 Flow Rate FiO2 07/30/17 08:36 98.7 91 16 162/73 (102) 96 07/30/17 05:43 98.1 92 20 160/69 (99) 96 07/30/17 01:00 97.9 84 20 143/66 (91) 96 07/29/17 22:04 98.1 93 20 149/67 (94) 96 07/29/17 16:00 98.1 94 18 148/67 (94) 98 07/29/17 12:00 98.6 97 18 162/65 (97) 98 I/O 07/29/17 07/29/17 07/29/17 07/30/17 07/30/17 07/30/17 07:00 15:00 23:00 07:00 15:00 23:00 Intake Total 1000 ml 150 ml Output Total 1450 ml 570 ml 700 ml Balance -450 ml 150 ml -570 ml -700 ml IV Total 1000 ml Other 150 ml Output Urine Total 120 ml 400 ml Drainage Total 1450 ml 450 ml 300 ml Result Diagram: 07/29/17 0604 07/29/17 0604 Other Results Laboratory Tests Test 07/28/17 07:15 07/29/17 06:04 White Blood Count 18.0 TH/MM3 16.7 TH/MM3 Red Blood Count 2.77 MIL/MM3 2.81 MIL/MM3 Hemoglobin 8.5 GM/DL 8.8 GM/DL Hematocrit 25.4 % 25.7 % Mean Corpuscular Volume 91.8 FL 91.4 FL Mean Corpuscular Hemoglobin 30.7 PG 31.2 PG Mean Corpuscular Hemoglobin Concent 33.5 % 34.1 % Red Cell Distribution Width 18.8 % 18.3 % Platelet Count 331 TH/MM3 333 TH/MM3 Mean Platelet Volume 7.4 FL 7.1 FL Neutrophils (%) (Auto) 93.7 % 90.3 % Lymphocytes (%) (Auto) 2.5 % 3.6 % Monocytes (%) (Auto) 2.7 % 4.2 % Eosinophils (%) (Auto) 0.8 % 1.7 % Basophils (%) (Auto) 0.3 % 0.2 % Neutrophils # (Auto) 16.9 TH/MM3 15.1 TH/MM3 Lymphocytes # (Auto) 0.4 TH/MM3 0.6 TH/MM3 Monocytes # (Auto) 0.5 TH/MM3 0.7 TH/MM3 Eosinophils # (Auto) 0.1 TH/MM3 0.3 TH/MM3 Basophils # (Auto) 0.1 TH/MM3 0.0 TH/MM3 CBC Comment DIFF FINAL DIFF FINAL Differential Comment Blood Urea Nitrogen 32 MG/DL 30 MG/DL Creatinine 2.54 MG/DL 2.31 MG/DL Random Glucose 87 MG/DL 92 MG/DL Total Protein 5.8 GM/DL 5.9 GM/DL Albumin 2.0 GM/DL 1.9 GM/DL Calcium Level 8.4 MG/DL 8.1 MG/DL Phosphorus Level 3.1 MG/DL 2.7 MG/DL Magnesium Level 1.7 MG/DL 1.8 MG/DL Alkaline Phosphatase 118 U/L 111 U/L Aspartate Amino Transf (AST/SGOT) 21 U/L 30 U/L Alanine Aminotransferase (ALT/SGPT) 16 U/L 23 U/L Total Bilirubin 0.5 MG/DL 0.5 MG/DL Sodium Level 136 MEQ/L 137 MEQ/L Potassium Level 4.5 MEQ/L 4.3 MEQ/L Chloride Level 107 MEQ/L 108 MEQ/L Carbon Dioxide Level 18.5 MEQ/L 21.5 MEQ/L Anion Gap 11 MEQ/L 8 MEQ/L Estimat Glomerular Filtration Rate 25 ML/MIN 28 ML/MIN Hemoglobin A1c 5.3 % Free Thyroxine 1.39 NG/DL Thyroid Stimulating Hormone 3rd Gen 1.610 uIU/ML Imaging Last Impressions Head CT 07/27/17 0000 Signed Impressions: Service Date/Time: Friday, July 28, 2017 01:04 - CONCLUSION: No acute intracranial abnormality demonstrated. Chronic white matter changes are noted. Naldo Noble MD Chest CT 07/27/17 0000 Signed Impressions: Service Date/Time: Friday, July 28, 2017 01:07 - CONCLUSION: 1. Nonspecific right upper lobe pulmonary nodule. 2. Nonspecific left upper lobe focal consolidation, most likely infectious or inflammatory. 3. Small free flowing effusions and dependent/compressive atelectasis of both bases. 4. No lytic or sclerotic lesion or other acute abnormality seen of the visualized osseous structures. Naldo Noble MD Abdomen/Pelvis CT 07/27/17 0000 Signed Impressions: Service Date/Time: Friday, July 28, 2017 01:07 - CONCLUSION: 1. Increased mass like fullness in the region of the rectum and posterior bladder. 2. An apparent abscess anteriorly in the right lower quadrant. Etiology of this is uncertain. 3. Apparent ileus. No definite obstruction. Left lower quadrant colostomy again seen. 4. Bilateral percutaneous nephrostomy tubes with resolution of previously seen hydronephrosis. 5. Ascites and body wall edema/anasarca have developed. 6. The chronic fluid collection in the right ischiorectal fossa is unchanged and most likely a postoperative seroma. Naldo Noble MD Objective Remarks GENERAL: This is a well-nourished, well-developed patient, in no apparent distress. Very feisty SKIN: No rashes, ecchymoses or lesions. Cool and dry. HEAD: Atraumatic. Normocephalic. No temporal or scalp tenderness. EYES: Pupils equal round and reactive. Extraocular motions intact. No scleral icterus. No injection or drainage. ENT: Nose without bleeding, Throat positive oral thrush. Airway patent. POSITIVE THRUSH NECK: Trachea midline. No JVD or lymphadenopathy. Supple, nontender, no meningeal signs. CARDIOVASCULAR: Regular rate and rhythm without murmurs, gallops, or rubs. S1- S2 no S3 or S4 RESPIRATORY: Clear to auscultation. Breath sounds equal bilaterally. No wheezes , rales, or rhonchi. GASTROINTESTINAL: Abdomen soft, non-tender, nondistended. Bilateral nephrostomy tube in place draining lt yellow colored urine, colostomy bag in place MUSCULOSKELETAL: Extremities without clubbing, cyanosis, or edema. No joint tenderness, effusion, or edema noted. No calf tenderness. Negative Homans sign bilaterally. NEUROLOGICAL: Awake and alert. Cranial nerves II through XII intact. Motor and sensory grossly within normal limits. 4 out of 5 muscle strength in all muscle groups. Normal speech. Insight and judgment is limited Mood and behavior is somewhat appropriate Procedures DATE OF OPERATION: 07/25/2017 PREOPERATIVE DIAGNOSIS: 1. Bladder tumor greater than 5 cm. 2. Bilateral hydronephrosis status post nephrostomy tubes. 3. Acute on chronic renal failure. 4. Chronic Anemia POSTOPERATIVE DIAGNOSIS: 1. Bladder tumor greater than 5 cm. 2. Bilateral hydronephrosis status post nephrostomy tubes. 3. Acute on chronic renal failure. 4. Chronic anemia PROCEDURE: 1. Cystourethroscopy, 2. TURBT of large bladder tumor greater than 5 cm. SURGEON: Alan Forrester MD ANESTHESIA: General. COMPLICATIONS: None. PREOPERATIVE ANTIBIOTICS: Ancef 1 gram IV. DRAINS: Bilateral nephrostomy tubes. SPECIMENS: Bladder tumor for permanent. ESTIMATED BLOOD LOSS: 50 mL. DISPOSITION: Stable to recovery. INDICATIONS: The patient is a 71-year-old male with a history of gross hematuria. He was found to have a bladder tumor last 01/2017, however, the patient was in the hospital multiple times for various comorbidities. However, he eventually ended up having acute renal failure secondary to bilateral hydronephrosis ____ large bladder tumor. He had nephrostomy tubes placed. Once he was cleared medically, he was then scheduled for resection of his bladder tumor. After risks, benefits and alternatives were explained to the patient including the risk of injury to his bladder, the patient would like to proceed. Informed consent was obtained. PROCEDURE IN DETAIL: The patient was properly identified and brought back to the cystoscopy suite and placed on cystoscopy table. Appropriately timeout was performed under the direction of anesthesiology. The patient was intubated and induced under generally anesthetic. Preoperative antibiotics in the form of Ancef 1 gram IV was given 1 hour prior to start of the procedure. The patient was then placed in dorsal lithotomy position, prepped and draped in normal sterile surgical fashion. Under direct visualization, I then carefully passed the bipolar resectoscope into the patient's bladder. Once inside the bladder, the bladder was completely abnormal. The visualization was extremely difficult. There was a very large sessile bleeding bladder tumor along the entire trigone and going up each of the lateral bronson to the bladder. His anatomy was completely distorted. With the bipolar resectoscope, I then resected a lot of the tumor that seemed to be causing some bleeding. This was Elliked out and would be sent off to the pathologist. However, the tumor itself was completely unresectable. Once I had removed all tumor that seemed to be causing bleeding, hemostasis was then achieved. The rest of the remaining specimen was then Elliked out. Since he had bilateral nephrostomy tubes, I did not leave a Zhao catheter in place. A bimanual was not able to performed at the end because the patient has a colostomy and his rectum was sewn shut. This concluded the procedure. The patient was extubated and sent to recovery in stable condition. He will be admitted for routine postop care due to his comorbidities. Alan Forrester MD EGD PROCEDURE REPORT EXAM DATE: 07/29/2017 PATIENT NAME: Jaime Lofton MR #: [id number] BIRTHDATE: 1945 ATTENDING: Castro Londono MD ORDER #: [id number] TECHNICAL SPECIALIST: Murphy Easton and Yadira Landry STATUS: inpatient INDICATIONS: The patient is a 71 yr old male here for an EGD due to odynophagia and dysphagia PROCEDURE PERFORMED: EGD w/ biopsy MEDICATIONS: None and Per Anesthesia. TOPICAL ANESTHETIC: none CONSENT: The patient understands the risks and benefits of the procedure and understands that these risks include, but are not limited to: sedation, allergic reaction, infection, perforation and/or bleeding. Alternative means of evaluation and treatment include, among others: physical exam, x-rays, and/or surgical intervention. The patient elects to proceed with this endoscopic procedure. medical equipment was checked for proper function. Hand hygiene and appropriate measures for infection prevention was taken. After the risks, benefits and alternatives of the procedure were thoroughly explained, Informed consent was verified, confirmed and timeout was successfully executed by the treatment team. The patient was anesthetized with topical anesthesia and the Pentax [id number] endoscope was introduced through the mouth and advanced to the second portion of the duodenum. Retroflexed views revealed no abnormalities The gastroscope was then slowly withdrawn and removed. ESOPHAGUS: There was [place] Class A esophagitis noted. STOMACH: There was a moderate amount of residual food seen in the gastric body. Due to the residual food, complete mucosal examination could not be performed. There was acute moderate and erosive gastritis in the gastric fundus and cardia. Multiple biopsies were performed using cold forceps. Sample sent for histology. DUODENUM: The duodenal mucosa appeared normal in the bulb and second portion of the duodenum. ADVERSE EVENTS: There were no complications. IMPRESSIONS: 1. There was [place] Class A esophagitis noted 2. Food residue in the gastric body 3. There was acute gastritis in the gastric fundus and cardia; multiple biopsies were performed 4. Normal duodenal mucosa in the bulb and second portion of the duodenum 5. Retroflexed views revealed no abnormalities RECOMMENDATIONS: 1. Await biopsy results. Biopsy results will not be ready for 7-10 days. If you don't hear from us in two weeks, call our office for biopsy results. 2. Continue PPI 3. Colonoscopy PATIENT CONDITION: stable DISPOSITION: Observation REPEAT EXAM: NONE Medications and IVs Current Medications Lactated Ringer's 1,000 ml @ 30 mls/hr Q24H PRN IV SEE LABEL COMMENTS; Start at 11:30; Stop 07/28/17 at 11:29; Status DC Sodium Chloride 500 ml @ 30 mls/hr [id number] PRN IV SEE LABEL COMMENTS; Start 07/25/17 at 11:30; Stop 07/28/17 at 11:29; Status DC Metoprolol Tartrate (Lopressor) 25 mg BOILER/CHILLER OPERATOR PRN PO SEE LABEL COMMENTS; Start 07/25/17 at 11:30; Stop 07/28/17 at 11:29; Status DC Povidone Iodine (Betadine 5% Antisepsis Kit) 1 applic BOILER/CHILLER OPERATOR PRN EACH NARE SEE LABEL COMMENTS; Start 07/25/17 at 11:30; Stop 07/28/17 at 11:29; Status DC Chlorhexidine Gluconate (Chlorhexidine 2% Cloth) 3 pack BOILER/CHILLER OPERATOR PRN TOPICAL SEE LABEL COMMENTS; Start 07/25/17 at 11:30; Stop 07/28/17 at 11:29; Status DC Cefazolin Sodium/ Dextrose 50 ml @ 150 mls/hr BOILER/CHILLER OPERATOR IV ; Start 07/25/17 at 12 :30; Stop 07/28/17 at 12:29; Status DC Acetaminophen/ Hydrocodone Bitart (Rebuck 5-325 Mg) 1 tab STK-MED ONCE .ROUTE Last administered on 07/25/17at 14:06; Start 07/25/17 at 14:02; Stop 07/25/17 at 14: 03; Status DC Acetaminophen/ Hydrocodone Bitart (Rebuck 5-325 Mg) 1 tab NOW ONCE PO ; Start 07/25/17 at 15:30; Stop 07/25/17 at 15:31; Status DC Cefazolin Sodium (Ancef Inj) 2,000 mg ONCE ONCE IV Last administered on at 15:17; Start 07/25/17 at 16:02; Stop 07/25/17 at 16:03; Status DC Oxycodone/ Acetaminophen (Percocet 5-325 Mg) 2 tab Q4H PRN PO PAIN SCALE 7 TO 10 Last administered on 07/26/17at 08:56; Start 07/25/17 at 16:30 Oxycodone/ Acetaminophen (Percocet 5-325 Mg) 1 tab Q4H PRN PO PAIN SCALE 4 TO 6; Start 07/25/17 at 16:30 Morphine Sulfate (Morphine Inj) 4 mg Q3H PRN IV PUSH BREAKTHROUGH PAIN Last administered on 07/29/17at 04:18; Start 07/25/17 at 16:30; Stop 07/29/17 at 15:10 ; Status DC Ciprofloxacin/ Dextrose 200 ml @ 200 mls/hr Q12H IV Last administered on at 06:44; Start 07/25/17 at 18:00; Stop 07/28/17 at 19:58; Status DC Ondansetron HCl (Zofran Inj) 4 mg Q6HR PRN IV PUSH NAUSEA OR VOMITING; Start at 16:30 Amlodipine Besylate (Norvasc) 5 mg DAILY PO Last administered on 07/26/17at 08:56 ; Start 07/26/17 at 09:00 Atorvastatin Calcium (Lipitor) 80 mg HS PO ; Start 07/25/17 at 21:00 Ferrous Sulfate (Ferrous Sulfate) 325 mg DAILY PO Last administered on at 08:56; Start 07/26/17 at 09:00 Nystatin (Mycostatin Liq) 5 ml QID SWISH-SWAL Last administered on 07/29/17at 22:09; Start 07/25/17 at 18:00 Fentanyl Citrate (fentaNYL INJ) 100 mcg STK-MED ONCE .ROUTE ; Start 07/25/17 at 16:40; Stop 07/25/17 at 16:41; Status DC Fentanyl Citrate (fentaNYL INJ) 300 mcg STK-MED ONCE .ROUTE ; Start 07/25/17 at 16:41; Stop 07/25/17 at 16:42; Status DC Midazolam HCl (Versed Inj) 2 mg STK-MED ONCE .ROUTE ; Start 07/25/17 at 16:41; Stop 07/25/17 at 16:42; Status DC Miscellaneous Information ALL NURSING DEPARTME... UNSCH PRN .XX SEE LABEL COMMENTS; Start 07/25/17 at 17:00; Stop 07/26/17 at 16:59; Status DC Morphine Sulfate (*morphine INJ PERIprocedure ONLY) 4 mg STK-MED ONCE .ROUTE Last administered on 07/25/17at 17:19; Start 07/25/17 at 17:19; Stop 07/25/17 at 17: 20; Status DC Morphine Sulfate (*morphine INJ PERIprocedure ONLY) 4 mg STK-MED ONCE .ROUTE Last administered on 07/25/17at 21:26; Start 07/25/17 at 21:26; Stop 07/25/17 at 21: 27; Status DC Lidocaine HCl (Xylocaine-Mpf 1% Inj) 5 ml STK-MED ONCE OTHER ; Start 07/25/17 at 12:00; Stop 07/26/17 at 15:14; Status DC Rocuronium [place] (Zemuron Inj) 50 mg STK-MED ONCE IV PUSH ; Start 07/25/17 at 12:00; Stop 07/26/17 at 15:14; Status DC Neostigmine Methylsulfate (Prostigmine Inj) 5 mg STK-MED ONCE IV PUSH ; Start at 12:00; Stop 07/26/17 at 15:14; Status DC Glycopyrrolate (Robinul Inj) 1 mg STK-MED ONCE IV PUSH ; Start 07/25/17 at 12:00 ; Stop 07/26/17 at 15:14; Status DC Phenylephrine HCl (Neosynephrine/ NS 1000 Mcg/10ml Syr) 1,000 mcg STK-MED ONCE IV ; Start 07/25/17 at 12:00; Stop 07/26/17 at 15:14; Status DC Ephedrine Sulfate (ePHEDrine/NS 25 MG/5 ML SYR) 25 mg STK-MED ONCE IV ; Start at 12:00; Stop 07/26/17 at 15:14; Status DC Esmolol HCl (Brevibloc Bolus Inj) 100 mg STK-MED ONCE IV ; Start 07/25/17 at 12: 00; Stop 07/26/17 at 15:14; Status DC Cefazolin Sodium (Ancef Inj) 1,000 mg STK-MED ONCE IV ; Start 07/25/17 at 12:00; Stop 07/26/17 at 15:14; Status DC Propofol (Diprivan 200 Mg/20 ml Inj) 200 mg STK-MED ONCE IV ; Start 07/25/17 at 12:00; Stop 07/26/17 at 15:14; Status DC Fluconazole (Diflucan) 100 mg DAILY PO Last administered on 07/27/17at 10:24; Start 07/26/17 at 17:15 Sodium Chloride 1,000 ml @ 70 mls/hr [id number] IV Last administered on at 17:49; Start 07/26/17 at 17:15 Pantoprazole Sodium (Protonix) 40 mg DAILY PO ; Start 07/27/17 at 09:00 Diatrizoate Meglum/ Diatrizoate Sod ( Gastromayda Liq) 18 ml ONCE ONCE PO Last administered on 07/27/17at 13:56; Start 07/27/17 at 11:45; Stop 07/27/17 at 11:46; Status DC Fentanyl (Duragesic 25 Mcg Patch.72 Hr) 1 patch Q3D T-DERMAL Last administered on 07/28/17at 19:58; Start 07/28/17 at 18:00 Miscellaneous Information 1 Q3D T-DERMAL ; Start 07/31/17 at 18:00 Lactated Ringer's 1,000 ml @ 30 mls/hr Q24H PRN IV SEE LABEL COMMENTS; Start at 04:15; Stop 08/01/17 at 04:14 Sodium Chloride 500 ml @ 30 mls/hr [id number] PRN IV SEE LABEL COMMENTS; Start 05/06 at 04:15; Stop 08/01/17 at 04:14 Povidone Iodine (Betadine 5% Antisepsis Kit) 1 applic BOILER/CHILLER OPERATOR PRN EACH NARE SEE LABEL COMMENTS; Start 07/29/17 at 04:15; Stop 08/01/17 at 04:14 Chlorhexidine Gluconate (Chlorhexidine 2% Cloth) 3 pack BOILER/CHILLER OPERATOR PRN TOPICAL SEE LABEL COMMENTS; Start 07/29/17 at 04:15; Stop 08/01/17 at 04:14 Morphine Sulfate (Morphine Inj) 2 mg Q3H PRN IV PUSH uncontrolled pain Last administered on 07/30/17at 08:54; Start 07/29/17 at 15:15 A/P Assessment and Plan 71-year-old male admitted under urology service Status post TURBT of Bladder tumor - with evacuation of blood clots 07/26 Urology following STILL HAS HEMATURIA Acute on top of chronic anemia. Patient symptomatic We'll transfuse 1 unit packed RBC and recheck H and H Continue iron supplement. Consult his oncologist Dr. eMtcalf. Oral thrush r/o [place] esophagitis Odynophagia History of GERD Continue on nystatin 5 cc 4 times a day.. Add Diflucan 100 mg by mouth daily.and adjust per creatinine GI consult to evaluate esophageal candidiasis continue on PPI- Will consult gastroenterology- NEEDS EGD ON SATURDAY- ESOPHAGITIS AND GASTRITIS ON EGD- PPI Will consult speech therapy for evaluation of his swallow Acute on chronic kidney insufficiency from obstructive uropathy. Slight increase in creatinine Gentle hydration with 1 L normal saline. Recheck BMP in a.m. SLOW IMPROVEMENT History of CAD, status post CABG, hypertension Continue amlodipine 5 mg daily. Continue statins. Bilateral teds SCDs Case management consult for home health care- And discharge needs. Discharge Planning Pending clearance by hematology and urology Allan Hanson DO Jul 30, 2017 10:43
[2017-07-30] MEDS ORDERED: PANT40TA3 PO (10:47)
[2017-07-30] MEDS ORDERED: DIFL100T PO (10:47)
[2017-07-30] MEDS ORDERED: NYST1000 SWISH-SWAL (10:47)
[2017-07-30] MEDS ORDERED: CYAN25005 PO (10:47)
[2017-07-30] MEDS ORDERED: FENT25T T-DERMAL (10:47)
[2017-07-30] MEDS ORDERED: HYDR-3516 PO (10:47)
[2017-07-30] MEDS ORDERED: FERR325T18 PO (10:47)
[2017-07-30] MEDS ORDERED: ATOR80TA45 PO (10:47)
[2017-07-30] MEDS ORDERED: AMLO5TAB2 PO (10:47)
--- NOTE | 2017-07-30 10:52 | HHI.FF ---
Face to Face Verification Diagnosis: (1) Bilateral hydronephrosis (2) Bladder cancer (3) UTI (urinary tract infection) (4) YASIR (acute kidney injury) (5) Anemia Physical Therapy Order: Evaluate and Treat, Improve ambulation, Strength and gait training Occupational Therapy Order: Evaluate and Treat, Improve ADL, Gross motor coordination, Fine motor coordination Home Health Nursing Order: Medical education Signs/symptoms of disease process Nursing assessment with vital signs Zhao catheter maintenance (NEPHROSTOMY TUBES MAITENACNE) Home Health Aide Order: To Assist In: Bathing and personal care, middle school history teacher and meal prep I have seen patient Jaime Lofton on 07/30/17. My clinical findings support the need for the requested home health care services because: Deconditioned w/ increased weakness Med compliance is questionable Limited ability to care for self Need for psychosocial assistance I certify that my clinical findings support that this patient is homebound because: Impaired cognitive ability/safety Allan Hanson DO Jul 30, 2017 10:52
[2017-07-30 12:11] VITALS: BP 145/66; PULSE 89; RESP 16; TEMP 98.5; O2SAT 96
[2017-07-30] MEDS ORDERED: WALKER WHEELS/F1 MIS (12:51)
--- NOTE | 2017-07-30 13:22 | HHI.GIFU ---
Subjective Remarks Pt resting in bed States still not eating because of dysphagia and he does not like the taste of the hospital food Continue abdominal pain Denies nausea, vomiting Colostomy- will not let me examine- but states decreased output due to iron supplementation Also with nephrostomy tube- will not let me examine this either (Alix Julio) Objective Vitals I&O Vital Signs Date Time Temp Pulse Resp B/P (MAP) Pulse Ox O2 Delivery O2 Flow Rate FiO2 07/30/17 12:11 98.5 89 16 145/66 (92) 96 07/30/17 08:36 98.7 91 16 162/73 (102) 96 07/30/17 05:43 98.1 92 20 160/69 (99) 96 07/30/17 01:00 97.9 84 20 143/66 (91) 96 07/29/17 22:04 98.1 93 20 149/67 (94) 96 07/29/17 16:00 98.1 94 18 148/67 (94) 98 I/O 07/29/17 07/29/17 07/29/17 07/30/17 07/30/17 07/30/17 06:59 14:59 22:59 06:59 14:59 22:59 Intake Total 1000 ml 150 ml Output Total 1450 ml 570 ml 700 ml Balance -450 ml 150 ml -570 ml -700 ml IV Total 1000 ml Other 150 ml Output Urine Total 120 ml 400 ml Drainage Total 1450 ml 450 ml 300 ml Imaging Last Impressions Head CT 07/27/17 0000 Signed Impressions: Service Date/Time: Friday, July 28, 2017 01:04 - CONCLUSION: No acute intracranial abnormality demonstrated. Chronic white matter changes are noted. Naldo Noble MD Chest CT 07/27/17 0000 Signed Impressions: Service Date/Time: Friday, July 28, 2017 01:07 - CONCLUSION: 1. Nonspecific right upper lobe pulmonary nodule. 2. Nonspecific left upper lobe focal consolidation, most likely infectious or inflammatory. 3. Small free flowing effusions and dependent/compressive atelectasis of both bases. 4. No lytic or sclerotic lesion or other acute abnormality seen of the visualized osseous structures. Naldo Noble MD Abdomen/Pelvis CT 07/27/17 0000 Signed Impressions: Service Date/Time: [place], July 28, 2017 01:07 - CONCLUSION: 1. Increased mass like fullness in the region of the rectum and posterior bladder. 2. An apparent abscess anteriorly in the right lower quadrant. Etiology of this is uncertain. 3. Apparent ileus. No definite obstruction. Left lower quadrant colostomy again seen. 4. Bilateral percutaneous nephrostomy tubes with resolution of previously seen hydronephrosis. 5. Ascites and body wall edema/anasarca have developed. 6. The chronic fluid collection in the right ischiorectal fossa is unchanged and most likely a postoperative seroma. Naldo Noble MD Physical Exam HEENT: Normocephalic; atraumatic CHEST: Even/unlabored CARDIAC: RRR ABDOMEN: Soft, nondistended, diffuse abdominal tenderness, bowel sounds active , colostomy (will not let me examine), nephrostomy (will not let me examine) EXTREMITIES: No clubbing, cyanosis, or edema. SKIN: Normal; no rash; no jaundice. TIMBER FALLER: No focal deficits; alert and oriented times three. (Alix Julio [facility]) Assessment and Plan Plan Dysphagia- X one week- Today not able to swallow solids and pills, hasn't been taking Diflucan, possible valente esophagitis Followed by ST who recommended Puree diet and thin liquids - GERD- Protonix - Possible cancer with mets- CT on 07/27/17 showed increased mass like fullness in the region o the rectum and posterior bladder, Ascites and body wall edema have developed, Abscess in RLQ and ileus - Abscess in RLQ on CT- Consider IR consult - Possible ileus on Ct- no obstruction - Anemia- no bleeding reported, possibly due to cancer process - bladder mass status post Status post TURBT with evacuation of blood clots , bx pending - Hx of rectal cancer s/p colostomy - History of CAD, status post CABG, hypertension per attending (07/30) --> Pt with continued abdominal pain, diffuse tender to palpation. Reports is still not eating, due to dysphagia and does not like the taste of hospital food. S/P EGD yesterday --> Class A esophagitis, food residue in the gastric body, acute gastritis in the gastric fundus and cardia, multiple biopsies, normal duodenal mucosa in the bulb and second portion of the duodenum. Recommended PPI and colonoscopy, pt refusing. Planned for DC today, he needs to follow up outpatient. Plan: - Diet per ST recommendations - Colonoscopy outpatient - Protonix - GI will sign off, please reconsult as needed - Have pt follow up with GI 1-2 weeks after discharge Pt has been seen and examined by myself and Dr. Londono and this note is written on his behalf (Alix Julio) Physician Comments Agree with above assessment and plan. Please notify us if needed again. (Castro Londono MD) Alix Julio Jul 30, 2017 13:22 Castro Londono MD Jul 30, 2017 13:46
[2017-07-31] MEDS ORDERED: REMOVE OLD PATCH T-DERMAL SCH (18:00)
[2017-08-01] MEDS ORDERED: FENT25T TOPICAL (11:44)
== END 2017-07-30 14:40 | disposition home health service (06) ==
LOC: HSDC 10:56 → HSDI 16:29 → HPAC 22:50 → N05A 07-26 13:08
PROVIDERS: ADMIT Urology; ATTEND Urology
DX: C67.9 Malignant neoplasm of bladder, unspecified (principal); N13.30 Unspecified hydronephrosis; B37.0 Candidal stomatitis; I25.10 Atherosclerotic heart disease of native coronary artery without angina pectoris; I12.9 Hypertensive chronic kidney disease with stage 1 through stage 4 chronic kidney disease, or unspecified chronic kidney disease; N18.9 Chronic kidney disease, unspecified; D63.1 Anemia in chronic kidney disease; K29.50 Unspecified chronic gastritis without bleeding; E78.5 Hyperlipidemia, unspecified; I25.2 Old myocardial infarction; K29.00 Acute gastritis without bleeding; N17.9 Acute kidney failure, unspecified; R13.10 Dysphagia, unspecified; R53.83 Other fatigue; R18.8 Other ascites; R91.1 Solitary pulmonary nodule; K56.7 Ileus, unspecified; K21.0 Gastro-esophageal reflux disease with esophagitis; F17.200 Nicotine dependence, unspecified, uncomplicated; Z95.1 Presence of aortocoronary bypass graft; Z85.048 Personal history of other malignant neoplasm of rectum, rectosigmoid junction, and anus; Z86.718 Personal history of other venous thrombosis and embolism; Z92.3 Personal history of irradiation
CPT/HCPCS: 00731; 00912; 36430; 43239; 52240; 70450; 71250; 74176; 80048; 80053; 82728; 83036; 83540; 83550; 83735; 84100; 84439; 84443; 85025; 85027; 86850; 86900; 86901; 86920; 88305; 88307; 88312; 92526; 92610; 94150; 97116; 97161; 97166; 97530; G0378; G8987; G8988; G8996; G8997; G8998; J0690; J0744; J2250; J2270; J2370; J2710; J3010; J7030; P9016; Q9963

== ENCOUNTER 2017-08-08 08:15 | Day surgery (SDC) | payer OTHER ==
[~2017-08-08] VITALS: Ht 170.2 cm; Wt 50.5 kg
[~2017-08-08 08:15] MED LIST changes: -AMLO10TA2 PO; +AMLO5TAB2 PO; +DIFL100T PO; +FENT25T TOPICAL; +PANT40TA3 PO; +WALKER WHEELS/F1 MIS
[2017-08-08] MEDS ORDERED: IOHEXOL 350 MG/ML 50 ML BTL (for RAD DIAG) OTHER ONE (08:16)
[2017-08-08 08:39] VITALS: BP 137/68; PULSE 107; RESP 20; TEMP 97.5; O2SAT 97
[2017-08-08] MEDS ORDERED: LEVOFLOXACIN 500 MG PREMIX 100 ML - nephrostomy tube insertion or exchange IV SCH (08:45)
[2017-08-08] MEDS ORDERED: SODIUM CHLORIDE 0.9% 1000 ML IV SCH (08:45)
[2017-08-08] MEDS ORDERED: fentaNYL CITRATE 250 MCG/5 ML AMP ONE (09:56)
[2017-08-08] MEDS ORDERED: MIDAZOLAM HCL 2 MG/2 ML VIAL ONE (09:56)
--- NOTE | 2017-08-08 10:29 | PD.RAD ---
Post Procedure Progress Note Pre Procedure Diagnosis: (1) Bladder cancer Post Procedure Diagnosis: (1) Bladder cancer Procedure Date: Aug 08, 2017 Supervising Radiologist: Danish Valentin Estimated blood loss: none Anesthesia: Conscious Sedation Plan of Activity Patient to Unit: ROPU Patient Condition: Good Additional Comments: Bilateral nephrostomy tubes changed without difficulty. New tubes in good position Full dictated report to follow See PACS Report for procedural detail/treatment Danish Valentin MD Aug 08, 2017 10:29
[2017-08-08 10:35] VITALS: BP 113/62; PULSE 93; RESP 20; TEMP 98.3; O2SAT 97
[2017-08-08 11:00] VITALS: BP 113/76; PULSE 84; RESP 20; O2SAT 97
[2017-08-08 11:15] VITALS: BP 122/66; PULSE 83; RESP 20; O2SAT 93
[2017-08-08 11:45] VITALS: BP 122/67; PULSE 18; RESP 18; O2SAT 93
[2017-08-08 12:15] VITALS: BP 137/68; PULSE 18; RESP 18; O2SAT 96
--- NOTE | 2017-08-08 15:36 | RADRPT ---
EXAM DATE/TIME: 08/08/2017 10:05 [facility] COMPARISON: ANTEGRADE PYELOGRAM, LEFT, May 03, 2017, 15:59. INDICATIONS : Patient presents with hydronephrosis and bladder mass in need of bilateral nephrostomy tube exchanges . MEDICAL HISTORY : HTN HYPERLIPIDEMIA CAD CKD STAGE III ANEMIA COLORECTAL CA S/P COLOSTOMY AND BLADDER CA SURGICAL HISTORY : COLOSTOMY CARDIAC STENT CABG BILAT NEPHS ENCOUNTER: Subsequent ACUITY: 1 week PAIN SCORE: 10/10 LOCATION: Bilateral lower quadrant FLUORO TIME: 1.9 minutes IMAGE SERIES: 2 SEDATION TIME: 30 minutes CONTRAST: 20 cc Omnipaque (iohexol) 350 MEDICATION(S): 1.) 1.5 mg midazolam (Versed) IV 2.) 100 mcg fentanyl (Sublimaze) IV DEVICE(S): 1.) 10 Filipino 25CM EXPEL nephrostomy catheter PROCEDURE : 1. Antegrade pyelogram. 2. Nephrostomy tube exchange. 3. Conscious sedation with continuous EKG and oximetry monitoring. The risks, benefits and alternatives to the procedure were explained and verbal and written consent w as obtained. The site was prepped in sterile fashion. Full sterile technique was used, including ca p, mask, sterile gloves and gown and a large sterile sheet. Hand hygiene and 2% chlorhexidine and/or betadine/alcohol prep was utilized per protocol for cutaneous antisepsis. The skin and subcutaneous tissues were infiltrated with local anesthetic solution. With fluoroscopic guidance antegrade pyelo gram was performed. Antegrade mammogram demonstrated the collecting system to be normal in caliber. There is mild dilatio n of the right ureter. No drainage of the bladder was evident. Over a guidewire the prescribed nephrostomy tube was placed. Injection of positive contrast demonstra chani good position of the catheter within the collecting system. Conscious sedation was performed with the prescribed dosages and duration as above in the presence of an independent trained radiology nurse to assist in the monitoring of the patient. EKG and oximetry remained stable throughout the procedure. The patient tolerated the procedure well and there were n o complications. The patient was sent to post anesthesia recovery in stable condition. CONCLUSION: Uncomplicated nephrostomy tube exchange as above. Danish Valentin MD on August 08, 2017 at 15:34 Board Certified Radiologist. This report was verified electronically.
--- NOTE | 2017-08-08 15:37 | RADRPT ---
EXAM DATE/TIME: 08/08/2017 10:05 [facility] COMPARISON: ANTEGRADE PYELOGRAM, LEFT, May 03, 2017, 15:59. INDICATIONS : Patient presents with hydronephrosis and bladder mass in need of bilateral nephrostomy tube exchanges . MEDICAL HISTORY : HTN HYPERLIPIDEMIA CAD CKD STAGE III ANEMIA COLORECTAL CA S/P COLOSTOMY AND BLADDER CA SURGICAL HISTORY : COLOSTOMY CARDIAC STENT CABG BILAT NEPHS ENCOUNTER: Subsequent ACUITY: 1 week PAIN SCORE: 10/10 LOCATION: Bilateral lower quadrant FLUORO TIME: 1.9 minutes IMAGE SERIES: 2 SEDATION TIME: 30 minutes CONTRAST: 20 cc Omnipaque (iohexol) 350 MEDICATION(S): 1.) 1.5 mg midazolam (Versed) IV 2.) 100 mcg fentanyl (Sublimaze) IV DEVICE(S): 1.) 10 [place] 25 CM EXPEL nephrostomy catheter PROCEDURE : 1. Antegrade pyelogram. 2. Nephrostomy tube exchange. 3. Conscious sedation with continuous EKG and oximetry monitoring. The risks, benefits and alternatives to the procedure were explained and verbal and written consent w as obtained. The site was prepped in sterile fashion. Full sterile technique was used, including ca p, mask, sterile gloves and gown and a large sterile sheet. Hand hygiene and 2% chlorhexidine and/or betadine/alcohol prep was utilized per protocol for cutaneous antisepsis. The skin and subcutaneous tissues were infiltrated with local anesthetic solution. With fluoroscopic guidance antegrade pyelo gram was performed. Antegrade pyelogram demonstrated the collecting system to be normal in caliber. The left ureter was m ildly dilated. No drainage of the bladder was identified. Over a guidewire the prescribed nephrostomy tube was placed. Injection of positive contrast demonstra chani good position of the catheter within the collecting system. Conscious sedation was performed with the prescribed dosages and duration as above in the presence of an independent trained radiology nurse to assist in the monitoring of the patient. EKG and oximetry remained stable throughout the procedure. The patient tolerated the procedure well and there were n o complications. The patient was sent to post anesthesia recovery in stable condition. CONCLUSION: Uncomplicated nephrostomy tube exchange as above. Danish Valentin MD on August 08, 2017 at 15:34 Board Certified Radiologist. This report was verified electronically.
== END 2017-08-08 12:35 | disposition home or self-care (01) ==
LOC: HROP 08:15 → HRIP 08:18 → HROP 12:35
PROVIDERS: ATTEND Urology
DX: Z43.6 Encounter for attention to other artificial openings of urinary tract (principal); N13.30 Unspecified hydronephrosis; I12.9 Hypertensive chronic kidney disease with stage 1 through stage 4 chronic kidney disease, or unspecified chronic kidney disease; N18.3 Chronic kidney disease, stage 3 (moderate); D63.1 Anemia in chronic kidney disease; I25.10 Atherosclerotic heart disease of native coronary artery without angina pectoris; E78.5 Hyperlipidemia, unspecified; C67.9 Malignant neoplasm of bladder, unspecified; Z95.1 Presence of aortocoronary bypass graft; Z95.5 Presence of coronary angioplasty implant and graft
CPT/HCPCS: 50435; 99152; 99153; C1729; C1769; J1956; J2250; J3010; J7030; Q9967

== ENCOUNTER 2017-08-10 09:09 | Emergency (ER) | payer OTHER ==
[~2017-08-10] VITALS: Ht 170.2 cm; Wt 50.5 kg
[2017-08-10] VITALS (8 sets, daily range): BP systolic 98–167; BP diastolic 52–72; PULSE 75–101; RESP 15–19; TEMP 97.6; O2SAT 98–100
[~2017-08-10 09:09] MED LIST changes: -FERR325T18 PO; -PANT40TA3 PO
--- NOTE | 2017-08-10 10:28 | PD ---
HPI Chief Complaint: Abnormal Results Time Seen by Provider: 10:24 Travel History International Travel<30 days: No Contact w/Intl Traveler<30days: No Traveled to known affect area: No History of Present Illness HPI 71-year-old male patient with history of bladder cancer, has bilateral nephrostomy tubes placed last week by interventional radiology, comes to the ER today because he states that last night he noticed that his left nephrostomy tube area was leaking. He denies any other issues. Modifying Factors: None Associated Signs & Symptoms: Leaking from left-sided nephrostomy site Risk Factors: Bladder cancer PFSH Past Medical History Hx Anticoagulant Therapy: No Anemia: Yes Arthritis: Yes Asthma: No Autoimmune Disease: No Blood Disorders: Yes Heart Rhythm Problems: No Cancer: Yes (rectal cancer 1992,) Cardiac Catheterization: Yes Cardiovascular Problems: Yes High Cholesterol: Yes Chemotherapy: Yes Chest Pain: No Congestive Heart Failure: No COPD: No Cerebrovascular Accident: Yes Coronary Artery Disease: Yes Diabetes: No Diminished Hearing: No Endocrine: No Gastrointestinal Disorders: Yes GERD: Yes Genitourinary: Yes (Bladder mass, BLADDER BLEEDING AND RETENTION ) Headaches: No Hepatitis: No Hiatal Hernia: No Hypertension: Yes Immune Disorder: No Implanted Vascular Access Dvce: No Kidney Stones: No Musculoskeletal: No (OA) Neurologic: No Psychiatric: No Reproductive: No Respiratory: No Immunizations Current: No Migraines: No Myocardial Infarction: Yes Radiation Therapy: Yes (Last 2006) Renal Failure: Yes (Stage 4) Seizures: No Sleep Apnea: No Thyroid Disease: No Ulcer: No Past Surgical History Abdominal Surgery: Yes (Colostomy LLQ 1992 from rectal cancer) AICD: No Arteriovenous Shunt: No Body Medical Devices: COLOSTOMY, CARDIAC STENTS Cardiac Surgery: Yes (double bypass in 1990, 5 stents placed) Coronary Artery Bypass Graft: Yes (Two vessel ) Coronary Stent: Yes (5) Ear Surgery: No Endocrine Surgery: No Eye Surgery: No Genitourinary Surgery: Yes (BL nephrostomy tubes) Gynecologic Surgery: No Insulin Pump: No Joint Replacement: No Neurologic Surgery: No Oral Surgery: No Pacemaker: No Thoracic Surgery: No Other Surgery: Yes Social History Alcohol Use: No (Quit) Tobacco Use: Yes (2 PPD) Substance Use: No Allergies-Medications (Allergen,Severity, Reaction): Coded Allergies: No Known Allergies (Verified Allergy, Unknown, 3/24/18) Reported Meds & Prescriptions Reported Meds & Active Scripts Active Duragesic (Fentanyl) 25 Mcg/Hour Patch.td72 1 Patch TOPICAL Q72H Walker with Front Wheels (Device) 1 Mis Mis Ea .XX DIRECTED Amlodipine (Amlodipine Besylate) 5 Mg Tab 5 Mg PO DAILY Diflucan (Fluconazole) 100 Mg Tab 100 Mg PO DAILY Nystatin Liq 100,000 unit/ml Susp 5 Ml SWISH-SWAL QID Hydrocodone-Acetamin 5-325 mg (Hydrocodone/Acetaminophen) 5 Mg-325 Mg Tablet 1 Tab PO Q4H PRN Vitamin B12 (Cyanocobalamin (Vitamin B-12)) 2,500 Mcg Tab.chew 1,000 Tab PO DAILY Atorvastatin (Atorvastatin Calcium) 80 Mg Tab 80 Mg PO HS Review of Systems Except as stated in HPI: all other systems reviewed are Neg Physical Exam Narrative GENERAL: Pleasant elderly male patient currently and no acute distress. Awake and oriented 3. SKIN: Focused skin assessment warm/dry. HEAD: Atraumatic. Normocephalic. EYES: Pupils equal and round. No scleral icterus. No injection or drainage. ENT: No nasal bleeding or discharge. Mucous membranes pink and moist. NECK: Trachea midline. No JVD. CARDIOVASCULAR: Regular rate and rhythm. No murmur appreciated. RESPIRATORY: No accessory muscle use. Clear to auscultation. Breath sounds equal bilaterally. GASTROINTESTINAL: Abdomen soft, non-tender, nondistended. Hepatic and splenic margins not palpable. BACK: No CVA tenderness. No rash. No point tenderness on palpation of the spine. Left-sided nephrostomy tube was noted to have pulled out and within the bandage. MUSCULOSKELETAL: No obvious deformities. No clubbing. No cyanosis. No edema. NEUROLOGICAL: Awake and alert. No obvious cranial nerve deficits. Motor grossly within normal limits. Normal speech. PSYCHIATRIC: Appropriate mood and affect; insight and judgment normal. Data Data Last Documented VS Vital Signs Date Time Temp Pulse Resp B/P (MAP) Pulse Ox O2 Delivery O2 Flow Rate FiO2 08/10/17 16:37 75 18 113/59 (77) 100 Room Air 08/10/17 09:23 97.6 Orders Orders Complete Blood Count With Diff (08/10/17 13:14) Basic Metabolic Panel (Bmp) (08/10/17 13:14) Prothrombin Time / Inr (Pt) (08/10/17 13:14) Act Partial Throm Time (Ptt) (08/10/17 13:14) Electrocardiogram (08/10/17 15:04) Potassium, Serum (K) (08/10/17 15:04) Fentanyl Inj (Fentanyl Inj) (08/10/17 15:17) Midazolam Inj (Versed Inj) (08/10/17 15:17) Levofloxacin 500 Mg Premix Inj (Levaquin (08/10/17 15:17) Fentanyl Inj (Fentanyl Inj) (08/10/17 15:34) Midazolam Inj (Versed Inj) (08/10/17 15:34) Vital Signs (Adult) Q15MX2,Q30MX2 (08/10/17 15:49) Intake + Output MAIDA.QSHIFT (08/10/17 15:49) ^ Drain (08/10/17 15:49) ^ Tubes (08/10/17 15:49) Change Dressing (08/10/17 15:49) Notify Radiology (08/10/17 15:49) Nephrostomy (08/10/17 ) Percutaneous Ant. Pyelogram (08/10/17 ) Us Guided Needle Placement (08/10/17 ) Iohexol 350 Inj (Omnipaque 350 Inj) (08/10/17 15:30) Acetamin-Hydrocod 325-5 Mg ([place] 5-325 (08/10/17 17:15) Labs Laboratory Tests Test 08/10/17 13:50 08/10/17 16:38 White Blood Count 15.2 TH/MM3 Red Blood Count 3.10 MIL/MM3 Hemoglobin 9.8 GM/DL Hematocrit 29.0 % Mean Corpuscular Volume 93.4 FL Mean Corpuscular Hemoglobin 31.6 PG Mean Corpuscular Hemoglobin Concent 33.8 % Red Cell Distribution Width 18.4 % Platelet Count 532 TH/MM3 Mean Platelet Volume 7.3 FL Neutrophils (%) (Auto) 86.7 % Lymphocytes (%) (Auto) 6.2 % Monocytes (%) (Auto) 5.3 % Eosinophils (%) (Auto) 1.3 % Basophils (%) (Auto) 0.5 % Neutrophils # (Auto) 13.2 TH/MM3 Lymphocytes # (Auto) 0.9 TH/MM3 Monocytes # (Auto) 0.8 TH/MM3 Eosinophils # (Auto) 0.2 TH/MM3 Basophils # (Auto) 0.1 TH/MM3 CBC Comment DIFF FINAL Differential Comment Prothrombin Time 10.4 SEC Prothromb Time International Ratio 1.0 RATIO Activated Partial Thromboplast Time 29.0 SEC Blood Urea Nitrogen 44 MG/DL Creatinine 3.70 MG/DL Random Glucose 89 MG/DL Calcium Level 9.2 MG/DL Sodium Level 134 MEQ/L Potassium Level 6.0 MEQ/L 5.1 MEQ/L Chloride Level 98 MEQ/L Carbon Dioxide Level 26.3 MEQ/L Anion Gap 10 MEQ/L Estimat Glomerular Filtration Rate 16 ML/MIN [facility] Medical Decision Making Medical Screen Exam Complete: Yes Emergency Medical Condition: Yes Medical Record Reviewed: Yes Interpretation(s) Laboratory Tests Test 08/10/17 13:50 White Blood Count 15.2 TH/MM3 (4.0-11.0) Red Blood Count 3.10 MIL/MM3 (4.50-5.90) Hemoglobin 9.8 GM/DL (13.0-17.0) Hematocrit 29.0 % (39.0-51.0) Red Cell Distribution Width 18.4 % (11.6-17.2) Platelet Count 532 TH/MM3 (150-450) Neutrophils (%) (Auto) 86.7 % (16.0-70.0) Lymphocytes (%) (Auto) 6.2 % (9.0-44.0) Neutrophils # (Auto) 13.2 TH/MM3 (1.8-7.7) Lymphocytes # (Auto) 0.9 TH/MM3 (1.0-4.8) Blood Urea Nitrogen 44 MG/DL (7-18) Creatinine 3.70 MG/DL (0.60-1.30) Sodium Level 134 MEQ/L (136-145) Potassium Level 6.0 MEQ/L (3.5-5.1) Estimat Glomerular Filtration Rate 16 ML/MIN (>89) Differential Diagnosis Left-sided nephrostomy tube pulled out Narrative Course Nephrostomy tube was replaced by Dr. Ramires, under conscious sedation, patient was observed in the ER for several hours until completely sober as per direction by interventional radiology. Lab work shows elevated BUN and creatinine, this appears to be baseline for the patient. However, his potassium is elevated. A repeat potassium was done which was 5.1. EKG did not show any signs of T-wave abnormalities related to potassium elevation. At this point, patient is doing well in the ER and actually requested more pain medication because he was having more pain related to his usual bladder cancer issues. My plan would be to release him at this point and have him follow-up with his physicians. Return for new issues as needed. The plan has been discussed with him he states understanding. Diagnosis Primary Impression: Nephrostomy tube displaced Disposition: 01 DISCHARGE HOME Condition: Stable SoonMelody parker MD Aug 10, 2017 10:28
[2017-08-10 14:25] LABS: AUTOMATED NEUTROPHIL # 13.2 TH/MM3 (1.8-7.7); BASOPHIL # 0.1 TH/MM3 (0-0.2); BASOPHIL % 0.5 % (0.0-2.0); EOSINOPHIL # 0.2 TH/MM3 (0-0.4); EOSINOPHIL % 1.3 % (0.0-4.0); HEMOGLOBIN 9.8 GM/DL (13.0-17.0); LYMPH % 6.2 % (9.0-44.0); LYMPHOCYTE # 0.9 TH/MM3 (1.0-4.8); MEAN CELL VOLUME 93.4 FL (80.0-100.0); MEAN CORPUSCULAR HEMOGLOBIN 31.6 PG (27.0-34.0); MEAN CORPUSCULAR HGB CONC 33.8 % (32.0-36.0); MEAN PLATELET VOLUME 7.3 FL (7.0-11.0); MONO % 5.3 % (0.0-8.0); MONOCYTE # 0.8 TH/MM3 (0-0.9); NEUT % 86.7 % (16.0-70.0); PLATELET COUNT 532 TH/MM3 (150-450); RED CELL DISTRIBUTION WIDTH 18.4 % (11.6-17.2); WHITE BLOOD COUNT 15.2 TH/MM3 (4.0-11.0)
[2017-08-10 14:31] LABS: PROTHROMBIN TIME - PATIENT 10.4 SEC (9.8-11.6)
[2017-08-10 14:48] LABS: CALCIUM 9.2 MG/DL (8.5-10.1); CREATININE 3.7 MG/DL (0.60-1.30)
[2017-08-10 14:49] LABS: BICARBONATE 26.3 MEQ/L (21.0-32.0)
[2017-08-10] MEDS ORDERED: MIDAZOLAM HCL 2 MG/2 ML VIAL ONE ×2 (15:17→15:34)
[2017-08-10] MEDS ORDERED: LEVOFLOXACIN 500 MG PREMIX INJ 100 ML IV ONE (15:17)
[2017-08-10] MEDS ORDERED: IOHEXOL 350 MG/ML 50 ML BTL (for RAD DIAG) OTHER ONE (15:30)
--- NOTE | 2017-08-10 15:51 | PD.RAD ---
Post Procedure Progress Note Pre Procedure Diagnosis: (1) Bladder cancer Post Procedure Diagnosis: (1) Bladder cancer Procedure Date: Aug 10, 2017 Supervising Radiologist: Eric Ramires Proceduralist/Assist: Caren Miranda, RT(R)(), Cece Rodriguez RT(R)(CV) Anesthesia: Conscious Sedation Plan of Activity Patient to Unit: Nursing Unit Patient Condition: Good See PACS Report for procedural detail/treatment Drainage Procedure Procedure 1 Imaging Guidance: Fluoroscopy Side: Left Procedure Type: Nephrostomy Procedure: Placement Divehi: 10 (replaced nephrostomy) Eric Ramires MD Aug 10, 2017 15:51
[2017-08-10] MEDS ORDERED: ACETAMINOPHEN/HYDROcodone 325 MG/5 MG TAB PO ONE (17:15)
--- NOTE | 2017-08-11 19:49 | EKG ---
Date Performed: 08/10/2017 Time Performed: 16:21:20 PTAGE: 71 years EKG: Sinus rhythm POSSIBLE LEFT ATRIAL ENLARGEMENT SEPTAL MYOCARDIAL INFARCTION3 Since the previous tracing, no signif icant change noted ABNORMAL ECG PREVIOUS TRACING : 04/19/2017 18.27 DOCTOR: Monique Matos Interpretating Date/Time 08/11/2017 19:46:46
--- NOTE | 2017-08-15 11:24 | RADRPT ---
EXAM DATE/TIME: 08/10/2017 14:26 [facility] COMPARISON: NEPHROSTOMY, LEFT, April 22, 2017, 13:14. INDICATIONS : Patient with a bladder mass, pulled nephrostomy tube out over night, needs replaced MEDICAL HISTORY : HTN HYPERLIPIDEMIA CAD CKD STAGE III ANEMIA COLORECTAL CA S/P COLOSTOMY AND BLADDER CA SURGICAL HISTORY : COLOSTOMY CARDIAC STENT CABG BILAT NEPHS ENCOUNTER: Subsequent ACUITY: 1 day PAIN SCORE: 0/10 FLUORO TIME: 1.8 minutes IMAGE SERIES: 2 SEDATION TIME: 30 minutes CONTRAST: 10 cc Omnipaque (iohexol) 350 MEDICATION(S): 1.) 2.5 mg midazolam (Versed) IV 2.) 125 mcg fentanyl (Sublimaze) IV 3.) 500 mg levofloxacin (Levaquin) IV Intra-procedural antibiotics were given as prescribed above. DEVICE(S): 1.) 10 Thai Expel nephrostomy catheter PROCEDURE : 1. Ultrasound-guided puncture of the kidney. 2. Antegrade percutaneous pyelogram. 3. Percutaneous nephrostomy placement. 4. Conscious sedation with continuous EKG and oximetry monitoring. The risks, benefits and alternatives to the procedure were explained and verbal and written consent w as obtained. The site was prepped in sterile fashion. Full sterile technique was used, including ca p, mask, sterile gloves and gown and a large sterile sheet. Hand hygiene and 2% chlorhexidine and/or betadine/alcohol prep was utilized per protocol for cutaneous antisepsis. Sterile gel and sterile probe cover were utilized for ultrasound guidance. The skin and subcutaneous tissues were infiltrate d with local anesthetic solution. With ultrasound and fluoroscopic guidance the selected kidney was punctured and a percutaneous antegr liana pyelogram was performed demonstrating a dilated collecting system. Serial dilatation was perform ed and a prescribed nephrostomy tube was placed within the renal pelvis and sutured in place. The radiographs demonstrate hydronephrosis to the level of ureterovesical junction. Conscious sedation was performed with the prescribed dosages and duration as above in the presence of an independent trained radiology nurse to assist in the monitoring of the patient. EKG and oximetry remained stable throughout the procedure. The patient tolerated the procedure well and there were n o complications. The patient was sent to post anesthesia recovery in stable condition. CONCLUSION: Uncomplicated nephrostomy tube placement as above. Eric Ramires MD on August 15, 2017 at 11:20 Board Certified Radiologist. This report was verified electronically.
== END 2017-08-10 18:12 | disposition home or self-care (01) ==
LOC: NEPC 09:09
DX: T83.022A Displacement of nephrostomy catheter, initial encounter (principal); Z46.82 Encounter for fitting and adjustment of non-vascular catheter; R94.31 Abnormal electrocardiogram [ECG] [EKG]; I12.9 Hypertensive chronic kidney disease with stage 1 through stage 4 chronic kidney disease, or unspecified chronic kidney disease; E78.5 Hyperlipidemia, unspecified; M19.90 Unspecified osteoarthritis, unspecified site; D64.9 Anemia, unspecified; I25.2 Old myocardial infarction; I25.10 Atherosclerotic heart disease of native coronary artery without angina pectoris; Z86.73 Personal history of transient ischemic attack (TIA), and cerebral infarction without residual deficits; Z85.51 Personal history of malignant neoplasm of bladder
CPT/HCPCS: 50432; 80048; 84132; 85025; 85610; 85730; 93005; 96365; 99152; 99153; 99285; C1729; C1769; C1894; J1956; J2250; J3010; Q9967